=== PATIENT | male | born 1930 | race Asian ===

== ENCOUNTER 2019-10-13 12:29 | Inpatient (IN) | payer MEDICARE, MEDICAID ==
[2019-10-13] VITALS (17 sets, daily range): BP systolic 70–131; BP diastolic 31–90
[~2019-10-13] VITALS: Ht 162.6 cm; Wt 61.2 kg
--- NOTE | 2019-10-13 13:53 | Diagnostic Imaging Report ---
Indication: Shortness of breath Technique: One view of the chest Comparison: none Findings: Inspiration is suboptimal. The lungs and pleural spaces are clear. Heart size is normal Impression: No acute process
[2019-10-13] MEDS ORDERED: Acetaminophen 650 MG SUPP RECTAL ONE ×2 (14:04→14:15)
[2019-10-13 14:07] LABS: APPEARANCE,URINE SLIGHTLY CLOUDY; BILIRUBIN, URINE NEGATIVE (NEGATIVE); GLUCOSE, URINE (UA) NEGATIVE (NEGATIVE); KETONES,URINE 1+ (NEGATIVE); LEUKOCYTE ESTERASE ,URINE 3+ (NEGATIVE); NITRITE,URINE NEGATIVE (NEGATIVE); PH,URINE 5 (4.5-8.0); PROTEIN,URINE 2+ (NEGATIVE); UROBILINOGEN,URINE NORMAL MG/DL (0.0-1.0)
[2019-10-13 14:15] LABS: COLOR,URINE YELLOW; HEMATOCRIT 36.8 % (42.0-52.0); MEAN CORPUSCULAR VOLUME 93 FL (80-99); PLATELET COUNT 122 K/UL (150-450); RED BLOOD COUNT 3.98 M/UL (4.70-6.10); RED CELL DISTRIBUTION WIDTH 12.3 % (11.6-14.8)
[2019-10-13 14:17] LABS: ANION GAP 18 mmol/L (5-15); BLOOD UREA NITROGEN 42 mg/dL (7-18); CALCIUM 9.3 MG/DL (8.5-10.1); CARBON DIOXIDE 19 MMOL/L (21-32); CHLORIDE 107 MMOL/L (98-107); SODIUM 144 MMOL/L (136-145)
[2019-10-13 14:23] LABS: WHITE BLOOD COUNT 23.3 K/UL (4.8-10.8)
[2019-10-13 14:30] LABS: ALANINE AMINOTRANSFERASE 19 U/L (12-78); ALBUMIN 3.3 G/DL (3.4-5.0); ALBUMIN/GLOBULIN RATIO 1.1 (1.0-2.7); ALKALINE PHOSPHATASE 59 U/L (46-116); ASPARTATE AMINO TRANSFERASE 20 U/L (15-37); BILIRUBIN,DIRECT 0.3 MG/DL (0.0-0.3); BILIRUBIN,TOTAL 1.1 MG/DL (0.2-1.0); CKMB 0.8 NG/ML (0.0-3.6); CREATINE KINASE 213 U/L (26-308)
[2019-10-13] MEDS ORDERED: cefTRIAXone 1 GM in NS 55 ML IVPB ONE (14:30)
--- NOTE | 2019-10-13 15:02 | Emergency Room Report ---
History of Present Illness General Chief Complaint: General Complaint Source: EMS (Sammy Shafer M.D.) Present Illness HPI 89-year-old male disclaimer: Please note that this report is being documented using [employer] technology. This can lead to erroneous entry secondary to incorrect interpretation by the dictating instrument. HPI: 89-year-old male history of dementia presented from home for hypotension. Apparently family checked patient's blood pressure was low, EMS was called. Family reports dementia at baseline. No reported cough or shortness of breath. No further history obtainable due to patient's baseline altered mental status. PMH: Dementia PSH: Reviewed Social Hx: Unknown (Sammy Shafer M.D.) Allergies: Coded Allergies: No Known Allergies (Unverified , 10/13/19) COVID-19 Screening Contact w/high risk pt: No Recent Travel to affected area: No Experienced COVID-19 symptoms?: Yes COVID-19 symptoms experienced: Fever (T>100.4F or >38C) (Sammy Shafer M.D.) Patient History Reviewed Nursing Documentation: PMH: Agreed; PSxH: Agreed (Sammy Shafer M.D.) Nursing Documentation-PMH History Of Psychiatric Problem: Yes - DEMENTIA (Sammy Shafer M.D.) Review of Systems All Other Systems: limited - Limited due to patient's history of dementia (Sammy Shafer M.D.) Physical Exam Vital Signs Date Time Temp Pulse Resp B/P (MAP) Pulse Ox O2 Delivery O2 Flow Rate FiO2 10/13/19 12:17 100.0 88 18 70/40 (50) Room Air Sp02 EP Interpretation: reviewed, normal General Appearance: other - Elderly-appearing, Chronically Ill Head: normocephalic, atraumatic Eyes: bilateral eye PERRL, bilateral eye EOMI ENT: hearing grossly normal, moist mucus membranes Neck: full range of motion, supple Respiratory: lungs clear, normal breath sounds, no rhonchi, no respiratory distress, no retraction, no wheezing Cardiovascular #1: normal peripheral pulses, regular rate, rhythm, no murmur Gastrointestinal: non tender, soft, non-distended, no guarding Neurologic: alert, no focal defects, other - Alert and oriented x2, no focal neurologic deficits appreciated. Skin: normal color, warm/dry (Sammy Shafer M.D.) Procedures Critical Care Time Critical Care Time Critical care is made on the patient due to presentation with sepsis requiring my acute intervention. Critical care is approximately 38 minutes and excludes procedures (Sammy Shafer M.D.) Central Line Central Line : Consent: Emergent Central Line Lumen: triple Maximal Sterile Barrier Tech: yes cap, yes mask, yes sterile gown, yes sterile gloves, yes large sterile sheet, yes hand hygiene, yes chlorhexidine prep Central Line Postion: femoral (R) Anesthesia: Lidocaine cc's of anesthesia: 5 Complications: none Central Line Post Position: sutured, good blood return Attempts: One Patient Tolerated: Well Complications: None (Jose Vila MD) Medical Decision Making Diagnostic Impression: Primary Impression: UTI (urinary tract infection) Additional Impression: Septic shock ER Course Patient presented from home due to hypotensio differential diagnosis included but not limited to sepsis, UTI, dehydration, kidney failure to name a few.n urinalysis demonstrated evidence of UTI with too numerous to count WBCs. Rocephin was given. IV fluid bolus given with improvement of blood pressure. Lactate elevated to 8. White blood cell count elevated as well. Due to patient 's leukocytosis with elevated lactate concern for sepsis will admit to the ICU. Patient admitted to the hospitalist. Laboratory Tests Test 10/13/19 13:30 White Blood Count 23.3 K/UL (4.8-10.8) *H Red Blood Count 3.98 M/UL (4.70-6.10) L Hemoglobin 13.0 G/DL (14.2-18.0) L Hematocrit 36.8 % (42.0-52.0) L Mean Corpuscular Volume 93 FL (80-99) Mean Corpuscular Hemoglobin 32.7 PG (27.0-31.0) H Mean Corpuscular Hemoglobin Concent 35.3 G/DL (32.0-36.0) Red Cell Distribution Width 12.3 % (11.6-14.8) Platelet Count 122 K/UL (150-450) L Mean Platelet Volume 5.7 FL (6.5-10.1) L Neutrophils (%) (Auto) % (45.0-75.0) Lymphocytes (%) (Auto) % (20.0-45.0) Monocytes (%) (Auto) % (1.0-10.0) Eosinophils (%) (Auto) % (0.0-3.0) Basophils (%) (Auto) % (0.0-2.0) Neutrophils % (Manual) Pending Lymphocytes % (Manual) Pending Platelet Estimate Pending Platelet Morphology Pending Prothrombin Time 11.0 SEC (9.30-11.50) Prothrombin Time INR 1.0 (0.9-1.1) Activated Partial Thromboplast Time 23 SEC (23-33) Urine Color Yellow Urine Appearance Slightly cloudy Urine pH 5 (4.5-8.0) Urine Specific [place] 1.015 (1.005-1.035) Urine Protein 2+ (NEGATIVE) H Urine Glucose (UA) Negative (NEGATIVE) Urine Ketones 1+ (NEGATIVE) H Urine Blood 3+ (NEGATIVE) H Urine Nitrite Negative (NEGATIVE) Urine Bilirubin Negative (NEGATIVE) Urine Urobilinogen Normal MG/DL (0.0-1.0) Urine Leukocyte Esterase 3+ (NEGATIVE) H Urine RBC 5-10 /HPF (0 - 0) H Urine WBC Tntc /HPF (0 - 0) H Urine Squamous Epithelial Cells Few /LPF (NONE/OCC) Urine Bacteria Few /HPF (NONE) Sodium Level 144 MMOL/L (136-145) Potassium Level 3.0 MMOL/L (3.5-5.1) L Chloride Level 107 MMOL/L (98-107) Carbon Dioxide Level 19 MMOL/L (21-32) L Anion Gap 18 mmol/L (5-15) H Blood Urea Nitrogen 42 mg/dL (7-18) H Creatinine 2.0 MG/DL (0.55-1.30) H Estimated Glomerular Filtration Rate 31.7 mL/min (>60) Glucose Level 160 MG/DL (74-106) H Lactic Acid Level 8.40 mmol/L (0.4-2.0) H Calcium Level 9.3 MG/DL (8.5-10.1) Magnesium Level 1.4 MG/DL (1.8-2.4) L Total Bilirubin 1.1 MG/DL (0.2-1.0) H Direct Bilirubin 0.3 MG/DL (0.0-0.3) Aspartate Amino Transferase (AST) 20 U/L (15-37) Alanine Aminotransferase (ALT) 19 U/L (12-78) Alkaline Phosphatase 59 U/L (46-116) Total Creatine Kinase 213 U/L (26-308) Creatine Kinase MB 0.8 NG/ML (0.0-3.6) Creatine Kinase MB Relative Index 0.3 Troponin I 0.034 ng/mL (0.000-0.056) Total Protein 6.2 G/DL (6.4-8.2) L Albumin 3.3 G/DL (3.4-5.0) L Globulin 2.9 g/dL Albumin/Globulin Ratio 1.1 (1.0-2.7) (Sammy Shafer M.D.) ER Course Patient was endorsed me by Dr. Shafer pending admission. Was noted decreased blood pressure and so a central venous catheter was placed. Patient was started on IV fluid bolus and given pressors. Patient had previously been admitted to Dr. Reyes. Labs Test 10/13/19 13:30 10/13/19 16:15 White Blood Count 23.3 K/UL (4.8-10.8) Red Blood Count 3.98 M/UL (4.70-6.10) Hemoglobin 13.0 G/DL (14.2-18.0) Hematocrit 36.8 % (42.0-52.0) Mean Corpuscular Volume 93 FL (80-99) Mean Corpuscular Hemoglobin 32.7 PG (27.0-31.0) Mean Corpuscular Hemoglobin Concent 35.3 G/DL (32.0-36.0) Red Cell Distribution Width 12.3 % (11.6-14.8) Platelet Count 122 K/UL (150-450) Mean Platelet Volume 5.7 FL (6.5-10.1) Neutrophils (%) (Auto) % (45.0-75.0) Lymphocytes (%) (Auto) % (20.0-45.0) Monocytes (%) (Auto) % (1.0-10.0) Eosinophils (%) (Auto) % (0.0-3.0) Basophils (%) (Auto) % (0.0-2.0) Differential Total Cells Counted 100 Neutrophils % (Manual) 78 % (45-75) Lymphocytes % (Manual) 7 % (20-45) Monocytes % (Manual) 6 % (1-10) Eosinophils % (Manual) 0 % (0-3) Basophils % (Manual) 2 % (0-2) Band Neutrophils 7 % (0-8) Platelet Estimate Decreased Platelet Morphology Normal Red Blood Cell Morphology Normal Prothrombin Time 11.0 SEC (9.30-11.50) Prothromb Time International Ratio 1.0 (0.9-1.1) Activated Partial Thromboplast Time 23 SEC (23-33) Urine Color Yellow Urine Appearance Slightly cloudy Urine pH 5 (4.5-8.0) Urine Specific [place] 1.015 (1.005-1.035) Urine Protein 2+ (NEGATIVE) Urine Glucose (UA) Negative (NEGATIVE) Urine Ketones 1+ (NEGATIVE) Urine Blood 3+ (NEGATIVE) Urine Nitrite Negative (NEGATIVE) Urine Bilirubin Negative (NEGATIVE) Urine Urobilinogen Normal MG/DL (0.0-1.0) Urine Leukocyte Esterase 3+ (NEGATIVE) Urine RBC 5-10 /HPF (0 - 0) Urine WBC Tntc /HPF (0 - 0) Urine Squamous Epithelial Cells Few /LPF (NONE/OCC) Urine Bacteria Few /HPF (NONE) Sodium Level 144 MMOL/L (136-145) Potassium Level 3.0 MMOL/L (3.5-5.1) Chloride Level 107 MMOL/L (98-107) Carbon Dioxide Level 19 MMOL/L (21-32) Anion Gap 18 mmol/L (5-15) Blood Urea Nitrogen 42 mg/dL (7-18) Creatinine 2.0 MG/DL (0.55-1.30) Estimat Glomerular Filtration Rate 31.7 mL/min (>60) Glucose Level 160 MG/DL (74-106) Calcium Level 9.3 MG/DL (8.5-10.1) Magnesium Level 1.4 MG/DL (1.8-2.4) Total Bilirubin 1.1 MG/DL (0.2-1.0) Direct Bilirubin 0.3 MG/DL (0.0-0.3) Aspartate Amino Transf (AST/SGOT) 20 U/L (15-37) Alanine Aminotransferase (ALT/SGPT) 19 U/L (12-78) Alkaline Phosphatase 59 U/L (46-116) Total Creatine Kinase 213 U/L (26-308) Creatine Kinase MB 0.8 NG/ML (0.0-3.6) Creatine Kinase MB Relative Index 0.3 Troponin I 0.034 ng/mL (0.000-0.056) Total Protein 6.2 G/DL (6.4-8.2) Albumin 3.3 G/DL (3.4-5.0) Globulin 2.9 g/dL Albumin/Globulin Ratio 1.1 (1.0-2.7) Lactic Acid Level 7.20 mmol/L (0.66-2.22) (Jose Vila MD) Rhythm Strip Diag. Results EP Interpretation: yes (Sammy Shafer M.D.) Chest X-Ray Diagnostic Results Chest X-Ray Diagnostic Results : Chest X-Ray Ordered: Yes # of Views/Limited/Complete: 1 View Indication: Other - Hypertension Interpretation: no consolidation, no effusion, no pneumothorax Impression: No acute disease (Sammy Shafer M.D.) Last Vital Signs Date Time Temp Pulse Resp B/P (MAP) Pulse Ox O2 Delivery O2 Flow Rate FiO2 10/13/19 12:17 100.0 88 18 70/40 (50) Room Air Status: improved (Sammy Shafer M.D.) Status: unchanged (Jose Vila MD) Disposition: ADMITTED INPATIENT Condition: Critical Referrals: NOT CHOSEN [place]/,REFERRING (PCP) Sammy Shafer M.D. Oct 13, 2019 15:02 Jose Vila MD Oct 13, 2019 17:44
[2019-10-13] MEDS ORDERED: SINEMET 25-1001 EAC1 ORAL (15:57)
[2019-10-13] MEDS ORDERED: METFORMIN HCL500 M1 ORAL (15:57)
[2019-10-13] MEDS ORDERED: CREON DR 36,001 EACH PO (15:57)
[2019-10-13] MEDS ORDERED: NAMZARIC 14 MG1 EACH PO (15:57)
[2019-10-13] MEDS ORDERED: PROSCAR5 MG ORAL (15:57)
[2019-10-13] MEDS ORDERED: ATORVASTATIN CA20 MG ORAL (15:57)
[2019-10-13] MEDS ORDERED: BENICAR20 MG ORAL (15:57)
[2019-10-13] MEDS ORDERED: TERAZOSIN HCL1 MG ORAL (15:57)
[2019-10-13] MEDS ORDERED: ASPIR 8181 MG ORAL (15:57)
[2019-10-13] MEDS ORDERED: LORATADINE10 M1 PO (15:57)
[2019-10-13] MEDS ORDERED: Lidocaine 1% 10mg/ml/Epi 0.005mg/ml 30ml vial INJ ONE (17:00)
[2019-10-13] MEDS ORDERED: Lidocaine 1% MPF 10mg/ml 5ml ONE (17:14)
[2019-10-13] MEDS: D5NS 1,000 ML IV SCH (20:24)
[2019-10-13] MEDS: Heparin 5000 units/ml inj SUBQ SCH (21:27)
[2019-10-13] MEDS ORDERED: Piperacillin/Tazobactam 3.375 GM in NS 110 ML IVPB SCH (22:00)
--- NOTE | 2019-10-13 23:29 | History and Physical Report ---
DATE OF ADMISSION: 10/13/2019 HISTORY OF PRESENT ILLNESS: Septic shock and altered mental status. HISTORY OF PRESENT ILLNESS: This is an 89-year-old male. He has a history of hypertensive heart disease. He also has a history of once every 1 to 2 years. He has had a CT scan he has been weak. On the day of transfer here, he was markedly more weak than last week. He was brought in to the emergency room. On evaluation there, the patient was hypotensive. He had a white count of 23,000, elevated lactic acid level of 8.4, and creatinine of 2. He was bolused with intravenous fluids without any improvement in blood pressure. ER physician placed a central line and started the patient on Levophed. Urinalysis is consistent with a UTI. He was admitted for further evaluation and care. He is unable to provide any history . PAST MEDICAL HISTORY: and cholecystectomy. CURRENT MEDICATIONS: Reconciled and reviewed. ALLERGIES: None. FAMILY HISTORY: None. SOCIAL HISTORY: There is no known history of tobacco, ethanol, or drugs. REVIEW OF SYSTEMS: Unobtainable as the patient is nonverbal. PHYSICAL EXAMINATION: VITAL SIGNS: Temperature 98, pulse 98, respirations 25, blood pressure 109/74. GENERAL: The patient is a chronically ill-appearing, elderly male, in no apparent distress. He is poorly responsive. NECK: Supple. HEART: Regular rate and rhythm. LUNGS: Clear. ABDOMEN: Soft, nontender, nondistended. EXTREMITIES: Without clubbing or cyanosis. SKIN: The patient has a few excoriations noted. LABORATORY DATA: UA showed too numerous to count wbc's. White count 23,000, hemoglobin 13, platelet count of 122,000. Coags are normal. Sodium 144, potassium 3, chloride 107, bicarb 19, BUN 42, creatinine was 2. Lactic acid was 8.4. Total bilirubin of 1.1. Mag was 1.4. Chest x-ray is clear. ASSESSMENT: This is an elderly male with a history of hypertensive heart disease, chronic history of gallstones, and cholangitis, admitted with complaints of septic shock secondary to urinary tract infection. PLAN: IV pressors. IV fluids. Replace electrolytes. Broad-spectrum IV antibiotics. Follow up cultures. The patient's status is currently critical and guarded. This has been discussed with the patient's daughter. The patient does have an advance directive for Do Not Resuscitate. Family will respect his wishes. The patient's prognosis is currently is guarded. He is currently critical. Dax Reyes M.D. DR: Jonah JOB#: [id number] CC:
[2019-10-14] VITALS (39 sets, daily range): BP systolic 72–158; BP diastolic 33–101
[2019-10-14] MEDS: D5NS 1,000 ML IV SCH ×3 (03:16→20:04)
[2019-10-14 06:53] LABS: BASOPHILS % (AUTO) 0.4 % (0.0-2.0); EOSINOPHILS % (AUTO) 0.6 % (0.0-3.0); HEMATOCRIT 28.3 % (42.0-52.0); HEMOGLOBIN 10.2 G/DL (14.2-18.0); LYMPHOCYTES % (AUTO) 8.1 % (20.0-45.0); MEAN CORPUSCULAR VOLUME 91 FL (80-99); MONOCYTES % (AUTO) 6.2 % (1.0-10.0); NEUTROPHILS % (AUTO) 84.8 % (45.0-75.0); PLATELET COUNT 116 K/UL (150-450); RED BLOOD COUNT 3.12 M/UL (4.70-6.10); WHITE BLOOD COUNT 17.9 K/UL (4.8-10.8)
[2019-10-14 07:18] LABS: ANION GAP 11 mmol/L (5-15); BLOOD UREA NITROGEN 27 mg/dL (7-18); CALCIUM 7.8 MG/DL (8.5-10.1); CARBON DIOXIDE 21 MMOL/L (21-32); CHLORIDE 112 MMOL/L (98-107); CREATININE 0.9 MG/DL (0.55-1.30); POTASSIUM 3.6 MMOL/L (3.5-5.1); SODIUM 143 MMOL/L (136-145)
[2019-10-14 07:24] LABS: ALANINE AMINOTRANSFERASE 22 U/L (12-78); ALBUMIN 2.6 G/DL (3.4-5.0); ALKALINE PHOSPHATASE 47 U/L (46-116); ASPARTATE AMINO TRANSFERASE 33 U/L (15-37); BILIRUBIN,TOTAL 0.8 MG/DL (0.2-1.0)
[2019-10-14] MEDS: Heparin 5000 units/ml inj SUBQ SCH ×2 (09:00→20:04)
--- NOTE | 2019-10-14 09:46 | General Progress Note ---
Assessment/Plan Problem List: (1) Artificial pacemaker ICD Codes: Z95.0 - Presence of cardiac pacemaker SNOMED: 976235691 (2) Suspected COVID-19 virus infection ICD Codes: R68.89 - Other general symptoms and signs SNOMED: 030031337 (3) Septic shock ICD Codes: A41.9 - Sepsis, unspecified organism; R65.21 - Severe sepsis with septic shock SNOMED: 76859719 (4) Sepsis ICD Codes: A41.9 - Sepsis, unspecified organism SNOMED: 96501792 (5) UTI (urinary tract infection) ICD Codes: N39.0 - Urinary tract infection, site not specified SNOMED: 53904830 Status: stable Assessment/Plan: Continue IV fluids. Broad-spectrum IV antibiotics. Follow-up pending cultures. ID consultation is currently pending. Wean pressors. Monitor renal function electrolytes and lactic acid level. DVT and stress ulcer prophylaxis. Patient status remains critical and guarded but improved compared to yesterday. Plan of care has been discussed with the patient's daughter. Continue ICU level care. Subjective ROS Limited/Unobtainable: Yes Constitutional: Reports: fever, malaise, weakness HEENT: Reports: no symptoms Cardiovascular: Reports: no symptoms Respiratory: Reports: no symptoms Gastrointestinal/Abdominal: Reports: no symptoms Genitourinary: Reports: no symptoms Neurologic/Psychiatric: Reports: no symptoms Endocrine: Reports: no symptoms Hematologic/Lymphatic: Reports: anemia Allergies: Coded Allergies: No Known Allergies (Unverified , 10/13/19) All Systems: reviewed and negative except above Subjective There have been no overnight events. Patient is now admitted to the intensive care unit. He remains on Levophed. The RN is currently weaning the Levophed down. No fevers. No shortness of breath. Patient appears more comfortable than yesterday. No distress. Labs were reviewed. Objective Last 24 Hour Vital Signs Date Time Temp Pulse Resp B/P (MAP) Pulse Ox O2 Delivery O2 Flow Rate FiO2 10/14/19 06:29 Room Air 10/14/19 06:00 97.1 61 18 127/54 98 Room Air 10/14/19 05:52 127/54 10/14/19 05:52 97.1 61 18 127/54 98 Room Air 10/14/19 04:52 97.2 61 16 116/57 98 Room Air 10/14/19 04:52 116/57 10/14/19 03:52 64 16 137/57 98 Room Air 10/14/19 03:52 137/57 10/14/19 02:52 131/55 10/14/19 02:52 64 16 131/55 98 Room Air 10/14/19 02:37 68 16 121/51 98 Room Air 10/14/19 02:37 121/51 10/14/19 02:32 65 16 91/50 98 Room Air 10/14/19 02:32 91/50 10/14/19 02:27 74 16 132/62 99 Room Air 10/14/19 02:27 132/62 10/14/19 01:27 97.5 66 16 129/62 98 Room Air 10/14/19 01:27 129/62 10/14/19 00:35 97.3 61 17 117/47 99 Room Air 10/14/19 00:35 117/47 10/13/19 23:35 109/54 10/13/19 23:35 97.4 68 20 109/54 98 Room Air 10/13/19 22:35 97.5 71 20 115/57 98 Room Air 10/13/19 22:35 115/57 10/13/19 21:25 131/51 10/13/19 21:25 77 20 131/51 98 Room Air 10/13/19 21:20 130/52 10/13/19 21:20 98.2 75 20 130/52 98 Room Air 10/13/19 20:20 72 20 126/46 98 Room Air 10/13/19 20:20 126/46 10/13/19 19:20 98 25 113/55 98 Room Air 84 10/13/19 19:20 113/55 10/13/19 19:05 98 25 116/48 99 Room Air 10/13/19 19:05 116/48 10/13/19 19:00 87/49 10/13/19 19:00 97.4 82 25 87/49 98 Room Air 10/13/19 18:45 97.9 98 25 109/74 100 Room Air 10/13/19 18:15 107/50 10/13/19 18:10 88/51 10/13/19 18:05 75/45 10/13/19 17:30 97.9 19 105/50 100 Room Air 10/13/19 17:20 97.9 90 18 96/47 100 Room Air 10/13/19 16:40 97.9 80 18 82/90 100 Room Air 10/13/19 16:20 97.9 84 22 95/62 100 Room Air 10/13/19 15:20 100.1 84 22 111/31 100 Room Air 10/13/19 14:40 100.1 91 19 105/38 100 Room Air 10/13/19 14:35 97.4 10/13/19 13:55 100.1 87 22 83/57 100 Room Air 10/13/19 12:30 100.1 75 18 70/40 100 Room Air 10/13/19 12:30 75 18 Room Air 10/13/19 12:17 100.0 88 18 70/40 (50) Room Air Intake and Output 10/13/19 10/14/19 19:00 07:00 Output Total 100 ml 0 ml Balance -100 ml 0 ml Output Urine Total 100 ml 0 ml Laboratory Tests 10/13/19 13:30: White Blood Count 23.3*H, Red Blood Count 3.98L, Hemoglobin 13.0L, Hematocrit 36.8L, Mean Corpuscular Volume 93, Mean Corpuscular Hemoglobin 32.7H, Mean Corpuscular Hemoglobin Concent 35.3, Red Cell Distribution Width 12.3, Platelet Count 122L, Mean Platelet Volume 5.7L, Neutrophils (%) (Auto) , Lymphocytes (%) (Auto) , Monocytes (%) (Auto) , Eosinophils (%) (Auto) , Basophils (%) (Auto) , Differential Total Cells Counted 100, Neutrophils % (Manual) 78H, Lymphocytes % (Manual) 7L, Monocytes % (Manual) 6, Eosinophils % (Manual) 0, Basophils % ( Manual) 2, Band Neutrophils 7, Platelet Estimate DecreasedL, Platelet Morphology Normal, Red Blood Cell Morphology Normal, Prothrombin Time 11.0, Prothromb Time International Ratio 1.0, Activated Partial Thromboplast Time 23, Urine Color Yellow, Urine Appearance Slightly cloudy, Urine pH 5, Urine Specific [place] 1.015, Urine Protein 2+H, Urine Glucose (UA) Negative, Urine Ketones 1+H, Urine Blood 3+H, Urine Nitrite Negative, Urine Bilirubin Negative, Urine Urobilinogen Normal, Urine Leukocyte Esterase 3+H, Urine RBC 5-10H, Urine WBC TntcH, Urine Squamous Epithelial Cells Few, Urine Bacteria Few, Sodium Level 144, Potassium Level 3.0L, Chloride Level 107, Carbon Dioxide Level 19L, Anion Gap 18H, Blood Urea Nitrogen 42H, Creatinine 2.0H, Estimat Glomerular Filtration Rate 31.7, Glucose Level 160H, Lactic Acid Level 8.40H, Calcium Level 9.3, Magnesium Level 1.4L, Total Bilirubin 1.1H, Direct Bilirubin 0.3, Aspartate Amino Transf (AST/SGOT) 20, Alanine Aminotransferase (ALT/SGPT) 19, Alkaline Phosphatase 59, Total Creatine Kinase 213, Creatine Kinase MB 0.8, Creatine Kinase MB Relative Index 0.3, Troponin I 0.034, Total Protein 6.2L, Albumin 3.3L, Globulin 2.9, Albumin/Globulin Ratio 1.1 10/13/19 16:15: Lactic Acid Level 7.20H 10/13/19 22:55: Lactic Acid Level 3.70H 10/14/19 06:30: White Blood Count 17.9H, Red Blood Count 3.12L, Hemoglobin 10.2L, Hematocrit 28.3L, Mean Corpuscular Volume 91, Mean Corpuscular Hemoglobin 32.8H, Mean Corpuscular Hemoglobin Concent 36.1H, Red Cell Distribution Width 12.0, Platelet Count 116L, Mean Platelet Volume 6.0L, Neutrophils (%) (Auto) 84.8H, Lymphocytes (%) (Auto) 8.1L, Monocytes (%) (Auto) 6.2, Eosinophils (%) (Auto) 0.6, Basophils (%) (Auto) 0.4, Sodium Level 143, Potassium Level 3.6, Chloride Level 112H, Carbon Dioxide Level 21, Anion Gap 11, Blood Urea Nitrogen 27H, Creatinine 0.9#, Estimat Glomerular Filtration Rate > 60, Glucose Level 136H, Lactic Acid Level 3.30H, Calcium Level 7.8L, Total Bilirubin 0.8, Aspartate Amino Transf (AST/SGOT) 33, Alanine Aminotransferase (ALT/SGPT) 22, Alkaline Phosphatase 47, Total Protein 5.3L, Albumin 2.6L, Globulin 2.7, Albumin/ Globulin Ratio 1.0 Height (Feet): 5 Height (Inches): 4.00 Weight (Pounds): 159 General Appearance: WD/WN, alert Neck: supple Cardiovascular: normal rate Respiratory/Chest: chest wall non-tender, lungs clear, normal breath sounds, no respiratory distress Abdomen: normal bowel sounds, non tender, soft, no organomegaly Edema: no edema noted Arm (L), no edema noted Arm (R), no edema noted Leg (L), no edema noted Leg (R), no edema noted Pedal (L), no edema noted Pedal (R), no edema noted Generalized Neurologic: 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
[2019-10-14] MEDS: Pantoprazole Inj IVP SCH (10:21)
[2019-10-14] MEDS: Aspirin EC 81mg tab ORAL SCH (10:21)
[2019-10-14] MEDS: Piperacillin/Tazobactam 3.375 GM in NS 110 ML IVPB SCH ×2 (10:23→17:05)
--- NOTE | 2019-10-14 10:45 | History and Physical Report ---
DATE OF ADMISSION: 10/13/2019 HISTORY OF PRESENT ILLNESS: Septic shock and altered mental status. HISTORY OF PRESENT ILLNESS: This is an 89-year-old male. He has a history of hypertensive heart disease. He also has a history of cholangitis once every 1 to 2 years, he has had a CT scan. Family has noted that for the last several days, he has been weak. On the day of transfer here, he was markedly more weak than the last week. He was brought in to the emergency room. On evaluation there, the patient was hypotensive. He had a white count of 23,000, elevated lactic acid level of 8.4, and creatinine of 2. He was bolused with intravenous fluids without any improvement in blood pressure. ER physician placed a central line and started the patient on Levophed. Urinalysis is consistent with a UTI. The patient was admitted for further evaluation and care. He is unable to provide any history. PAST MEDICAL HISTORY: pacemaker and cholecystectomy. CURRENT MEDICATIONS: Reconciled and reviewed. ALLERGIES: None. FAMILY HISTORY: None. SOCIAL HISTORY: There is no known history of tobacco, ethanol, or drugs. REVIEW OF SYSTEMS: Unobtainable as the patient is nonverbal. PHYSICAL EXAMINATION: VITAL SIGNS: Temperature 98, pulse 98, respirations 25, blood pressure 109/74. GENERAL: The patient is a chronically ill-appearing, elderly male, in no apparent distress. He is poorly responsive. NECK: Supple. HEART: Regular rate and rhythm. LUNGS: Clear. ABDOMEN: Soft, nontender, nondistended. EXTREMITIES: Without clubbing or cyanosis. SKIN: The patient has a few excoriations on legs noted. LABORATORY DATA: UA showed too numerous to count wbc's. White count 23,000, hemoglobin 13, platelet count of 122,000. Coags are normal. Sodium 144, potassium 3, chloride 107, bicarb 19, BUN 42, creatinine was 2. Lactic acid was 8.4. Total bilirubin of 1.1. Magnesium was 1.4. chest x-ray is clear. ASSESSMENT: This is an elderly male with a history of hypertensive heart disease, chronic history of gallstones and cholangitis, admitted with complaints of septic shock secondary to urinary tract infection. PLAN: IV pressors. IV fluids. Replace electrolytes. Broad-spectrum IV antibiotics. Follow up cultures. The patient's status is currently critical and guarded. This has been discussed with the patient's daughter. The patient does have an advance directive for Do Not Resuscitate. Family will respect his wishes. The patient's prognosis currently is guarded. He is currently critical. Dax Reyes M.D. DR: Jonah JOB#: [id number] CC: ALEXIS
--- NOTE | 2019-10-14 16:00 | Consultation ---
DATE OF CONSULTATION: 10/14/2019 INFECTIOUS DISEASES CONSULTATION This consult is for coverage of Dr. Kennedy. CONSULTING PHYSICIAN: Chris Elizabeth MD. PRIMARY ATTENDING PHYSICIAN: Dax Reyes MD. HISTORY OF PRESENT ILLNESS: The patient is an 89-year-old male admitted yesterday from home with altered mental status. He was hypotensive with blood pressure 70/40 and low-grade fever of 100. In the ER, triple-lumen catheter was placed. The patient was started on pressor, antibiotic, and transferred to ICU. PAST MEDICAL HISTORY: Significant for dementia, hypertension. PAST SURGICAL HISTORY: Status post cholecystectomy. ALLERGIES: No known drug allergy. MEDICATIONS: Aspirin, Proscar, Zosyn, norepinephrine, heparin, get a dose of ceftriaxone in the ER, get a dose of magnesium sulfate in the ER. SOCIAL HISTORY: . No history of alcohol, drug abuse, or smoking. Lives at home. Code status is DNR/DNI. REVIEW OF SYSTEMS: Not obtainable. PHYSICAL EXAMINATION: VITAL SIGNS: Temperature 97.1, pulse 51, blood pressure 127/54, T-max is 100.1. GENERAL APPEARANCE: The patient is well developed. HEAD AND NECK: [place] conjunctiva. HEART: Normal rate. LUNGS: Clear. ABDOMEN: Soft. EXTREMITIES: No edema. He has right femoral triple-lumen catheter. LABORATORY AND DIAGNOSTIC DATA: WBC 7.9 coming down from 23.3 from yesterday, hemoglobin 10.2 coming down from 13 from yesterday, hematocrit 28.3, and platelets is 116. UA showed wbc's too numerous to count, rbc's 5 to 10, leukocyte esterase 3+, nitrite negative. Cultures are pending. Chest x-ray showed no acute process. IMPRESSION: Severe sepsis with septic shock, source of infection seems to be UTI, has dementia, hypertension, developed anemia and thrombocytopenia, has history of BPH. RECOMMENDATION: Continue Zosyn. We will follow up COVID-19 status. We will follow up blood culture and urine culture. At the end of my exam, I thank Dr. Reyes, for involving me in the care of this patient. Chris Elizabeth M.D. DR: Karina JOB#: [id number] CC:
[2019-10-15] VITALS (28 sets, daily range): BP systolic 97–149; BP diastolic 51–101
[2019-10-15] MEDS: Piperacillin/Tazobactam 3.375 GM in NS 110 ML IVPB SCH ×2 (00:01→08:54)
[2019-10-15] MEDS: Dyna-Hex 2% Top Sol 2oz TOPIC SCH ×2 (00:01→20:39)
--- NOTE | 2019-10-15 00:44 | Consultation ---
DATE OF CONSULTATION: 10/13/2019 CARDIOLOGY CONSULTATION CONSULTING PHYSICIAN: Tanmay Mayfield M.D. REQUESTING PHYSICIAN: Dax Reyes M.D. REASON FOR CONSULTATION: Shock. HISTORY OF PRESENT ILLNESS: This is an 89-year-old male with history of hypertensive heart disease, in the intensive care unit right now with hypotension. I have been asked to assist in cardiovascular care. The patient has a history of recurring cholangitis. He has been increasingly weak and lethargic over the day prior to admission. He was sent to the emergency room and was found to be hypotensive. He was bolused with IV fluids but did not improve. Signs of an acute infection were noted and pressors were initiated. PAST MEDICAL HISTORY: Includes prior cholecystectomy, recurring cholangitis, hypertensive heart disease. ALLERGIES: None. FAMILY HISTORY: Not known. MEDICATIONS: Reviewed and reconciled. SOCIAL HISTORY: No record of smoking, alcohol, or substance abuse. REVIEW OF SYSTEMS: Not obtainable. PHYSICAL EXAMINATION: VITAL SIGNS: Afebrile, blood pressure 109/74, pulse 98, respiratory rate 25. GENERAL: The patient is ill-appearing, poorly responsive. NECK: Supple. LUNGS: Clear. CARDIAC: Regular rhythm and rate. Normal S1, S2 with a 1/6 systolic murmur at base. ABDOMEN: Soft. No focal tenderness. EXTREMITIES: No edema. LABORATORY AND DIAGNOSTIC DATA: Urinalysis with too numerous to count white cells. White blood count 72550, hemoglobin 13. Sodium 144, potassium 3, chloride 107, bicarb 19, BUN 42, creatinine 2. Lactic acid is 8.4. Magnesium 1.4. Chest radiograph with no acute process. Chest x-ray with no acute process. EKG with sinus rhythm and nonspecific ST changes. IMPRESSION: 1. Sepsis with shock. 2. Urinary tract infection. 3. Lactic acidosis. 4. Hypertensive heart disease, now with shock 5. Acute renal failure. 6. Hypomagnesemia. 7. Hypovolemia. 8. Dehydration. 9. Hypokalemia. 10. Critical condition and guarded prognosis. PLAN: 1. Volume support. 2. Replace electrolytes. 3. Pressors as needed and taper as able. 4. IV antimicrobial. 5. DVT prophylaxis. 6. Imaging studies of the abdomen per primary care physician. 7. We will follow. Tanmay Mayfield M.D. DR: Celina JOB#: [id number] CC: ALEXIS
--- NOTE | 2019-10-15 00:44 | Progress Note ---
DATE: 10/14/2019 CARDIOLOGY PROGRESS NOTE SUBJECTIVE: The patient remains in the intensive care unit. Blood pressure parameters are improving. Taper off of pressors is continuing. Monitor with paced rhythm. OBJECTIVE: LUNGS: Clear. CARDIAC: Regular. Normal S1 and S2. ABDOMEN: Soft. EXTREMITIES: No edema. LABORATORY DATA: White count 17.9, hemoglobin 10. Lactic acid down to 3.3, BUN 27, creatinine 0.9. Urine culture with gram-positive cocci. IMPRESSION: 1. Sepsis. 2. Shock. 3. Urinary tract infection. 4. Lactic acidosis. 5. Dehydration. 6. Hypovolemia. 7. Hypomagnesemia. 8. Hypokalemia. 9. Acute on chronic renal failure. PLAN: 1. Continue hydration. 2. Taper off pressors. 3. Antimicrobials. 4. Await final cultures. 5. DVT prophylaxis. 6. Replace electrolytes as needed. Tanmay Mayfield M.D. DR: Celina JOB#: [id number] CC:
[2019-10-15] MEDS: D5NS 1,000 ML IV SCH (03:21)
[2019-10-15 05:45] LABS: BASOPHILS % (AUTO) 0.4 % (0.0-2.0); EOSINOPHILS % (AUTO) 1.7 % (0.0-3.0); HEMATOCRIT 25.7 % (42.0-52.0); HEMOGLOBIN 9.3 G/DL (14.2-18.0); LYMPHOCYTES % (AUTO) 11.9 % (20.0-45.0); MEAN CORPUSCULAR VOLUME 91 FL (80-99); MONOCYTES % (AUTO) 5.4 % (1.0-10.0); NEUTROPHILS % (AUTO) 80.6 % (45.0-75.0); PLATELET COUNT 101 K/UL (150-450); RED BLOOD COUNT 2.83 M/UL (4.70-6.10); RED CELL DISTRIBUTION WIDTH 12.2 % (11.6-14.8); WHITE BLOOD COUNT 10.3 K/UL (4.8-10.8)
[2019-10-15 06:03] LABS: ALANINE AMINOTRANSFERASE 33 U/L (12-78); ALBUMIN 2.3 G/DL (3.4-5.0); ALBUMIN/GLOBULIN RATIO 0.9 (1.0-2.7); ALKALINE PHOSPHATASE 41 U/L (46-116); ASPARTATE AMINO TRANSFERASE 33 U/L (15-37); BILIRUBIN,TOTAL 0.9 MG/DL (0.2-1.0); BLOOD UREA NITROGEN 13 mg/dL (7-18); CALCIUM 7.2 MG/DL (8.5-10.1); CARBON DIOXIDE 23 MMOL/L (21-32); CHLORIDE 113 MMOL/L (98-107); CREATININE 0.8 MG/DL (0.55-1.30); POTASSIUM 3.5 MMOL/L (3.5-5.1); SODIUM 145 MMOL/L (136-145)
[2019-10-15] MEDS: Aspirin EC 81mg tab ORAL SCH (08:54)
[2019-10-15] MEDS: Pantoprazole Inj IVP SCH (08:59)
[2019-10-15] MEDS: Heparin 5000 units/ml inj SUBQ SCH ×2 (09:00→21:00)
--- NOTE | 2019-10-15 10:58 | General Progress Note ---
Assessment/Plan Problem List: (1) Artificial pacemaker ICD Codes: Z95.0 - Presence of cardiac pacemaker SNOMED: 773560880 (2) Suspected COVID-19 virus infection ICD Codes: R68.89 - Other general symptoms and signs SNOMED: 245967154 (3) Septic shock ICD Codes: A41.9 - Sepsis, unspecified organism; R65.21 - Severe sepsis with septic shock SNOMED: 85152750 (4) Sepsis ICD Codes: A41.9 - Sepsis, unspecified organism SNOMED: 44160654 (5) UTI (urinary tract infection) ICD Codes: N39.0 - Urinary tract infection, site not specified SNOMED: 38983795 Status: stable Assessment/Plan: Continue current treatment. IV fluids. Broad-spectrum IV antibiotics. Follow- up cultures. Start p.o.'s. Swallow evaluation will be obtained. Stable and clinically improving. Subjective ROS Limited/Unobtainable: No Constitutional: Reports: malaise, weakness HEENT: Reports: no symptoms Cardiovascular: Reports: no symptoms Respiratory: Reports: no symptoms Gastrointestinal/Abdominal: Reports: no symptoms Genitourinary: Reports: no symptoms Neurologic/Psychiatric: Reports: no symptoms Endocrine: Reports: no symptoms Hematologic/Lymphatic: Reports: anemia Allergies: Coded Allergies: No Known Allergies (Unverified , 10/13/19) All Systems: reviewed and negative except above Subjective No overnight events. Patient is improved. Off Levophed. Remains on IV antibiotics. More alert. No fevers. Labs reviewed. Cardiology and ID appreciated Objective Last 24 Hour Vital Signs Date Time Temp Pulse Resp B/P (MAP) Pulse Ox O2 Delivery O2 Flow Rate FiO2 10/15/19 08:00 63 23 115/69 (84) 95 10/15/19 08:00 Nasal Cannula 2.0 10/15/19 07:00 56 19 129/62 (84) 99 10/15/19 06:00 58 20 115/57 (76) 99 10/15/19 05:00 55 19 127/69 (88) 100 10/15/19 04:00 56 10/15/19 04:00 Nasal Cannula 2.0 10/15/19 04:00 98.7 57 17 104/86 (92) 99 10/15/19 03:30 56 20 125/61 (82) 100 10/15/19 03:00 55 17 105/65 (78) 100 10/15/19 02:30 68 22 122/57 (78) 94 10/15/19 02:00 58 20 109/58 (75) 82 10/15/19 01:30 65 22 103/65 (78) 95 10/15/19 01:00 63 18 107/54 (71) 100 10/15/19 00:30 59 18 97/57 (70) 88 10/15/19 00:00 Room Air 10/15/19 00:00 121/61 10/15/19 00:00 99.0 51 18 121/61 (81) 99 10/15/19 00:00 60 10/14/19 23:30 103/79 10/14/19 23:30 78 20 123/101 (108) 97 10/14/19 23:00 132/57 10/14/19 23:00 78 20 123/101 (108) 97 10/14/19 22:30 53 14 132/57 (82) 97 10/14/19 22:30 132/57 10/14/19 22:00 106/52 10/14/19 22:00 61 16 106/52 (70) 96 10/14/19 21:30 58 13 106/49 (68) 97 10/14/19 21:30 98/78 10/14/19 21:00 158/61 10/14/19 21:00 58 10 158/61 (93) 97 10/14/19 20:52 59 10/14/19 20:30 57 11 131/64 (86) 97 10/14/19 20:30 131/64 10/14/19 20:14 131/64 10/14/19 20:00 131/64 10/14/19 20:00 Room Air 10/14/19 20:00 97.9 59 17 131/64 (86) 96 10/14/19 19:30 64 19 109/45 (66) 97 10/14/19 19:00 120/56 10/14/19 19:00 60 15 120/56 (77) 100 10/14/19 18:30 63 13 110/71 (84) 98 10/14/19 18:05 95/44 10/14/19 18:00 55 16 72/33 (46) 98 4/9/20 18:00 72/33 10/14/19 17:55 60/32 10/14/19 17:00 95/58 10/14/19 17:00 57 19 95/58 (70) 98 10/14/19 16:30 55 17 110/52 (71) 98 10/14/19 16:00 58 10/14/19 16:00 98.3 57 19 92/54 (67) 99 10/14/19 16:00 Room Air 10/14/19 15:30 57 18 95/59 (71) 98 10/14/19 15:00 57 18 101/53 (69) 98 10/14/19 14:30 74 22 101/53 (69) 97 10/14/19 14:00 59 15 85/37 (53) 98 10/14/19 13:30 62 15 101/53 (69) 99 10/14/19 13:00 62 15 97/61 (73) 98 10/14/19 12:30 60 16 104/56 (72) 99 10/14/19 12:00 63 10/14/19 12:00 Room Air 10/14/19 12:00 98.3 66 18 91/70 (77) 99 10/14/19 11:30 63 18 147/54 (85) 95 10/14/19 11:00 65 17 105/51 (69) 98 Intake and Output 10/14/19 10/15/19 19:00 07:00 Intake Total 1807.125 ml 1586.25 ml Output Total 250 ml 325 ml Balance 1557.125 ml 1261.25 ml Intake IV Total 1747.125 ml 1586.25 ml Other 60 ml Output Urine Total 250 ml 325 ml # Voids 1 1 Laboratory Tests 10/14/19 15:43: Lactic Acid Level 1.50 10/15/19 04:00: White Blood Count 10.3, Red Blood Count 2.83L, Hemoglobin 9.3L, Hematocrit 25.7L , Mean Corpuscular Volume 91, Mean Corpuscular Hemoglobin 33.1H, Mean Corpuscular Hemoglobin Concent 36.3H, Red Cell Distribution Width 12.2, Platelet Count 101L, Mean Platelet Volume 6.9, Neutrophils (%) (Auto) 80.6H, Lymphocytes (%) (Auto) 11.9L, Monocytes (%) (Auto) 5.4, Eosinophils (%) (Auto) 1.7, Basophils (%) (Auto) 0.4, Sodium Level 145, Potassium Level 3.5, Chloride Level 113H, Carbon Dioxide Level 23, Blood Urea Nitrogen 13, Creatinine 0.8, Estimat Glomerular Filtration Rate > 60, Glucose Level 219H, Calcium Level 7.2L , Magnesium Level 1.3L, Total Bilirubin 0.9, Aspartate Amino Transf (AST/SGOT) 33, Alanine Aminotransferase (ALT/SGPT) 33, Alkaline Phosphatase 41L, Troponin I 0.043, Total Protein 4.9L, Albumin 2.3L, Globulin 2.6, Albumin/Globulin Ratio 0.9L Height (Feet): 5 Height (Inches): 4.00 Weight (Pounds): 139 General Appearance: WD/WN, alert Neck: supple Cardiovascular: normal rate, regular rhythm Respiratory/Chest: chest wall non-tender, lungs clear, normal breath sounds, no respiratory distress Abdomen: normal bowel sounds, non tender, soft, no organomegaly Edema: no edema noted Arm (L), no edema noted Arm (R), no edema noted Leg (L), no edema noted Leg (R), no edema noted Pedal (L), no edema noted Pedal (R), no edema noted Generalized Dax Reyes MD Oct 15, 2019 10:58
--- NOTE | 2019-10-15 15:01 | Infectious Diseases Prog Note ---
Assessment/Plan Assessment/Plan antibiotics ; zosyn A 1. enterococcus UTI 2. gram positive sepsis 3. hypertension 4. dementia 5. BPH 6. covid 19 negative 4.8.20 P 1. start iv vancomycin 2. d/c zosyn 3. 2 d echo 4. will follow up cultures Subjective ROS Limited/Unobtainable: Yes Allergies: Coded Allergies: No Known Allergies (Unverified , 10/13/19) Objective Vital Signs Last 24 Hour Vital Signs Date Time Temp Pulse Resp B/P (MAP) Pulse Ox O2 Delivery O2 Flow Rate FiO2 10/15/19 14:00 75 24 110/77 (88) 88 10/15/19 13:00 67 26 131/62 (85) 96 10/15/19 12:00 59 10/15/19 12:00 Nasal Cannula 2.0 10/15/19 12:00 97.7 55 22 136/65 (88) 97 10/15/19 11:00 64 23 139/71 (93) 97 10/15/19 10:00 55 25 145/60 (88) 95 10/15/19 09:00 68 25 149/61 (90) 94 10/15/19 08:00 59 10/15/19 08:00 63 23 115/69 (84) 95 10/15/19 08:00 Nasal Cannula 2.0 10/15/19 07:45 97 Nasal Cannula 2.0 28 10/15/19 07:00 56 19 129/62 (84) 99 10/15/19 06:00 58 20 115/57 (76) 99 10/15/19 05:00 55 19 127/69 (88) 100 10/15/19 04:00 56 10/15/19 04:00 Nasal Cannula 2.0 10/15/19 04:00 98.7 57 17 104/86 (92) 99 10/15/19 03:30 56 20 125/61 (82) 100 10/15/19 03:00 55 17 105/65 (78) 100 10/15/19 02:30 68 22 122/57 (78) 94 10/15/19 02:00 58 20 109/58 (75) 82 10/15/19 01:30 65 22 103/65 (78) 95 10/15/19 01:00 63 18 107/54 (71) 100 10/15/19 00:30 59 18 97/57 (70) 88 10/15/19 00:00 Room Air 10/15/19 00:00 121/61 10/15/19 00:00 99.0 51 18 121/61 (81) 99 10/15/19 00:00 60 10/14/19 23:30 103/79 10/14/19 23:30 78 20 123/101 (108) 97 10/14/19 23:00 132/57 10/14/19 23:00 78 20 123/101 (108) 97 10/14/19 22:30 53 14 132/57 (82) 97 10/14/19 22:30 132/57 10/14/19 22:00 106/52 10/14/19 22:00 61 16 106/52 (70) 96 10/14/19 21:30 58 13 106/49 (68) 97 10/14/19 21:30 98/78 10/14/19 21:00 158/61 10/14/19 21:00 58 10 158/61 (93) 97 10/14/19 20:52 59 10/14/19 20:30 57 11 131/64 (86) 97 10/14/19 20:30 131/64 10/14/19 20:14 131/64 10/14/19 20:00 131/64 10/14/19 20:00 Room Air 10/14/19 20:00 97.9 59 17 131/64 (86) 96 10/14/19 19:30 64 19 109/45 (66) 97 10/14/19 19:00 120/56 10/14/19 19:00 60 15 120/56 (77) 100 10/14/19 18:30 63 13 110/71 (84) 98 10/14/19 18:05 95/44 10/14/19 18:00 55 16 72/33 (46) 98 10/14/19 18:00 72/33 10/14/19 17:55 60/32 10/14/19 17:00 95/58 10/14/19 17:00 57 19 95/58 (70) 98 10/14/19 16:30 55 17 110/52 (71) 98 10/14/19 16:00 58 10/14/19 16:00 98.3 57 19 92/54 (67) 99 4/9/20 16:00 Room Air 10/14/19 15:30 57 18 95/59 (71) 98 10/14/19 15:00 57 18 101/53 (69) 98 Height (Feet): 5 Height (Inches): 4.00 Weight (Pounds): 139 Respiratory/Chest: rhonchi - bilaterally Cardiovascular: normal rate, regular rhythm, no gallop/murmur Abdomen: soft, non tender Extremities: no edema, other - right groin catheter Microbiology Date/Time Source Procedure Growth Status 10/13/19 20:30 Blood Blood Culture - Preliminary Gram Positive Cocci Resulted 10/13/19 20:15 Blood Blood Culture - Preliminary Gram Positive Cocci Resulted 10/13/19 17:45 Nasal Nares MRSA Culture - Final NO METHICILLIN RESISTANT STAPH AUREUS... Complete 10/13/19 14:10 Nasopharynx Coronavirus COVID-19 PCR (SHARIFA) - Final Complete 10/13/19 13:30 Straight Cath Urine Culture - Final Enterococcus Faecalis Complete 10/13/19 17:45 Rectum - Final NO CARBAPENEM-RESISTANT ENTEROBACTERI... Complete 10/13/19 17:45 Rectum VRE Culture - Final NO VANCOMYCIN RESISTANT ENTEROCOCCUS ... Complete Laboratory Tests Test 10/14/19 15:43 10/15/19 04:00 Lactic Acid Level 1.50 mmol/L (0.4-2.0) White Blood Count 10.3 K/UL (4.8-10.8) Red Blood Count 2.83 M/UL (4.70-6.10) L Hemoglobin 9.3 G/DL (14.2-18.0) L Hematocrit 25.7 % (42.0-52.0) L Mean Corpuscular Volume 91 FL (80-99) Mean Corpuscular Hemoglobin 33.1 PG (27.0-31.0) H Mean Corpuscular Hemoglobin Concent 36.3 G/DL (32.0-36.0) H Red Cell Distribution Width 12.2 % (11.6-14.8) Platelet Count 101 K/UL (150-450) L Mean Platelet Volume 6.9 FL (6.5-10.1) Neutrophils (%) (Auto) 80.6 % (45.0-75.0) H Lymphocytes (%) (Auto) 11.9 % (20.0-45.0) L Monocytes (%) (Auto) 5.4 % (1.0-10.0) Eosinophils (%) (Auto) 1.7 % (0.0-3.0) Basophils (%) (Auto) 0.4 % (0.0-2.0) Sodium Level 145 MMOL/L (136-145) Potassium Level 3.5 MMOL/L (3.5-5.1) Chloride Level 113 MMOL/L (98-107) H Carbon Dioxide Level 23 MMOL/L (21-32) Blood Urea Nitrogen 13 mg/dL (7-18) Creatinine 0.8 MG/DL (0.55-1.30) Estimat Glomerular Filtration Rate > 60 mL/min (>60) Glucose Level 219 MG/DL (74-106) H Calcium Level 7.2 MG/DL (8.5-10.1) L Magnesium Level 1.3 MG/DL (1.8-2.4) L Total Bilirubin 0.9 MG/DL (0.2-1.0) Aspartate Amino Transf (AST/SGOT) 33 U/L (15-37) Alanine Aminotransferase (ALT/SGPT) 33 U/L (12-78) Alkaline Phosphatase 41 U/L (46-116) L Troponin I 0.043 ng/mL (0.000-0.056) Total Protein 4.9 G/DL (6.4-8.2) L Albumin 2.3 G/DL (3.4-5.0) L Globulin 2.6 g/dL Albumin/Globulin Ratio 0.9 (1.0-2.7) L Current Medications Medications (Trade) Dose Ordered Sig/Jaime Route PRN Reason Start Time Stop Time Status Last Admin Dose Admin Aspirin (Ecotrin) 81 mg DAILY ORAL 10/14/19 09:00 11/28/19 08:59 10/15/19 08:54 Chlorhexidine Gluconate (Darlin-Hex 2%) 1 applic DAILY@1999 TOPIC 10/14/19 20:00 01/12/20 19:59 10/15/19 00:01 Finasteride (Proscar) 5 mg DAILY ORAL 10/14/19 09:00 01/12/20 08:59 10/15/19 08:54 Heparin Sodium (Porcine) (Heparin 5000 units/ml) 5,000 units EVERY 12 HOURS SUBQ 10/13/19 21:00 11/27/19 20:59 10/13/19 21:27 Norepinephrine Bitartrate 4 mg/ Dextrose 250 ml @ 0 mls/hr Q24H IV 10/14/19 01:30 11/13/19 01:29 10/14/19 20:14 Piperacillin Sod/ Tazobactam Sod 3.375 gm/Sodium Chloride 110 ml @ 27.5 mls/hr Q8H IVPB 10/14/19 09:00 10/21/19 08:59 10/15/19 08:54 Liana Kennedy MD Oct 15, 2019 15:01
[2019-10-15] MEDS: Vancomycin 500 MG in NS 110 ML IVPB SCH (17:16)
[2019-10-16] VITALS (19 sets, daily range): BP systolic 127–157; BP diastolic 56–102
--- NOTE | 2019-10-16 00:29 | Progress Note ---
DATE: 10/15/2019 CARDIOLOGY PROGRESS NOTE SUBJECTIVE: The patient is off pressors. He remains in the intensive care unit. Prognosis remains guarded. Condition is still critical. OBJECTIVE: VITAL SIGNS: Blood pressure 115/69, heart rate 63, respiratory rate 23, afebrile. Monitored rhythm, paced. LUNGS: Bilateral breath sounds. No wheezing. CARDIAC: Regular rhythm and rate. Normal S1 and S2. A 1/6 systolic apical murmur. ABDOMEN: Soft. EXTREMITIES: Trace edema. IMPRESSION: 1. Sepsis with recovering shock. 2. COVID-19, pneumonia. 3. Hypertensive heart disease now with low-normal BP range. 4. Recovering sepsis due to urinary tract infection. 5. Hypomagnesemia. 6. Hypokalemia. 7. Severe protein-calorie malnutrition. 8. Resolved lactic acidosis. 9. Acute myocardial ischemia, resolved. PLAN: 1. Plan of care in place. 2. Continue intensive care unit management as previously outlined. 3. Hold anti-HTN meds. 4. Magnesium and potassium replacement ordered. Tanmay Mayfield M.D. DR: NATHALIA JOB#: [id number] CC: ALEXIS
[2019-10-16] MEDS: Vancomycin 500 MG in NS 110 ML IVPB SCH ×2 (05:01→17:02)
[2019-10-16] MEDS: Aspirin EC 81mg tab ORAL SCH (08:36)
[2019-10-16] MEDS: Heparin 5000 units/ml inj SUBQ SCH ×2 (08:36→20:54)
--- NOTE | 2019-10-16 11:40 | Infectious Diseases Prog Note ---
Assessment/Plan Assessment/Plan antibiotics ; vancomycin iv A 1. enterococcus UTI 2. + blood cultures with coag neg staph likely contaminated 3. hypertension 4. dementia 5. BPH 6. covid 19 negative 4.8.20 P 1. continue iv vancomycin 3 more days 2. 2 d echo pending 3. will follow up cultures Subjective ROS Limited/Unobtainable: Yes Allergies: Coded Allergies: No Known Allergies (Unverified , 10/13/19) Objective Vital Signs Last 24 Hour Vital Signs Date Time Temp Pulse Resp B/P (MAP) Pulse Ox O2 Delivery O2 Flow Rate FiO2 10/16/19 10:00 62 18 140/78 (98) 97 10/16/19 09:00 60 22 142/67 (92) 96 10/16/19 08:00 97.9 57 17 142/67 (92) 98 10/16/19 08:00 58 10/16/19 08:00 Room Air 10/16/19 07:00 56 22 141/66 (91) 96 10/16/19 06:00 56 22 147/71 (96) 99 10/16/19 05:00 55 21 157/72 (100) 98 10/16/19 04:00 59 10/16/19 04:00 Room Air 10/16/19 04:00 98.3 54 21 143/69 (93) 95 10/16/19 03:00 57 22 136/64 (88) 93 10/16/19 02:00 61 22 127/62 (83) 95 10/16/19 01:30 134/71 10/16/19 01:00 61 23 134/71 (92) 95 10/16/19 00:00 Room Air 10/16/19 00:00 58 10/16/19 00:00 97.9 59 22 151/65 (93) 95 10/15/19 23:00 55 22 139/71 (93) 95 10/15/19 22:00 57 22 118/67 (84) 95 10/15/19 21:00 64 21 133/101 (112) 95 10/15/19 20:00 61 10/15/19 20:00 98.1 70 22 130/70 (90) 95 10/15/19 20:00 Room Air 10/15/19 19:00 67 24 128/51 (76) 98 10/15/19 18:00 67 22 138/74 (95) 97 10/15/19 17:00 65 20 129/56 (80) 96 10/15/19 16:00 Nasal Cannula 2.0 10/15/19 16:00 61 10/15/19 16:00 97.7 60 22 138/57 (84) 100 10/15/19 15:00 65 29 119/99 (106) 96 10/15/19 14:00 75 24 110/77 (88) 88 10/15/19 13:00 67 26 131/62 (85) 96 10/15/19 12:00 59 10/15/19 12:00 Nasal Cannula 2.0 10/15/19 12:00 97.7 55 22 136/65 (88) 97 Height (Feet): 5 Height (Inches): 4.00 Weight (Pounds): 140 Respiratory/Chest: lungs clear Cardiovascular: normal rate, regular rhythm, no gallop/murmur Abdomen: soft, non tender Extremities: no edema, other - right groin catheter Microbiology Date/Time Source Procedure Growth Status 10/13/19 20:30 Blood Blood Culture - Preliminary Staphylococcus Sp Coag Neg Resulted 10/13/19 20:15 Blood Blood Culture - Preliminary Staphylococcus Sp Coag Neg Resulted 10/13/19 17:45 Nasal Nares MRSA Culture - Final NO METHICILLIN RESISTANT STAPH AUREUS... Complete 10/13/19 14:10 Nasopharynx Coronavirus COVID-19 PCR ([facility]IFA) - Final Complete 10/13/19 13:30 Straight Cath Urine Culture - Final Enterococcus Faecalis Complete 10/13/19 17:45 Rectum - Final NO CARBAPENEM-RESISTANT ENTEROBACTERI... Complete 10/13/19 17:45 Rectum VRE Culture - Final NO VANCOMYCIN RESISTANT ENTEROCOCCUS ... Complete Current Medications Medications (Trade) Dose Ordered Sig/Jaime Route PRN Reason Start Time Stop Time Status Last Admin Dose Admin Aspirin (Ecotrin) 81 mg DAILY ORAL 10/17/19 09:00 11/28/19 08:59 Chlorhexidine Gluconate (Darlin-Hex 2%) 1 applic DAILY@1999 TOPIC 10/16/19 20:00 01/12/20 19:59 Finasteride (Proscar) 5 mg DAILY ORAL 10/17/19 09:00 01/12/20 08:59 Heparin Sodium (Porcine) (Heparin 5000 units/ml) 5,000 units EVERY 12 HOURS SUBQ 10/16/19 21:00 11/27/19 20:59 Vancomycin HCl (Vanco rx to dose) 1 ea DAILY PRN MISC Per rx protocol 10/17/19 09:00 11/14/19 15:14 Vancomycin HCl 500 mg/Sodium Chloride 110 ml @ 110 mls/hr Q12HR@0500,1700 IVPB 10/16/19 17:00 10/20/19 16:59 Liana Kennedy MD Oct 16, 2019 11:40
--- NOTE | 2019-10-16 12:47 | General Progress Note ---
Assessment/Plan Problem List: (1) Artificial pacemaker ICD Codes: Z95.0 - Presence of cardiac pacemaker SNOMED: 746560608 (2) Suspected COVID-19 virus infection ICD Codes: R68.89 - Other general symptoms and signs SNOMED: 709243594 (3) Septic shock ICD Codes: A41.9 - Sepsis, unspecified organism; R65.21 - Severe sepsis with septic shock SNOMED: 93061099 (4) Sepsis ICD Codes: A41.9 - Sepsis, unspecified organism SNOMED: 96019709 (5) UTI (urinary tract infection) ICD Codes: N39.0 - Urinary tract infection, site not specified SNOMED: 49627459 Status: stable Assessment/Plan: Continue current treatment. IV fluids. Broad-spectrum IV antibiotics. Follow- up cultures. Start p.o.'s. Swallow evaluation will be obtained. Stable and clinically improving.Transfer to stepdown unit. Subjective ROS Limited/Unobtainable: No Constitutional: Reports: malaise, weakness HEENT: Reports: no symptoms Cardiovascular: Reports: no symptoms Respiratory: Reports: no symptoms Gastrointestinal/Abdominal: Reports: no symptoms Genitourinary: Reports: no symptoms Neurologic/Psychiatric: Reports: no symptoms Endocrine: Reports: no symptoms Hematologic/Lymphatic: Reports: no symptoms Allergies: Coded Allergies: No Known Allergies (Unverified , 10/13/19) All Systems: reviewed and negative except above Subjective Patient is improved. Sitting up in bed awake alert and following commands. Off pressors. Off oxygen. Remains on broad-spectrum IV antibiotics. ID cardiology input appreciated. Cultures reviewed discussed with night nurse. Does not need ICU level care. Objective Last 24 Hour Vital Signs Date Time Temp Pulse Resp B/P (MAP) Pulse Ox O2 Delivery O2 Flow Rate FiO2 10/16/19 10:00 62 18 140/78 (98) 97 10/16/19 09:00 60 22 142/67 (92) 96 10/16/19 08:00 97.9 57 17 142/67 (92) 98 10/16/19 08:00 58 10/16/19 08:00 Room Air 10/16/19 07:00 56 22 141/66 (91) 96 10/16/19 06:00 56 22 147/71 (96) 99 10/16/19 05:00 55 21 157/72 (100) 98 10/16/19 04:00 59 10/16/19 04:00 Room Air 10/16/19 04:00 98.3 54 21 143/69 (93) 95 10/16/19 03:00 57 22 136/64 (88) 93 10/16/19 02:00 61 22 127/62 (83) 95 10/16/19 01:30 134/71 10/16/19 01:00 61 23 134/71 (92) 95 10/16/19 00:00 Room Air 10/16/19 00:00 58 10/16/19 00:00 97.9 59 22 151/65 (93) 95 10/15/19 23:00 55 22 139/71 (93) 95 10/15/19 22:00 57 22 118/67 (84) 95 10/15/19 21:00 64 21 133/101 (112) 95 10/15/19 20:00 61 10/15/19 20:00 98.1 70 22 130/70 (90) 95 10/15/19 20:00 Room Air 10/15/19 19:00 67 24 128/51 (76) 98 10/15/19 18:00 67 22 138/74 (95) 97 10/15/19 17:00 65 20 129/56 (80) 96 10/15/19 16:00 Nasal Cannula 2.0 10/15/19 16:00 61 10/15/19 16:00 97.7 60 22 138/57 (84) 100 10/15/19 15:00 65 29 119/99 (106) 96 10/15/19 14:00 75 24 110/77 (88) 88 10/15/19 13:00 67 26 131/62 (85) 96 Intake and Output 10/15/19 10/16/19 19:00 07:00 Intake Total 710 ml 310 ml Output Total 570 ml 280 ml Balance 140 ml 30 ml Intake Oral 650 ml Free Water 60 ml IV Total 310 ml Output Urine Total 570 ml 280 ml # Bowel Movements 4 Height (Feet): 5 Height (Inches): 4.00 Weight (Pounds): 140 General Appearance: WD/WN, alert Neck: supple Cardiovascular: normal rate Respiratory/Chest: chest wall non-tender, lungs clear, normal breath sounds, no respiratory distress Abdomen: normal bowel sounds, non tender, soft, no organomegaly Edema: no edema noted Arm (L), no edema noted Arm (R), no edema noted Leg (L), no edema noted Leg (R), no edema noted Pedal (L), no edema noted Pedal (R), no edema noted Generalized Neurologic: dog groomer II-XII grossly normal, alert Dax Reyes MD Oct 16, 2019 12:47
[2019-10-16] MEDS: Dyna-Hex 2% Top Sol 2oz TOPIC SCH (20:53)
[2019-10-16] MEDS ORDERED: D5NS 1000ml IV ONE (21:11)
[2019-10-16] MEDS ORDERED: NS 275ml ONE (21:13)
[2019-10-17] VITALS (13 sets, daily range): BP systolic 136–155; BP diastolic 57–102
--- NOTE | 2019-10-17 01:00 | Progress Note ---
DATE: 10/16/2019 CARDIOLOGY PROGRESS NOTE SUBJECTIVE: The patient is awake, alert, up in bed, off pressors, off oxygen, no respiratory distress. Remains on antimicrobials. PHYSICAL EXAMINATION: VITAL SIGNS: Blood pressure 140/78, pulse 60, respiratory rate 22, afebrile. LUNGS: Bilateral breath sounds. Few rhonchi. CARDIAC: Regular rhythm and rate. Normal S1, S2. No new murmur. ABDOMEN: Soft. EXTREMITIES: Trace edema. Monitored rhythm is paced. LABORATORY DATA: Blood cultures are positive for coagulase-negative Staph. IMPRESSION: 1. Enterococcal urinary tract infection. 2. Possible coagulase-negative Staph bacteremia. 3. Hypertensive heart disease. 4. Recovered sepsis with shock. 5. Increased risk for endocarditis. PLAN: 1. Echocardiogram. 2. Maintenance hydration. 3. Antimicrobials. 4. Follow up surveillance blood cultures. 5. Reassess for resumption of antiHTN meds. Tanmay Mayfield M.D. DR: Celina JOB#: [id number] CC: ALEXIS
[2019-10-17] MEDS: Vancomycin 500 MG in NS 110 ML IVPB SCH (05:44)
[2019-10-17] MEDS: Heparin 5000 units/ml inj SUBQ SCH ×2 (08:33→20:25)
[2019-10-17] MEDS: Aspirin EC 81mg tab ORAL SCH (08:34)
--- NOTE | 2019-10-17 08:40 | General Progress Note ---
Assessment/Plan Problem List: (1) Artificial pacemaker ICD Codes: Z95.0 - Presence of cardiac pacemaker SNOMED: 290742844 (2) Suspected COVID-19 virus infection ICD Codes: R68.89 - Other general symptoms and signs SNOMED: 165406964 (3) Septic shock ICD Codes: A41.9 - Sepsis, unspecified organism; R65.21 - Severe sepsis with septic shock SNOMED: 76622146 (4) Sepsis ICD Codes: A41.9 - Sepsis, unspecified organism SNOMED: 25422649 (5) UTI (urinary tract infection) ICD Codes: N39.0 - Urinary tract infection, site not specified SNOMED: 22059927 Status: stable Assessment/Plan: Continue current treatment. IV fluids. Broad-spectrum IV antibiotics. Follow- up cultures. Start p.o.'s. Swallow evaluation will be obtained. Stable and clinically improving. monitor for falls. keep close to nurses station. therapy eval Subjective Constitutional: Reports: malaise, weakness HEENT: Reports: no symptoms Cardiovascular: Reports: no symptoms Respiratory: Reports: no symptoms Gastrointestinal/Abdominal: Reports: no symptoms Genitourinary: Reports: no symptoms Neurologic/Psychiatric: Reports: anxiety Endocrine: Reports: no symptoms Hematologic/Lymphatic: Reports: no symptoms Allergies: Coded Allergies: No Known Allergies (Unverified , 10/13/19) All Systems: reviewed and negative except above Subjective pt was found on the floor. no injuries. was trying to get out of bed. no head trauma. remains on iv abx. currently resting. no distress. Objective Last 24 Hour Vital Signs Date Time Temp Pulse Resp B/P (MAP) Pulse Ox O2 Delivery O2 Flow Rate FiO2 10/17/19 04:20 98.4 57 20 154/75 (101) 95 10/17/19 04:00 60 10/17/19 03:20 98.2 56 18 142/67 (92) 97 10/17/19 02:25 96.4 97 Room Air 10/17/19 02:20 98.2 56 18 149/73 (98) 95 10/17/19 01:20 98.4 65 18 136/66 (89) 96 10/17/19 00:20 97.5 54 17 144/66 (92) 97 10/17/19 00:00 57 10/16/19 23:50 98.1 55 18 139/72 (94) 96 10/16/19 23:20 98.7 78 18 141/78 (99) 94 10/16/19 22:50 98.5 72 19 145/84 (104) 95 10/16/19 22:20 96.4 71 20 152/102 (119) 97 10/16/19 21:00 Room Air 10/16/19 20:01 95 Room Air 21 10/16/19 20:00 97.3 81 19 127/56 (79) 96 10/16/19 20:00 67 10/16/19 16:00 64 10/16/19 16:00 97.1 64 21 156/72 (100) 97 10/16/19 16:00 Room Air 10/16/19 12:00 Room Air 10/16/19 12:00 97.6 54 19 142/70 (94) 97 10/16/19 12:00 52 10/16/19 10:00 62 18 140/78 (98) 97 10/16/19 09:00 60 22 142/67 (92) 96 Intake and Output 10/16/19 10/17/19 19:00 07:00 Intake Total 580 ml 110 ml Output Total 120 ml Balance 460 ml 110 ml Intake Oral 580 ml IV Total 0 ml 110 ml Output Urine Total 120 ml # Voids 2 # Bowel Movements 2 Laboratory Tests 10/17/19 04:00: Vancomycin Level Trough 7.4 Height (Feet): 5 Height (Inches): 4.00 Weight (Pounds): 140 Objective General Appearance: WD/WN, alert Neck: supple Cardiovascular: normal rate Respiratory/Chest: chest wall non-tender, lungs clear, normal breath sounds, no respiratory distress Abdomen: normal bowel sounds, non tender, soft, no organomegaly Edema: no edema noted Arm (L), no edema noted Arm (R), no edema noted Leg (L), no edema noted Leg (R), no edema noted Pedal (L), no edema noted Pedal (R), no edema noted 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
[2019-10-17 12:44] LABS: BASOPHILS % (AUTO) 0.6 % (0.0-2.0); EOSINOPHILS % (AUTO) 3.6 % (0.0-3.0); HEMATOCRIT 28.5 % (42.0-52.0); HEMOGLOBIN 10.3 G/DL (14.2-18.0); LYMPHOCYTES % (AUTO) 25.1 % (20.0-45.0); MEAN CORPUSCULAR VOLUME 89 FL (80-99); NEUTROPHILS % (AUTO) 62.7 % (45.0-75.0); PLATELET COUNT 103 K/UL (150-450); RED BLOOD COUNT 3.18 M/UL (4.70-6.10); RED CELL DISTRIBUTION WIDTH 11.3 % (11.6-14.8); WHITE BLOOD COUNT 6.8 K/UL (4.8-10.8)
--- NOTE | 2019-10-17 13:24 | Infectious Diseases Prog Note ---
Assessment/Plan Assessment/Plan A 1. Enterococcus UTI 2. + blood cultures with coag neg staph likely contaminated 3. hypertension 4. dementia 5. BPH 6. covid19 negative 4.8.20 P 1. continue iv vancomycin 2 more days 2. 2 d echo pending 3. will follow up cultures Subjective ROS Limited/Unobtainable: No Constitutional: Reports: no symptoms Respiratory: Reports: no symptoms Gastrointestinal/Abdominal: Reports: no symptoms Genitourinary: Reports: no symptoms Allergies: Coded Allergies: No Known Allergies (Unverified , 10/13/19) Objective Vital Signs Last 24 Hour Vital Signs Date Time Temp Pulse Resp B/P (MAP) Pulse Ox O2 Delivery O2 Flow Rate FiO2 10/17/19 12:00 63 10/17/19 12:00 98.8 58 20 144/77 (99) 97 10/17/19 11:20 98.5 58 20 145/77 (99) 98 10/17/19 09:00 Room Air 10/17/19 08:00 98.0 54 20 154/65 (94) 97 10/17/19 08:00 56 10/17/19 07:20 98.0 54 20 150/57 (88) 98 10/17/19 04:20 98.4 57 20 154/75 (101) 95 10/17/19 04:00 60 10/17/19 03:20 98.2 56 18 142/67 (92) 97 10/17/19 02:25 96.4 97 Room Air 10/17/19 02:20 98.2 56 18 149/73 (98) 95 10/17/19 01:20 98.4 65 18 136/66 (89) 96 10/17/19 00:20 97.5 54 17 144/66 (92) 97 10/17/19 00:00 57 10/16/19 23:50 98.1 55 18 139/72 (94) 96 10/16/19 23:20 98.7 78 18 141/78 (99) 94 10/16/19 22:50 98.5 72 19 145/84 (104) 95 10/16/19 22:20 96.4 71 20 152/102 (119) 97 10/16/19 21:00 Room Air 10/16/19 20:01 95 Room Air 21 10/16/19 20:00 97.3 81 19 127/56 (79) 96 10/16/19 20:00 67 10/16/19 16:00 64 10/16/19 16:00 97.1 64 21 156/72 (100) 97 10/16/19 16:00 Room Air Height (Feet): 5 Height (Inches): 4.00 Weight (Pounds): 140 General Appearance: no acute distress HEENT: mucous membranes moist Respiratory/Chest: lungs clear Cardiovascular: bradycardia Abdomen: soft, non tender Extremities: no edema Neurologic/Psychiatric: alert, responsive Laboratory Tests Test 10/17/19 04:00 10/17/19 12:00 Vancomycin Level Trough 7.4 ug/mL (5.0-12.0) White Blood Count 6.8 K/UL (4.8-10.8) Red Blood Count 3.18 M/UL (4.70-6.10) L Hemoglobin 10.3 G/DL (14.2-18.0) L Hematocrit 28.5 % (42.0-52.0) L Mean Corpuscular Volume 89 FL (80-99) Mean Corpuscular Hemoglobin 32.5 PG (27.0-31.0) H Mean Corpuscular Hemoglobin Concent 36.3 G/DL (32.0-36.0) H Red Cell Distribution Width 11.3 % (11.6-14.8) L Platelet Count 103 K/UL (150-450) L Mean Platelet Volume 6.8 FL (6.5-10.1) Neutrophils (%) (Auto) 62.7 % (45.0-75.0) Lymphocytes (%) (Auto) 25.1 % (20.0-45.0) Monocytes (%) (Auto) 8.0 % (1.0-10.0) Eosinophils (%) (Auto) 3.6 % (0.0-3.0) H Basophils (%) (Auto) 0.6 % (0.0-2.0) Sodium Level Pending Potassium Level Pending Chloride Level Pending Carbon Dioxide Level Pending Blood Urea Nitrogen Pending Creatinine Pending Estimat Glomerular Filtration Rate Pending Glucose Level Pending Calcium Level Pending Current Medications Medications (Trade) Dose Ordered Sig/Jaime Route PRN Reason Start Time Stop Time Status Last Admin Dose Admin Aspirin (Ecotrin) 81 mg DAILY ORAL 10/17/19 09:00 11/28/19 08:59 10/17/19 08:34 Chlorhexidine Gluconate (Darlin-Hex 2%) 1 applic DAILY@2000 TOPIC 10/16/19 20:00 01/12/20 19:59 10/16/19 20:53 Finasteride (Proscar) 5 mg DAILY ORAL 10/17/19 09:00 01/12/20 08:59 10/17/19 08:34 Heparin Sodium (Porcine) (Heparin 5000 units/ml) 5,000 units EVERY 12 HOURS SUBQ 10/16/19 21:00 11/27/19 20:59 Vancomycin HCl (Vanco rx to dose) 1 ea DAILY PRN MISC Per rx protocol 10/17/19 09:00 11/14/19 15:14 Vancomycin HCl 750 mg/Sodium Chloride 275 ml @ 183.333 mls/hr Q12H IVPB 10/17/19 14:00 10/22/19 13:59 Chris Elizabeth MD Oct 17, 2019 13:24
[2019-10-17 13:53] LABS: ANION GAP 11 mmol/L (5-15); BLOOD UREA NITROGEN 10 mg/dL (7-18); CALCIUM 8.4 MG/DL (8.5-10.1); CARBON DIOXIDE 22 MMOL/L (21-32); CHLORIDE 107 MMOL/L (98-107); CREATININE 0.7 MG/DL (0.55-1.30); POTASSIUM 3.7 MMOL/L (3.5-5.1); SODIUM 140 MMOL/L (136-145)
[2019-10-17] MEDS: Vancomycin 750mg/NS 275ml IVPB SCH ×2 (14:35)
[2019-10-17] MEDS: Dyna-Hex 2% Top Sol 2oz TOPIC SCH (23:13)
[2019-10-18] VITALS: BP 150/70
[2019-10-18] MEDS: Vancomycin 750mg/NS 275ml IVPB SCH ×4 (03:14→18:00)
[2019-10-18 04:00] VITALS: BP 142/70
--- NOTE | 2019-10-18 05:59 | Progress Note ---
DATE: 10/17/2019 CARDIOLOGY PROGRESS NOTE SUBJECTIVE: The patient is confused at times. He tried to get out of bed and was found on the floor without injury. Remains on antimicrobials. Remains NPO. Pending swallow evaluation. OBJECTIVE: VITAL SIGNS: Vitals revealed blood pressure 152/69, heart rate 62, respiratory rate 20, afebrile. LUNGS: Clear with occasional rhonchi. CARDIAC: Regular. Normal S1 and S2. ABDOMEN: Soft. EXTREMITIES: No edema. Paced rhythm noted. IMPRESSION: 1. Urinary tract infection. 2. Sepsis. 3. Recovered shock. 4. Endocarditis risk. 5. Coag-negative staph bacteremia. 6. Hypertensive heart disease with high normal blood pressure range. 7. Dysphagia. 8. Toxic encephalopathy. 9. Permanent pacemaker with stable function. PLAN: 1. Await echocardiogram. 2. Maintenance hydration. 3. Swallow evaluation. 4. Antimicrobials. 5. Follow up surveillance blood cultures. 6. Outpatient for pacemaker interrogation to follow. Tanmay Mayfield M.D. DR: NATHALIA JOB#: [id number] CC:
[2019-10-18 06:25] LABS: ALANINE AMINOTRANSFERASE 28 U/L (12-78); ALBUMIN 2.5 G/DL (3.4-5.0); ALKALINE PHOSPHATASE 58 U/L (46-116); ANION GAP 11 mmol/L (5-15); ASPARTATE AMINO TRANSFERASE 21 U/L (15-37); BILIRUBIN,TOTAL 1.1 MG/DL (0.2-1.0); BLOOD UREA NITROGEN 7 mg/dL (7-18); CALCIUM 7.7 MG/DL (8.5-10.1); CARBON DIOXIDE 24 MMOL/L (21-32); CHLORIDE 111 MMOL/L (98-107); CREATININE 0.7 MG/DL (0.55-1.30); POTASSIUM 3.4 MMOL/L (3.5-5.1); SODIUM 146 MMOL/L (136-145)
[2019-10-18 06:30] LABS: BILIRUBIN,DIRECT 0.3 MG/DL (0.0-0.3)
[2019-10-18 08:00] VITALS: BP 122/50
--- NOTE | 2019-10-18 08:07 | General Progress Note ---
Assessment/Plan Problem List: (1) Artificial pacemaker ICD Codes: Z95.0 - Presence of cardiac pacemaker SNOMED: 442963965 (2) Suspected COVID-19 virus infection ICD Codes: R68.89 - Other general symptoms and signs SNOMED: 238469222 (3) Septic shock ICD Codes: A41.9 - Sepsis, unspecified organism; R65.21 - Severe sepsis with septic shock SNOMED: 89849348 (4) Sepsis ICD Codes: A41.9 - Sepsis, unspecified organism SNOMED: 82472354 (5) UTI (urinary tract infection) ICD Codes: N39.0 - Urinary tract infection, site not specified SNOMED: 17696932 Status: stable Assessment/Plan: Continue current treatment. IV fluids. Broad-spectrum IV antibiotics. replace lytes. Follow-up cultures. Start p.o.'s. Swallow evaluation will be obtained. Stable and clinically improving. monitor for falls. keep close to nurses station. therapy eval. 2d echo Subjective ROS Limited/Unobtainable: No Constitutional: Reports: weakness HEENT: Reports: no symptoms Cardiovascular: Reports: no symptoms Respiratory: Reports: no symptoms Gastrointestinal/Abdominal: Reports: no symptoms Genitourinary: Reports: no symptoms Neurologic/Psychiatric: Reports: emotional problems Endocrine: Reports: no symptoms Hematologic/Lymphatic: Reports: no symptoms Allergies: Coded Allergies: No Known Allergies (Unverified , 10/13/19) All Systems: reviewed and negative except above Subjective no events. remains on iv abx. unsteady gait. no fevers or chills. no sob. no cough. d/w night rn Objective Last 24 Hour Vital Signs Date Time Temp Pulse Resp B/P (MAP) Pulse Ox O2 Delivery O2 Flow Rate FiO2 10/18/19 04:00 55 10/18/19 04:00 98.0 58 18 142/70 (94) 97 10/18/19 00:00 98.9 52 18 150/70 (96) 98 10/18/19 00:00 51 10/17/19 21:00 Room Air 10/17/19 20:00 97.2 67 20 142/60 (87) 97 10/17/19 16:00 59 10/17/19 16:00 98.3 64 20 155/69 (97) 97 10/17/19 15:20 98.5 62 20 152/69 (96) 97 10/17/19 12:00 63 10/17/19 12:00 98.8 58 20 144/77 (99) 97 10/17/19 11:20 98.5 58 20 145/77 (99) 98 10/17/19 09:00 Room Air Intake and Output 10/17/19 10/18/19 19:00 07:00 Intake Total 540 ml Output Total 300 ml Balance 240 ml Intake Oral 540 ml Output Urine Total 300 ml # Voids 2 Laboratory Tests 10/17/19 12:00: White Blood Count 6.8, Red Blood Count 3.18L, Hemoglobin 10.3L, Hematocrit 28.5L , Mean Corpuscular Volume 89, Mean Corpuscular Hemoglobin 32.5H, Mean Corpuscular Hemoglobin Concent 36.3H, Red Cell Distribution Width 11.3L, Platelet Count 103L, Mean Platelet Volume 6.8, Neutrophils (%) (Auto) 62.7, Lymphocytes (%) (Auto) 25.1, Monocytes (%) (Auto) 8.0, Eosinophils (%) (Auto) 3.6H, Basophils (%) (Auto) 0.6, Sodium Level 140, Potassium Level 3.7, Chloride Level 107, Carbon Dioxide Level 22, Anion Gap 11, Blood Urea Nitrogen 10, Creatinine 0.7, Estimat Glomerular Filtration Rate > 60, Glucose Level 159H, Calcium Level 8.4L 10/18/19 05:00: Sodium Level 146H, Potassium Level 3.4L, Chloride Level 111H, Carbon Dioxide Level 24, Anion Gap 11, Blood Urea Nitrogen 7, Creatinine 0.7, Estimat Glomerular Filtration Rate > 60, Glucose Level 97, Calcium Level 7.7L, Total Bilirubin 1.1H, Direct Bilirubin 0.3, Aspartate Amino Transf (AST/SGOT) 21, Alanine Aminotransferase (ALT/SGPT) 28, Alkaline Phosphatase 58, Total Protein 5.0L, Albumin 2.5L, Globulin 2.5, Albumin/Globulin Ratio 1.0 Height (Feet): 5 Height (Inches): 4.00 Weight (Pounds): 141 Objective General Appearance: WD/WN, alert Neck: supple Cardiovascular: normal rate Respiratory/Chest: chest wall non-tender, lungs clear, normal breath sounds, no respiratory distress Abdomen: normal bowel sounds, non tender, soft, no organomegaly Edema: no edema noted Arm (L), no edema noted Arm (R), no edema noted Leg (L), no edema noted Leg (R), no edema noted Pedal (L), no edema noted Pedal (R), no edema noted 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
[2019-10-18] MEDS: Heparin 5000 units/ml inj SUBQ SCH ×2 (09:00→20:20)
[2019-10-18] MEDS: Aspirin EC 81mg tab ORAL SCH (10:51)
--- NOTE | 2019-10-18 11:26 | Infectious Diseases Prog Note ---
Assessment/Plan Assessment/Plan antibiotics ; vancomycin iv A 1. enterococcus UTI 2. + blood cultures with coag neg staph likely contaminated 3. hypertension 4. dementia 5. BPH 6. covid 19 negative 4.8.20 P 1. continue iv vancomycin 1 more day 2. will follow up cultures Subjective ROS Limited/Unobtainable: Yes Allergies: Coded Allergies: No Known Allergies (Unverified , 10/13/19) Objective Vital Signs Last 24 Hour Vital Signs Date Time Temp Pulse Resp B/P (MAP) Pulse Ox O2 Delivery O2 Flow Rate FiO2 10/18/19 08:00 97.6 56 20 122/50 (74) 97 10/18/19 04:00 55 10/18/19 04:00 98.0 58 18 142/70 (94) 97 10/18/19 00:00 98.9 52 18 150/70 (96) 98 10/18/19 00:00 51 10/17/19 21:00 Room Air 10/17/19 20:00 97.2 67 20 142/60 (87) 97 10/17/19 16:00 59 10/17/19 16:00 98.3 64 20 155/69 (97) 97 10/17/19 15:20 98.5 62 20 152/69 (96) 97 10/17/19 12:00 63 10/17/19 12:00 98.8 58 20 144/77 (99) 97 Height (Feet): 5 Height (Inches): 4.00 Weight (Pounds): 141 Respiratory/Chest: lungs clear Cardiovascular: normal rate, regular rhythm, no gallop/murmur Abdomen: soft, non tender Extremities: no edema, other - right groin catheter Laboratory Tests Test 10/17/19 12:00 10/18/19 05:00 White Blood Count 6.8 K/UL (4.8-10.8) Red Blood Count 3.18 M/UL (4.70-6.10) L Hemoglobin 10.3 G/DL (14.2-18.0) L Hematocrit 28.5 % (42.0-52.0) L Mean Corpuscular Volume 89 FL (80-99) Mean Corpuscular Hemoglobin 32.5 PG (27.0-31.0) H Mean Corpuscular Hemoglobin Concent 36.3 G/DL (32.0-36.0) H Red Cell Distribution Width 11.3 % (11.6-14.8) L Platelet Count 103 K/UL (150-450) L Mean Platelet Volume 6.8 FL (6.5-10.1) Neutrophils (%) (Auto) 62.7 % (45.0-75.0) Lymphocytes (%) (Auto) 25.1 % (20.0-45.0) Monocytes (%) (Auto) 8.0 % (1.0-10.0) Eosinophils (%) (Auto) 3.6 % (0.0-3.0) H Basophils (%) (Auto) 0.6 % (0.0-2.0) Sodium Level 140 MMOL/L (136-145) 146 MMOL/L (136-145) H Potassium Level 3.7 MMOL/L (3.5-5.1) 3.4 MMOL/L (3.5-5.1) L Chloride Level 107 MMOL/L (98-107) 111 MMOL/L (98-107) H Carbon Dioxide Level 22 MMOL/L (21-32) 24 MMOL/L (21-32) Anion Gap 11 mmol/L (5-15) 11 mmol/L (5-15) Blood Urea Nitrogen 10 mg/dL (7-18) 7 mg/dL (7-18) Creatinine 0.7 MG/DL (0.55-1.30) 0.7 MG/DL (0.55-1.30) Estimat Glomerular Filtration Rate > 60 mL/min (>60) > 60 mL/min (>60) Glucose Level 159 MG/DL (74-106) H 97 MG/DL (74-106) Calcium Level 8.4 MG/DL (8.5-10.1) L 7.7 MG/DL (8.5-10.1) L Total Bilirubin 1.1 MG/DL (0.2-1.0) H Direct Bilirubin 0.3 MG/DL (0.0-0.3) Aspartate Amino Transf (AST/SGOT) 21 U/L (15-37) Alanine Aminotransferase (ALT/SGPT) 28 U/L (12-78) Alkaline Phosphatase 58 U/L (46-116) Total Protein 5.0 G/DL (6.4-8.2) L Albumin 2.5 G/DL (3.4-5.0) L Globulin 2.5 g/dL Albumin/Globulin Ratio 1.0 (1.0-2.7) Current Medications Medications (Trade) Dose Ordered Sig/Jaime Route PRN Reason Start Time Stop Time Status Last Admin Dose Admin Aspirin (Ecotrin) 81 mg DAILY ORAL 10/17/19 09:00 11/28/19 08:59 10/18/19 10:51 Chlorhexidine Gluconate (Darlin-Hex 2%) 1 applic DAILY@2000 TOPIC 10/16/19 20:00 01/12/20 19:59 10/17/19 23:13 Finasteride (Proscar) 5 mg DAILY ORAL 10/17/19 09:00 01/12/20 08:59 10/18/19 10:51 Heparin Sodium (Porcine) (Heparin 5000 units/ml) 5,000 units EVERY 12 HOURS SUBQ 10/16/19 21:00 11/27/19 20:59 Vancomycin HCl (Vanco rx to dose) 1 ea DAILY PRN MISC Per rx protocol 10/17/19 09:00 10/19/19 23:59 Vancomycin HCl 750 mg/Sodium Chloride 275 ml @ 183.333 mls/hr Q12H IVPB 10/17/19 14:00 10/19/19 23:59 10/18/19 03:14 Liana Kennedy MD Oct 18, 2019 11:26
[2019-10-18 12:00] VITALS: BP 119/72
[2019-10-18 16:00] VITALS: BP 142/75
[2019-10-18] MEDS ORDERED: Dyna-Hex 2% Top Sol 2oz TOPIC SCH ×2 (20:00)
[2019-10-18 20:06] VITALS: BP 151/78
[2019-10-18] MEDS ORDERED: Heparin 5000 units/ml inj SUBQ SCH (21:00)
[2019-10-19 00:10] VITALS: BP 154/89
[2019-10-19 00:12] VITALS: BP 154/73
[2019-10-19] MEDS ORDERED: Vancomycin 750 MG in NS 275 ML IVPB SCH ×4 (02:00)
[2019-10-19 04:00] VITALS: BP 158/89
[2019-10-19 07:11] LABS: ANION GAP 9 mmol/L (5-15); BLOOD UREA NITROGEN 9 mg/dL (7-18); CALCIUM 8.6 MG/DL (8.5-10.1); CARBON DIOXIDE 26 MMOL/L (21-32); CHLORIDE 107 MMOL/L (98-107); CREATININE 0.7 MG/DL (0.55-1.30); POTASSIUM 3.6 MMOL/L (3.5-5.1); SODIUM 142 MMOL/L (136-145)
[2019-10-19 07:20] LABS: BASOPHILS % (AUTO) 0.4 % (0.0-2.0); EOSINOPHILS % (AUTO) 4.1 % (0.0-3.0); HEMATOCRIT 27.3 % (42.0-52.0); HEMOGLOBIN 10.2 G/DL (14.2-18.0); LYMPHOCYTES % (AUTO) 19.1 % (20.0-45.0); MEAN CORPUSCULAR VOLUME 89 FL (80-99); MONOCYTES % (AUTO) 7.5 % (1.0-10.0); NEUTROPHILS % (AUTO) 68.8 % (45.0-75.0); PLATELET COUNT 134 K/UL (150-450); RED BLOOD COUNT 3.08 M/UL (4.70-6.10); RED CELL DISTRIBUTION WIDTH 11.5 % (11.6-14.8); WHITE BLOOD COUNT 8.7 K/UL (4.8-10.8)
[2019-10-19 08:00] VITALS: BP 149/86
--- NOTE | 2019-10-19 08:15 | Progress Note ---
DATE: 10/18/2019 CARDIOLOGY PROGRESS NOTE SUBJECTIVE: The patient has no shortness of breath. No chest pain. Monitored rhythm remains stable. PHYSICAL EXAMINATION: VITAL SIGNS: Blood pressure 142/70, pulse 58, respiratory rate 18. LUNGS: Bilateral breath sounds. CARDIAC: Regular rhythm and rate. Normal S1, S2. ABDOMEN: Soft. EXTREMITIES: No edema. DIAGNOSTIC DATA: Echocardiogram revealing no signs of in the setting of underlying degenerative valve disease. IMPRESSION: 1. Enterococcal urinary tract infection. 2. Recovering sepsis with shock. 3. Resolved myocardial ischemia. 4. History of hypertension. 5. No signs of COVID-19 infection. 6. Possible bacteremia with coag-negative staph. 7. 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 PLAN: 1. Antimicrobials. 2. Followup blood cultures. 3. Cardiac monitoring. 4. Titrate cardiovascular regimen based on clinical parameters. Tanmay Mayfield M.D. DR: LONNIE JOB#: [id number] CC:
[2019-10-19] MEDS: Heparin 5000 units/ml inj SUBQ SCH (08:51)
[2019-10-19] MEDS ORDERED: Aspirin EC 81mg tab ORAL SCH ×2 (09:00)
--- NOTE | 2019-10-19 09:39 | Diagnostic Imaging Report ---
Indication: Shortness of breath Technique: One view of the chest Comparison: 10/13/2019 Findings: Suboptimal inspiration with crowding of but bronchovascular markings. No definite acute infiltrates, effusions, or congestion. The heart size is upper limits normal. Impression: No acute process or significant interval change
--- NOTE | 2019-10-19 11:04 | Infectious Diseases Prog Note ---
Assessment/Plan Assessment/Plan antibiotics ; vancomycin iv A 1. enterococcus UTI s/p rx 2. + blood cultures with coag neg staph likely contaminated 3. hypertension 4. dementia 5. BPH 6. covid 19 negative 4.8.20 P 1. d/c iv vancomycin 2. observe off antibiotics 3. will follow up cultures Subjective ROS Limited/Unobtainable: Yes Allergies: Coded Allergies: No Known Allergies (Unverified , 10/13/19) Objective Vital Signs Last 24 Hour Vital Signs Date Time Temp Pulse Resp B/P (MAP) Pulse Ox O2 Delivery O2 Flow Rate FiO2 10/19/19 08:00 98.5 66 20 149/86 (107) 96 10/19/19 04:00 98.5 61 20 158/89 (112) 95 10/19/19 00:12 98.8 82 18 154/73 (100) 95 10/18/19 21:05 Room Air 10/18/19 20:06 98.9 69 20 151/78 (102) 95 10/18/19 20:00 94 Room Air 21 10/18/19 16:00 97.7 59 20 142/75 (97) 97 10/18/19 12:00 97.7 67 20 119/72 (88) 97 Height (Feet): 5 Height (Inches): 4.00 Weight (Pounds): 135 Respiratory/Chest: lungs clear Cardiovascular: normal rate, regular rhythm, no gallop/murmur Abdomen: soft, non tender Extremities: no edema Laboratory Tests Test 10/19/19 05:00 White Blood Count 8.7 K/UL (4.8-10.8) Red Blood Count 3.08 M/UL (4.70-6.10) L Hemoglobin 10.2 G/DL (14.2-18.0) L Hematocrit 27.3 % (42.0-52.0) L Mean Corpuscular Volume 89 FL (80-99) Mean Corpuscular Hemoglobin 33.2 PG (27.0-31.0) H Mean Corpuscular Hemoglobin Concent 37.4 G/DL (32.0-36.0) H Red Cell Distribution Width 11.5 % (11.6-14.8) L Platelet Count 134 K/UL (150-450) L Mean Platelet Volume 6.2 FL (6.5-10.1) L Neutrophils (%) (Auto) 68.8 % (45.0-75.0) Lymphocytes (%) (Auto) 19.1 % (20.0-45.0) L Monocytes (%) (Auto) 7.5 % (1.0-10.0) Eosinophils (%) (Auto) 4.1 % (0.0-3.0) H Basophils (%) (Auto) 0.4 % (0.0-2.0) Sodium Level 142 MMOL/L (136-145) Potassium Level 3.6 MMOL/L (3.5-5.1) Chloride Level 107 MMOL/L (98-107) Carbon Dioxide Level 26 MMOL/L (21-32) Anion Gap 9 mmol/L (5-15) Blood Urea Nitrogen 9 mg/dL (7-18) Creatinine 0.7 MG/DL (0.55-1.30) Estimat Glomerular Filtration Rate > 60 mL/min (>60) Glucose Level 117 MG/DL (74-106) H Calcium Level 8.6 MG/DL (8.5-10.1) Magnesium Level 1.4 MG/DL (1.8-2.4) L Pro-B-Type Natriuretic Peptide 1763 pg/mL (0-125) H Current Medications Medications (Trade) Dose Ordered Sig/Jaime Route PRN Reason Start Time Stop Time Status Last Admin Dose Admin Aspirin (Ecotrin) 81 mg DAILY ORAL 10/19/19 09:00 11/28/19 08:59 10/19/19 08:50 Atorvastatin Calcium (Lipitor) 10 mg BEDTIME ORAL 10/19/19 21:00 01/17/20 20:59 Chlorhexidine Gluconate (Darlin-Hex 2%) 1 applic DAILY@2000 TOPIC 10/18/19 20:00 01/12/20 19:59 10/18/19 20:20 Finasteride (Proscar) 5 mg DAILY ORAL 10/19/19 09:00 01/12/20 08:59 10/19/19 08:50 Heparin Sodium (Porcine) (Heparin 5000 units/ml) 5,000 units EVERY 12 HOURS SUBQ 10/18/19 21:00 11/27/19 20:59 10/19/19 08:51 Sodium Chloride 1,000 ml @ 75 mls/hr [id number] IV 10/19/19 02:00 11/18/19 01:59 10/19/19 02:04 Vancomycin HCl (Vanco rx to dose) 1 ea DAILY PRN MISC Per rx protocol 10/19/19 09:00 10/19/19 23:59 Vancomycin HCl 750 mg/Sodium Chloride 275 ml @ 183.333 mls/hr Q12H IVPB 10/19/19 02:00 10/19/19 23:59 10/19/19 01:34 Liana Kennedy MD Oct 19, 2019 11:04
[2019-10-19 12:00] VITALS: BP 138/82
[2019-10-19 16:00] VITALS: BP 133/78
--- NOTE | 2019-10-20 01:30 | Progress Note ---
DATE: 10/19/2019 CARDIOLOGY PROGRESS NOTE SUBJECTIVE: Patient is without respiratory distress. Remained afebrile. Blood cultures has been negative and previous cultures of the blood were coag-negative Staph felt to be contaminant. Patient completed treatment for an enterococcal urinary infection. OBJECTIVE: VITAL SIGNS: Blood pressure parameters stable. Blood pressure 149/86, heart rate 66, respirations 20. LUNGS: Coarse breath sounds. No wheezing. CARDIAC: Regular rhythm and rate. Normal S1, S2. ABDOMEN: Soft. EXTREMITIES: No edema. IMPRESSION: 1. Urinary tract infection with sepsis and recovered shock. 2. False positive bacteremia result. 3. Hypertensive heart disease with rising blood pressure. 4. Cerebrovascular disease with dementia. 5. Prostatic hypertrophy. PLAN: 1. Off antimicrobials. 2. Skin care. 3. Uptitrate antihypertensive therapy. 4. Stable from cardiovascular standpoint for outpatient management. Tanmay Mayfield M.D. DR: VASILE JOB#: [id number] CC:
--- NOTE | 2019-10-20 12:45 | Discharge Summary ---
DATE OF ADMISSION: 10/13/2019 DATE OF DISCHARGE: 10/19/2019 ADMISSION DIAGNOSES: 1. Septic shock. 2. UTI. 3. History of cholangitis. 4. Hypertension. 5. Hyperlipidemia. 6. BPH. 7. Parkinson disease. 8. Diabetes. DISCHARGE DIAGNOSES: 1. Septic shock. 2. UTI. 3. History of cholangitis. 4. Hypertension. 5. Hyperlipidemia. 6. BPH. 7. Parkinson disease. 8. Diabetes. HOSPITAL COURSE: The patient is an elderly male admitted with complaints of septic shock secondary to UTI. He was admitted. He was ruled out for COVID. He was initially placed on pressors, which were gradually weaned off. He was seen by ID and Cardiology. Antibiotics were adjusted. Cardiology was consulted. The patient completed discharge, vital signs were stable. It was recommended that he go to a intermediate facility due to the concern about coronavirus at the [facility]. The patient will be discharged home with family members. We have arranged [id number] care. DISCHARGE MEDICATIONS: Please see discharge medication list for discharge medications. DIET: Cardiac-diabetic diet. ACTIVITY: Ad-brian. FOLLOWUP: The patient will be followed . Dax Reyes M.D. DR: IGOR JOB#: [id number] CC:
== END 2019-10-19 19:30 | disposition home or self-care (01) | DRG 871 ==
LOC: EDBD 12:29 → EMR 14:00 → ICU 14:10 → EDBEDREQ 14:41 → EDBEDREQSVC 14:41 → EDBEDREQ 10-14 01:22 → 2E 10-16 10:00 → 4E 10-18 19:13
DX: A41.9 Sepsis, unspecified organism (principal); R65.21 Severe sepsis with septic shock; E43 Unspecified severe protein-calorie malnutrition; N39.0 Urinary tract infection, site not specified; N17.9 Acute kidney failure, unspecified; Z95.0 Presence of cardiac pacemaker; Z90.49 Acquired absence of other specified parts of digestive tract; Z66 Do not resuscitate; E78.5 Hyperlipidemia, unspecified; N40.0 Benign prostatic hyperplasia without lower urinary tract symptoms; G20 Parkinson's disease; Z79.82 Long term (current) use of aspirin; D69.6 Thrombocytopenia, unspecified; E87.6 Hypokalemia; E86.0 Dehydration; E83.42 Hypomagnesemia; I13.10 Hypertensive heart and chronic kidney disease without heart failure, with stage 1 through stage 4 chronic kidney disease, or unspecified chronic kidney disease; E11.22 Type 2 diabetes mellitus with diabetic chronic kidney disease; N18.9 Chronic kidney disease, unspecified; B95.2 Enterococcus as the cause of diseases classified elsewhere; I51.3 Intracardiac thrombosis, not elsewhere classified; R13.10 Dysphagia, unspecified; F01.50 Vascular dementia, unspecified severity, without behavioral disturbance, psychotic disturbance, mood disturbance, and anxiety
CPT/HCPCS: 36415; 71045; 80048; 80053; 80202; 81003; 82248; 82550; 82553; 83605; 83735; 83880; 84484; 85007; 85025; 85610; 85730; 86850; 86900; 86901; 87040; 87081; 87086; 87181; 87635; 93005; 93306; 96361; 96365; 96367; 99291; J7030; J8499

== ENCOUNTER 2019-11-23 00:06 | Inpatient (IN) | payer MEDICARE, MEDICAID ==
[2019-11-23] VITALS (7 sets, daily range): BP systolic 117–136; BP diastolic 57–88
[~2019-11-23] VITALS: Ht 165.1 cm; Wt 64.9 kg
[~2019-11-23 00:06] MED LIST: ASPIR 8181 MG ORAL; ATORVASTATIN CA20 MG ORAL; BENICAR20 MG ORAL; CREON DR 36,001 EACH PO; LORATADINE10 M1 PO; METFORMIN HCL500 M1 ORAL; NAMZARIC 14 MG1 EACH PO; PROSCAR5 MG ORAL; SINEMET 25-1001 EAC1 ORAL; TERAZOSIN HCL1 MG ORAL
--- NOTE | 2019-11-23 00:19 | Emergency Room Report ---
History of Present Illness General Chief Complaint: Altered Level of Consciousness Source: Family Member, Medical Record Present Illness HPI This an 89-year-old [place] male with a history of dementia, Parkinson and Alzheimer. History to his daughter. He presents with chief complaint of altered mental status. At baseline he is not conversant but follows simple command. According to his daughter, he has decreased appetite and been in bed all day. He has been alternating shivering and shaking. Tonight got worse to the call 911. He is not eating much. There was no complaint of cough or congestion. No nausea vomiting or diarrhea. Just weakness and decreased appetite. He was admitted here last month for sepsis from UTI. He had positive blood culture. COVID negative then. History is limited from patient because he is nonverbal. History is through his daughters. Allergies: Coded Allergies: No Known Allergies (Unverified , 10/13/19) COVID-19 Screening Contact w/high risk pt: No Recent Travel to affected area: No Experienced COVID-19 symptoms?: No COVID-19 symptoms experienced: Fever (T>100.4F or >38C) COVID-19 Testing performed [facility] [place]: No Patient History Past Medical History: see triage record, old chart reviewed, dementia Past Surgical History: none Pertinent Family History: none Social History: Denies: smoking Immunizations: other Reviewed Nursing Documentation: PMH: Agreed; PSxH: Agreed Nursing Documentation-PMH Hx Cardiac Problems: Yes - hypertension Hx Hypertension: Yes Hx COPD: Yes Hx Diabetes: Yes Hx Gastrointestinal Problems: Yes - diverticulitis Hx Cerebrovascular Accident: No Hx Transient Ischemic Attacks: No Review of Systems Constitutional: Reports: chills, weakness Eye: Denies: eye pain, blurred vision ENT: Denies: ear pain, nose congestion, throat swelling Respiratory: Denies: cough, shortness of breath Cardiovascular: Denies: chest pain, palpitations Gastrointestinal: Denies: abdominal pain, diarrhea, nausea, vomiting Musculoskeletal: Denies: back pain, joint pain Skin: Denies: rash Neurological: Denies: headache, numbness Endocrine: Denies: increased thirst, increased urine Hematologic/Lymphatic: Denies: easy bruising All Other Systems: negative except mentioned in HPI Physical Exam Vital Signs Date Time Temp Pulse Resp B/P (MAP) Pulse Ox O2 Delivery O2 Flow Rate FiO2 11/23/19 00:05 99.1 100 18 180/90 (120) 96 Room Air Vitals with high blood pressure Sp02 EP Interpretation: reviewed, abnormal - Repeat oxygenation was 88% on room air General Appearance: well appearing, lethargic, Chronically Ill Head: normocephalic, atraumatic Eyes: bilateral eye PERRL, bilateral eye EOMI ENT: hearing grossly normal, dry mucus membranes Neck: full range of motion, supple, no meningismus Respiratory: chest non-tender, lungs clear, normal breath sounds Cardiovascular #1: regular rate, rhythm, no murmur Gastrointestinal: normal bowel sounds, non tender, no mass, no organomegaly, no bruit, non-distended Musculoskeletal: back normal, normal range of motion Neurologic: grossly normal Psychiatric: mood/affect normal Procedures Critical Care Time Critical Care Time Critical care is mandated in this patient who presented with severe sepsis with suspected COVID pneumonia. Patient require my urgent intervention to attenuate the risks of metabolic collapse which may lead to cardiovascular collapse and . Critical care time is 35 minutes excluding any reportable procedure. Critical care time included evaluation, multiple reevaluation, looking at old charts, interpreting laboratory and diagnostic data, discussing case with patient and family and consultants, and charting. Medical Decision Making Diagnostic Impression: Primary Impression: Sepsis Qualified Codes: A41.9 - Sepsis, unspecified organism Additional Impressions: Suspected COVID-19 virus infection UTI (urinary tract infection) Qualified Codes: N30.00 - Acute cystitis without hematuria Pneumonia Qualified Codes: J18.9 - Pneumonia, unspecified organism Hypokalemia ER Course Patient presents with severe sepsis and respiratory distress with hypoxia. Suspect that he has COVID pneumonia. He has fever, hypoxia, elevated sed rate, d-dimer, C-reactive protein and ferritin. Antibiotics given here. I also gave him Plaquenil and Lovenox because of the hypoxia and elevated d-dimer to cover for micro emboli. Vital signs improved and oxygenation improved after this intervention. I did not give him a full 30 cc/kg IV bolus because of possible COVID pneumonia to decrease the risks of respiratory failure from fluid overload and CHF. Patient was admitted last month under Dr. Reyes. I will contact him for admission. EKG Diagnostic Results Rate: normal Rhythm: NSR ST Segments: other - RBBB Rhythm Strip Diag. Results EP Interpretation: yes Rate: 88 Rhythm: NSR, no PVC's, no ectopy Chest X-Ray Diagnostic Results Chest X-Ray Diagnostic Results : Chest X-Ray Ordered: Yes # of Views/Limited/Complete: 1 View Indication: Shortness of Breath EP Interpretation: Yes Interpretation: no effusion, no pneumothorax, other - Atelectasis Impression: Other - Atelectasis Electronically Signed by: Daniel Mcarthur MD CT/MRI/US Diagnostic Results CT/MRI/US Diagnostic Results : Imaging Test Ordered: CT chest Impression Read by radiologist. No bone embolism. Nonspecific groundglass opacity in the left upper lobe and bilateral lower lobes. Last Vital Signs Date Time Temp Pulse Resp B/P (MAP) Pulse Ox O2 Delivery O2 Flow Rate FiO2 11/23/19 00:05 99.1 100 18 180/90 (120) 96 Room Air Status: improved Disposition: ADMITTED INPATIENT Condition: Serious Daniel Mcarthur MD November 23, 2019 00:19
[2019-11-23] MEDS ORDERED: Acetaminophen 500mg (ES) tab ORAL ONE (00:30)
[2019-11-23] MEDS ORDERED: Acetaminophen 650 MG SUPP RECTAL ONE ×2 (00:33→01:00)
[2019-11-23 00:52] LABS: APPEARANCE,URINE TURBID; BILIRUBIN, URINE NEGATIVE (NEGATIVE); GLUCOSE, URINE (UA) NEGATIVE (NEGATIVE); KETONES,URINE 2+ (NEGATIVE); LEUKOCYTE ESTERASE ,URINE 3+ (NEGATIVE); NITRITE,URINE NEGATIVE (NEGATIVE); PH,URINE 6 (4.5-8.0); PROTEIN,URINE 3+ (NEGATIVE); UROBILINOGEN,URINE 4 MG/DL (0.0-1.0)
[2019-11-23 00:54] LABS: HEMOGLOBIN 12.3 G/DL (14.2-18.0); MEAN CORPUSCULAR VOLUME 89 FL (80-99); PLATELET COUNT 149 K/UL (150-450); RED BLOOD COUNT 3.83 M/UL (4.70-6.10); RED CELL DISTRIBUTION WIDTH 10.9 % (11.6-14.8); WHITE BLOOD COUNT 11.8 K/UL (4.8-10.8)
[2019-11-23 01:06] LABS: ANION GAP 17 mmol/L (5-15); BLOOD UREA NITROGEN 16 mg/dL (7-18); CALCIUM 8.7 MG/DL (8.5-10.1); CARBON DIOXIDE 21 MMOL/L (21-32); CHLORIDE 106 MMOL/L (98-107); POTASSIUM 3.1 MMOL/L (3.5-5.1); SODIUM 144 MMOL/L (136-145)
--- NOTE | 2019-11-23 01:06 | Diagnostic Imaging Report ---
EXAM: XR Chest, 1 View CLINICAL HISTORY: SOB TECHNIQUE: Frontal view of the chest. COMPARISON: 10/19/2019 FINDINGS: Lungs: No consolidation or mass. Pleural space: No acute findings Heart: Unchanged cardiomegaly. Bones/joints: No acute findings. IMPRESSION: No acute cardiopulmonary process.
[2019-11-23 01:07] LABS: COLOR,URINE YELLOW
[2019-11-23] MEDS ORDERED: cefTRIAXone 1 GM in NS 55 ML IVPB ONE (01:15)
[2019-11-23] MEDS ORDERED: Azithromycin 500 MG in NS 275 ML IV ONE (01:15)
[2019-11-23 01:21] LABS: ALANINE AMINOTRANSFERASE 17 U/L (12-78); ALBUMIN 3.1 G/DL (3.4-5.0); ALBUMIN/GLOBULIN RATIO 0.9 (1.0-2.7); ALKALINE PHOSPHATASE 75 U/L (46-116); ASPARTATE AMINO TRANSFERASE 29 U/L (15-37); CKMB 0.6 NG/ML (0.0-3.6); CREATINE KINASE 87 U/L (26-308); FERRITIN 548 NG/ML (8-388)
[2019-11-23] MEDS ORDERED: Omnipaque 350 100ml vial INJ PRN (01:30)
[2019-11-23] MEDS ORDERED: Enoxaparin 60mg Inj SUBQ ONE (01:30)
[2019-11-23 01:36] LABS: BILIRUBIN,DIRECT 0.7 MG/DL (0.0-0.3)
--- NOTE | 2019-11-23 02:50 | Diagnostic Imaging Report ---
EXAM: CT Angiography Chest With Intravenous Contrast CLINICAL HISTORY: SOB TECHNIQUE: Axial computed tomographic angiography images of the chest with intravenous contrast. CTDI is 77 mGy and DLP is 245 mGy-cm. One or more of the following dose reduction techniques were used: automated exposure control, adjustment of the mA and/or kV according to patient size, use of iterative reconstruction technique. MIP reconstructed images were created and reviewed. COMPARISON: 11/23/2019 FINDINGS: Pulmonary arteries: No filling defects. Aorta: No thoracic aortic aneurysm. Lungs: No mass. Nonspecific groundglass opacities in the left upper lobe and lingula and bilateral lower lobes. Calcified granuloma in the right middle lobe. Bibasilar atelectasis. Pleural space: No pneumothorax. No effusion. Heart: cardiomegaly. No pericardial effusion. Bones/joints: No acute fracture or dislocation. Soft tissues: Colonic diverticulosis. Pneumobilia. Lymph nodes: No enlarged lymph nodes. IMPRESSION: 1. No pulmonary embolism. 2. Cardiomegaly. 3. Nonspecific groundglass opacities in the left upper lobe and bilateral lower lobes, possibly infectious/inflammatory process versus mild edema. 4. Colonic diverticulosis.
--- NOTE | 2019-11-23 03:19 | Emergency Room Report ---
Sepsis Event Note Evaluation Current Stage of Sepsis: Severe Sepsis Possible Source: Pulmonary Focused Exam Allergies: Coded Allergies: No Known Allergies (Unverified , 10/13/19) Date Exam Occurred: November 23, 2019 Time Exam Occurred: 03:19 Laboratory Studies Laboratory Tests Test 11/23/19 00:15 11/23/19 00:25 11/23/19 00:34 11/23/19 01:45 White Blood Count 11.8 K/UL (4.8-10.8) H Red Blood Count 3.83 M/UL (4.70-6.10) L Hemoglobin 12.3 G/DL (14.2-18.0) L Hematocrit 34.0 % (42.0-52.0) L Mean Corpuscular Volume 89 FL (80-99) Mean Corpuscular Hemoglobin 32.2 PG (27.0-31.0) H Mean Corpuscular Hemoglobin Concent 36.3 G/DL (32.0-36.0) H Red Cell Distribution Width 10.9 % (11.6-14.8) L Platelet Count 149 K/UL (150-450) L Mean Platelet Volume 6.0 FL (6.5-10.1) L Neutrophils (%) (Auto) % (45.0-75.0) Lymphocytes (%) (Auto) % (20.0-45.0) Monocytes (%) (Auto) % (1.0-10.0) Eosinophils (%) (Auto) % (0.0-3.0) Basophils (%) (Auto) % (0.0-2.0) Erythrocyte Sedimentation Rate 50 MM/HR (0-20) H D-Dimer 4.00 mg/L FEU (0.00-0.49) H Sodium Level 144 MMOL/L (136-145) Potassium Level 3.1 MMOL/L (3.5-5.1) L Chloride Level 106 MMOL/L (98-107) Carbon Dioxide Level 21 MMOL/L (21-32) Anion Gap 17 mmol/L (5-15) H Blood Urea Nitrogen 16 mg/dL (7-18) Creatinine 1.0 MG/DL (0.55-1.30) Estimat Glomerular Filtration Rate > 60 mL/min (>60) Glucose Level 185 MG/DL (74-106) H Lactic Acid Level 5.20 mmol/L (0.4-2.0) H 2.60 mmol/L (0.66-2.22) H Calcium Level 8.7 MG/DL (8.5-10.1) Ferritin 548 NG/ML (8-388) H Total Bilirubin 2.0 MG/DL (0.2-1.0) H Direct Bilirubin 0.7 MG/DL (0.0-0.3) H Aspartate Amino Transf (AST/SGOT) 29 U/L (15-37) Alanine Aminotransferase (ALT/SGPT) 17 U/L (12-78) Alkaline Phosphatase 75 U/L (46-116) Total Creatine Kinase 87 U/L (26-308) Creatine Kinase MB 0.6 NG/ML (0.0-3.6) Creatine Kinase MB Relative Index 0.6 Troponin I 0.000 ng/mL (0.000-0.056) C-Reactive Protein, Quantitative 10.1 mg/dL (0.00-0.90) H Pro-B-Type Natriuretic Peptide 876 pg/mL (0-125) H Total Protein 6.5 G/DL (6.4-8.2) Albumin 3.1 G/DL (3.4-5.0) L Globulin 3.4 g/dL Albumin/Globulin Ratio 0.9 (1.0-2.7) L Urine Color Yellow Urine Appearance Turbid Urine pH 6 (4.5-8.0) Urine Specific [place] 1.025 (1.005-1.035) Urine Protein 3+ (NEGATIVE) H Urine Glucose (UA) Negative (NEGATIVE) Urine Ketones 2+ (NEGATIVE) H Urine Blood 5+ (NEGATIVE) H Urine Nitrite Negative (NEGATIVE) Urine Bilirubin Negative (NEGATIVE) Urine Urobilinogen 4 MG/DL (0.0-1.0) H Urine Leukocyte Esterase 3+ (NEGATIVE) H Urine RBC Tntc /HPF (0 - 0) H Urine WBC Tntc /HPF (0 - 0) H Urine Squamous Epithelial Cells None /LPF (NONE/OCC) Urine Bacteria Many /HPF (NONE) H Arterial Blood pH 7.446 (7.350-7.450) Arterial Blood Partial Pressure CO2 30.3 mmHg (35.0-45.0) L Arterial Blood Partial Pressure O2 55.6 mmHg (75.0-100.0) L Arterial Blood HCO3 20.4 mmol/L (22.0-26.0) L Arterial Blood Oxygen Saturation 88.4 % (95-100) *L Arterial Blood Base Excess -2.7 (-2-2) L [facility] Test Positive Vital Signs Last 24 Hour Vital Signs Date Time Temp Pulse Resp B/P (MAP) Pulse Ox O2 Delivery O2 Flow Rate FiO2 11/23/19 01:36 102.7 11/23/19 01:02 102.7 66 24 92 Nasal Cannula 4.0 11/23/19 00:15 66 18 Room Air 11/23/19 00:15 103.9 69 18 125/57 82 Room Air 11/23/19 00:05 99.1 100 18 180/90 (120) 96 Room Air Respiratory Exam: Clear Cardiovascular Exam: RRR Capillary Refill: Less Than 2 Seconds Peripheral Pulse: Strong Pulse Location: Radial Skin Exam: Normal Turgor Daniel Mcarthur MD November 23, 2019 03:19
[2019-11-23] MEDS: Heparin 5000 units/ml inj SUBQ SCH ×2 (08:28→20:02)
[2019-11-23] MEDS: cefTRIAXone 1 GM in D5W 55 ML IVPB SCH (08:36)
[2019-11-23] MEDS: Pantoprazole Inj IVP SCH (08:38)
--- NOTE | 2019-11-23 12:29 | History and Physical Report ---
DATE OF ADMISSION: 11/23/2019 CHIEF COMPLAINT: Altered mental status, sepsis, possible COVID, UTI. HISTORY OF PRESENT ILLNESS: The patient is an 89-year-old male. He is a poor historian. He was apparently brought in by paramedics from his home after he was found weak, bedridden, and unable to care for himself. He was hypoxic and febrile in the field and needy, placed on oxygen. His chest x-ray was clear, but the CT scan showed bilateral ground-glass opacities consistent with a possible viral infection. He was also noted to have UTI. He had an elevated lactic acid level. He was bolused fluids and pancultured and is now admitted for further evaluation and care. He is currently awake, but is confused and cannot provide any additional history. PAST MEDICAL HISTORY: Significant for history of hypertension and Parkinson disease. PAST SURGICAL HISTORY: Unknown. CURRENT MEDICATIONS: Reconciled and reviewed. ALLERGIES: There are no known drug allergies. FAMILY HISTORY: Noncontributory. SOCIAL HISTORY: There is no known history of tobacco, ethanol, or drugs. REVIEW OF SYSTEMS: From the patient is unobtainable as he is confused. PHYSICAL EXAMINATION: VITAL SIGNS: Temperature 102.7, pulse 57, respirations 24, blood pressure 117/59. GENERAL: The patient is a chronically ill-appearing, elderly male, in no apparent distress. He is awake, he is pale, but alert. He is confused. HEENT: Head is normocephalic and atraumatic. Pupils are equal, round, and reactive to light. Oropharynx is clear. NECK: Supple. No adenopathy. HEART: Regular rate and rhythm. No murmurs, rubs, or gallops. LUNGS: Clear to auscultation bilaterally. There are no wheezes or rales. ABDOMEN: Soft, nontender, nondistended. EXTREMITIES: Without clubbing, cyanosis, or edema. LABORATORY DATA: White count 12, hemoglobin 12, platelets of 149. ABG showed a pH of 7.44, pCO2 of 30, pO2 of 55, bicarb of 20, O2 saturation of 88%. D-dimer is 4. Sodium 144, potassium is 3, creatinine is 1. Lactic acid was 5.2. Total bilirubin of 2. C-reactive protein was 10. ASSESSMENT: This is an elderly male, admitted with complaints of fevers and shortness of breath secondary to pneumonia, cannot rule out COVID. He also has UTI. PLAN: IV hydration. Replace potassium. IV antibiotics to cover for UTI, pneumonia and sepsis. ID consultation will be obtained. We will follow up pending COVID. Check swallow evaluation. The patient's status is currently guarded. Dax Reyes M.D. DR: IGOR JOB#: [id number] CC:
[2019-11-24] VITALS: BP 135/61
--- NOTE | 2019-11-24 01:15 | Consultation ---
DATE OF CONSULTATION: 11/23/2019 CARDIOLOGY CONSULTATION CONSULTING PHYSICIAN: Tanmay Mayfield MD. REQUESTING PHYSICIAN: Dax Reyes MD. REASON FOR CONSULTATION: Lactic acidosis and abnormal electrocardiogram in the setting of possible COVID-19 pneumonia. HISTORY OF PRESENT ILLNESS: This is an 89-year-old [place] male. He was brought in from his home by paramedics because he was found to be weak, bedridden and unable to care for himself. He was short of breath and congested. He was hypoxic in the emergency room and he had an abnormal CAT scan of the chest revealing bilateral ground-glass infiltrates left greater than right. The patient had an abnormal electrocardiogram and elevated lactic acid level and I have been asked to assist with cardiovascular care. Concern is raised over the possibility of COVID-19 infection. The patient has been hospitalized recently in October of this year at this facility. PAST MEDICAL HISTORY: Parkinson disease, dementia, hypertension, degenerative disk disease, osteoarthritis, prostatic hypertrophy, hyperlipidemia, history of cholangitis, type 2 diabetes mellitus. ALLERGIES: None. MEDICATIONS: Reviewed and reconciled. FAMILY HISTORY: Noncontributory. SOCIAL HISTORY: No record of smoking, alcohol, or substance abuse. REVIEW OF SYSTEMS: Not obtainable from patient. Review of hospital chart from recent stay at this facility in October 2019 revealed the following. The patient was admitted to the hospital in October 13, 2019 with sepsis and shock. He was ruled out for COVID-19. He was treated with antimicrobials, pressors, volume support. He stabilized and was able to be discharged back home with family members. The patient's family members refused half-way facility at this time because of concerns over COVID-19 exposure. PHYSICAL EXAMINATION: VITAL SIGNS: Blood pressure 130/71, heart rate 54, respiratory rate 19, afebrile. HEENT: Temporal wasting. Dry mucous membranes. NECK: Supple. LUNGS: Coarse breath sounds and rhonchi. CARDIAC: Regular rhythm and rate. Normal S1, S2 with a 1/6 systolic murmur at base. ABDOMEN: Soft, nontender. EXTREMITIES: No edema. LABORATORY DATA: White count 11.8, hemoglobin 12.3, platelets 149,000. Lactic acid 5.2. Troponin 0.03. CRP 10. TSH 0.5. Natriuretic peptide 876. Albumin 3.1. Sodium 144, potassium 3.1, bicarb 21, BUN 16, creatinine 1, glucose 185. ABG, 7.45, 30, 56. Urinalysis reveals too numerous to count red and white cells. IMPRESSION: 1. Condition is serious. 2. Prognosis guarded. 3. Healthcare-associated pneumonia. 4. Sepsis. 5. Urinary tract infection. 6. Possible COVID-19 infection. 7. Lactic acidosis. 8. Hypokalemia. 9. Chronic diastolic congestive heart failure. 10. Mild protein-calorie malnutrition. 11. Hypoxia. 12. Elevated D-dimers increases risk for acute DVT. RECOMMEND: 1. Hydration. 2. Potassium replacement. 3. Cardiac monitoring. 4. DVT prophylaxis. 5. Venous duplex scan. 6. COVID-19 swab. 7. Empiric antimicrobials. 8. Monitor QTc interval in consideration for hydroxychloroquine therapy. 9. Serial lactic acid levels to follow. 10. Oxygenation. 11. Check magnesium level. Tanmay Mayfield M.D. DR: Celina JOB#: [id number] CC:
[2019-11-24 04:00] VITALS: BP 139/52
[2019-11-24 06:04] LABS: ALANINE AMINOTRANSFERASE 15 U/L (12-78); ALBUMIN 2.5 G/DL (3.4-5.0); ALBUMIN/GLOBULIN RATIO 0.8 (1.0-2.7); ALKALINE PHOSPHATASE 58 U/L (46-116); ANION GAP 13 mmol/L (5-15); ASPARTATE AMINO TRANSFERASE 26 U/L (15-37); BILIRUBIN,TOTAL 0.8 MG/DL (0.2-1.0); BLOOD UREA NITROGEN 13 mg/dL (7-18); CALCIUM 7.9 MG/DL (8.5-10.1); CARBON DIOXIDE 20 MMOL/L (21-32); CHLORIDE 111 MMOL/L (98-107); CREATININE 0.8 MG/DL (0.55-1.30); POTASSIUM 3.6 MMOL/L (3.5-5.1); SODIUM 144 MMOL/L (136-145)
[2019-11-24 06:12] LABS: BASOPHILS % (AUTO) 0.4 % (0.0-2.0); EOSINOPHILS % (AUTO) 0.9 % (0.0-3.0); HEMOGLOBIN 12.6 G/DL (14.2-18.0); LYMPHOCYTES % (AUTO) 18.2 % (20.0-45.0); MEAN CORPUSCULAR VOLUME 95 FL (80-99); MONOCYTES % (AUTO) 2.6 % (1.0-10.0); NEUTROPHILS % (AUTO) 77.9 % (45.0-75.0); PLATELET COUNT 135 K/UL (150-450); RED CELL DISTRIBUTION WIDTH 11.7 % (11.6-14.8); WHITE BLOOD COUNT 11.3 K/UL (4.8-10.8)
[2019-11-24 07:30] VITALS: BP 150/60
[2019-11-24] MEDS: Pantoprazole Inj IVP SCH (08:24)
[2019-11-24] MEDS: cefTRIAXone 1 GM in D5W 55 ML IVPB SCH ×2 (08:24→08:37)
[2019-11-24] MEDS: Heparin 5000 units/ml inj SUBQ SCH ×2 (08:25→20:49)
--- NOTE | 2019-11-24 10:29 | Infectious Diseases Prog Note ---
Assessment/Plan Assessment/Plan antibiotics : ceftriaxone A 1. gram positive UTI 2. pneumonia r/o COVID 19 pneumonia 3. hypertension 4. Parkinsons disease P 1. continue ceftriaxone 2. will follow up cultures 3. continue isolation Subjective ROS Limited/Unobtainable: Yes Allergies: Coded Allergies: No Known Allergies (Unverified , 10/13/19) Objective Vital Signs Last 24 Hour Vital Signs Date Time Temp Pulse Resp B/P (MAP) Pulse Ox O2 Delivery O2 Flow Rate FiO2 11/24/19 08:00 Nasal Cannula 4.0 11/24/19 08:00 4.0 11/24/19 07:30 98.6 50 18 150/60 (90) 100 11/24/19 07:26 46 11/24/19 04:00 Nasal Cannula 4.0 11/24/19 04:00 97.9 52 18 139/52 (81) 100 11/24/19 04:00 4.0 11/24/19 04:00 46 11/24/19 00:00 98.1 50 18 135/61 (85) 100 11/24/19 00:00 4.0 11/24/19 00:00 Nasal Cannula 4.0 11/23/19 23:32 50 11/23/19 20:00 Nasal Cannula 4.0 11/23/19 20:00 97.8 49 18 125/88 (100) 95 11/23/19 20:00 4.0 11/23/19 19:34 48 11/23/19 16:00 49 11/23/19 16:00 97.9 52 19 131/73 (92) 99 11/23/19 16:00 4.0 11/23/19 16:00 Nasal Cannula 4.0 11/23/19 12:00 47 11/23/19 11:57 4.0 11/23/19 11:57 Nasal Cannula 4.0 11/23/19 11:56 98.2 54 19 130/71 (90) 99 Height (Feet): 5 Height (Inches): 5.00 Weight (Pounds): 143 Microbiology Date/Time Source Procedure Growth Status 11/23/19 00:38 Blood Blood Culture - Preliminary NO GROWTH AFTER 24 HOURS Resulted 11/23/19 00:20 Blood Blood Culture - Preliminary NO GROWTH AFTER 24 HOURS Resulted 11/23/19 00:00 Nasal Nares - Final Complete 11/23/19 00:00 Nasal Nares - Final Complete 11/23/19 00:25 Urine,Clean Catch Urine Culture - Preliminary Gram Positive Cocci Resulted Laboratory Tests Test 11/24/19 03:00 White Blood Count 11.3 K/UL (4.8-10.8) H Red Blood Count 3.90 M/UL (4.70-6.10) L Hemoglobin 12.6 G/DL (14.2-18.0) L Hematocrit 37.0 % (42.0-52.0) L Mean Corpuscular Volume 95 FL (80-99) Mean Corpuscular Hemoglobin 32.2 PG (27.0-31.0) H Mean Corpuscular Hemoglobin Concent 34.0 G/DL (32.0-36.0) Red Cell Distribution Width 11.7 % (11.6-14.8) Platelet Count 135 K/UL (150-450) L Mean Platelet Volume 5.5 FL (6.5-10.1) L Neutrophils (%) (Auto) 77.9 % (45.0-75.0) H Lymphocytes (%) (Auto) 18.2 % (20.0-45.0) L Monocytes (%) (Auto) 2.6 % (1.0-10.0) Eosinophils (%) (Auto) 0.9 % (0.0-3.0) Basophils (%) (Auto) 0.4 % (0.0-2.0) Sodium Level 144 MMOL/L (136-145) Potassium Level 3.6 MMOL/L (3.5-5.1) Chloride Level 111 MMOL/L (98-107) H Carbon Dioxide Level 20 MMOL/L (21-32) L Anion Gap 13 mmol/L (5-15) Blood Urea Nitrogen 13 mg/dL (7-18) Creatinine 0.8 MG/DL (0.55-1.30) Estimat Glomerular Filtration Rate > 60 mL/min (>60) Glucose Level 135 MG/DL (74-106) H Calcium Level 7.9 MG/DL (8.5-10.1) L Total Bilirubin 0.8 MG/DL (0.2-1.0) Aspartate Amino Transf (AST/SGOT) 26 U/L (15-37) Alanine Aminotransferase (ALT/SGPT) 15 U/L (12-78) Alkaline Phosphatase 58 U/L (46-116) Total Protein 5.5 G/DL (6.4-8.2) L Albumin 2.5 G/DL (3.4-5.0) L Globulin 3.0 g/dL Albumin/Globulin Ratio 0.8 (1.0-2.7) L Current Medications Medications (Trade) Dose Ordered Sig/Jaime Route PRN Reason Start Time Stop Time Status Last Admin Dose Admin Acetaminophen (Tylenol) 650 mg Q4HR PRN ORAL TEMP>100.5 11/23/19 03:15 Ceftriaxone Sodium 1 gm/ Dextrose 55 ml @ 110 mls/hr Q24H IVPB 11/23/19 08:00 11/30/19 07:59 11/24/19 08:37 Dextrose/ Electrolytes 1,000 ml @ 100 mls/hr Q10H IV 11/23/19 09:00 12/23/19 08:59 11/24/19 03:14 Heparin Sodium (Porcine) (Heparin 5000 units/ml) 5,000 units EVERY 12 HOURS SUBQ 11/23/19 09:00 01/07/20 08:59 11/24/19 08:25 Iohexol (Omnipaque 350 100ml) 100 ml NOW PRN INJ Radiology Procedure 11/23/19 01:30 11/25/19 01:16 Pantoprazole (Protonix) 40 mg DAILY IVP 11/23/19 09:00 12/23/19 08:59 11/24/19 08:24 Liana Kennedy MD November 24, 2019 10:29
[2019-11-24 11:30] VITALS: BP 141/66
--- NOTE | 2019-11-24 15:31 | General Progress Note ---
Assessment/Plan Problem List: (1) Artificial pacemaker ICD Codes: Z95.0 - Presence of cardiac pacemaker SNOMED: 286803263 (2) Hypokalemia ICD Codes: E87.6 - Hypokalemia SNOMED: 93608673 (3) Sepsis ICD Codes: A41.9 - Sepsis, unspecified organism SNOMED: 47278892 Qualifiers: Qualified Codes: A41.9 - Sepsis, unspecified organism (4) UTI (urinary tract infection) ICD Codes: N39.0 - Urinary tract infection, site not specified SNOMED: 70326906 Qualifiers: Qualified Codes: N30.00 - Acute cystitis without hematuria (5) Suspected COVID-19 virus infection ICD Codes: R68.89 - Other general symptoms and signs SNOMED: 440994379 (6) Pneumonia ICD Codes: J18.9 - Pneumonia, unspecified organism SNOMED: 417295250 Qualifiers: Qualified Codes: J18.9 - Pneumonia, unspecified organism Status: stable, progressing Assessment/Plan: stable cont o2 resp care wean fio2 iv abx follow up cultures swallow eval await covid dvt/stress ulcer prophylaxis guarded Subjective ROS Limited/Unobtainable: Yes Constitutional: Reports: malaise, weakness HEENT: Reports: no symptoms Cardiovascular: Reports: no symptoms Respiratory: Reports: shortness of breath, sputum Gastrointestinal/Abdominal: Reports: difficulty swallowing Genitourinary: Reports: no symptoms Neurologic/Psychiatric: Reports: pre-existing deficit Endocrine: Reports: no symptoms Hematologic/Lymphatic: Reports: no symptoms Allergies: Coded Allergies: No Known Allergies (Unverified , 10/13/19) All Systems: reviewed and negative except above Subjective no events. w/o complaints. stable on o2. no fevers or chills. awake. confused. Objective Last 24 Hour Vital Signs Date Time Temp Pulse Resp B/P (MAP) Pulse Ox O2 Delivery O2 Flow Rate FiO2 11/24/19 12:00 4.0 11/24/19 12:00 Nasal Cannula 4.0 11/24/19 12:00 50 11/24/19 11:30 98.2 50 18 141/66 (91) 100 11/24/19 08:00 Nasal Cannula 4.0 11/24/19 08:00 4.0 11/24/19 07:30 98.6 50 18 150/60 (90) 100 11/24/19 07:26 46 11/24/19 04:00 Nasal Cannula 4.0 11/24/19 04:00 97.9 52 18 139/52 (81) 100 11/24/19 04:00 4.0 11/24/19 04:00 46 11/24/19 00:00 98.1 50 18 135/61 (85) 100 11/24/19 00:00 4.0 11/24/19 00:00 Nasal Cannula 4.0 11/23/19 23:32 50 11/23/19 20:00 Nasal Cannula 4.0 11/23/19 20:00 97.8 49 18 125/88 (100) 95 11/23/19 20:00 4.0 11/23/19 19:34 48 11/23/19 16:00 49 11/23/19 16:00 97.9 52 19 131/73 (92) 99 11/23/19 16:00 4.0 11/23/19 16:00 Nasal Cannula 4.0 Intake and Output 11/23/19 11/24/19 19:00 07:00 Intake Total 86 ml 1086 ml Balance 86 ml 1086 ml Intake IV Total 86 ml 1086 ml # Voids 1 2 Laboratory Tests 11/24/19 03:00: White Blood Count 11.3H, Red Blood Count 3.90L, Hemoglobin 12.6L, Hematocrit 37.0L, Mean Corpuscular Volume 95, Mean Corpuscular Hemoglobin 32.2H, Mean Corpuscular Hemoglobin Concent 34.0, Red Cell Distribution Width 11.7, Platelet Count 135L, Mean Platelet Volume 5.5L, Neutrophils (%) (Auto) 77.9H, Lymphocytes (%) (Auto) 18.2L, Monocytes (%) (Auto) 2.6, Eosinophils (%) (Auto) 0.9, Basophils (%) (Auto) 0.4, Sodium Level 144, Potassium Level 3.6, Chloride Level 111H, Carbon Dioxide Level 20L, Anion Gap 13, Blood Urea Nitrogen 13, Creatinine 0.8, Estimat Glomerular Filtration Rate > 60, Glucose Level 135H, Calcium Level 7.9L, Total Bilirubin 0.8, Aspartate Amino Transf (AST/SGOT) 26, Alanine Aminotransferase (ALT/SGPT) 15, Alkaline Phosphatase 58, Total Protein 5.5L, Albumin 2.5L, Globulin 3.0, Albumin/Globulin Ratio 0.8L Height (Feet): 5 Height (Inches): 5.00 Weight (Pounds): 143 General Appearance: WD/WN, alert, lethargic, confused, mild distress EENT: PERRL/EOMI Neck: non-tender, normal alignment, supple Cardiovascular: normal peripheral pulses, normal rate, regular rhythm Respiratory/Chest: chest wall non-tender, lungs clear, normal breath sounds, no respiratory distress Abdomen: normal bowel sounds, non tender, soft, no organomegaly Edema: no edema noted Arm (L), no edema noted Arm (R), no edema noted Leg (L), no edema noted Leg (R), no edema noted Pedal (L), no edema noted Pedal (R), no edema noted Generalized Neurologic: alert, responsive, disoriented Skin: normal pigmentation Lymphatic: normal anterior cervical (L), normal anterior cervical (R) Dax Reyes MD November 24, 2019 15:31
[2019-11-24 16:00] VITALS: BP 142/52
[2019-11-24] MEDS ORDERED: Acetaminophen 650 MG SUPP RECTAL PRN (16:30)
[2019-11-24 20:00] VITALS: BP 172/72
[2019-11-25] VITALS: BP 158/68
--- NOTE | 2019-11-25 00:30 | Progress Note ---
DATE: 11/24/2019 The patient is without new complaints. No distress. No cough. No shortness of breath. No fevers or chills. On nasal cannula. PHYSICAL EXAMINATION: VITAL SIGNS: Blood pressure 141/66, pulse 50, respirations 18, afebrile. LUNGS: Clear. CARDIAC: Regular rhythm. Slow rate. Normal S1, S2. ABDOMEN: Soft. EXTREMITIES: No edema. Monitor, sinus bradycardia. Urine culture, Gram-positive cocci. White count 11, hemoglobin 12.6. Sodium 144, potassium 3.6, bicarb 20, BUN 13, creatinine 0.8, albumin 2.5. TSH 0.5. IMPRESSION: 1. Bradycardia. 2. Lactic acidosis. 3. Healthcare-associated pneumonia. 4. Sepsis. 5. Urinary tract infection. 6. Hypokalemia, improved. 7. Chronic diastolic congestive heart failure. 8. Hypoxia. 9. Elevated D-dimer. PLAN: Await venous duplex scan. Await COVID-19 result. Continue hydration. Replace potassium. Empiric antimicrobials. Cardiac monitoring. Echocardiogram. Reassess for pacemaker indication. Check magnesium level. Tanmay Mayfield M.D. DR: PRESTON JOB#: [id number] CC:
[2019-11-25 04:00] VITALS: BP 144/72
[2019-11-25 05:41] LABS: ALANINE AMINOTRANSFERASE 17 U/L (12-78); ALBUMIN 2.4 G/DL (3.4-5.0); ALBUMIN/GLOBULIN RATIO 0.8 (1.0-2.7); ALKALINE PHOSPHATASE 60 U/L (46-116); ANION GAP 10 mmol/L (5-15); ASPARTATE AMINO TRANSFERASE 20 U/L (15-37); BILIRUBIN,TOTAL 0.4 MG/DL (0.2-1.0); BLOOD UREA NITROGEN 7 mg/dL (7-18); CARBON DIOXIDE 22 MMOL/L (21-32); CHLORIDE 112 MMOL/L (98-107); CREATININE 0.7 MG/DL (0.55-1.30); POTASSIUM 3.3 MMOL/L (3.5-5.1); SODIUM 144 MMOL/L (136-145)
[2019-11-25 08:00] VITALS: BP 138/58
[2019-11-25] MEDS: Pantoprazole Inj IVP SCH (08:07)
[2019-11-25] MEDS: cefTRIAXone 1 GM in D5W 55 ML IVPB SCH (08:08)
[2019-11-25] MEDS: Heparin 5000 units/ml inj SUBQ SCH ×2 (08:09→20:02)
--- NOTE | 2019-11-25 09:15 | Consultation ---
DATE OF CONSULTATION: 11/23/2019 INFECTIOUS DISEASES CONSULTATION CONSULTING PHYSICIAN: Liana Kennedy MD. REFERRING PHYSICIAN: Dax Reyes MD. REASON FOR CONSULTATION: Pneumonia, to rule out COVID-19 pneumonia. HISTORY OF PRESENTING ILLNESS: This is an 89-year-old male with history of dementia, Parkinson's disease, who came in with altered mental status. He has been having shivering and shaking. There was a concern for COVID-19 pneumonia and urinary tract infection and an Infectious Diseases consultation has been obtained for antibiotics. PAST MEDICAL HISTORY: 1. History of hypertension. 2. Dementia. 3. Diabetes. 4. Parkinson's disease. 5. COPD. SOCIAL HISTORY: Unknown. FAMILY HISTORY: Unknown. REVIEW OF SYSTEMS: Unable to obtain currently. MEDICATIONS: As an inpatient, the patient is on subcutaneous heparin, Protonix, ceftriaxone, Tylenol. ALLERGIES: No known drug allergies. PHYSICAL EXAMINATION: VITAL SIGNS: Temperature of 97.7, T-max of 103.9, pulse of 58, respiratory rate 21, blood pressure 136/74, O2 saturation of 96% on 4 liters of oxygen. Examination deferred due to possibility of COVID-19. LABORATORY AND DIAGNOSTIC DATA: White count 11.8, hemoglobin 12.3, hematocrit 34, MCV 89, platelet count of 149. ESR of 50. Sodium 144, potassium 3.1, chloride 106, bicarb 21, BUN 16, creatinine 1, glucose 185, calcium 8.7, ferritin 548. Total bilirubin , direct bilirubin 0.7. AST 29, ALT 17, alkaline phosphatase 75. CK of 87, CK-MB of 0.6, troponin 0. Beta natriuretic peptide 876. Total protein 6.5, albumin 3.1. UA showing too numerous to count white cells. Chest x-ray showing no acute disease. CT chest angiogram showing no pulmonary embolism. Nonspecific ground-glass opacities in the left upper lobe and bilateral lower lobes. Colonic diverticulosis noted. ASSESSMENT: This is an 89-year-old male with history of diabetes, hypertension, COPD, Parkinson's disease, dementia, who comes in with fever and chills and found to have: 1. Urinary tract infection. 2. We would also like to rule out COVID-19 pneumonia as a possibility. 3. Diabetes. 4. Hypertension. 5. COPD. PLAN: 1. Continue ceftriaxone. 2. We will follow up cultures and adjust antibiotics accordingly. 3. We will follow up on COVID-19 testing. 4. Continue isolation. I would like to thank, Dr. Reyes, for this consultation. Shakuntala Chastity Kennedy DR: LILA JOB#: [id number] CC: Dax Reyes M.D. [facility]
--- NOTE | 2019-11-25 10:12 | Infectious Diseases Prog Note ---
Assessment/Plan Assessment/Plan A 1. Enterococcus UTI 2. pneumonia r/o COVID 19 pneumonia 3. hypertension 4. Parkinson disease P 1. change ceftriaxone to Levaquin 2. will follow up cultures 3. continue isolation Subjective ROS Limited/Unobtainable: Yes Constitutional: Reports: fever, other - low grade Au=239.2 Allergies: Coded Allergies: No Known Allergies (Unverified , 10/13/19) Objective Vital Signs Last 24 Hour Vital Signs Date Time Temp Pulse Resp B/P (MAP) Pulse Ox O2 Delivery O2 Flow Rate FiO2 11/25/19 08:00 Nasal Cannula 4.0 11/25/19 08:00 97.5 54 16 138/58 (84) 100 11/25/19 08:00 54 11/25/19 08:00 2.0 11/25/19 04:00 Nasal Cannula 4.0 11/25/19 04:00 4.0 11/25/19 04:00 98.2 51 16 144/72 (96) 99 11/25/19 03:25 52 11/25/19 00:00 100.2 54 20 158/68 (98) 94 11/25/19 00:00 Nasal Cannula 4.0 11/25/19 00:00 4.0 11/25/19 00:00 51 11/24/19 20:00 97.7 51 16 172/72 (105) 100 11/24/19 20:00 Nasal Cannula 4.0 11/24/19 20:00 4.0 11/24/19 19:08 49 11/24/19 18:00 Nasal Cannula 4.0 11/24/19 17:37 98.9 11/24/19 16:00 58 11/24/19 16:00 Nasal Cannula 4.0 11/24/19 16:00 99.9 52 18 142/52 (82) 100 11/24/19 16:00 4.0 11/24/19 12:00 4.0 11/24/19 12:00 Nasal Cannula 4.0 11/24/19 12:00 50 11/24/19 11:30 98.2 50 18 141/66 (91) 100 Height (Feet): 5 Height (Inches): 5.00 Weight (Pounds): 143 General Appearance: no acute distress Respiratory/Chest: no respiratory distress Cardiovascular: bradycardia Abdomen: soft, non tender Extremities: no edema Neurologic/Psychiatric: alert, responsive Microbiology Date/Time Source Procedure Growth Status 11/23/19 00:38 Blood Blood Culture - Preliminary NO GROWTH AFTER 48 HOURS Resulted 11/23/19 00:20 Blood Blood Culture - Preliminary NO GROWTH AFTER 48 HOURS Resulted 11/23/19 00:15 Nasal Nares MRSA Culture - Final NO METHICILLIN RESISTANT STAPH AUREUS... Complete 11/23/19 00:00 Nasal Nares - Final Complete 11/23/19 00:00 Nasal Nares - Final Complete 11/23/19 00:25 Urine,Clean Catch Urine Culture - Final Enterococcus Faecalis Complete 11/23/19 00:15 Rectum - Final NO CARBAPENEM-RESISTANT ENTEROBACTERI... Complete 11/23/19 00:15 Rectum VRE Culture - Final NO VANCOMYCIN RESISTANT ENTEROCOCCUS ... Complete Laboratory Tests Test 11/25/19 04:15 Sodium Level 144 MMOL/L (136-145) Potassium Level 3.3 MMOL/L (3.5-5.1) L Chloride Level 112 MMOL/L (98-107) H Carbon Dioxide Level 22 MMOL/L (21-32) Anion Gap 10 mmol/L (5-15) Blood Urea Nitrogen 7 mg/dL (7-18) Creatinine 0.7 MG/DL (0.55-1.30) Estimat Glomerular Filtration Rate > 60 mL/min (>60) Glucose Level 139 MG/DL (74-106) H Lactic Acid Level 1.90 mmol/L (0.4-2.0) Calcium Level 7.0 MG/DL (8.5-10.1) L Magnesium Level 1.5 MG/DL (1.8-2.4) L Total Bilirubin 0.4 MG/DL (0.2-1.0) Aspartate Amino Transf (AST/SGOT) 20 U/L (15-37) Alanine Aminotransferase (ALT/SGPT) 17 U/L (12-78) Alkaline Phosphatase 60 U/L (46-116) Total Protein 5.3 G/DL (6.4-8.2) L Albumin 2.4 G/DL (3.4-5.0) L Globulin 2.9 g/dL Albumin/Globulin Ratio 0.8 (1.0-2.7) L Current Medications Medications (Trade) Dose Ordered Sig/Jaime Route PRN Reason Start Time Stop Time Status Last Admin Dose Admin Acetaminophen (Tylenol) 650 mg Q4H PRN RECTAL Temp >100.5 11/24/19 16:30 12/24/19 16:29 11/24/19 17:07 Ceftriaxone Sodium 1 gm/ Dextrose 55 ml @ 110 mls/hr Q24H IVPB 11/23/19 08:00 11/30/19 07:59 11/25/19 08:08 Dextrose/ Electrolytes 1,000 ml @ 100 mls/hr Q10H IV 11/23/19 09:00 12/23/19 08:59 11/25/19 00:58 Heparin Sodium (Porcine) (Heparin 5000 units/ml) 5,000 units EVERY 12 HOURS SUBQ 11/23/19 09:00 01/07/20 08:59 11/25/19 08:09 Pantoprazole (Protonix) 40 mg DAILY IVP 11/23/19 09:00 12/23/19 08:59 11/25/19 08:07 Chris Elizabeth MD November 25, 2019 10:12
[2019-11-25] MEDS: Levofloxacin 750mg tab ORAL SCH (10:41)
[2019-11-25 12:00] VITALS: BP 142/67
--- NOTE | 2019-11-25 15:41 | General Progress Note ---
Assessment/Plan Problem List: (1) Artificial pacemaker ICD Codes: Z95.0 - Presence of cardiac pacemaker SNOMED: 852532231 (2) Hypokalemia ICD Codes: E87.6 - Hypokalemia SNOMED: 80531501 (3) Sepsis ICD Codes: A41.9 - Sepsis, unspecified organism SNOMED: 57471038 Qualifiers: Qualified Codes: A41.9 - Sepsis, unspecified organism (4) UTI (urinary tract infection) ICD Codes: N39.0 - Urinary tract infection, site not specified SNOMED: 46407889 Qualifiers: Qualified Codes: N30.00 - Acute cystitis without hematuria (5) Suspected COVID-19 virus infection ICD Codes: R68.89 - Other general symptoms and signs SNOMED: 905758836 (6) Pneumonia ICD Codes: J18.9 - Pneumonia, unspecified organism SNOMED: 219931574 Qualifiers: Qualified Codes: J18.9 - Pneumonia, unspecified organism Status: stable, progressing Assessment/Plan: stable cont o2 resp care wean fio2 iv abx per ID follow up cultures swallow eval noted. start pos. monitor for aspiration. await covid dvt/stress ulcer prophylaxis guarded Subjective ROS Limited/Unobtainable: Yes Constitutional: Reports: malaise, weakness HEENT: Reports: no symptoms Cardiovascular: Reports: no symptoms Respiratory: Reports: cough, shortness of breath, SOB at rest Gastrointestinal/Abdominal: Reports: no symptoms Genitourinary: Reports: no symptoms Neurologic/Psychiatric: Reports: pre-existing deficit Endocrine: Reports: no symptoms Hematologic/Lymphatic: Reports: anemia Allergies: Coded Allergies: No Known Allergies (Unverified , 10/13/19) All Systems: reviewed and negative except above Subjective There have been no overnight events. Patient remained stable on 4 L nasal cannula. Passed swallow evaluation. COVID-19 PCR is still pending. Remains bradycardic. ID noted. Antibiotics adjusted. Low magnesium and potassium. Minimal congestion. No fevers Objective Last 24 Hour Vital Signs Date Time Temp Pulse Resp B/P (MAP) Pulse Ox O2 Delivery O2 Flow Rate FiO2 11/25/19 12:00 Nasal Cannula 4.0 11/25/19 12:00 97.9 55 16 142/67 (92) 100 11/25/19 12:00 2.0 11/25/19 11:30 48 11/25/19 08:00 Nasal Cannula 4.0 11/25/19 08:00 97.5 54 16 138/58 (84) 100 11/25/19 08:00 54 11/25/19 08:00 2.0 11/25/19 04:00 Nasal Cannula 4.0 11/25/19 04:00 4.0 11/25/19 04:00 98.2 51 16 144/72 (96) 99 11/25/19 03:25 52 11/25/19 00:00 100.2 54 20 158/68 (98) 94 11/25/19 00:00 Nasal Cannula 4.0 11/25/19 00:00 4.0 11/25/19 00:00 51 11/24/19 20:00 97.7 51 16 172/72 (105) 100 11/24/19 20:00 Nasal Cannula 4.0 11/24/19 20:00 4.0 11/24/19 19:08 49 11/24/19 18:00 Nasal Cannula 4.0 11/24/19 17:37 98.9 11/24/19 16:00 58 11/24/19 16:00 Nasal Cannula 4.0 11/24/19 16:00 99.9 52 18 142/52 (82) 100 11/24/19 16:00 4.0 Intake and Output 11/24/19 11/25/19 19:00 07:00 Intake Total 1755 ml 803.33 ml Output Total 800 ml 450 ml Balance 955 ml 353.33 ml Intake Oral 500 ml IV Total 1255 ml 803.33 ml Output Urine Total 800 ml 450 ml # Bowel Movements 2 Laboratory Tests 11/25/19 04:15: Sodium Level 144, Potassium Level 3.3L, Chloride Level 112H, Carbon Dioxide Level 22, Anion Gap 10, Blood Urea Nitrogen 7, Creatinine 0.7, Estimat Glomerular Filtration Rate > 60, Glucose Level 139H, Lactic Acid Level 1.90, Calcium Level 7.0L, Magnesium Level 1.5L, Total Bilirubin 0.4, Aspartate Amino Transf (AST/SGOT) 20, Alanine Aminotransferase (ALT/SGPT) 17, Alkaline Phosphatase 60, Total Protein 5.3L, Albumin 2.4L, Globulin 2.9, Albumin/ Globulin Ratio 0.8L Height (Feet): 5 Height (Inches): 5.00 Weight (Pounds): 143 Objective General Appearance: WD/WN, alert, lethargic, confused, mild distress EENT: PERRL/EOMI Neck: non-tender, normal alignment, supple Cardiovascular: normal peripheral pulses, normal rate, regular rhythm Respiratory/Chest: chest wall non-tender, lungs clear, normal breath sounds, no respiratory distress Abdomen: normal bowel sounds, non tender, soft, no organomegaly Edema: no edema noted Arm (L), no edema noted Arm (R), no edema noted Leg (L), no edema noted Leg (R), no edema noted Pedal (L), no edema noted Pedal (R), no edema noted Generalized Neurologic: alert, responsive, disoriented Skin: normal pigmentation Lymphatic: normal anterior cervical (L), normal anterior cervical (R) Dax Reyes MD November 25, 2019 15:41
[2019-11-25 16:00] VITALS: BP 139/60
[2019-11-25 19:29] VITALS: BP 146/69
[2019-11-26] VITALS: BP 141/75
--- NOTE | 2019-11-26 02:30 | Progress Note ---
DATE: 11/25/2019 CARDIOLOGY PROGRESS NOTE SUBJECTIVE: The patient has passed the swallow evaluation. Monitored rhythm sinus bradycardia, asymptomatic. The patient on 4 L nasal cannula. OBJECTIVE: VITAL SIGNS: Blood pressure 142/67, heart rate 48 to 55, respiratory rate 16, oxygen saturation 100% on 2 to 4 L. LUNGS: Few rhonchi. CARDIAC: Regular rhythm. Slow rate. Normal S1, S2. ABDOMEN: Soft. EXTREMITIES: No edema. LABORATORY DATA: Potassium 3.3, magnesium 1.5. BUN 7, creatinine 0.7. IMPRESSION: 1. Hypokalemia, hypomagnesemia, resolved. 2. Lactic acidosis. 3. Sepsis, improved. 4. Healthcare-associated pneumonia, resolving. 5. Urinary tract infection, recovering. 6. Chronic diastolic congestive heart failure. 7. Hypoxia, improved. 8. Elevated D-dimer. 9. Awaiting venous duplex scan. 10. Bradycardia, asymptomatic. 11. 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 PLAN: Replace potassium and magnesium. Discontinue IV fluids. Await venous duplex study. Antimicrobials. Respiratory hygiene. Cardiac monitoring. Presently no emergent indication for permanent pacemaker. Tanmay Mayfield M.D. DR: LONNIE JOB#: [id number] CC: ALEXIS
[2019-11-26 04:00] VITALS: BP 138/68
--- NOTE | 2019-11-26 07:15 | General Progress Note ---
Assessment/Plan Problem List: (1) Artificial pacemaker ICD Codes: Z95.0 - Presence of cardiac pacemaker SNOMED: 293488810 (2) Hypokalemia ICD Codes: E87.6 - Hypokalemia SNOMED: 48112662 (3) Sepsis ICD Codes: A41.9 - Sepsis, unspecified organism SNOMED: 84735163 Qualifiers: Qualified Codes: A41.9 - Sepsis, unspecified organism (4) UTI (urinary tract infection) ICD Codes: N39.0 - Urinary tract infection, site not specified SNOMED: 03659485 Qualifiers: Qualified Codes: N30.00 - Acute cystitis without hematuria (5) Suspected COVID-19 virus infection ICD Codes: R68.89 - Other general symptoms and signs SNOMED: 482947858 (6) Pneumonia ICD Codes: J18.9 - Pneumonia, unspecified organism SNOMED: 632006281 Qualifiers: Qualified Codes: J18.9 - Pneumonia, unspecified organism Status: stable, progressing Assessment/Plan: stable cont o2 resp care wean fio2 as able iv abx per ID follow up cultures swallow eval noted. start pos. monitor for aspiration. covid neg monitor HR for now. may need rx if hr remains elevated(was lorri before) to d/w cardiac noac if afib persists dvt/stress ulcer prophylaxis guarded Subjective ROS Limited/Unobtainable: No Constitutional: Reports: malaise, weakness HEENT: Reports: no symptoms Cardiovascular: Reports: no symptoms Respiratory: Reports: cough Gastrointestinal/Abdominal: Reports: no symptoms Genitourinary: Reports: no symptoms Neurologic/Psychiatric: Reports: anxiety, pre-existing deficit Endocrine: Reports: no symptoms Hematologic/Lymphatic: Reports: anemia Allergies: Coded Allergies: No Known Allergies (Unverified , 10/13/19) All Systems: reviewed and negative except above Subjective converted to afib. HR 100s. no distress. awake and alert. no fevers. Now on 2l nasal cannula. remains on abx. Objective Last 24 Hour Vital Signs Date Time Temp Pulse Resp B/P (MAP) Pulse Ox O2 Delivery O2 Flow Rate FiO2 11/26/19 04:00 97.9 92 18 138/68 (91) 99 11/26/19 04:00 2.0 11/26/19 04:00 Nasal Cannula 2.0 5/22/20 03:36 96 11/26/19 03:21 58 11/26/19 00:00 Nasal Cannula 2.0 11/26/19 00:00 98.0 58 18 141/75 (97) 99 11/25/19 23:50 55 11/25/19 20:00 Nasal Cannula 2.0 11/25/19 20:00 2.0 11/25/19 19:29 46 11/25/19 19:29 98.1 46 18 146/69 (94) 99 11/25/19 16:00 48 11/25/19 16:00 Nasal Cannula 4.0 11/25/19 16:00 97.0 53 16 139/60 (86) 100 11/25/19 16:00 2.0 11/25/19 12:00 Nasal Cannula 4.0 11/25/19 12:00 97.9 55 16 142/67 (92) 100 11/25/19 12:00 2.0 11/25/19 11:30 48 11/25/19 08:00 Nasal Cannula 4.0 11/25/19 08:00 97.5 54 16 138/58 (84) 100 11/25/19 08:00 54 11/25/19 08:00 2.0 Intake and Output 11/25/19 11/26/19 19:00 07:00 Intake Total 1200 ml 299 ml Output Total 400 ml 1350 ml Balance 800 ml -1051 ml IV Total 1200 ml 299 ml Output Urine Total 400 ml 1350 ml # Voids 1 Height (Feet): 5 Height (Inches): 5.00 Weight (Pounds): 143 Objective General Appearance: WD/WN, alert, lethargic, confused, mild distress EENT: PERRL/EOMI Neck: non-tender, normal alignment, supple Cardiovascular: normal peripheral pulses, normal rate, regular rhythm Respiratory/Chest: chest wall non-tender, lungs clear, normal breath sounds, no respiratory distress Abdomen: normal bowel sounds, non tender, soft, no organomegaly Edema: no edema noted Arm (L), no edema noted Arm (R), no edema noted Leg (L), no edema noted Leg (R), no edema noted Pedal (L), no edema noted Pedal (R), no edema noted Generalized Neurologic: alert, responsive, disoriented Skin: normal pigmentation Lymphatic: normal anterior cervical (L), normal anterior cervical (R) Dax Reyes MD November 26, 2019 07:15
[2019-11-26 08:00] VITALS: BP 110/62
[2019-11-26 08:45] LABS: BASOPHILS % (AUTO) 0.7 % (0.0-2.0); EOSINOPHILS % (AUTO) 6.2 % (0.0-3.0); HEMATOCRIT 35.4 % (42.0-52.0); LYMPHOCYTES % (AUTO) 26.3 % (20.0-45.0); MEAN CORPUSCULAR VOLUME 86 FL (80-99); NEUTROPHILS % (AUTO) 57.9 % (45.0-75.0); PLATELET COUNT 129 K/UL (150-450); RED BLOOD COUNT 4.11 M/UL (4.70-6.10); RED CELL DISTRIBUTION WIDTH 9.9 % (11.6-14.8); WHITE BLOOD COUNT 7.9 K/UL (4.8-10.8)
[2019-11-26] MEDS: Heparin 5000 units/ml inj SUBQ SCH ×2 (08:55→20:53)
[2019-11-26 08:56] LABS: ANION GAP 12 mmol/L (5-15); BLOOD UREA NITROGEN 2 mg/dL (7-18); CALCIUM 8.2 MG/DL (8.5-10.1); CARBON DIOXIDE 23 MMOL/L (21-32); CHLORIDE 106 MMOL/L (98-107); CREATININE 0.6 MG/DL (0.55-1.30); POTASSIUM 3.5 MMOL/L (3.5-5.1); SODIUM 141 MMOL/L (136-145)
--- NOTE | 2019-11-26 10:34 | Infectious Diseases Prog Note ---
Assessment/Plan Assessment/Plan antibiotics : levoquin A 1. enterococcus UTI 2. pneumonia COVID 19 test negative 3. hypertension 4. Parkinsons disease P 1. continue levoquin 5 more days 2. COVID 19 test 3. will follow up cultures 4. continue isolation Subjective ROS Limited/Unobtainable: Yes Allergies: Coded Allergies: No Known Allergies (Unverified , 10/13/19) Objective Vital Signs Last 24 Hour Vital Signs Date Time Temp Pulse Resp B/P (MAP) Pulse Ox O2 Delivery O2 Flow Rate FiO2 11/26/19 08:00 97.2 61 20 110/62 (78) 96 11/26/19 08:00 Nasal Cannula 2.0 11/26/19 04:00 97.9 92 18 138/68 (91) 99 11/26/19 04:00 2.0 11/26/19 04:00 Nasal Cannula 2.0 11/26/19 03:36 96 11/26/19 03:21 58 11/26/19 00:00 Nasal Cannula 2.0 11/26/19 00:00 98.0 58 18 141/75 (97) 99 11/25/19 23:50 55 11/25/19 20:00 Nasal Cannula 2.0 11/25/19 20:00 2.0 11/25/19 19:29 46 11/25/19 19:29 98.1 46 18 146/69 (94) 99 11/25/19 16:00 48 11/25/19 16:00 Nasal Cannula 4.0 11/25/19 16:00 97.0 53 16 139/60 (86) 100 11/25/19 16:00 2.0 11/25/19 12:00 Nasal Cannula 4.0 11/25/19 12:00 97.9 55 16 142/67 (92) 100 11/25/19 12:00 2.0 11/25/19 11:30 48 Height (Feet): 5 Height (Inches): 5.00 Weight (Pounds): 143 Laboratory Tests Test 11/26/19 08:35 White Blood Count 7.9 K/UL (4.8-10.8) Red Blood Count 4.11 M/UL (4.70-6.10) L Hemoglobin 13.0 G/DL (14.2-18.0) L Hematocrit 35.4 % (42.0-52.0) L Mean Corpuscular Volume 86 FL (80-99) Mean Corpuscular Hemoglobin 31.5 PG (27.0-31.0) H Mean Corpuscular Hemoglobin Concent 36.6 G/DL (32.0-36.0) H Red Cell Distribution Width 9.9 % (11.6-14.8) L Platelet Count 129 K/UL (150-450) L Mean Platelet Volume 6.0 FL (6.5-10.1) L Neutrophils (%) (Auto) 57.9 % (45.0-75.0) Lymphocytes (%) (Auto) 26.3 % (20.0-45.0) Monocytes (%) (Auto) 9.0 % (1.0-10.0) Eosinophils (%) (Auto) 6.2 % (0.0-3.0) H Basophils (%) (Auto) 0.7 % (0.0-2.0) Sodium Level 141 MMOL/L (136-145) Potassium Level 3.5 MMOL/L (3.5-5.1) Chloride Level 106 MMOL/L (98-107) Carbon Dioxide Level 23 MMOL/L (21-32) Anion Gap 12 mmol/L (5-15) Blood Urea Nitrogen 2 mg/dL (7-18) L Creatinine 0.6 MG/DL (0.55-1.30) Estimat Glomerular Filtration Rate > 60 mL/min (>60) Glucose Level 130 MG/DL (74-106) H Calcium Level 8.2 MG/DL (8.5-10.1) L Current Medications Medications (Trade) Dose Ordered Sig/Jaime Route PRN Reason Start Time Stop Time Status Last Admin Dose Admin Acetaminophen (Tylenol) 650 mg Q4H PRN RECTAL Temp >100.5 11/24/19 16:30 12/24/19 16:29 11/24/19 17:07 Heparin Sodium (Porcine) (Heparin 5000 units/ml) 5,000 units EVERY 12 HOURS SUBQ 11/23/19 09:00 01/07/20 08:59 11/26/19 08:55 Levofloxacin (Levaquin) 750 mg QOD ORAL 11/25/19 10:21 12/02/19 10:20 11/25/19 10:41 Pantoprazole (Protonix) 40 mg DAILY ORAL 11/26/19 09:00 12/26/19 08:59 11/26/19 08:52 Liana Kennedy MD November 26, 2019 10:34
--- NOTE | 2019-11-26 11:57 | Diagnostic Imaging Report ---
EXAM: ULTRASOUND Venous Duplex Scan [place] Leg CLINICAL HISTORY: Leg pain and edema. COMPARISON: None TECHNIQUE: Doppler examination include grayscale images obtained with and without compression, and color and spectral doppler analysis. FINDINGS: Doppler examination shows normal spontaneity, phasicity, compressibility in the bilateral lower extremities. There is no thrombus identified by grayscale. Normal color and spectral flow is identified. There is no evidence of valvular incompetency or insufficiency. IMPRESSION: UNREMARKABLE VENOUS DUPLEX.
[2019-11-26 12:00] VITALS: BP 130/61
[2019-11-26 16:00] VITALS: BP 132/66
[2019-11-26 20:00] VITALS: BP 125/70
[2019-11-27] VITALS: BP 144/67
[2019-11-27 04:00] VITALS: BP 141/77
--- NOTE | 2019-11-27 05:15 | Progress Note ---
DATE: 11/26/2019 CARDIOLOGY PROGRESS NOTE SUBJECTIVE: Patient developed rapid atrial fibrillation, subsequently converted spontaneously. PHYSICAL EXAMINATION: VITAL SIGNS: Afebrile, blood pressure 110/62, heart rate 61, respirations 20. LUNGS: Bilateral breath sounds. No wheezing. CARDIAC: Regular rhythm and rate. Normal S1, S2 with a 1/6 systolic murmur at base. ABDOMEN: Soft. EXTREMITIES: No edema. Venous duplex scan is negative for DVT. LABORATORY DATA: White count 7.9, hemoglobin 13. Potassium 3.5. IMPRESSION: 1. Paroxysmal atrial fibrillation. 2. Lactic acidosis. 3. Hypokalemia. 4. Healthcare-associated pneumonia. 5. Sepsis recovering. 6. Asymptomatic bradyarrhythmias. 7. 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 PLAN: 1. Additional potassium. 2. No role for anticoagulation. 3. Antimicrobials. 4. Respiratory hygiene. 5. Adequate hydration. Tanmay Mayfield M.D. DR: VASILE JOB#: [id number] CC: ALEXIS
[2019-11-27 08:00] VITALS: BP 127/75
[2019-11-27] MEDS: Levofloxacin 750mg tab ORAL SCH (09:08)
[2019-11-27] MEDS: Heparin 5000 units/ml inj SUBQ SCH ×2 (09:09→20:36)
[2019-11-27] MEDS ORDERED: Tubing IV Secondary IV ONE (10:19)
[2019-11-27] MEDS ORDERED: NS 275ml ONE (10:19)
--- NOTE | 2019-11-27 11:12 | General Progress Note ---
Assessment/Plan Problem List: (1) Artificial pacemaker ICD Codes: Z95.0 - Presence of cardiac pacemaker SNOMED: 469687590 (2) Hypokalemia ICD Codes: E87.6 - Hypokalemia SNOMED: 88910543 (3) Sepsis ICD Codes: A41.9 - Sepsis, unspecified organism SNOMED: 55857283 Qualifiers: Qualified Codes: A41.9 - Sepsis, unspecified organism (4) UTI (urinary tract infection) ICD Codes: N39.0 - Urinary tract infection, site not specified SNOMED: 81021497 Qualifiers: Qualified Codes: N30.00 - Acute cystitis without hematuria (5) Suspected COVID-19 virus infection ICD Codes: R68.89 - Other general symptoms and signs SNOMED: 469244284 (6) Pneumonia ICD Codes: J18.9 - Pneumonia, unspecified organism SNOMED: 383118384 Qualifiers: Qualified Codes: J18.9 - Pneumonia, unspecified organism Status: stable, progressing Assessment/Plan: stable cont o2 resp care wean fio2 as able iv abx per ID follow up cultures swallow eval noted. start pos. monitor for aspiration. covid neg x 1. 2nd re-order by ID monitor HR for now. may need rx if hr remains elevated(was lorri before) no anticoag per cards dvt/stress ulcer prophylaxis guarded Subjective ROS Limited/Unobtainable: No Constitutional: Reports: malaise, weakness HEENT: Reports: no symptoms Cardiovascular: Reports: no symptoms Respiratory: Reports: cough, shortness of breath, SOB at rest Gastrointestinal/Abdominal: Reports: no symptoms Genitourinary: Reports: no symptoms Neurologic/Psychiatric: Reports: anxiety Endocrine: Reports: no symptoms Hematologic/Lymphatic: Reports: anemia Allergies: Coded Allergies: No Known Allergies (Unverified , 10/13/19) All Systems: reviewed and negative except above Subjective no events. w/o complaints. slow afib 50s. no sob. no fever or chills. no cough. on po abx. Objective Last 24 Hour Vital Signs Date Time Temp Pulse Resp B/P (MAP) Pulse Ox O2 Delivery O2 Flow Rate FiO2 11/27/19 08:00 59 11/27/19 08:00 97.0 70 18 127/75 (92) 95 11/27/19 08:00 Room Air 11/27/19 04:00 98.2 63 18 141/77 (98) 98 11/27/19 04:00 Room Air 11/27/19 03:48 53 11/27/19 00:00 98.0 57 18 144/67 (92) 98 11/27/19 00:00 Room Air 11/27/19 00:00 57 11/26/19 20:00 60 11/26/19 20:00 98.2 63 18 125/70 (88) 98 11/26/19 20:00 Room Air 11/26/19 16:00 60 11/26/19 16:00 Nasal Cannula 2.0 11/26/19 16:00 96.3 55 20 132/66 (88) 100 11/26/19 12:00 58 11/26/19 12:00 Nasal Cannula 2.0 11/26/19 12:00 98.1 64 20 130/61 (84) 98 Intake and Output 11/26/19 11/27/19 19:00 07:00 Intake Total 1040 ml 30 ml Output Total 850 ml 350 ml Balance 190 ml -320 ml Intake Oral 1040 ml 30 ml Output Urine Total 850 ml 350 ml Height (Feet): 5 Height (Inches): 5.00 Weight (Pounds): 143 Objective General Appearance: WD/WN, alert, lethargic, confused, mild distress EENT: PERRL/EOMI Neck: non-tender, normal alignment, supple Cardiovascular: normal peripheral pulses, normal rate, regular rhythm Respiratory/Chest: chest wall non-tender, lungs clear, normal breath sounds, no respiratory distress Abdomen: normal bowel sounds, non tender, soft, no organomegaly Edema: no edema noted Arm (L), no edema noted Arm (R), no edema noted Leg (L), no edema noted Leg (R), no edema noted Pedal (L), no edema noted Pedal (R), no edema noted Generalized Neurologic: alert, responsive, disoriented Skin: normal pigmentation Lymphatic: normal anterior cervical (L), normal anterior cervical (R) Dax Reyes MD November 27, 2019 11:12
[2019-11-27 12:00] VITALS: BP 130/76
[2019-11-27 16:00] VITALS: BP 146/57
[2019-11-27 20:00] VITALS: BP 156/79
[2019-11-28] VITALS: BP 134/66
[2019-11-28 04:00] VITALS: BP 137/75
[2019-11-28 05:35] LABS: BASOPHILS % (AUTO) 0.8 % (0.0-2.0); EOSINOPHILS % (AUTO) 8.1 % (0.0-3.0); HEMATOCRIT 34.5 % (42.0-52.0); HEMOGLOBIN 12.4 G/DL (14.2-18.0); LYMPHOCYTES % (AUTO) 38.1 % (20.0-45.0); MEAN CORPUSCULAR VOLUME 87 FL (80-99); PLATELET COUNT 181 K/UL (150-450); RED BLOOD COUNT 3.94 M/UL (4.70-6.10); RED CELL DISTRIBUTION WIDTH 10.1 % (11.6-14.8); WHITE BLOOD COUNT 7.4 K/UL (4.8-10.8)
[2019-11-28 05:57] LABS: ALANINE AMINOTRANSFERASE 14 U/L (12-78); ALBUMIN 2.8 G/DL (3.4-5.0); ALBUMIN/GLOBULIN RATIO 0.8 (1.0-2.7); ALKALINE PHOSPHATASE 76 U/L (46-116); ANION GAP 9 mmol/L (5-15); ASPARTATE AMINO TRANSFERASE 19 U/L (15-37); BILIRUBIN,TOTAL 0.7 MG/DL (0.2-1.0); BLOOD UREA NITROGEN 6 mg/dL (7-18); CARBON DIOXIDE 27 MMOL/L (21-32); CHLORIDE 106 MMOL/L (98-107); CREATININE 0.9 MG/DL (0.55-1.30); POTASSIUM 3.9 MMOL/L (3.5-5.1); SODIUM 142 MMOL/L (136-145)
[2019-11-28 07:55] VITALS: BP 134/77
[2019-11-28] MEDS: Heparin 5000 units/ml inj SUBQ SCH ×2 (08:31→20:06)
--- NOTE | 2019-11-28 08:52 | General Progress Note ---
Assessment/Plan Problem List: (1) Artificial pacemaker ICD Codes: Z95.0 - Presence of cardiac pacemaker SNOMED: 071466160 (2) Hypokalemia ICD Codes: E87.6 - Hypokalemia SNOMED: 80682001 (3) Sepsis ICD Codes: A41.9 - Sepsis, unspecified organism SNOMED: 56921466 Qualifiers: Qualified Codes: A41.9 - Sepsis, unspecified organism (4) UTI (urinary tract infection) ICD Codes: N39.0 - Urinary tract infection, site not specified SNOMED: 26347461 Qualifiers: Qualified Codes: N30.00 - Acute cystitis without hematuria (5) Suspected COVID-19 virus infection ICD Codes: R68.89 - Other general symptoms and signs SNOMED: 225667963 (6) Pneumonia ICD Codes: J18.9 - Pneumonia, unspecified organism SNOMED: 035766700 Qualifiers: Qualified Codes: J18.9 - Pneumonia, unspecified organism Status: stable, progressing Assessment/Plan: stable cont o2 resp care wean fio2 as able iv abx per ID follow up cultures swallow eval noted. start pos. monitor for aspiration. covid neg x 1. 2nd re-order by ID monitor HR for now. may need rx if hr remains elevated(was lorri before) no anticoag per cards dvt/stress ulcer prophylaxis guarded Subjective ROS Limited/Unobtainable: No Constitutional: Reports: malaise, weakness HEENT: Reports: no symptoms Cardiovascular: Reports: no symptoms Respiratory: Reports: cough, shortness of breath Gastrointestinal/Abdominal: Reports: no symptoms Genitourinary: Reports: no symptoms Neurologic/Psychiatric: Reports: no symptoms Endocrine: Reports: no symptoms Hematologic/Lymphatic: Reports: anemia Allergies: Coded Allergies: No Known Allergies (Unverified , 10/13/19) All Systems: reviewed and negative except above Subjective no events. w/o complaints. slow afib 50s. no sob. no fever or chills. no cough. on po abx. Objective Last 24 Hour Vital Signs Date Time Temp Pulse Resp B/P (MAP) Pulse Ox O2 Delivery O2 Flow Rate FiO2 11/28/19 08:00 Room Air 11/28/19 07:55 97.7 63 18 134/77 (96) 98 11/28/19 04:00 Room Air 11/28/19 04:00 98.6 55 18 137/75 (95) 98 11/28/19 03:57 56 11/28/19 00:00 98.0 68 18 134/66 (88) 98 11/28/19 00:00 Room Air 11/27/19 23:55 62 11/27/19 20:00 98.1 57 18 156/79 (104) 98 11/27/19 20:00 Room Air 11/27/19 19:26 59 11/27/19 16:00 52 11/27/19 16:00 98.3 57 18 146/57 (86) 98 11/27/19 16:00 Room Air 11/27/19 12:00 Room Air 11/27/19 12:00 52 11/27/19 12:00 97.9 59 18 130/76 (94) 95 Intake and Output 11/27/19 11/28/19 19:00 07:00 Intake Total 300 ml Output Total 300 ml 1000 ml Balance 0 ml -1000 ml Intake Oral 300 ml Output Urine Total 300 ml 1000 ml Laboratory Tests 11/28/19 03:30: White Blood Count 7.4, Red Blood Count 3.94L, Hemoglobin 12.4L, Hematocrit 34.5L , Mean Corpuscular Volume 87, Mean Corpuscular Hemoglobin 31.5H, Mean Corpuscular Hemoglobin Concent 36.0, Red Cell Distribution Width 10.1L, Platelet Count 181, Mean Platelet Volume 6.3L, Neutrophils (%) (Auto) 43.0L, Lymphocytes (%) (Auto) 38.1, Monocytes (%) (Auto) 10.0, Eosinophils (%) (Auto) 8.1H, Basophils (%) (Auto) 0.8, Sodium Level 142, Potassium Level 3.9, Chloride Level 106, Carbon Dioxide Level 27, Anion Gap 9, Blood Urea Nitrogen 6L, Creatinine 0.9, Estimat Glomerular Filtration Rate > 60, Glucose Level 97, Calcium Level 9.0, Magnesium Level 1.8, Total Bilirubin 0.7, Aspartate Amino Transf (AST/SGOT) 19, Alanine Aminotransferase (ALT/SGPT) 14, Alkaline Phosphatase 76, Pro-B-Type Natriuretic Peptide 880H, Total Protein 6.2L, Albumin 2.8L, Globulin 3.4, Albumin/Globulin Ratio 0.8L Height (Feet): 5 Height (Inches): 5.00 Weight (Pounds): 143 Objective General Appearance: WD/WN, alert, lethargic, confused, mild distress EENT: PERRL/EOMI Neck: non-tender, normal alignment, supple Cardiovascular: normal peripheral pulses, normal rate, regular rhythm Respiratory/Chest: chest wall non-tender, lungs clear, normal breath sounds, no respiratory distress Abdomen: normal bowel sounds, non tender, soft, no organomegaly Edema: no edema noted Arm (L), no edema noted Arm (R), no edema noted Leg (L), no edema noted Leg (R), no edema noted Pedal (L), no edema noted Pedal (R), no edema noted Generalized Neurologic: alert, responsive, disoriented Skin: normal pigmentation Lymphatic: normal anterior cervical (L), normal anterior cervical (R) Dax Reyes MD November 28, 2019 08:52
--- NOTE | 2019-11-28 11:41 | Infectious Diseases Prog Note ---
Assessment/Plan Assessment/Plan A 1. Enterococcus UTI 2. Pneumonia COVID19 X 1: negative 3. hypertension 4. Parkinson disease P 1. Continue Levaquin X 4 days 2. will follow up cultures 3. continue isolation Subjective ROS Limited/Unobtainable: Yes Constitutional: Denies: fever Allergies: Coded Allergies: No Known Allergies (Unverified , 10/13/19) Objective Vital Signs Last 24 Hour Vital Signs Date Time Temp Pulse Resp B/P (MAP) Pulse Ox O2 Delivery O2 Flow Rate FiO2 11/28/19 08:00 Room Air 11/28/19 07:55 97.7 63 18 134/77 (96) 98 11/28/19 07:44 63 11/28/19 04:00 Room Air 11/28/19 04:00 98.6 55 18 137/75 (95) 98 11/28/19 03:57 56 11/28/19 00:00 98.0 68 18 134/66 (88) 98 11/28/19 00:00 Room Air 11/27/19 23:55 62 11/27/19 20:00 98.1 57 18 156/79 (104) 98 11/27/19 20:00 Room Air 11/27/19 19:26 59 11/27/19 16:00 52 11/27/19 16:00 98.3 57 18 146/57 (86) 98 11/27/19 16:00 Room Air 11/27/19 12:00 Room Air 11/27/19 12:00 52 11/27/19 12:00 97.9 59 18 130/76 (94) 95 Height (Feet): 5 Height (Inches): 5.00 Weight (Pounds): 143 HEENT: mucous membranes moist Respiratory/Chest: no respiratory distress Cardiovascular: normal rate Abdomen: soft, non tender Neurologic/Psychiatric: alert, responsive, disoriented Laboratory Tests Test 11/28/19 03:30 White Blood Count 7.4 K/UL (4.8-10.8) Red Blood Count 3.94 M/UL (4.70-6.10) L Hemoglobin 12.4 G/DL (14.2-18.0) L Hematocrit 34.5 % (42.0-52.0) L Mean Corpuscular Volume 87 FL (80-99) Mean Corpuscular Hemoglobin 31.5 PG (27.0-31.0) H Mean Corpuscular Hemoglobin Concent 36.0 G/DL (32.0-36.0) Red Cell Distribution Width 10.1 % (11.6-14.8) L Platelet Count 181 K/UL (150-450) Mean Platelet Volume 6.3 FL (6.5-10.1) L Neutrophils (%) (Auto) 43.0 % (45.0-75.0) L Lymphocytes (%) (Auto) 38.1 % (20.0-45.0) Monocytes (%) (Auto) 10.0 % (1.0-10.0) Eosinophils (%) (Auto) 8.1 % (0.0-3.0) H Basophils (%) (Auto) 0.8 % (0.0-2.0) Sodium Level 142 MMOL/L (136-145) Potassium Level 3.9 MMOL/L (3.5-5.1) Chloride Level 106 MMOL/L (98-107) Carbon Dioxide Level 27 MMOL/L (21-32) Anion Gap 9 mmol/L (5-15) Blood Urea Nitrogen 6 mg/dL (7-18) L Creatinine 0.9 MG/DL (0.55-1.30) Estimat Glomerular Filtration Rate > 60 mL/min (>60) Glucose Level 97 MG/DL (74-106) Calcium Level 9.0 MG/DL (8.5-10.1) Magnesium Level 1.8 MG/DL (1.8-2.4) Total Bilirubin 0.7 MG/DL (0.2-1.0) Aspartate Amino Transf (AST/SGOT) 19 U/L (15-37) Alanine Aminotransferase (ALT/SGPT) 14 U/L (12-78) Alkaline Phosphatase 76 U/L (46-116) Pro-B-Type Natriuretic Peptide 880 pg/mL (0-125) H Total Protein 6.2 G/DL (6.4-8.2) L Albumin 2.8 G/DL (3.4-5.0) L Globulin 3.4 g/dL Albumin/Globulin Ratio 0.8 (1.0-2.7) L Current Medications Medications (Trade) Dose Ordered Sig/Jaime Route PRN Reason Start Time Stop Time Status Last Admin Dose Admin Acetaminophen (Tylenol) 650 mg Q4H PRN RECTAL Temp >100.5 11/24/19 16:30 12/24/19 16:29 11/24/19 17:07 Heparin Sodium (Porcine) (Heparin 5000 units/ml) 5,000 units EVERY 12 HOURS SUBQ 11/23/19 09:00 01/07/20 08:59 11/28/19 08:31 Levofloxacin (Levaquin) 750 mg QOD ORAL 11/25/19 10:21 12/02/19 10:20 11/27/19 09:08 Pantoprazole (Protonix) 40 mg DAILY ORAL 11/26/19 09:00 12/26/19 08:59 11/28/19 08:32 Chris Elizabeth MD November 28, 2019 11:41
[2019-11-28 12:00] VITALS: BP 144/72
[2019-11-28 16:00] VITALS: BP 143/68
[2019-11-28 18:27] LABS: APPEARANCE,URINE SLIGHTLY CLOUDY; BILIRUBIN, URINE NEGATIVE (NEGATIVE); COLOR,URINE PALE YELLOW; GLUCOSE, URINE (UA) NEGATIVE (NEGATIVE); KETONES,URINE 2+ (NEGATIVE); LEUKOCYTE ESTERASE ,URINE 3+ (NEGATIVE); NITRITE,URINE NEGATIVE (NEGATIVE); PH,URINE 7 (4.5-8.0); PROTEIN,URINE NEGATIVE (NEGATIVE); UROBILINOGEN,URINE NORMAL MG/DL (0.0-1.0)
[2019-11-28 20:00] VITALS: BP 164/73
[2019-11-29] VITALS: BP 151/74
--- NOTE | 2019-11-29 01:30 | Progress Note ---
DATE: 11/27/2019 CARDIOLOGY PROGRESS NOTE SUBJECTIVE: Patient remains with slow heart rate. AFib in the 50s. No pauses. No symptoms. No loss of consciousness. OBJECTIVE: VITAL SIGNS: Blood pressure 127/75, heart rate 53 to 70, respiratory rate 18, afebrile. NECK: No jugular venous distention. LUNGS: Few rales. CARDIAC: Irregularly irregular rhythm. Normal S1, S2. ABDOMEN: Soft. EXTREMITIES: No edema. IMPRESSION: 1. UTI. 2. Sepsis. 3. Bradyarrhythmia. 4. Recovered hypokalemia and hypomagnesemia. 5. Resolving sepsis. 6. Fall risk. 7. 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 PLAN: 1. Physical therapy evaluation to follow. 2. No current plans for anticoagulation. 3. No immediate indication for pacemaker. 4. Continue antimicrobials. 5. Monitor clinical parameters. Tanmay Mayfield M.D. DR: VASILE JOB#: [id number] CC: ALEXIS
--- NOTE | 2019-11-29 02:15 | Progress Note ---
DATE: 11/28/2019 CARDIOLOGY PROGRESS NOTE SUBJECTIVE: Condition largely unchanged. Patient continues on antimicrobials. No loss of consciousness. Monitored rhythm. Atrial fibrillation with slow ventricular rate. No pauses. OBJECTIVE: VITAL SIGNS: Blood pressure 134/77, heart rate 63, respirations 18, heart rate in the 40s during sleep. LUNGS: Good breath sounds. No rales. CARDIAC: Irregularly irregular rhythm. Normal S1, S2. No new murmur. ABDOMEN: Soft. EXTREMITIES: No edema. DIAGNOSTIC DATA: Echocardiogram earlier this hospitalization revealed a normal ejection fraction with [id number] aortic regurgitation, mild mitral regurgitation. Diastolic dysfunction. No tricuspid regurgitation. IMPRESSION: 1. Bradyarrhythmias, asymptomatic. 2. Degenerative valve disease, compensated. 3. Hypertension, controlled. 4. Urinary tract infection with sepsis, recovering. 5. Hypokalemia and hypomagnesemia, replaced. PLAN: 1. Continue current regimen. 2. No immediate indication for pacemaker. 3. Await physical therapy evaluation to assess fall risk. 4. No plans for anticoagulation due to increased risk to benefit ratio presently. Tanmay Mayfield M.D. DR: EMORY JOB#: [id number] CC:
[2019-11-29 04:00] VITALS: BP 158/65
[2019-11-29 08:00] VITALS: BP 137/75
--- NOTE | 2019-11-29 08:11 | General Progress Note ---
Assessment/Plan Problem List: (1) Artificial pacemaker ICD Codes: Z95.0 - Presence of cardiac pacemaker SNOMED: 618088648 (2) Hypokalemia ICD Codes: E87.6 - Hypokalemia SNOMED: 12148481 (3) Sepsis ICD Codes: A41.9 - Sepsis, unspecified organism SNOMED: 30356263 Qualifiers: Qualified Codes: A41.9 - Sepsis, unspecified organism (4) UTI (urinary tract infection) ICD Codes: N39.0 - Urinary tract infection, site not specified SNOMED: 26302549 Qualifiers: Qualified Codes: N30.00 - Acute cystitis without hematuria (5) Suspected COVID-19 virus infection ICD Codes: R68.89 - Other general symptoms and signs SNOMED: 673426906 (6) Pneumonia ICD Codes: J18.9 - Pneumonia, unspecified organism SNOMED: 568623793 Qualifiers: Qualified Codes: J18.9 - Pneumonia, unspecified organism Status: stable, progressing Assessment/Plan: stable cont o2 resp care wean fio2 as able iv abx per ID follow up cultures swallow eval noted. start pos. monitor for aspiration. covid neg x 1. 2nd re-order by ID monitor HR for now. may need rx if hr remains elevated(was lorri before) no anticoag per cards dvt/stress ulcer prophylaxis guarded Subjective ROS Limited/Unobtainable: No Constitutional: Reports: malaise, weakness HEENT: Reports: no symptoms Cardiovascular: Reports: no symptoms Respiratory: Reports: cough Gastrointestinal/Abdominal: Reports: no symptoms Genitourinary: Reports: no symptoms Neurologic/Psychiatric: Reports: no symptoms Endocrine: Reports: no symptoms Hematologic/Lymphatic: Reports: no symptoms Allergies: Coded Allergies: No Known Allergies (Unverified , 10/13/19) All Systems: reviewed and negative except above Subjective no events. w/o complaints. slow afib 50s. no sob. no fever or chills. no cough. on po abx. 2nd covid not back yet Objective Last 24 Hour Vital Signs Date Time Temp Pulse Resp B/P (MAP) Pulse Ox O2 Delivery O2 Flow Rate FiO2 11/29/19 04:00 Room Air 11/29/19 04:00 97.7 67 18 158/65 (96) 98 11/29/19 03:34 58 11/29/19 00:00 Room Air 11/29/19 00:00 96.8 60 18 151/74 (99) 98 11/28/19 23:32 61 11/28/19 20:00 Room Air 11/28/19 20:00 98.1 60 18 164/73 (103) 98 11/28/19 19:21 61 11/28/19 16:00 Room Air 11/28/19 16:00 97.5 61 18 143/68 (93) 98 11/28/19 15:27 61 11/28/19 12:00 62 11/28/19 12:00 Room Air 11/28/19 12:00 97.8 61 18 144/72 (96) 98 Intake and Output 11/28/19 11/29/19 19:00 07:00 Output Total 400 ml 300 ml Balance -400 ml -300 ml Output Urine Total 400 ml 300 ml # Voids 2 Laboratory Tests 11/28/19 18:15: Urine Color Pale yellow, Urine Appearance Slightly cloudy, Urine pH 7, Urine Specific [place] 1.010, Urine Protein Negative, Urine Glucose (UA) Negative, Urine Ketones 2+H, Urine Blood Negative, Urine Nitrite Negative, Urine Bilirubin Negative, Urine Urobilinogen Normal, Urine Leukocyte Esterase 3+H, Urine RBC 0, Urine WBC 15-20H, Urine Squamous Epithelial Cells None, Urine Bacteria ModerateH Height (Feet): 5 Height (Inches): 5.00 Weight (Pounds): 143 Objective General Appearance: WD/WN, alert, lethargic, confused, mild distress EENT: PERRL/EOMI Neck: non-tender, normal alignment, supple Cardiovascular: normal peripheral pulses, normal rate, regular rhythm Respiratory/Chest: chest wall non-tender, lungs clear, normal breath sounds, no respiratory distress Abdomen: normal bowel sounds, non tender, soft, no organomegaly Edema: no edema noted Arm (L), no edema noted Arm (R), no edema noted Leg (L), no edema noted Leg (R), no edema noted Pedal (L), no edema noted Pedal (R), no edema noted Generalized Neurologic: alert, responsive, disoriented Skin: normal pigmentation Lymphatic: normal anterior cervical (L), normal anterior cervical (R) Dax Reyes MD November 29, 2019 08:11
[2019-11-29] MEDS: Heparin 5000 units/ml inj SUBQ SCH ×2 (09:01→20:28)
[2019-11-29] MEDS: Levofloxacin 750mg tab ORAL SCH (09:01)
--- NOTE | 2019-11-29 09:39 | Infectious Diseases Prog Note ---
Assessment/Plan Assessment/Plan antibiotics : levoquin A 1. enterococcus UTI 2. pneumonia COVID 19 test negative 3. hypertension 4. Parkinsons disease P 1. continue levoquin 2 more days 2. will follow up cultures 3. continue isolation Subjective ROS Limited/Unobtainable: Yes Allergies: Coded Allergies: No Known Allergies (Unverified , 10/13/19) Objective Vital Signs Last 24 Hour Vital Signs Date Time Temp Pulse Resp B/P (MAP) Pulse Ox O2 Delivery O2 Flow Rate FiO2 11/29/19 08:00 97.0 58 18 137/75 (95) 100 11/29/19 04:00 Room Air 11/29/19 04:00 97.7 67 18 158/65 (96) 98 11/29/19 03:34 58 11/29/19 00:00 Room Air 11/29/19 00:00 96.8 60 18 151/74 (99) 98 11/28/19 23:32 61 11/28/19 20:00 Room Air 11/28/19 20:00 98.1 60 18 164/73 (103) 98 11/28/19 19:21 61 11/28/19 16:00 Room Air 11/28/19 16:00 97.5 61 18 143/68 (93) 98 11/28/19 15:27 61 11/28/19 12:00 62 11/28/19 12:00 Room Air 11/28/19 12:00 97.8 61 18 144/72 (96) 98 Height (Feet): 5 Height (Inches): 5.00 Weight (Pounds): 143 Respiratory/Chest: lungs clear Cardiovascular: normal rate, regular rhythm, no gallop/murmur Abdomen: soft, non tender Extremities: no edema Microbiology Date/Time Source Procedure Growth Status 11/26/19 14:45 Nasopharynx Coronavirus COVID-19 PCR ([facility]A) - Final Complete 11/28/19 18:15 Urine,Clean Catch Urine Culture - Preliminary NO GROWTH Resulted Laboratory Tests Test 11/28/19 18:15 Urine Color Pale yellow Urine Appearance Slightly cloudy Urine pH 7 (4.5-8.0) Urine Specific [place] 1.010 (1.005-1.035) Urine Protein Negative (NEGATIVE) Urine Glucose (UA) Negative (NEGATIVE) Urine Ketones 2+ (NEGATIVE) H Urine Blood Negative (NEGATIVE) Urine Nitrite Negative (NEGATIVE) Urine Bilirubin Negative (NEGATIVE) Urine Urobilinogen Normal MG/DL (0.0-1.0) Urine Leukocyte Esterase 3+ (NEGATIVE) H Urine RBC 0 /HPF (0 - 0) Urine WBC 15-20 /HPF (0 - 0) H Urine Squamous Epithelial Cells None /LPF (NONE/OCC) Urine Bacteria Moderate /HPF (NONE) H Current Medications Medications (Trade) Dose Ordered Sig/Jaime Route PRN Reason Start Time Stop Time Status Last Admin Dose Admin Acetaminophen (Tylenol) 650 mg Q4H PRN RECTAL Temp >100.5 11/24/19 16:30 12/24/19 16:29 11/24/19 17:07 Heparin Sodium (Porcine) (Heparin 5000 units/ml) 5,000 units EVERY 12 HOURS SUBQ 11/23/19 09:00 01/07/20 08:59 11/29/19 09:01 Levofloxacin (Levaquin) 750 mg QOD ORAL 11/25/19 10:21 12/02/19 10:20 11/29/19 09:01 Pantoprazole (Protonix) 40 mg DAILY ORAL 11/26/19 09:00 12/26/19 08:59 11/29/19 09:01 Liana Kennedy MD November 29, 2019 09:39
[2019-11-29 11:50] VITALS: BP 139/72
[2019-11-29 16:00] VITALS: BP 136/68
[2019-11-29 20:00] VITALS: BP 134/75
[2019-11-30] VITALS: BP 141/77
--- NOTE | 2019-11-30 02:30 | Progress Note ---
DATE: 11/29/2019 CARDIOLOGY PROGRESS NOTE SUBJECTIVE: The patient is still with slow atrial fibrillation. No pauses. Blood pressure parameters stable. Mental status unchanged. The patient's COVID swab #2 is negative as well. PHYSICAL EXAMINATION: LUNGS: Bilateral breath sounds. CARDIAC: Irregularly irregular rhythm. Normal S1 and S2. ABDOMEN: Soft. EXTREMITIES: No edema. IMPRESSION: 1. COVID-19 negative. 2. Healthcare-associated pneumonia. 3. Enterococcus UTI. 4. Hypertensive heart disease with labile blood pressure. PLAN: 1. Antimicrobial therapy per Infectious Disease independent marketing consultant. 2. Maintenance hydration. 3. DVT prophylaxis. 4. Advance antihypertensive regimen. Tanmay Mayfield M.D. DR: SHIREEN JOB#: [id number] CC:
[2019-11-30 04:00] VITALS: BP 132/58
[2019-11-30] MEDS ORDERED: LEVAQUIN750 MG ORAL (07:35)
[2019-11-30] MEDS ORDERED: NORVASC5 MG ORAL (07:37)
[2019-11-30 08:00] VITALS: BP 125/65
[2019-11-30] MEDS: Heparin 5000 units/ml inj SUBQ SCH (08:38)
--- NOTE | 2019-11-30 08:45 | Discharge Summary ---
DATE OF ADMISSION: 11/23/2019 DATE OF DISCHARGE: 11/30/2019 ADMISSION DIAGNOSES: 1. Sepsis. 2. Rule out COVID. 3. BPH. 4. Parkinson's disease. 5. Dementia. DISCHARGE DIAGNOSES: 1. Sepsis. 2. Rule out COVID. 3. BPH. 4. Parkinson's disease. 5. Dementia. 6. UTI. 7. Paroxysmal atrial fibrillation. HOSPITAL COURSE: The patient is a pleasant male, admitted with fevers, generalized weakness, inability to care for himself. He was hypoxic, initially febrile. He was treated with broad-spectrum IV antibiotics. He had a CT scan that showed opacities. He was COVID negative x2 and responding well to conservative therapy with antibiotics and hydration. His hospital course was complicated by short period of atrial fibrillation. He converted back to sinus. He was thought to be too high risk for anticoagulation. This is discussed with family members. On discharge, the patient was stable, will be discharged home. He was offered a [place] [facility] facility, but family declined. he has one more additional day of oral antibiotic therapy. Family will take him. FOLLOWUP: The patient is to follow up with his PMD in one week. DISCHARGE MEDICATIONS: Please see discharge medication list for discharge medications. DIET: Regular diet. ACTIVITIES: Ad-brian. Dax Reyes M.D. DR: IGOR JOB#: [id number] CC:
--- NOTE | 2019-11-30 10:44 | Infectious Diseases Prog Note ---
Assessment/Plan Assessment/Plan antibiotics : levoquin A 1. enterococcus UTI 2. pneumonia COVID 19 test negative 3. hypertension 4. Parkinsons disease P 1. continue levoquin 1 more day 2. will follow up cultures 3. continue isolation Subjective ROS Limited/Unobtainable: Yes Allergies: Coded Allergies: No Known Allergies (Unverified , 10/13/19) Objective Vital Signs Last 24 Hour Vital Signs Date Time Temp Pulse Resp B/P (MAP) Pulse Ox O2 Delivery O2 Flow Rate FiO2 11/30/19 08:47 61 11/30/19 08:33 63 125/65 11/30/19 08:00 98.7 63 20 125/65 (85) 95 11/30/19 08:00 Room Air 11/30/19 04:00 98.1 69 20 132/58 (82) 96 11/30/19 04:00 Room Air 11/30/19 03:45 59 11/30/19 00:00 Room Air 11/30/19 00:00 98.1 60 20 141/77 (98) 100 11/29/19 23:35 62 11/29/19 20:00 Room Air 11/29/19 20:00 98.2 59 20 134/75 (94) 96 11/29/19 19:01 55 11/29/19 18:00 Room Air 11/29/19 16:45 61 11/29/19 16:00 98.0 63 18 136/68 (90) 100 11/29/19 16:00 Room Air 11/29/19 12:00 Room Air 11/29/19 12:00 62 11/29/19 11:50 98.2 60 18 139/72 (94) 100 Height (Feet): 5 Height (Inches): 5.00 Weight (Pounds): 143 Respiratory/Chest: lungs clear Cardiovascular: normal rate, regular rhythm, no gallop/murmur Abdomen: soft, non tender Extremities: no edema Microbiology Date/Time Source Procedure Growth Status 11/28/19 18:15 Urine,Clean Catch Urine Culture - Preliminary YEAST Resulted Current Medications Medications (Trade) Dose Ordered Sig/Jaime Route PRN Reason Start Time Stop Time Status Last Admin Dose Admin Acetaminophen (Tylenol) 650 mg Q4H PRN RECTAL Temp >100.5 11/24/19 16:30 12/24/19 16:29 11/24/19 17:07 Amlodipine Besylate (Norvasc) 5 mg DAILY ORAL 11/30/19 09:00 12/30/19 08:59 11/30/19 08:33 Heparin Sodium (Porcine) (Heparin 5000 units/ml) 5,000 units EVERY 12 HOURS SUBQ 11/23/19 09:00 01/07/20 08:59 11/30/19 08:38 Levofloxacin (Levaquin) 750 mg QOD ORAL 11/25/19 10:21 12/02/19 10:20 11/29/19 09:01 Pantoprazole (Protonix) 40 mg DAILY ORAL 11/26/19 09:00 12/26/19 08:59 11/30/19 08:32 Liana Kennedy MD November 30, 2019 10:44
[2019-11-30 12:00] VITALS: BP 142/69
[2019-11-30 16:00] VITALS: BP 139/74
--- NOTE | 2019-12-01 02:00 | Progress Note ---
DATE: 11/30/2019 CARDIOLOGY PROGRESS NOTE SUBJECTIVE: Patient's condition has stabilized. He remains in sinus rhythm. Episodes of sinus bradycardia, asymptomatic. No pauses. PHYSICAL EXAMINATION: VITAL SIGNS: Blood pressure 142/69, pulse 63, respirations 21, oxygen saturation room air 99%. HEENT: Conjunctivae pink. Oropharynx clear. NECK: Supple. Jugular venous pressure normal. LUNGS: Clear. CARDIAC: Regular rhythm rate. Normal S1, S2 with a 1/6 systolic murmur at apex. ABDOMEN: Soft, nontender. EXTREMITIES: No edema. Urine culture is positive for yeast. IMPRESSION: 1. Urinary tract infection. 2. Fungal cystitis. 3. Pneumonia. 4. Parkinson disease. 5. Dementia. 6. Hypertensive heart disease. 7. Sinus node disease. 8. Bradyarrhythmia, asymptomatic. 9. Paroxysmal atrial fibrillation. 10. Advanced age. PLAN: 1. Outpatient followup. 2. Complete Levaquin. 3. Add Diflucan. 4. No plans for anticoagulation due to fall and bleeding risk. 5. Avoid beta-blockers. 6. Currently no indication for permanent pacemaker. 7. No strict indications for permanent pacemaker. Tanmay Mayfield M.D. DR: VASILE JOB#: [id number] CC:
== END 2019-11-30 17:35 | disposition home health service (06) | DRG 871 ==
LOC: EDBD 00:06 → EMR 00:20 → 2W 01:21 → EDBEDREQ 03:11 → EDBEDREQSVC 03:11 → EDBEDREQ 03:29
DX: A41.9 Sepsis, unspecified organism (principal); J18.9 Pneumonia, unspecified organism; N39.0 Urinary tract infection, site not specified; E44.1 Mild protein-calorie malnutrition; I50.32 Chronic diastolic (congestive) heart failure; B48.8 Other specified mycoses; G20 Parkinson's disease; B95.2 Enterococcus as the cause of diseases classified elsewhere; Y95 Nosocomial condition; F02.80 Dementia in other diseases classified elsewhere, unspecified severity, without behavioral disturbance, psychotic disturbance, mood disturbance, and anxiety; Z11.59 Encounter for screening for other viral diseases; N40.0 Benign prostatic hyperplasia without lower urinary tract symptoms; I48.0 Paroxysmal atrial fibrillation; M19.90 Unspecified osteoarthritis, unspecified site; E87.6 Hypokalemia; I11.0 Hypertensive heart disease with heart failure; Z95.0 Presence of cardiac pacemaker; R09.02 Hypoxemia; E83.42 Hypomagnesemia; I34.0 Nonrheumatic mitral (valve) insufficiency; I35.1 Nonrheumatic aortic (valve) insufficiency
CPT/HCPCS: 36415; 36600; 71045; 71275; 80048; 80053; 81003; 82248; 82550; 82553; 82728; 82803; 82962; 83605; 83735; 83880; 84443; 84484; 85025; 85379; 85651; 86140; 86710; 87040; 87081; 87086; 87181; 87635; 93005; 93306; 93970; 96361; 96365; 96368; 96372; 99291; J7030; J8499

== ENCOUNTER 2020-04-02 08:11 | Inpatient (IN) | payer MEDICARE, MEDICAID ==
[~2020-04-02] VITALS: Ht 157.5 cm; Wt 55.9 kg
[~2020-04-02 08:11] MED LIST changes: +LEVAQUIN750 MG ORAL; +NORVASC5 MG ORAL
--- NOTE | 2020-04-02 08:19 | Emergency Room Report ---
History of Present Illness General Chief Complaint: Dyspnea/Respdistress Source: Patient Present Illness HPI Disclaimer: Please note that this report is being documented using [employer] technology. This can lead to erroneous entry secondary to incorrect interpretation by the dictating instrument. HPI: 89-year-old male history of Parkinson's disease, dementia, hypertension presents for evaluation of fever and hypoxia. Brought in by EMS from home. EMS stated the family has noted a fever over the past few days. Worsening cough. Found 88% on room air. Improved to the low 90s on nonrebreather. Afebrile when EMS found him. Could not obtain any further information from patient. Review of chart shows he was admitted for sepsis earlier this year. 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 Nursing Documentation-PMH Past Medical History: No History, Except For Hx Cardiac Problems: Yes Hx Hypertension: Yes Hx COPD: Yes Hx Diabetes: Yes Hx Gastrointestinal Problems: Yes - diverticulitis Hx Neurological Problems: Yes - parkinsons disease Hx Cerebrovascular Accident: No Hx Transient Ischemic Attacks: No Review of Systems All Other Systems: limited - Unable to obtain from patient due to clinical condition Physical Exam Vital Signs Date Time Temp Pulse Resp B/P (MAP) Pulse Ox O2 Delivery O2 Flow Rate FiO2 04/02/20 08:10 99.9 84 18 100/64 (76) 97 Room Air General: Awake, confused, no apparent distress, coughing HEENT: NC/AT. EOMI. Cardiovascular: RRR. S1 and S2 normal. No murmur appreciated Resp: Slight increased work of breathing. Persistent cough throughout the exam. Bilateral crackles but no wheezing. 91% on room air. Abdomen: Abdomen is soft, nondistended. Nontender Skin: Intact. No abrasions, laceration or rash over the exposed skin MSK: Normal tone and bulk. Moving all extremities. No obvious deformity. Neuro: Awake, confused, pleasant, no distress Procedures Critical Care Time Critical Care Time Total critical care time: Approximately 45 minutes Due to a high probability of clinically significant, life threatening d eterioration, the patient required the highest level of preparedness to intervene emergently and I personally spent this critical care time directly and personally managing the patient. This critical care time included obtaining a history, examining the patient, pulse oximetry, ordering and reviewing studies, ordering treatments, evaluating response to treatment and updating management plan as needed, frequent reassessment and discussion with other providers as well as arranging for ultimate disposition. This critical to care time was performed to assess and manage the high probability of life-threatening deterioration that could result in multiorgan failure. This critical care time is separate from the separately billable procedures and treating other patients. Medical Decision Making Diagnostic Impression: Primary Impression: Sepsis Additional Impressions: UTI (urinary tract infection) Elevated d-dimer ER Course Is an 89-year-old male presenting for evaluation of fever and hypoxia. Differential includes was not limited to pneumonia, bronchitis, pneumothorax, COVID-19 infection, sepsis among others. EKG shows sinus tachycardia patient saturating 91% on room air. Improved to 96% on nasal cannula. Patient arrives febrile and was treated with Tylenol. Broad-spectrum antibiotics ordered. 30 cc/kg IV fluid bolus started. Broad labs, cultures ordered. He will require admission. 1100: Labs show elevated white count, elevated d-dimer, urinalysis consistent with acute urinary tract infection. Lactic acid is negative elevated and patient is receiving his sepsis bolus of fluids. Received broad-spectrum antibiotics. Anticoagulants ordered by admitting team. Patient would be admitted to panel physician, Miracle Jay. Sepsis reevaluation: I, Dr. Hector Swanson, reevaluated the patient Capillary refill: Less than 2 seconds MAP: 67 Heart rate: 69 Respiratory rate: 24 Initial Lactate: 8.6 Repeat Lactate: 5.3 Pressors: Not indicated at this time No signs of fluid overload Laboratory Tests Test 04/02/20 08:15 04/02/20 08:19 04/02/20 08:26 04/02/20 09:45 White Blood Count 15.2 K/UL (4.8-10.8) H Red Blood Count 4.44 M/UL (4.70-6.10) L Hemoglobin 13.7 G/DL (14.2-18.0) L Hematocrit 39.2 % (42.0-52.0) L Mean Corpuscular Volume 88 FL (80-99) Mean Corpuscular Hemoglobin 30.8 PG (27.0-31.0) Mean Corpuscular Hemoglobin Concent 34.8 G/DL (32.0-36.0) Red Cell Distribution Width 12.7 % (11.6-14.8) Platelet Count 163 K/UL (150-450) Mean Platelet Volume 6.1 FL (6.5-10.1) L Neutrophils (%) (Auto) % (45.0-75.0) Lymphocytes (%) (Auto) % (20.0-45.0) Monocytes (%) (Auto) % (1.0-10.0) Eosinophils (%) (Auto) % (0.0-3.0) Basophils (%) (Auto) % (0.0-2.0) Differential Total Cells Counted 100 Neutrophils % (Manual) 89 % (45-75) H Lymphocytes % (Manual) 8 % (20-45) L Monocytes % (Manual) 2 % (1-10) Eosinophils % (Manual) 1 % (0-3) Basophils % (Manual) 0 % (0-2) Band Neutrophils 0 % (0-8) Platelet Estimate Adequate Platelet Morphology Normal Red Blood Cell Morphology Normal Prothrombin Time 11.6 SEC (9.30-11.50) H Prothrombin Time INR 1.1 (0.9-1.1) Activated Partial Thromboplast Time 27 SEC (23-33) D-Dimer 5.38 mg/L FEU (0.00-0.49) H Sodium Level 137 MMOL/L (136-145) Potassium Level 3.6 MMOL/L (3.5-5.1) Chloride Level 102 MMOL/L (98-107) Carbon Dioxide Level 16 MMOL/L (21-32) L Anion Gap 19 mmol/L (5-15) H Blood Urea Nitrogen 14 mg/dL (7-18) Creatinine 1.0 MG/DL (0.55-1.30) Estimated Glomerular Filtration Rate > 60 mL/min (>60) Glucose Level 153 MG/DL (74-106) H Lactic Acid Level 8.60 mmol/L (0.4-2.0) H Pending Calcium Level 8.9 MG/DL (8.5-10.1) Phosphorus Level 3.5 MG/DL (2.5-4.9) Magnesium Level 1.7 MG/DL (1.8-2.4) L Ferritin 745 NG/ML (8-388) H Total Bilirubin 1.3 MG/DL (0.2-1.0) H Direct Bilirubin 0.3 MG/DL (0.0-0.3) Aspartate Amino Transferase (AST) 39 U/L (15-37) H Alanine Aminotransferase (ALT) 14 U/L (12-78) Alkaline Phosphatase 104 U/L (46-116) Lactate Dehydrogenase 189 U/L (81-234) Total Creatine Kinase 25 U/L (26-308) L Creatine Kinase MB < 0.5 NG/ML (0.0-3.6) Creatine Kinase MB Relative Index 2.0 Troponin I 0.028 ng/mL (0.000-0.056) C-Reactive Protein, Quantitative 4.7 mg/dL (0.00-0.90) H Pro-B-Type Natriuretic Peptide 1220 pg/mL (0-125) H Total Protein 6.0 G/DL (6.4-8.2) L Albumin 3.1 G/DL (3.4-5.0) L Globulin 2.9 g/dL Albumin/Globulin Ratio 1.1 (1.0-2.7) Lipase 126 U/L (73-393) Arterial Blood pH 7.419 (7.350-7.450) Arterial Blood Partial Pressure CO2 22.3 mmHg (35.0-45.0) *L Arterial Blood Partial Pressure O2 387.9 mmHg (75.0-100.0) H Arterial Blood HCO3 14.1 mmol/L (22.0-26.0) *L Arterial Blood Oxygen Saturation 99.3 % (95-100) Arterial Blood Base Excess -8.2 (-2-2) L [facility] Test Positive POC Whole Blood Glucose 151 MG/DL (74-106) H Test 04/02/20 09:50 Urine Color Yellow Urine Appearance Cloudy Urine pH 5 (4.5-8.0) Urine Specific [place] 1.020 (1.005-1.035) Urine Protein 3+ (NEGATIVE) H Urine Glucose (UA) Negative (NEGATIVE) Urine Ketones 1+ (NEGATIVE) H Urine Blood 5+ (NEGATIVE) H Urine Nitrite Negative (NEGATIVE) Urine Bilirubin Negative (NEGATIVE) Urine Urobilinogen Normal MG/DL (0.0-1.0) Urine Leukocyte Esterase 3+ (NEGATIVE) H Urine RBC Tntc /HPF (0 - 0) H Urine WBC Tntc /HPF (0 - 0) H Urine Squamous Epithelial Cells Occasional /LPF Urine Bacteria Few /HPF (NONE) Microbiology Date/Time Source Procedure Growth Status 04/02/20 08:20 Nasopharynx SARS-CoV-2 RdRp Gene Assay - Final Complete EKG Diagnostic Results EKG Time: 08:13 Rate: tachycardiac Rhythm: NSR Other Impression Sinus tachycardia, borderline left axis, incomplete right bundle branch block pattern, precordial T wave inversion. Q waves inferiorly. Prolonged QTC at 529 ms Rhythm Strip Diag. Results Rhythm Strip Time: 08:13 EP Interpretation: yes Rate: 100s Rhythm: no PVC's, no ectopy Chest X-Ray Diagnostic Results Chest X-Ray Diagnostic Results : Chest X-Ray Ordered: Yes # of Views/Limited/Complete: 1 View Indication: Other - Cough EP Interpretation: Yes Interpretation: no consolidation, no effusion, no pneumothorax Impression: No acute disease Electronically Signed by: Electronically signed by Dr. Hector Swanson Last Vital Signs Date Time Temp Pulse Resp B/P (MAP) Pulse Ox O2 Delivery O2 Flow Rate FiO2 04/02/20 08:10 99.9 84 18 100/64 (76) 97 Room Air Disposition: ADMITTED INPATIENT Condition: Serious Hector Swanson MD Apr 02, 2020 08:19
--- NOTE | 2020-04-02 08:20 | NUR ---
ED Nurse Note: Patient from home and was brought in by [facility] due to left arm pain without hx of fall since yesterday. Per EMS, patient's skin is hot to touch and desaturating at 89-90% in room air. EMS reports a temp of 99.7 F. Patient came in awake but nonverbal, unable to follow commands with SOB at rest. Noted intermittent productive coughing upon arrival. RN applied nasal cannula at 2LPM oxygen and patient now sats at 98 % at this time.
--- NOTE | 2020-04-02 08:39 | NUR ---
ED Nurse Note: Collecetd blood and covid19 swab then sent. Unable to produce urine at this time.
[2020-04-02 08:40] VITALS: BP 100/64
--- NOTE | 2020-04-02 08:40 | NUR ---
ED Nurse Note: Rectal temp of 101.[address] Swanson was notified.
[2020-04-02] MEDS ORDERED: Acetaminophen 650 MG SUPP RECTAL ONE (08:45)
[2020-04-02] MEDS ORDERED: dexAMETHasone 10mg/ml Inj IV ONE (08:45)
[2020-04-02] MEDS ORDERED: Sodium Chloride 1,900 ML IVLG ONE (08:45)
[2020-04-02 08:50] LABS: HEMATOCRIT 39.2 % (42.0-52.0); HEMOGLOBIN 13.7 G/DL (14.2-18.0); MEAN CORPUSCULAR VOLUME 88 FL (80-99); PLATELET COUNT 163 K/UL (150-450); RED BLOOD COUNT 4.44 M/UL (4.70-6.10); RED CELL DISTRIBUTION WIDTH 12.7 % (11.6-14.8); WHITE BLOOD COUNT 15.2 K/UL (4.8-10.8)
[2020-04-02] MEDS ORDERED: Piperacillin/Tazobactam 3.375 GM in NS 110 ML IVPB ONE (09:00)
--- NOTE | 2020-04-02 09:02 | NUR ---
ED Nurse Note: i&c tech at the bed side for CXR.
[2020-04-02 09:16] LABS: ANION GAP 19 mmol/L (5-15); BLOOD UREA NITROGEN 14 mg/dL (7-18); CALCIUM 8.9 MG/DL (8.5-10.1); CARBON DIOXIDE 16 MMOL/L (21-32); CHLORIDE 102 MMOL/L (98-107); POTASSIUM 3.6 MMOL/L (3.5-5.1); SODIUM 137 MMOL/L (136-145)
--- NOTE | 2020-04-02 09:20 | NUR ---
ED Nurse Note: Per relative, patient is complaining of bilateral shoulder pain. Dr Swanson was notified.
--- NOTE | 2020-04-02 09:25 | Diagnostic Imaging Report ---
EXAM: XR Chest, 1 View CLINICAL HISTORY: SOB TECHNIQUE: Frontal view of the chest. COMPARISON: Chest radiograph November 23, 2019 FINDINGS/IMPRESSION: Mild bilateral perihilar opacities, which may represent pulmonary arterial vascular; however, a dedicated chest CT scan is recommended to further characterize. No definite focal infiltrate or pneumothorax. No definite pleural effusion. Cardiomegaly. Calcified aorta. Degenerative changes of the spine and shoulders. Cholecystectomy clips are incidentally noted.
[2020-04-02 09:27] LABS: ALANINE AMINOTRANSFERASE 14 U/L (12-78); ALBUMIN 3.1 G/DL (3.4-5.0); ALBUMIN/GLOBULIN RATIO 1.1 (1.0-2.7); ALKALINE PHOSPHATASE 104 U/L (46-116); ASPARTATE AMINO TRANSFERASE 39 U/L (15-37); BILIRUBIN,TOTAL 1.3 MG/DL (0.2-1.0); CKMB < 0.5 NG/ML (0.0-3.6); CREATINE KINASE 25 U/L (26-308); FERRITIN 745 NG/ML (8-388); LACTATE DEHYDROGENASE 189 U/L (81-234); PHOSPHORUS 3.5 MG/DL (2.5-4.9)
[2020-04-02 09:41] LABS: BILIRUBIN,DIRECT 0.3 MG/DL (0.0-0.3)
--- NOTE | 2020-04-02 09:53 | NUR ---
ED Nurse Note: Collected urine and repeat lactic acid then sent to lab.
[2020-04-02] MEDS ORDERED: Albuterol/Ipratropium 3ml neb HHN PRN (10:00)
[2020-04-02 10:12] LABS: INR 1.1 (0.9-1.1)
[2020-04-02 10:40] LABS: APPEARANCE,URINE CLOUDY; BILIRUBIN, URINE NEGATIVE (NEGATIVE); GLUCOSE, URINE (UA) NEGATIVE (NEGATIVE); KETONES,URINE 1+ (NEGATIVE); LEUKOCYTE ESTERASE ,URINE 3+ (NEGATIVE); NITRITE,URINE NEGATIVE (NEGATIVE); PH,URINE 5 (4.5-8.0); PROTEIN,URINE 3+ (NEGATIVE); UROBILINOGEN,URINE NORMAL MG/DL (0.0-1.0)
[2020-04-02 10:41] VITALS: BP 100/64
[2020-04-02 10:41] LABS: COLOR,URINE YELLOW
--- NOTE | 2020-04-02 11:22 | History and Physical ---
History of Present Illness General Date patient seen: Apr 02, 2020 Reason for Hospitalization: Dyspnea/Respdistress Present Illness HPI Mr. Josue jason 89M with PMH of Parkinson, dementia, paroxysmal afib, BPH and HTN who was BIBA from home for hypoxia and fevers. History taken from ED physician and discussion with daughter "Iris Burrows" over the phone. Per daughter, patient has been doing well up until yesterday where he developed fevers and lethargy. He also became diaphoretic and complained of body aches this morning. Denies cough, sob, chest pain, abdominal pain, nausea, vomiting/constipation/diarrhea, dysuria. Daughter was unable to get a BP reading from their home monitor prompting their call for 911. Patient is bed bound from his advanced Parkinson. Patient has moderate baseline resting tremors. Uses adult diapers. Having good BM per stevoer, but notes urine is always "really dark". Patient lives with and daughter whom do majority of his ADL's. He was previously admitted multiple times for sepsis UTI. No hx. of COVID. No recent illnesses by family members. No recent travels. Rest of 10 point ROS negative per daughter; minimal answers attainable from patient due to advanced dementia. In the ED, patient was found to be hypoxic in the high 80's on ambient air w/ temp at 101, leukocytosis at 15 and lactic acid at 8. He was started on sepsis protocol with broad spec abx and fluid restriction. His hypoxia resolved on 2L NC. COVID test negative. He will be admitted for sepsis work up. PMH: dementia, parkinsons, paraoxsymal afib, HTN , BPH Sx: none Fx: no hx of DM, lung disease, heart disease All: none Soc: non-smoker, drinker, or recreational drug user Allergies: Coded Allergies: No Known Allergies (Unverified , 10/13/19) COVID-19 Screening Contact w/high risk pt: No Recent Travel to affected area: No Experienced COVID-19 symptoms?: Yes Coronavirus symptoms experienc: Fever (T>100.4F or >38C), Shortness of Breath Medication History Scheduled Amlodipine Besylate (Norvasc), 5 MG ORAL DAILY Aspirin* (Aspir 81*), 81 MG ORAL DAILY, (Reported) Atorvastatin Calcium* (Atorvastatin Calcium*), 10 MG ORAL BEDTIME, (Reported) Carbidopa/Levodopa 25-100 Mg* (Sinemet 25-100 Mg Tablet*), 1 TAB ORAL THREE TIMES A DAY, (Reported) Finasteride* (Proscar*), 5 MG ORAL DAILY, (Reported) Levofloxacin* (Levaquin*), 750 MG ORAL QOD Metformin Hcl* (Metformin Hcl*), 500 MG ORAL TWICE A DAY, (Reported) Miscellaneous Medications Lipase/Protease/Amylase (Creon Dr 36,000 Units Capsule), 1 EACH PO, (Reported) Loratadine (Loratadine), 10 MG PO, (Reported) Memantine HCl/Donepezil HCl (Namzaric 14 mg-10 mg Capsule), 1 EACH PO, (Reported) Patient History Healthcare decision maker Resuscitation status Advanced Directive on File Past Medical/Surgical History Past Medical/Surgical History: (1) Dementia (2) Parkinson disease (3) BPH (benign prostatic hyperplasia) (4) UTI (urinary tract infection) (5) Sepsis Physical Exam General Appearance: no apparent distress, lethargic, thin HEENT: normocephalic, atraumatic Neck: non-tender, normal alignment, normal inspection Respiratory/Chest: lungs clear, normal breath sounds, no respiratory distress, other - on NC Cardiovascular/Chest: normal rate, regular rhythm, no JVD Abdomen: normal bowel sounds, non tender, soft Extremities: normal range of motion, non-tender, normal inspection, other - extremeties cool Skin Exam: normal pigmentation, warm/dry 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, other - advanced dementia Last 24 Hour Vital Signs Date Time Temp Pulse Resp B/P (MAP) Pulse Ox O2 Delivery O2 Flow Rate FiO2 04/02/20 08:40 101.7 93 16 100/64 95 Nasal Cannula 2.0 04/02/20 08:20 84 18 Nasal Cannula 2.0 04/02/20 08:10 99.9 84 18 100/64 (76) 97 Room Air Laboratory Tests Test 04/02/20 08:15 04/02/20 08:19 04/02/20 08:26 White Blood Count 15.2 K/UL (4.8-10.8) H Red Blood Count 4.44 M/UL (4.70-6.10) L Hemoglobin 13.7 G/DL (14.2-18.0) L Hematocrit 39.2 % (42.0-52.0) L Mean Corpuscular Volume 88 FL (80-99) Mean Corpuscular Hemoglobin 30.8 PG (27.0-31.0) Mean Corpuscular Hemoglobin Concent 34.8 G/DL (32.0-36.0) Red Cell Distribution Width 12.7 % (11.6-14.8) Platelet Count 163 K/UL (150-450) Mean Platelet Volume 6.1 FL (6.5-10.1) L Neutrophils (%) (Auto) % (45.0-75.0) Lymphocytes (%) (Auto) % (20.0-45.0) Monocytes (%) (Auto) % (1.0-10.0) Eosinophils (%) (Auto) % (0.0-3.0) Basophils (%) (Auto) % (0.0-2.0) Differential Total Cells Counted 100 Neutrophils % (Manual) 89 % (45-75) H Lymphocytes % (Manual) 8 % (20-45) L Monocytes % (Manual) 2 % (1-10) Eosinophils % (Manual) 1 % (0-3) Basophils % (Manual) 0 % (0-2) Band Neutrophils 0 % (0-8) Platelet Estimate Adequate Platelet Morphology Normal Red Blood Cell Morphology Normal Prothrombin Time 11.6 SEC (9.30-11.50) H Prothromb Time International Ratio 1.1 (0.9-1.1) Activated Partial Thromboplast Time 27 SEC (23-33) D-Dimer 5.38 mg/L FEU (0.00-0.49) H Sodium Level 137 MMOL/L (136-145) Potassium Level 3.6 MMOL/L (3.5-5.1) Chloride Level 102 MMOL/L (98-107) Carbon Dioxide Level 16 MMOL/L (21-32) L Anion Gap 19 mmol/L (5-15) H Blood Urea Nitrogen 14 mg/dL (7-18) Creatinine 1.0 MG/DL (0.55-1.30) Estimat Glomerular Filtration Rate > 60 mL/min (>60) Glucose Level 153 MG/DL (74-106) H Lactic Acid Level 8.60 mmol/L (0.4-2.0) H Calcium Level 8.9 MG/DL (8.5-10.1) Phosphorus Level 3.5 MG/DL (2.5-4.9) Magnesium Level 1.7 MG/DL (1.8-2.4) L Ferritin 745 NG/ML (8-388) H Total Bilirubin 1.3 MG/DL (0.2-1.0) H Direct Bilirubin 0.3 MG/DL (0.0-0.3) Aspartate Amino Transf (AST/SGOT) 39 U/L (15-37) H Alanine Aminotransferase (ALT/SGPT) 14 U/L (12-78) Alkaline Phosphatase 104 U/L (46-116) Lactate Dehydrogenase 189 U/L (81-234) Total Creatine Kinase 25 U/L (26-308) L Creatine Kinase MB < 0.5 NG/ML (0.0-3.6) Creatine Kinase MB Relative Index 2.0 Troponin I 0.028 ng/mL (0.000-0.056) C-Reactive Protein, Quantitative 4.7 mg/dL (0.00-0.90) H Pro-B-Type Natriuretic Peptide 1220 pg/mL (0-125) H Total Protein 6.0 G/DL (6.4-8.2) L Albumin 3.1 G/DL (3.4-5.0) L Globulin 2.9 g/dL Albumin/Globulin Ratio 1.1 (1.0-2.7) Lipase 126 U/L (73-393) Arterial Blood pH 7.419 (7.350-7.450) Arterial Blood Partial Pressure CO2 22.3 mmHg (35.0-45.0) *L Arterial Blood Partial Pressure O2 387.9 mmHg (75.0-100.0) H Arterial Blood HCO3 14.1 mmol/L (22.0-26.0) *L Arterial Blood Oxygen Saturation 99.3 % (95-100) Arterial Blood Base Excess -8.2 (-2-2) L [facility] Test Positive POC Whole Blood Glucose 151 MG/DL (74-106) H Microbiology Date/Time Source Procedure Growth Status 04/02/20 08:20 Nasopharynx SARS-CoV-2 RdRp Gene Assay - Final Complete Height (Feet): 5 Height (Inches): 6.00 Weight (Pounds): 140 Medications Current Medications Medications (Trade) Dose Ordered Sig/Jaime Route PRN Reason Start Time Stop Time Status Last Admin Dose Admin Acetaminophen (Tylenol) 650 mg Q4H PRN ORAL Temp >100.5 04/02/20 10:00 05/02/20 09:59 UNV Albuterol/ Ipratropium (Albuterol/ Ipratropium) 3 ml Q4HR PRN HHN Shortness of Breath 04/02/20 10:00 04/07/20 09:59 UNV Bisacodyl (Dulcolax) 10 mg DAILYPRN PRN RECTAL Constipation 04/02/20 10:00 07/01/20 09:59 UNV Dextrose (Dextrose 50%) 25 ml Q30M PRN IV Hypoglycemia 04/02/20 10:00 07/01/20 09:59 UNV Dextrose (Dextrose 50%) 50 ml Q30M PRN IV Hypoglycemia 04/02/20 10:00 07/01/20 09:59 UNV Enoxaparin Sodium (Lovenox) 40 mg Q24H SUBQ 04/02/20 11:00 07/01/20 10:59 UNV Famotidine (Pepcid) 40 mg DAILY ORAL 04/03/20 09:00 07/02/20 08:59 UNV Ondansetron HCl (Zofran) 4 mg Q6H PRN IVP Nausea & Vomiting 04/02/20 10:00 05/02/20 09:59 UNV Piperacillin Sod/ Tazobactam Sod 3.375 gm/Sodium Chloride 110 ml @ 220 mls/hr Q6H IVPB 04/02/20 10:00 04/09/20 09:59 UNV Polyethylene Glycol (Miralax) 17 gm DAILYPRN PRN ORAL Constipation 04/02/20 10:00 05/02/20 09:59 UNV Sodium Chloride 1,000 ml @ 100 mls/hr Q10H IVLG 04/02/20 11:00 05/02/20 10:59 UNV Vancomycin HCl (Vanco pharmacy to dose) 1 ea DAILY PRN MISC Per rx protocol 04/02/20 10:00 05/02/20 09:59 UNV Assessment/Plan Assessment/Plan: Mr. Josue is a 89M with PMH of Parkinsons, dementia, HTN, paroxsymal afib, and BPH who presents for fevers, chills, and lethargy. # Sepsis (Leukocytosis + Fever) w/ possible Urinary vs Pulmonary Source # Acute Hypoxic Respiratory Failure s/p NC # Anion Gap Metabolic Acidosis 2/2 lactic acid # Elevated Lactic Acid patricley 2/2 tissue hypoperfusion, type A # Hx of Parkinson Disease # Hx of Alzheimer Dementia # Hx of BPH # Hx of Paroxysmal Afib # Bed bound P: - sat well on 2L NC; monitor for increased O2 support - keep Sat > 92% - duonebs prn - s/p sepsis bolus 30 mg/kg - continue IVF - broad spec abx - vanc, zosyn, will tailor to blood cultures - CXR no evidence of PNA - f/u MRSA, BC, UA - inflammatory markers elevated, will trend - repeat lactic acid - continue home Parkinson, BPH medications - I chart reviewed his previous admission in November in which cardiology decided against anti-coagulation due to high fall/bleeding risk - will consult ID, Dr. Rosenthal, recs appreciated - PT/OT - nutrition consult - CM consult for d/c planning CODE: DNR/DNI - confirmed by daughter GI: pepcid DVT: lovenox 40 mg subq IVF: 100 NS Abx: vanc, zosn Diet: Regular Dispo: pending sepsis work up, likely will need snf In additions to usual care as above, I spent additional time reviewing records in the EMR including physician documentations, nursing documentations, lab results, imaging results and other clinical documentations in his previous admissions in November and October of 2019. Time started at 1030am and ended at 1123. A discussion with patients Daughter Iris Burrows about Advanced Care planning took placed during this hospitalization on the above date. The discussion included goals of care, acute/chronic medical issues, code status and advanced directives. The following summarizes the discussion: will attempt to fill out AD and/or POLST with patient prior to discharge if not already completed, continue current evaluation and management of any acute and chronic medical issues, support the patient/family, and continue to discuss both short and parts counterman goals of care. 100 minutes was spent on this encounter with 55 min spent on counseling and care coordination. I discussed with the RN, ANGELES Rosenthal. Time of note may not reflect time patient was seen. Jose Kwok D.O Apr 02, 2020 11:22
[2020-04-02] MEDS ORDERED: Omnipaque 350 100ml vial INJ PRN (11:45)
--- NOTE | 2020-04-02 11:45 | NUR ---
ED Nurse Note: Patient transferred to telemetry unitwith no belongings.
[2020-04-02 11:53] VITALS: BP 127/64
[2020-04-02] MEDS ORDERED: Miralax 17gm pkt ORAL PRN (12:00)
--- NOTE | 2020-04-02 12:06 | NUR ---
NURSE NOTES: Pt transferred from ED via gurney to room 218-1. Received report from Pamela/MELIDA. Pt was sleeping, on 2L nasal cannula, no distress or SOB noted. site monitor placed. Pt has no belongings. Vital signs taken. IV on Right hand 20G, patent and clean. Fall precautions measures done. Bed in lowest position and lock, call light within reach. Side rails up X3. Will contact primary MD for admissions orders.
[2020-04-02] MEDS ORDERED: Vancomycin 1.25gm/NS Premix IVPB ONE (13:00)
[2020-04-02] MEDS: Enoxaparin 40mg Inj SUBQ SCH (13:42)
--- NOTE | 2020-04-02 13:52 | General Progress Note ---
Advance Care Planning Advance Care Planning Advance Care Planning [facility] An independent Hospitalist group, where every patient is our [facility] Internal Medicine Hospitalist Advanced Care Planning Note Please contact us at Date of Discussion: A discussion with the daughter Iris Burrows regarding the patient's advanced care planning took place during this hospitalization on the above date. The discussion included the explanation and discussion of advance directives and associated forms/documents, as well as the patient's current code status. We also discussed at length the patient's medical conditions (both acute and chronic), general prognosis, treatment options, and goals of care. The following summarizes the discussion: Advance Care Planning/Goals of Care: - Will attempt to fill out an AD and/or POLST with the patient prior to discharge, if not already completed - Continue current evaluation and management of any acute and chronic medical issues - Will continue to support the patient/family - Will continue to discuss both short- and long-term goals of care DPOA-HC/Surrogate Decision Maker: Davon Medley Code Status: DNR/DNI Advanced Care Planning Forms/Documents Completed: Deferred until later encounter/visit A total of 25 minutes was spent on this discussion, including counseling, answering questions, and completing, if any, pertinent advanced care planning forms/documents. Time of note may not reflect time of encounter. Jose Kwok D.O Apr 02, 2020 13:52
--- NOTE | 2020-04-02 14:06 | Consultation ---
Consult Note Consult Note I am asked to evaluate the patient at the request of Dr. Mayfield for fluid and electrolyte management. Patient non-historian. Emergency room note: HPI: 89-year-old male history of Parkinson's disease, dementia, hypertension presents for evaluation of fever and hypoxia. Brought in by EMS from home. EMS stated the family has noted a fever over the past few days. Worsening cough. Found 88% on room air. Improved to the low 90s on nonrebreather. Afebrile when EMS found him. Could not obtain any further information from patient. Review of chart shows he was admitted for sepsis earlier this year. PMH: Proximal atrial fibrillation, Parkinson's disease, dementia, hypertension Allergies: No Known Allergies (Unverified , 10/13/19) COVID-19 Screening Contact w/high risk pt: No Recent Travel to affected area: No Experienced COVID-19 symptoms?: Yes COVID-19 symptoms experienced: Fever (T>100.4F or >38C) COVID-19 Testing performed FILTER WORKER: No Past Medical History: No History, Except For Hx Cardiac Problems: Yes Hx Hypertension: Yes Hx COPD: Yes Hx Diabetes: Yes Hx Gastrointestinal Problems: Yes - diverticulitis Hx Neurological Problems: Yes - parkinsons disease PHYSICAL EXAMINATION: GENERAL: Withdrawn, lethargic. VITAL SIGNS: Blood pressure 100/64, heart rate 93, respirations 16. HEENT: Dry mucous membranes. NECK: Supple. LUNGS: With coarse breath sounds and rhonchi. CARDIAC: Regular rhythm. Rapid rate. Normal S1, S2 with a 1/6 systolic murmur at the base. ABDOMEN: Soft, nontender. EXTREMITIES: Good pulses. Decreased capillary refill. Cool extremities. No edema. NEUROLOGIC: With moderate cognitive impairment. LABORATORY DATA: White count 15.2, hemoglobin is 13.7, platelet count is normal. D-dimer is elevated at 5. Sodium 137, potassium 3.6, bicarb 16, BUN 14, creatinine 1, lactic acid 8.6, glucose 153. Troponin is 0.028. Pro natriuretic peptide 1220. Albumin is 3.1. Chest x-ray with no obvious infiltrate. . Assessment/Plan Lactic acidosis UTI, sepsis, high lactic acid, leukocytosis Chronic diastolic congestive heart failure Protein calorie malnutrition Elevated d-dimer Parkinson disease Diabetes mellitus BPH Dementia DNR status Hydrate Keep the blood pressure and blood sugar in check Antibiotics Avoid nephrotoxic's Per orders Fouladian,Ruben MD Apr 02, 2020 14:06
[2020-04-02 16:00] VITALS: BP 100/52
[2020-04-02] MEDS: Piperacillin/Tazobactam 3.375 GM in NS 110 ML IVPB SCH (17:02)
--- NOTE | 2020-04-02 18:13 | Infectious Diseases Prog Note ---
Assessment/Plan Assessment/Plan Full consult dictated: A) 1) uti, sepsis, pyelonephritis, fevers, leukocytosis 2) pmh noted 3) allergies - nkda P) 1) zosyn 2) check cultures 3) monitor labs and temps 4) thank you Subjective Allergies: Coded Allergies: No Known Allergies (Unverified , 10/13/19) Objective Last 24 Hour Vital Signs Date Time Temp Pulse Resp B/P (MAP) Pulse Ox O2 Delivery O2 Flow Rate FiO2 04/02/20 12:00 62 04/02/20 12:00 Nasal Cannula 2.0 04/02/20 11:53 97.3 66 18 127/64 (85) 98 04/02/20 11:45 98.5 78 16 98/56 99 Nasal Cannula 2.0 04/02/20 11:45 98.5 04/02/20 10:41 64 15 100/64 98 Nasal Cannula 2.0 04/02/20 08:40 101.7 93 16 100/64 95 Nasal Cannula 2.0 04/02/20 08:20 84 18 Nasal Cannula 2.0 04/02/20 08:10 99.9 84 18 100/64 (76) 97 Room Air Height (Feet): 5 Height (Inches): 2.00 Weight (Pounds): 107 Microbiology Date/Time Source Procedure Growth Status 04/02/20 08:20 Nasopharynx SARS-CoV-2 RdRp Gene Assay - Final Complete Laboratory Tests Test 04/02/20 08:15 04/02/20 08:19 04/02/20 08:26 04/02/20 09:45 White Blood Count 15.2 K/UL (4.8-10.8) H Red Blood Count 4.44 M/UL (4.70-6.10) L Hemoglobin 13.7 G/DL (14.2-18.0) L Hematocrit 39.2 % (42.0-52.0) L Mean Corpuscular Volume 88 FL (80-99) Mean Corpuscular Hemoglobin 30.8 PG (27.0-31.0) Mean Corpuscular Hemoglobin Concent 34.8 G/DL (32.0-36.0) Red Cell Distribution Width 12.7 % (11.6-14.8) Platelet Count 163 K/UL (150-450) Mean Platelet Volume 6.1 FL (6.5-10.1) L Neutrophils (%) (Auto) % (45.0-75.0) Lymphocytes (%) (Auto) % (20.0-45.0) Monocytes (%) (Auto) % (1.0-10.0) Eosinophils (%) (Auto) % (0.0-3.0) Basophils (%) (Auto) % (0.0-2.0) Differential Total Cells Counted 100 Neutrophils % (Manual) 89 % (45-75) H Lymphocytes % (Manual) 8 % (20-45) L Monocytes % (Manual) 2 % (1-10) Eosinophils % (Manual) 1 % (0-3) Basophils % (Manual) 0 % (0-2) Band Neutrophils 0 % (0-8) Platelet Estimate Adequate Platelet Morphology Normal Red Blood Cell Morphology Normal Prothrombin Time 11.6 SEC (9.30-11.50) H Prothromb Time International Ratio 1.1 (0.9-1.1) Activated Partial Thromboplast Time 27 SEC (23-33) D-Dimer 5.38 mg/L FEU (0.00-0.49) H Sodium Level 137 MMOL/L (136-145) Potassium Level 3.6 MMOL/L (3.5-5.1) Chloride Level 102 MMOL/L (98-107) Carbon Dioxide Level 16 MMOL/L (21-32) L Anion Gap 19 mmol/L (5-15) H Blood Urea Nitrogen 14 mg/dL (7-18) Creatinine 1.0 MG/DL (0.55-1.30) Estimat Glomerular Filtration Rate > 60 mL/min (>60) Glucose Level 153 MG/DL (74-106) H Lactic Acid Level 8.60 mmol/L (0.4-2.0) H 5.30 mmol/L (0.66-2.22) H Calcium Level 8.9 MG/DL (8.5-10.1) Phosphorus Level 3.5 MG/DL (2.5-4.9) Magnesium Level 1.7 MG/DL (1.8-2.4) L Ferritin 745 NG/ML (8-388) H Total Bilirubin 1.3 MG/DL (0.2-1.0) H Direct Bilirubin 0.3 MG/DL (0.0-0.3) Aspartate Amino Transf (AST/SGOT) 39 U/L (15-37) H Alanine Aminotransferase (ALT/SGPT) 14 U/L (12-78) Alkaline Phosphatase 104 U/L (46-116) Lactate Dehydrogenase 189 U/L (81-234) Total Creatine Kinase 25 U/L (26-308) L Creatine Kinase MB < 0.5 NG/ML (0.0-3.6) Creatine Kinase MB Relative Index 2.0 Troponin I 0.028 ng/mL (0.000-0.056) C-Reactive Protein, Quantitative 4.7 mg/dL (0.00-0.90) H Pro-B-Type Natriuretic Peptide 1220 pg/mL (0-125) H Total Protein 6.0 G/DL (6.4-8.2) L Albumin 3.1 G/DL (3.4-5.0) L Globulin 2.9 g/dL Albumin/Globulin Ratio 1.1 (1.0-2.7) Lipase 126 U/L (73-393) Arterial Blood pH 7.419 (7.350-7.450) Arterial Blood Partial Pressure CO2 22.3 mmHg (35.0-45.0) *L Arterial Blood Partial Pressure O2 387.9 mmHg (75.0-100.0) H Arterial Blood HCO3 14.1 mmol/L (22.0-26.0) *L Arterial Blood Oxygen Saturation 99.3 % (95-100) Arterial Blood Base Excess -8.2 (-2-2) L [facility] Test Positive POC Whole Blood Glucose 151 MG/DL (74-106) H Test 04/02/20 09:50 04/02/20 15:42 Urine Color Yellow Urine Appearance Cloudy Urine pH 5 (4.5-8.0) Urine Specific [place] 1.020 (1.005-1.035) Urine Protein 3+ (NEGATIVE) H Urine Glucose (UA) Negative (NEGATIVE) Urine Ketones 1+ (NEGATIVE) H Urine Blood 5+ (NEGATIVE) H Urine Nitrite Negative (NEGATIVE) Urine Bilirubin Negative (NEGATIVE) Urine Urobilinogen Normal MG/DL (0.0-1.0) Urine Leukocyte Esterase 3+ (NEGATIVE) H Urine RBC Tntc /HPF (0 - 0) H Urine WBC Tntc /HPF (0 - 0) H Urine Squamous Epithelial Cells Occasional /LPF Urine Bacteria Few /HPF (NONE) Lactic Acid Level 1.60 mmol/L (0.4-2.0) Current Medications Medications (Trade) Dose Ordered Sig/Jaime Route PRN Reason Start Time Stop Time Status Last Admin Dose Admin Acetaminophen (Tylenol) 650 mg Q4H PRN ORAL Temp >100.5 04/02/20 10:00 05/02/20 09:59 Albuterol/ Ipratropium (Albuterol/ Ipratropium) 3 ml Q4HR PRN HHN Shortness of Breath 04/02/20 10:00 04/07/20 09:59 Bisacodyl (Dulcolax) 10 mg DAILYPRN PRN RECTAL Constipation 04/02/20 10:00 07/01/20 09:59 Dextrose (Dextrose 50%) 25 ml Q30M PRN IV Hypoglycemia 04/02/20 10:00 07/01/20 09:59 Dextrose (Dextrose 50%) 50 ml Q30M PRN IV Hypoglycemia 04/02/20 10:00 07/01/20 09:59 Enoxaparin Sodium (Lovenox) 40 mg Q24H SUBQ 04/02/20 11:00 07/01/20 10:59 04/02/20 13:42 Famotidine (Pepcid I.v.) 20 mg Q12HR IVP 04/02/20 14:15 05/02/20 14:14 04/02/20 14:30 Iohexol (Omnipaque 350 100ml) 100 ml NOW PRN INJ Radiology Procedure 04/02/20 11:45 04/04/20 11:44 Ondansetron HCl (Zofran) 4 mg Q6H PRN IVP Nausea & Vomiting 04/02/20 11:00 05/02/20 10:59 Piperacillin Sod/ Tazobactam Sod 3.375 gm/Sodium Chloride 110 ml @ 27.5 mls/hr Q8H IVPB 04/02/20 17:00 04/09/20 16:59 04/02/20 17:02 Polyethylene Glycol (Miralax) 17 gm DAILYPRN PRN ORAL Constipation 04/02/20 12:00 05/02/20 11:59 Sodium Chloride 1,000 ml @ 100 mls/hr Q10H IVLG 04/02/20 11:00 05/02/20 10:59 04/02/20 13:04 Tamsulosin HCl (Flomax) 0.4 mg BEDTIME ORAL 04/02/20 21:00 05/02/20 20:59 Vancomycin HCl (Vanco pharmacy to dose) 1 ea DAILY PRN MISC Per rx protocol 04/02/20 10:00 05/02/20 09:59 Cassia Alatorre MD Apr 02, 2020 18:12
--- NOTE | 2020-04-02 19:13 | NUR ---
NURSE HAND-OFF REPORT: Important Events on Shift:New admission Patient Status: Stable Diet: Regular mechanical soft chopped Pending Orders: Pending Results/Labs: Pending MD notification: Latest Vital Signs: Temperature 97.5 , Pulse 63 , B/P 100 /52 , Respiratory Rate 20 , O2 SAT 97 , Nasal Cannula, O2 Flow Rate 2.0 . Vital Sign Comment: Stable EKG Rhythm: SR w/BBB Rhythm change?: N MD Notified?: - MD Response: Latest Blount Fall Score: 50 Fall Risk: High Risk Safety Measures: Call light Within Reach, Bed Alarm Zone 1, Side Rails Side Rails x2, Bed position Low and Locked. Fall Precautions: Yellow Socks Yellow Gown Door Sign Patient Fall Education Report given to Harvey/MELIDA.
--- NOTE | 2020-04-02 19:52 | NUR ---
NURSE NOTES: Pt. received from MELIDA Sr. Pt. awake, nonverbal, breathing even and unlabored on 2L NC, no indications of respiratory distress, no indications of pain. IV noted intact and patent on R hand 20g intact and patent with NS @100cc running. Condom cath intact and draining urine well. Bed low and locked, side rails x3 up, bed alarm active, and call light in reach.
[2020-04-02 20:00] VITALS: BP 104/55
[2020-04-02] MEDS: Tamsulosin 0.4mg cap ORAL SCH (21:44)
--- NOTE | 2020-04-02 23:15 | Consultation ---
DATE OF CONSULTATION: 04/02/2020 CARDIOLOGY CONSULTATION CONSULTING PHYSICIAN: Tanmay Mayfield MD REFERRING PHYSICIAN: Dax Reyes MD REASON FOR CONSULTATION: Lactic acidosis in the setting of sepsis with history of paroxysmal atrial fibrillation. HISTORY OF PRESENT ILLNESS: This is an 89-year-old male. 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 He has been increasingly hypoxic and febrile at home. His daughter brought him in for evaluation. In the emergency room, workup was undertaken and hospitalization initiated. I have been asked to assist with cardiovascular care. The patient was hospitalized here twice in the last 6 months, in September and in November of 2019 for complications of infection. He did have atrial fibrillation episodes during those hospitalizations. It was felt that based on his age, fall risk, and bleeding risk that cardioembolic prophylaxis with anticoagulations would pose a high risk for complications. In the emergency room, the patient was febrile to 101, had a lactic acid level of over 8, and was hypoxic in the 80s on room air. COVID-19 swab was negative. EKG reveals sinus tachycardia, old inferior infarction, incomplete right bundle-branch block, and nonspecific ST change. PAST MEDICAL HISTORY: Parkinson disease, dementia, prostatic, hypertrophy, hypertension with hypertensive heart disease, diastolic congestive heart failure, paroxysmal atrial fibrillation, non-insulin requiring diabetes mellitus, hyperlipidemia. FAMILY HISTORY: Noncontributory. ALLERGIES: None known. MEDICATIONS: Reviewed and reconciled. SOCIAL HISTORY: Negative for smoking, alcohol, or substance abuse. Lives at home with daughter. REVIEW OF SYSTEMS: A 10-point review of systems performed, all noted above. ADVANCE DIRECTIVES: DNR. PHYSICAL EXAMINATION: GENERAL: Withdrawn, lethargic. VITAL SIGNS: Blood pressure 100/64, heart rate 93, respirations 16. HEENT: Dry mucous membranes. NECK: Supple. LUNGS: With coarse breath sounds and rhonchi. CARDIAC: Regular rhythm. Rapid rate. Normal S1, S2 with a 1/6 systolic murmur at the base. ABDOMEN: Soft, nontender. EXTREMITIES: Good pulses. Decreased capillary refill. Cool extremities. No edema. NEUROLOGIC: With moderate cognitive impairment. LABORATORY DATA: White count 15.2, hemoglobin is 13.7, platelet count is normal. D-dimer is elevated at 5. Sodium 137, potassium 3.6, bicarb 16, BUN 14, creatinine 1, lactic acid 8.6, glucose 153. Troponin is 0.028. Pro natriuretic peptide 1220. Albumin is 3.1. Chest x-ray with no obvious infiltrate. IMPRESSION: 1. Sepsis with early shock. 2. Leukocytosis. 3. Fevers. 4. Hypoxia and respiratory failure. 5. Possible pneumonia. 6. Possible urinary tract infection. 7. Lactic acidosis. 8. Parkinson disease with dementia. 9. Paroxysmal atrial fibrillation. 10. Sinus tachycardia. 11. Type 2 diabetes mellitus. 12. History of hypertension. PLAN: 1. Saline hydration. 2. Broad-spectrum antimicrobials. 3. Nasal oxygen. 4. Antimicrobials. 5. Await culture results. 6. No plan for anticoagulation. 7. DVT prophylaxis alone with subcutaneous heparin. 8. Hold antihypertensives. 9. Serial lactic acid levels. 10. Patient remains high risk. Tanmay Mayfield M.D. DR: VASILE JOB#: [id number] CC:
[2020-04-03] VITALS (7 sets, daily range): BP systolic 103–121; BP diastolic 48–61
[2020-04-03] MEDS: Piperacillin/Tazobactam 3.375 GM in NS 110 ML IVPB SCH ×3 (01:33→16:41)
[2020-04-03 05:39] LABS: APPEARANCE,URINE SLIGHTLY CLOUDY; BILIRUBIN, URINE NEGATIVE (NEGATIVE); COLOR,URINE PALE YELLOW; GLUCOSE, URINE (UA) NEGATIVE (NEGATIVE); KETONES,URINE NEGATIVE (NEGATIVE); LEUKOCYTE ESTERASE ,URINE 3+ (NEGATIVE); NITRITE,URINE NEGATIVE (NEGATIVE); PH,URINE 6 (4.5-8.0); PROTEIN,URINE 2+ (NEGATIVE); UROBILINOGEN,URINE NORMAL MG/DL (0.0-1.0)
--- NOTE | 2020-04-03 07:00 | NUR ---
NURSE NOTES: Pt report received from MELIDA Gabriel. Pt is DNR noted. pt is awake, AOx2 resting in bed. pt on 2LPM NC with no s/s or complaint of distress. Condom catheter on and draining pink-clear yellow urine; MD is aware of suspected hematuria per Harvey MONTEZ. pt has stage 2 sacral DTi and a skin tear noted as well as a L elbow skin tear. R hand IV 20g running NS at 100cc. Asymptomatic and intact. bed low and locked , call light in reach and bed alarm on. Pt does not try to get up, verbalized understanding. Harvey MONTEZ spoke to Dr Reyes reguarding Pts code status, said Eric will speak to family.
[2020-04-03 07:16] LABS: HEMATOCRIT 32.8 % (42.0-52.0); HEMOGLOBIN 11.3 G/DL (14.2-18.0); MEAN CORPUSCULAR VOLUME 89 FL (80-99); PLATELET COUNT 113 K/UL (150-450); RED CELL DISTRIBUTION WIDTH 12.6 % (11.6-14.8)
[2020-04-03 07:40] LABS: ALANINE AMINOTRANSFERASE 32 U/L (12-78); ALBUMIN 2.6 G/DL (3.4-5.0); ALBUMIN/GLOBULIN RATIO 0.9 (1.0-2.7); ALKALINE PHOSPHATASE 67 U/L (46-116); ANION GAP 14 mmol/L (5-15); ASPARTATE AMINO TRANSFERASE 36 U/L (15-37); BILIRUBIN,TOTAL 0.8 MG/DL (0.2-1.0); BLOOD UREA NITROGEN 15 mg/dL (7-18); CALCIUM 8.3 MG/DL (8.5-10.1); CARBON DIOXIDE 19 MMOL/L (21-32); CHLORIDE 113 MMOL/L (98-107); CREATININE 0.8 MG/DL (0.55-1.30); POTASSIUM 4.4 MMOL/L (3.5-5.1); SODIUM 146 MMOL/L (136-145)
--- NOTE | 2020-04-03 07:42 | NUR ---
NURSE HAND-OFF REPORT: Important Events on Shift:[pt. sleeping through night, scant hematuria noted in condom catheter collection bag Patient Status: stable, awake Diet: regular, mech soft Pending Orders: na Pending Results/Labs:na Pending MD notification:Discuss with family to clarify code status and code status order Latest Vital Signs: Temperature 97.5 , Pulse 57 , B/P 103 /61 , Respiratory Rate 16 , O2 SAT 100 , Nasal Cannula, O2 Flow Rate 2.0 . Vital Sign Comment: stable EKG Rhythm: SR w/BBB Rhythm change?: N MD Notified?: - MD Response: Latest Blount Fall Score: 50 Fall Risk: High Risk Safety Measures: Call light Within Reach, Bed Alarm Zone 3, Side Rails Side Rails x3, Bed position Low and Locked. Fall Precautions: Yellow Socks Patient Fall Education Report given to MELIDA Wen.
[2020-04-03 07:52] LABS: PHOSPHORUS 1.9 MG/DL (2.5-4.9)
--- NOTE | 2020-04-03 08:33 | General Progress Note ---
Subjective ROS Limited/Unobtainable: No Constitutional: Reports: malaise, weakness HEENT: Reports: no symptoms Cardiovascular: Reports: no symptoms Respiratory: Reports: cough Gastrointestinal/Abdominal: Reports: no symptoms Genitourinary: Reports: no symptoms Neurologic/Psychiatric: Reports: no symptoms Endocrine: Reports: no symptoms Hematologic/Lymphatic: Reports: no symptoms Allergies: Coded Allergies: No Known Allergies (Unverified , 10/13/19) All Systems: reviewed and negative except above Subjective no events. w/o complaints. feels "cold.: no overnight events. no fevers. on abx. cultures pending. Objective Last 24 Hour Vital Signs Date Time Temp Pulse Resp B/P (MAP) Pulse Ox O2 Delivery O2 Flow Rate FiO2 04/03/20 04:00 97.5 57 16 103/61 (75) 100 04/03/20 04:00 57 04/03/20 00:00 97.7 53 16 110/55 (73) 100 04/03/20 00:00 53 04/02/20 21:00 Nasal Cannula 2.0 04/02/20 20:00 54 04/02/20 20:00 98.1 54 18 104/55 (71) 99 04/02/20 16:00 97.5 61 20 100/52 (68) 97 04/02/20 16:00 63 04/02/20 12:00 62 04/02/20 12:00 Nasal Cannula 2.0 04/02/20 11:53 97.3 66 18 127/64 (85) 98 04/02/20 11:45 98.5 78 16 98/56 99 Nasal Cannula 2.0 04/02/20 11:45 98.5 04/02/20 10:41 64 15 100/64 98 Nasal Cannula 2.0 04/02/20 08:40 101.7 93 16 100/64 95 Nasal Cannula 2.0 Intake and Output 04/02/20 04/03/20 18:59 06:59 Intake Total 2250 ml 1210.0 ml Balance 2250 ml 1210.0 ml Intake Oral 240 ml IV Total 2010 ml 1210.0 ml # Voids 2 2 # Bowel Movements 1 1 Laboratory Tests 04/02/20 09:45: Lactic Acid Level 5.30H 04/02/20 09:50: Urine Color Yellow, Urine Appearance Cloudy, Urine pH 5, Urine Specific [place] 1.020, Urine Protein 3+H, Urine Glucose (UA) Negative, Urine Ketones 1+H, Urine Blood 5+H, Urine Nitrite Negative, Urine Bilirubin Negative, Urine Urobilinogen Normal, Urine Leukocyte Esterase 3+H, Urine RBC TntcH, Urine WBC TntcH, Urine Squamous Epithelial Cells Occasional, Urine Bacteria Few 04/02/20 15:42: Lactic Acid Level 1.60 04/03/20 05:10: Lactic Acid Level 3.30H, White Blood Count 15.0H, Red Blood Count 3.70L, Hemoglobin 11.3L, Hematocrit 32.8L, Mean Corpuscular Volume 89, Mean Corpuscular Hemoglobin 30.6, Mean Corpuscular Hemoglobin Concent 34.5, Red Cell Distribution Width 12.6, Platelet Count 113L, Mean Platelet Volume 6.5, Neutrophils (%) ( Auto) , Lymphocytes (%) (Auto) , Monocytes (%) (Auto) , Eosinophils (%) (Auto) , Basophils (%) (Auto) , Neutrophils % (Manual) [Pending], Lymphocytes % (Manual) [Pending], Platelet Estimate [Pending], Platelet Morphology [Pending], Sodium Level 146H, Potassium Level 4.4, Chloride Level 113H, Carbon Dioxide Level 19L, Anion Gap 14, Blood Urea Nitrogen 15, Creatinine 0.8, Estimat Glomerular Filtration Rate > 60, Glucose Level 117H, Hemoglobin A1c 5.4, Uric Acid 3.4, Calcium Level 8.3L, Phosphorus Level 1.9L, Magnesium Level 1.8, Total Bilirubin 0.8, Gamma Glutamyl Transpeptidase 35, Aspartate Amino Transf (AST/SGOT) 36, Alanine Aminotransferase (ALT/SGPT) 32, Alkaline Phosphatase 67, C-Reactive Protein, Quantitative 10.4H, Pro-B-Type Natriuretic Peptide 4301H, Total Protein 5.6L, Albumin 2.6L, Globulin 3.0, Albumin/Globulin Ratio 0.9L, Vitamin D 25- Hydroxy [Pending], 25-Hydroxy Vitamin D2 [Pending], 25-Hydroxy Vitamin D3 [Pending], Thyroid Stimulating Hormone (TSH) 0.384, Random Vancomycin Level [Pending] 04/03/20 05:20: Urine Color Pale yellow, Urine Appearance Slightly cloudy, Urine pH 6, Urine Specific [place] 1.010, Urine Protein 2+H, Urine Glucose (UA) Negative, Urine Ketones Negative, Urine Blood 5+H, Urine Nitrite Negative, Urine Bilirubin Negative, Urine Urobilinogen Normal, Urine Leukocyte Esterase 3+H, Urine RBC TntcH, Urine WBC TntcH, Urine Squamous Epithelial Cells None, Urine Bacteria ModerateH Height (Feet): 5 Height (Inches): 2.00 Weight (Pounds): 107 General Appearance: WD/WN, alert EENT: normal ENT inspection Neck: non-tender, normal alignment, supple Cardiovascular: normal rate, regular rhythm Respiratory/Chest: chest wall non-tender, lungs clear, normal breath sounds, no respiratory distress, no accessory muscle use Abdomen: normal bowel sounds, non tender, soft, no organomegaly, no mass Edema: no edema noted Arm (L), no edema noted Arm (R) Neurologic: electrotyper II-XII grossly normal, alert, oriented x 3 Skin: normal pigmentation Lymphatic: normal anterior cervical (L), normal anterior cervical (R) Assessment/Plan Problem List: (1) UTI (urinary tract infection) ICD Codes: N39.0 - Urinary tract infection, site not specified SNOMED: 80335256 (2) Sepsis ICD Codes: A41.9 - Sepsis, unspecified organism SNOMED: 26519586 (3) BPH (benign prostatic hyperplasia) ICD Codes: N40.0 - Benign prostatic hyperplasia without lower urinary tract symptoms SNOMED: 921861568 (4) Parkinson disease ICD Codes: G20 - Parkinson's disease SNOMED: 02383543 (5) Dementia ICD Codes: F03.90 - Unspecified dementia without behavioral disturbance SNOMED: 23036232 (6) Artificial pacemaker ICD Codes: Z95.0 - Presence of cardiac pacemaker SNOMED: 510871517 (7) Suspected COVID-19 virus infection ICD Codes: R68.89 - Other general symptoms and signs SNOMED: 744740134 Status: stable Assessment/Plan: cont iv abx follow up cultures resp care o2 dvt/stress ulcer prophylaxis ct chest per rad tried to call family susan mckee- no answer. messages full. will try later dnr Dax Reyes MD Apr 03, 2020 08:33
[2020-04-03] MEDS ORDERED: Vancomycin 1gm/D5W 275ml IVPB ONE ×4 (10:00→13:00)
[2020-04-03] MEDS: Enoxaparin 40mg Inj SUBQ SCH (10:29)
--- NOTE | 2020-04-03 10:29 | NUR ---
NURSE NOTES: Plt 114, held heparin.
[2020-04-03] MEDS ORDERED: Vancomycin 1gm/D5W 275ml IVPB SCH ×4 (10:45→12:45)
--- NOTE | 2020-04-03 11:17 | NUR ---
NURSE NOTES: Skin/wound assessment: Left anterior Elbow skin tear 0.9x1.3x0.2 with pink granulation tissue Xeroform and Optifoam recommended and applied.Sacral and bilateral heels skin intact.Optifoam applied to all bony prominences for preventative measures.
--- NOTE | 2020-04-03 12:48 | NUR ---
RD ASSESSMENT & RECOMMENDATIONS SEE CARE ACTIVITY FOR COMPLETE ASSESSMENT DAILY ESTIMATED NEEDS: Needs based on cardiac, suspected wt loss 51kg 25-35 kcals/kg 0029-6386 total kcals 1-1.5 g protein/kg 51-76 g total protein 25-30 mL/kg 0810-7542 total fluid mLs NUTRITION DIAGNOSIS: Increased kcal/prot needs R/T suspected wt loss as evidenced by possible significant wt loss of 25.5lbs/18.5% in 5 months CURRENT DIET:REGULAR, mech soft chopped PO DIET RECOMMENDATIONS: Maintain liberalized REGULAR/ texture per REPORTS ANALYST + Glucerna TID ADDITIONAL RECOMMENDATIONS: 1) Daily calibrated bed scale wt, monitor trend 2) Monitor BGs closely, need for hypoglycemics and/or carb controlled diet 3) Check A1C for eval of glycemic control: h/o DM 4) Glucerna TID w/ meals 5) Monitor lytes, replete as needed 5) MVI x 1 Addendum: 04/03/20 at [address] addendum: recommend REPORTS ANALYST eval for appropriate texture: pt on pureed moist w/ NTL last adm in November 2019
--- NOTE | 2020-04-03 14:06 | Nephrology Progress Note ---
Assessment/Plan Problem List: (1) Anemia (2) Dehydration (3) Electrolyte imbalance (4) UTI (urinary tract infection) (5) BPH (benign prostatic hyperplasia) (6) Dementia Assessment Lactic acidosis UTI, sepsis, high lactic acid, leukocytosis Chronic diastolic congestive heart failure Protein calorie malnutrition Elevated d-dimer Parkinson disease Diabetes mellitus BPH Dementia DNR status Plan Hydrate Keep the blood pressure and blood sugar in check Antibiotics Avoid nephrotoxic's Per orders Objective Objective Last 24 Hour Vital Signs Date Time Temp Pulse Resp B/P (MAP) Pulse Ox O2 Delivery O2 Flow Rate FiO2 04/03/20 13:30 97.5 57 20 120/48 (72) 95 04/03/20 12:00 55 04/03/20 12:00 97.5 57 20 120/48 (72) 95 04/03/20 09:00 Nasal Cannula 2.0 04/03/20 08:00 56 04/03/20 08:00 97.7 56 16 116/50 (72) 100 04/03/20 04:00 97.5 57 16 103/61 (75) 100 04/03/20 04:00 57 04/03/20 00:00 97.7 53 16 110/55 (73) 100 04/03/20 00:00 53 04/02/20 21:00 Nasal Cannula 2.0 04/02/20 20:00 54 04/02/20 20:00 98.1 54 18 104/55 (71) 99 04/02/20 16:00 97.5 61 20 100/52 (68) 97 04/02/20 16:00 63 Intake and Output 04/02/20 04/03/20 18:59 06:59 Intake Total 2250 ml 1210.0 ml Balance 2250 ml 1210.0 ml Intake Oral 240 ml IV Total 2010 ml 1210.0 ml # Voids 2 2 # Bowel Movements 1 1 Laboratory Tests 04/02/20 15:42: Lactic Acid Level 1.60 04/03/20 05:10: Lactic Acid Level 3.30H, White Blood Count 15.0H, Red Blood Count 3.70L, Hemoglobin 11.3L, Hematocrit 32.8L, Mean Corpuscular Volume 89, Mean Corpuscular Hemoglobin 30.6, Mean Corpuscular Hemoglobin Concent 34.5, Red Cell Distribution Width 12.6, Platelet Count 113L, Mean Platelet Volume 6.5, Neutrophils (%) (Auto) , Lymphocytes (%) (Auto) , Monocytes (%) (Auto) , Eosinophils (%) (Auto) , Basophils (%) (Auto) , Differential Total Cells Counted 100, Neutrophils % (Manual) 84H, Lymphocytes % (Manual) 14L, Monocytes % (Manual) 2, Eosinophils % (Manual) 0, Basophils % (Manual) 0, Band Neutrophils 0, Platelet Estimate DecreasedL, Platelet Morphology Normal, Red Blood Cell Morphology Normal, Sodium Level 146H, Potassium Level 4.4, Chloride Level 113H, Carbon Dioxide Level 19L, Anion Gap 14, Blood Urea Nitrogen 15, Creatinine 0.8, Estimat Glomerular Filtration Rate > 60, Glucose Level 117H, Hemoglobin A1c 5.4, Uric Acid 3.4, Calcium Level 8.3L, Phosphorus Level 1.9L, Magnesium Level 1.8, Total Bilirubin 0.8, Gamma Glutamyl Transpeptidase 35, Aspartate Amino Transf (AST/SGOT) 36, Alanine Aminotransferase (ALT/SGPT) 32, Alkaline Phosphatase 67, C-Reactive Protein, Quantitative 10.4H, Pro-B-Type Natriuretic Peptide 4301H, Total Protein 5.6L, Albumin 2.6L, Globulin 3.0, Albumin/Globulin Ratio 0.9L, Vitamin D 25- Hydroxy [Pending], 25-Hydroxy Vitamin D2 [Pending], 25-Hydroxy Vitamin D3 [Pending], Thyroid Stimulating Hormone (TSH) 0.384, Random Vancomycin Level 9.7 04/03/20 05:20: Urine Color Pale yellow, Urine Appearance Slightly cloudy, Urine pH 6, Urine Specific [place] 1.010, Urine Protein 2+H, Urine Glucose (UA) Negative, Urine Ketones Negative, Urine Blood 5+H, Urine Nitrite Negative, Urine Bilirubin Negative, Urine Urobilinogen Normal, Urine Leukocyte Esterase 3+H, Urine RBC TntcH, Urine WBC TntcH, Urine Squamous Epithelial Cells None, Urine Bacteria ModerateH 04/03/20 10:40: Lactic Acid Level 2.60H Height (Feet): 5 Height (Inches): 2.00 Weight (Pounds): 107 Ruben Davis MD Apr 03, 2020 14:05
--- NOTE | 2020-04-03 15:11 | NUR ---
NURSE NOTES: Notified ID Md of gram + blood w/ cocci in clusters. order acknowledged and carried out.
--- NOTE | 2020-04-03 15:23 | NUR ---
P.T Note: P.T evaluation completed and tx initiated. Please refer to P.T evaluation for current functional status. Pt is alert, O x 4 , pleasant and cooperative. Pt reports c/o R Shoulder/upper arm pain ( unable to rate : 8-10 per Hankins-Rankin scale ) aggravated by movement initiation however agreeable to participate in P.T eval/tx resulting to fear and resistance with mobilities. Pt currently requires MAX/total assist to initiate and complete turning/rolling and supine to/from sitting. Pt was able to sit at the bed and requiring max support to maintain upright sitting position as pt tends to retropulsed. Pt too weak too stand and ambulate at this time. Pt will benefit from skilled P.T to improve his strength, balance and activity tolerance to increase his mobility independence and safety. Recommend SNF for further rehab intervention or home with 24 hr CG and home P.T. Thank you for this referral.
--- NOTE | 2020-04-03 15:36 | NUR ---
CASE MANAGEMENT:REVIEW BIBA FROM HOME CC; SOB AND FEVER SI: SEPSIS. UTI 99.8 84 18 100/64 97% ON RA WBC+15.2 IS: 1L NS BOLUS TYLENOL TX IV ZOSYN CHEST XRAY : TO TELEMETRY
--- NOTE | 2020-04-03 15:45 | Consultation ---
DATE OF CONSULTATION: 04/02/2020 INFECTIOUS DISEASE CONSULTATION CONSULTING PHYSICIAN: Cassia Alatorre MD. ATTENDING PHYSICIANS: 1. Tanmay Mayfield MD. 2. Dax Reyes MD. REFERRING PHYSICIAN: Dr. Jose Kwok. REASON FOR CONSULTATION: Complicated gram-negative UTI and pyelonephritis, fevers, sepsis, leukocytosis, SIRS criteria. CHIEF COMPLAINT: The patient's chief complaint coming in the hospital was fever, sepsis, hypoxia, shortness of breath also, leukocytosis. HISTORY OF PRESENT ILLNESS: This is an 89-year-old male who presents to [facility]. The patient was noted to have a white count of 15.2 and was febrile up to 101.7. He was hypoxic initially when he came in. Per the records, chest x-ray did not show pneumonia. I believe a CT scan of the chest has also been ordered. I do not have the results. The patient was noted to have urinary tract infection. Her urinalysis had too many to count white blood cells. The patient was started on Zosyn when I saw the patient yesterday. The patient's urine culture is pending and cultures are pending. Infectious Disease consultation is requested for antibiotic management for the patient. The patient's case was discussed with Dr. Kwok. MAR was noted. Orders were noted. Notes and records were reviewed. REVIEW OF SYSTEMS: CONSTITUTIONAL: As discussed, he came in with fevers, unclear if he had chills or night sweats. The patient is responsive, weak. HEAD AND NECK: The patient has no obvious head pain or neck pain. He did come in with fevers. Unclear if the patient had chills. CARDIAC: No chest pain. No pressors. GASTROINTESTINAL: No nausea, vomiting, or diarrhea. No abdominal pain. No mention of dysphagia. GENITOURINARY: No CVA tenderness. PULMONARY: Mild cough and congestion. No significant secretions or hemoptysis. SKIN: No rash or itching. EXTREMITIES: No extremity pain. NEUROLOGIC: No seizures. Denies fatigue. No focal weakness. No rash or seizure activity. MUSCULOSKELETAL: No joint pain or leg pain. PAST MEDICAL HISTORY: The patient has Parkinson, dementia, aspiration risk, paroxysmal atrial fibrillation, BPH, hypertension. No history of diabetes mentioned. No history of cancer mentioned. ALLERGIES: The patient has no known drug allergies. No antibiotic allergies. SOCIAL HISTORY: Negative for smoking, alcohol, or drug abuse. FAMILY HISTORY: Noncontributory. There is no mention of tuberculosis or cancer. MEDICATIONS: Upon reviewing the MAR, the patient is on following medications. He was given a dose of vancomycin, however, currently he is on Zosyn and vancomycin. Other medications upon reviewing the MAR, he is on tamsulosin or Flomax, famotidine. The patient is also on enoxaparin, Zofran, IV fluids, albuterol treatments, Zosyn and vancomycin per pharmacy dosing. Outside medications were noted and reconciliated. PHYSICAL EXAMINATION: VITAL SIGNS: Temperature maximum was 101.7. The patient's temperature currently 97.3, pulse rate 66, respiratory rate 18, blood pressure 127/64. Saturation 98% on 2 liters. GENERAL: Alert and responsive, in no acute distress, weak. HEAD AND NECK: Oral exam, no thrush. Eye exam, no icterus. Normocephalic. Supple. No JVD. HEART: Regular, no murmur or gallop. No friction rub. ABDOMEN: Soft. Positive bowel sounds. Nontender. LUNGS: Few bilateral rhonchi. No definite rales. SKIN: No rash or dermatitis. MUSCULOSKELETAL: No effusions or contractures. Lower extremity exam without cellulitis. PERIPHERAL VASCULAR: No cyanosis or gangrene. GENITOURINARY: No CVA tenderness. LINE SITES: Without phlebitis. NEUROLOGIC: Alert, awake, and responsive. Nonfocal. LABORATORY DATA: UA had too many to count white blood cells. Cultures are pending. COVID nasopharyngeal testing, SARS testing is negative. Creatinine 0.8. White count 15.2, hemoglobin 13.7. Initially, creatinine was 1.0. Initial white count 15.2 and hemoglobin 13.7. Cultures pending. UA with too many to count white blood cells, 3+ leukocyte esterase. Chest x-ray showed no definite infiltrate. It did show cardiomegaly. CT scan of the chest has also been ordered. ASSESSMENT AND PLAN: 1. The patient has complicated urinary tract infection, likely pyelonephritis with fevers, leukocytosis, SIRS criteria, sepsis. At this time, I agree with Zosyn and vancomycin. Continue Zosyn and vancomycin for sepsis, vancomycin for gram-positive coverage. Zosyn for gram-negative coverage. Continue vancomycin and Zosyn for UTI, sepsis, and pyelonephritis, and monitor fevers and leukocytosis. Check cultures. Check CT scan of the chest. Monitor labs. Also, monitor creatinine closely on vancomycin. 2. The patient has Parkinson's. 3. Dementia. 4. Paroxysmal atrial fibrillation. 5. BPH. 6. Hypertension. 7. Blood pressure treatment per primary care team. 8. Aspiration risk. 9. No history of diabetes. 10. No history of cancer. 11. No known allergies. 12. Social history is negative. 13. Family history is noncontributory. 14. MAR was noted. 15. Case was discussed with RN. 16. Case communicated with primary care team. 17. Continue treatment per primary consultants. 18. Skin care protocol. Cassia Alatorre M.D. DR: VERENICE JOB#: [id number] CC:
--- NOTE | 2020-04-03 16:22 | Diagnostic Imaging Report ---
ndication: Chest pain Technique: IV administration nonionic contrast. Spiral acquisitions obtained from the lung bases to the lung apices. Multiplanar and 3-D reconstructions were generated. Total dose length product 171 mGycm. CTDIvol(s) 3, 34, 4 mGy. Dose reduction achieved using automated exposure control Comparison: 11/23/2019 Findings: There is image degradation due to motion artifact. Pulmonary arteries are well-opacified. No intraluminal filling defects or other findings to suggest acute pulmonary embolus are demonstrated. The right and left main pulmonary arteries are somewhat ectatic, measuring approximately 25 cm diameter each. The heart is borderline enlarged. There is no isolated right ventricular dilatation demonstrated. No evidence of thoracic aortic aneurysm or dissection. There is considerable reflux of contrast into the inferior vena cava and hepatic veins, which are distended. There are bilateral pleural effusions, small. There is extensive interstitial edema, pulmonary venous congestion, and hazy mosaic perfusion pattern demonstrated. There are also some compressive atelectatic changes of both posterior lower lobes calcified nodules are seen at the left lung base No pericardial effusion. No mediastinal or hilar mass or adenopathy. Calcified nodes are seen in the the bilateral pulmonary stuart and subcarinal region. There are also calcified prevascular space nodes. No mediastinal or hilar mass or adenopathy. Included thyroid is unremarkable. No axillary or chest wall mass or adenopathy. Gas is seen within the bile ducts. This is also evident previously, more extensive currently. There are cholecystectomy clips. There is a 10 mm left adrenal nodule. This was not included on the previous imaging volume this demonstrates nonspecific soft tissue attenuation. Impression: Somewhat exam due to motion artifact Negative for evidence of acute pulmonary embolus Mild cardiomegaly Small bilateral pleural effusions Extensive interstitial edema, pulmonary venous congestion hazy mosaic pulmonary perfusion pattern. This is suggestive of pulmonary edema Multiple calcified mediastinal and hilar lymph nodes as well as small calcified basilar left lung nodules, likely on the basis of old granulomatous disease Pneumobilia, also previously reported, presumably on the basis of prior biliary intervention 10 mm left adrenal nodule. Appearance nonspecific. Very likely a benign adenoma but other etiologies including malignant neoplasm also possible. Consider adrenal protocol CT or MRI if clinically indicated The CT scanner at [facility] is accredited by the [employer] and the scans are performed using protocols designed to limit radiation exposure to as low as reasonably achievable to attain images of sufficient resolution adequate for diagnostic evaluation.
--- NOTE | 2020-04-03 18:00 | Diagnostic Imaging Report ---
Indication: Left shoulder pain Technique: 3 views of the left shoulder Comparison: none Findings: No acute fractures. No dislocations. Joint spaces are preserved Impression: Negative
--- NOTE | 2020-04-03 18:01 | Diagnostic Imaging Report ---
Indication: Right shoulder pain Technique: 3 views of the right shoulder Comparison: none Findings: No acute fractures. No dislocations. Calcifications are seen in the axilla Impression: No acute bony trauma Axillary calcifications, significance uncertain
--- NOTE | 2020-04-03 19:10 | NUR ---
NURSE HAND-OFF REPORT: Important Events on Shift: angiogram of thoracic, blood cx gram pos cocci in clusters-- repeat tmr per ID md Patient Status: dnr, stable Diet: mech soft, reg Pending Orders: Pending Results/Labs: Pending MD notification: Latest Vital Signs: Temperature 97.2 , Pulse 56 , B/P 121 /56 , Respiratory Rate 18 , O2 SAT 96 , Nasal Cannula, O2 Flow Rate 2.0 . Vital Sign Comment: EKG Rhythm: SR w/BBB Rhythm change?: N MD Notified?: - MD Response: Latest Blount Fall Score: 50 Fall Risk: High Risk Safety Measures: Call light Within Reach, Bed Alarm Zone 3, Side Rails Side Rails x3, Bed position Low and Locked. Fall Precautions: Yellow Socks Patient Fall Education Report given to galen rocha.
--- NOTE | 2020-04-03 19:20 | NUR ---
NURSE NOTES: Received report from MELIDA Wen. Pt in bed awake, alert, oriented, responds to verbal stimuli in Portuguese. On O2 via N/C at 2L/min, no resp distress noted. engine monitor in place. Condom cath in place draining pinkish colored urine. Right hand IV in place & patent running D5W at 50cc/hr. Bed in low position & locked, side rails up x3. Bed alarm line controller light with in reach.
[2020-04-03] MEDS ORDERED: ATORVASTATIN CA10 MG ORAL (20:10)
[2020-04-03] MEDS ORDERED: LORATADINE10 M2 PO (20:10)
[2020-04-03] MEDS ORDERED: CARBIDOPA-LEVO1 EAC5 PO (20:10)
--- NOTE | 2020-04-03 21:00 | NUR ---
NURSE NOTES: Clarified IVF orders with DR. Reyes, will note & carry out.
[2020-04-03] MEDS: Tamsulosin 0.4mg cap ORAL SCH (21:02)
[2020-04-04] VITALS: BP 109/58
[2020-04-04] MEDS: Piperacillin/Tazobactam 3.375 GM in NS 110 ML IVPB SCH ×2 (01:48→09:13)
--- NOTE | 2020-04-04 02:48 | Cardiology Progress Note ---
Subjective DATE OF SERVICE: Apr 03, 2020 Patient evaluated with daughter at bedside. Daughter notes more shaking than usual, and c/o shoulder pains. No hx fall/trauma. Daughter wants patient to return home when stable CT angio was negative for pulmonary emboli Objective Last 24 Hour Vital Signs Date Time Temp Pulse Resp B/P (MAP) Pulse Ox O2 Delivery O2 Flow Rate FiO2 04/04/20 00:00 53 04/04/20 00:00 98.5 58 18 109/58 (75) 97 04/03/20 21:00 Nasal Cannula 2.0 04/03/20 20:00 55 04/03/20 20:00 98.0 57 18 119/60 (79) 95 04/03/20 16:00 56 04/03/20 16:00 97.2 59 18 121/56 (77) 96 04/03/20 13:30 97.5 57 20 120/48 (72) 95 04/03/20 12:00 55 04/03/20 12:00 97.5 57 20 120/48 (72) 95 04/03/20 09:00 Nasal Cannula 2.0 04/03/20 08:00 56 04/03/20 08:00 97.7 56 16 116/50 (72) 100 04/03/20 04:00 97.5 57 16 103/61 (75) 100 04/03/20 04:00 57 ROS: unchanged from my evaluation of 04/02/20 HEENT: normal ENT inspection RHYTHM: NSR, PACs LUNGS: diminished breath sounds CARDIAC: normal rate, regular rhythm, normal S1 and S2 ABDOMEN: normal bowel sounds, non tender, soft EXTREMITIES: normal range of motion, No edema, other - Muscle atrophy - symmetric; +tremor of extremities Laboratory Tests Test 04/03/20 05:10 04/03/20 05:20 04/03/20 10:40 White Blood Count 15.0 K/UL (4.8-10.8) H Red Blood Count 3.70 M/UL (4.70-6.10) L Hemoglobin 11.3 G/DL (14.2-18.0) L Hematocrit 32.8 % (42.0-52.0) L Mean Corpuscular Volume 89 FL (80-99) Mean Corpuscular Hemoglobin 30.6 PG (27.0-31.0) Mean Corpuscular Hemoglobin Concent 34.5 G/DL (32.0-36.0) Red Cell Distribution Width 12.6 % (11.6-14.8) Platelet Count 113 K/UL (150-450) L Mean Platelet Volume 6.5 FL (6.5-10.1) Neutrophils (%) (Auto) % (45.0-75.0) Lymphocytes (%) (Auto) % (20.0-45.0) Monocytes (%) (Auto) % (1.0-10.0) Eosinophils (%) (Auto) % (0.0-3.0) Basophils (%) (Auto) % (0.0-2.0) Differential Total Cells Counted 100 Neutrophils % (Manual) 84 % (45-75) H Lymphocytes % (Manual) 14 % (20-45) L Monocytes % (Manual) 2 % (1-10) Eosinophils % (Manual) 0 % (0-3) Basophils % (Manual) 0 % (0-2) Band Neutrophils 0 % (0-8) Platelet Estimate Decreased L Platelet Morphology Normal Red Blood Cell Morphology Normal Sodium Level 146 MMOL/L (136-145) H Potassium Level 4.4 MMOL/L (3.5-5.1) Chloride Level 113 MMOL/L (98-107) H Carbon Dioxide Level 19 MMOL/L (21-32) L Anion Gap 14 mmol/L (5-15) Blood Urea Nitrogen 15 mg/dL (7-18) Creatinine 0.8 MG/DL (0.55-1.30) Estimat Glomerular Filtration Rate > 60 mL/min (>60) Glucose Level 117 MG/DL (74-106) H Hemoglobin A1c 5.4 % (4.3-6.0) Lactic Acid Level 3.30 mmol/L (0.4-2.0) H 2.60 mmol/L (0.66-2.22) H Uric Acid 3.4 MG/DL (2.6-7.2) Calcium Level 8.3 MG/DL (8.5-10.1) L Phosphorus Level 1.9 MG/DL (2.5-4.9) L Magnesium Level 1.8 MG/DL (1.8-2.4) Total Bilirubin 0.8 MG/DL (0.2-1.0) Gamma Glutamyl Transpeptidase 35 U/L (5-85) Aspartate Amino Transf (AST/SGOT) 36 U/L (15-37) Alanine Aminotransferase (ALT/SGPT) 32 U/L (12-78) Alkaline Phosphatase 67 U/L (46-116) C-Reactive Protein, Quantitative 10.4 mg/dL (0.00-0.90) H Pro-B-Type Natriuretic Peptide 4301 pg/mL (0-125) H Total Protein 5.6 G/DL (6.4-8.2) L Albumin 2.6 G/DL (3.4-5.0) L Globulin 3.0 g/dL Albumin/Globulin Ratio 0.9 (1.0-2.7) L Vitamin D 25-Hydroxy Pending 25-Hydroxy Vitamin D2 Pending 25-Hydroxy Vitamin D3 Pending Thyroid Stimulating Hormone (TSH) 0.384 uiU/mL (0.358-3.740) Random Vancomycin Level 9.7 ug/mL Urine Color Pale yellow Urine Appearance Slightly cloudy Urine pH 6 (4.5-8.0) Urine Specific [place] 1.010 (1.005-1.035) Urine Protein 2+ (NEGATIVE) H Urine Glucose (UA) Negative (NEGATIVE) Urine Ketones Negative (NEGATIVE) Urine Blood 5+ (NEGATIVE) H Urine Nitrite Negative (NEGATIVE) Urine Bilirubin Negative (NEGATIVE) Urine Urobilinogen Normal MG/DL (0.0-1.0) Urine Leukocyte Esterase 3+ (NEGATIVE) H Urine RBC Tntc /HPF (0 - 0) H Urine WBC Tntc /HPF (0 - 0) H Urine Squamous Epithelial Cells None /LPF (NONE/OCC) Urine Bacteria Moderate /HPF (NONE) H Microbiology Date/Time Source Procedure Growth Status 04/02/20 08:20 Nasopharynx SARS-CoV-2 RdRp Gene Assay - Final Complete 04/02/20 08:15 Blood Blood Culture - Preliminary Staphylococcus Sp Coag Neg Resulted 04/02/20 08:15 Blood Blood Culture - Preliminary Staphylococcus Sp Coag Neg Resulted Assessment/Plan Assessment/Plan UTI Sepsis Lactic acidosis Parkinsons with dementia Dehydration/hypernatremia Ac/chronic diastolic CHF Shoulder pains CRITICAL & GUARDED IVF - hypotonic Defer diuresis Shoulder xrays IV antimicrobials; await cultures Titrate SineTanmay Cordova MD Apr 04, 2020 02:48
[2020-04-04 04:00] VITALS: BP 112/60
--- NOTE | 2020-04-04 07:30 | NUR ---
NURSE NOTES: Received pt from MELIDA Singh, pt is awake and confused, pt has NC 2Lit, pt has intact iv access RFA and RH 20G are running well. pt is on continues heart monitoring. pt has Condom cath in place is working well. All needs attended, bed is locked and is in the lowest position, call light within easy reach. will continue to monitor.
--- NOTE | 2020-04-04 07:35 | NUR ---
NURSE HAND-OFF REPORT: Important Events on Shift:n/a Patient Status: stable Diet: mech soft Pending Orders: [] Pending Results/Labs:[] Pending MD notification:[] Latest Vital Signs: Temperature 98.8 , Pulse 56 , B/P 112 /60 , Respiratory Rate 18 , O2 SAT 97 , Nasal Cannula, O2 Flow Rate 2.0 . Vital Sign Comment: [] EKG Rhythm: SR w/BBB Rhythm change?: N MD Notified?: - MD Response: Latest Blount Fall Score: 50 Fall Risk: High Risk Safety Measures: Call light Within Reach, Bed Alarm Zone 3, Side Rails Side Rails x3, Bed position Low and Locked. Fall Precautions: Yellow Socks Patient Fall Education Report given to galen Gay.
[2020-04-04 08:00] VITALS: BP 117/64
--- NOTE | 2020-04-04 09:15 | Nephrology Progress Note ---
Assessment/Plan Problem List: (1) Anemia (2) Dehydration (3) Electrolyte imbalance (4) UTI (urinary tract infection) (5) BPH (benign prostatic hyperplasia) (6) Dementia (7) Malnutrition Assessment Lactic acidosis UTI, sepsis, high lactic acid, leukocytosis Chronic diastolic congestive heart failure Protein calorie malnutrition Elevated d-dimer Parkinson disease Diabetes mellitus BPH Dementia DNR status Plan April 04: Chemistry panel pending. Status quo. Continue per current management. Hydrate Keep the blood pressure and blood sugar in check Antibiotics Avoid nephrotoxic's Per orders Subjective ROS Limited/Unobtainable: No Constitutional: Reports: malaise Objective Objective Last 24 Hour Vital Signs Date Time Temp Pulse Resp B/P (MAP) Pulse Ox O2 Delivery O2 Flow Rate FiO2 04/04/20 08:00 96.8 53 20 117/64 (81) 95 04/04/20 04:00 53 04/04/20 04:00 98.8 56 18 112/60 (77) 97 04/04/20 00:00 53 04/04/20 00:00 98.5 58 18 109/58 (75) 97 04/03/20 21:00 Nasal Cannula 2.0 04/03/20 20:00 55 04/03/20 20:00 98.0 57 18 119/60 (79) 95 04/03/20 16:00 56 04/03/20 16:00 97.2 59 18 121/56 (77) 96 04/03/20 13:30 97.5 57 20 120/48 (72) 95 04/03/20 12:00 55 04/03/20 12:00 97.5 57 20 120/48 (72) 95 Intake and Output 04/03/20 04/04/20 19:00 07:00 Intake Total 120 ml 150 ml Output Total 200 ml 450 ml Balance -80 ml -300 ml Intake Oral 120 ml 150 ml Output Urine Total 200 ml 450 ml # Voids 1 # Bowel Movements 1 Today's can panel pending Laboratory Tests 04/03/20 10:40: Lactic Acid Level 2.60H Height (Feet): 5 Height (Inches): 2.00 Weight (Pounds): 107 General Appearance: no apparent distress Cardiovascular: bradycardia Respiratory/Chest: decreased breath sounds Abdomen: distended Ruben Davis MD Apr 04, 2020 09:15
[2020-04-04 09:24] LABS: BASOPHILS % (AUTO) 0.6 % (0.0-2.0); EOSINOPHILS % (AUTO) 1.1 % (0.0-3.0); HEMATOCRIT 32.7 % (42.0-52.0); HEMOGLOBIN 11.5 G/DL (14.2-18.0); LYMPHOCYTES % (AUTO) 13.4 % (20.0-45.0); MEAN CORPUSCULAR VOLUME 87 FL (80-99); MONOCYTES % (AUTO) 5.6 % (1.0-10.0); NEUTROPHILS % (AUTO) 79.3 % (45.0-75.0); PLATELET COUNT 134 K/UL (150-450); RED BLOOD COUNT 3.75 M/UL (4.70-6.10); RED CELL DISTRIBUTION WIDTH 12.5 % (11.6-14.8); WHITE BLOOD COUNT 9.6 K/UL (4.8-10.8)
[2020-04-04 09:43] LABS: PHOSPHORUS 2.6 MG/DL (2.5-4.9)
[2020-04-04 09:44] LABS: % IRON SATURATION 76 % (15-50); IRON 107 ug/dL (50-175); TOTAL IRON BINDING CAPACITY 140 ug/dL (250-450)
[2020-04-04 10:04] LABS: ALANINE AMINOTRANSFERASE 25 U/L (12-78); ALBUMIN 2.4 G/DL (3.4-5.0); ALBUMIN/GLOBULIN RATIO 0.8 (1.0-2.7); ALKALINE PHOSPHATASE 60 U/L (46-116); ANION GAP 9 mmol/L (5-15); ASPARTATE AMINO TRANSFERASE 25 U/L (15-37); BLOOD UREA NITROGEN 11 mg/dL (7-18); CALCIUM 7.8 MG/DL (8.5-10.1); CARBON DIOXIDE 21 MMOL/L (21-32); CHLORIDE 114 MMOL/L (98-107); CREATININE 0.7 MG/DL (0.55-1.30); FERRITIN 602 NG/ML (8-388); SODIUM 144 MMOL/L (136-145)
--- NOTE | 2020-04-04 11:00 | NUR ---
NURSE NOTES: Dr Mayfield is aware about PLt 134, ordered to hold Lovenox if plt<100, noted and carried out. will continue to monitor.
[2020-04-04] MEDS: Enoxaparin 40mg Inj SUBQ SCH (11:47)
[2020-04-04 12:00] VITALS: BP 122/58
--- NOTE | 2020-04-04 12:31 | Consultation ---
History of Present Illness General Date patient seen: Apr 04, 2020 Chief Complaint: Dyspnea/Respdistress Present Illness HPI This is a 89 year old male with PMH of Parkinson, dementia, paroxysmal afib, BPH and HTN who came from home for hypoxia and fevers. as per report, per daughter, patient has been doing well up until yesterday where he developed fevers and lethargy. He also became diaphoretic and complained of body aches prior to admission. Denies cough, sob, chest pain, abdominal pain, nausea, vomiting/constipation/diarrhea, dysuria. Patient is bed bound from his advanced Parkinson. Patient has moderate baseline resting tremors. Uses adult diapers. on admission noted to have left elbow forearm laceration. surgery called toe valuate. etiology unknown. patient seen, chart reviewed, care plan initiated. Allergies: Coded Allergies: No Known Allergies (Unverified , 10/13/19) Medication History Scheduled Aspirin* (Aspir 81*), 81 MG ORAL DAILY, (Reported) Atorvastatin Calcium* (Lipitor*), 10 MG ORAL DAILY, (Reported) Carbidopa/Levodopa (Carbidopa-Levo Er 50-200 Tab), 1 EACH PO TID, (Reported) Finasteride* (Proscar*), 5 MG ORAL DAILY, (Reported) Lipase/Protease/Amylase (Creon Dr 36,000 Units Capsule), 1 EACH PO TID, (Reported) Memantine HCl/Donepezil HCl (Namzaric 14 mg-10 mg Capsule), 7-10 MG PO DAILY, (Reported) Metformin Hcl* (Metformin Hcl*), 500 MG ORAL TWICE A DAY, (Reported) Scheduled PRN Loratadine (Loratadine), 10 MG PO DAILY PRN for RUNNY NOSE, (Reported) Discontinued Medications Amlodipine Besylate (Norvasc), 5 MG ORAL DAILY Discontinued Reason: Therapy completed Atorvastatin Calcium* (Atorvastatin Calcium*), 10 MG ORAL BEDTIME, (Reported) Discontinued Reason: Prescription changed Levofloxacin* (Levaquin*), 750 MG ORAL QOD Discontinued Reason: Therapy completed Patient History Limited by: age, medical condition History Provided By: Medical Record, PMD Healthcare decision maker Resuscitation status Advanced Directive on File Past Medical/Surgical History Past Medical/Surgical History: (1) Dementia (2) Parkinson disease (3) BPH (benign prostatic hyperplasia) (4) Sepsis (5) UTI (urinary tract infection) (6) Elevated d-dimer (7) Fever (8) Artificial pacemaker (9) Suspected COVID-19 virus infection (10) Dehydration (11) Anemia (12) Electrolyte imbalance (13) Malnutrition Review of Systems All Other Systems: negative except mentioned in HPI ROS Narrative limited given condition Physical Exam General Appearance: no apparent distress, alert Lines, tubes and drains: peripheral HEENT: normocephalic, atraumatic, anicteric, mucous membranes moist Neck: supple, normal inspection Respiratory/Chest: normal breath sounds, no respiratory distress, no accessory muscle use Cardiovascular/Chest: normal rate Abdomen: non tender, soft, no organomegaly, no mass Extremities: normal range of motion, non-tender, other Skin Exam: warm/dry Neurologic: alert Last 24 Hour Vital Signs Date Time Temp Pulse Resp B/P (MAP) Pulse Ox O2 Delivery O2 Flow Rate FiO2 04/04/20 08:00 96.8 53 20 117/64 (81) 95 04/04/20 07:37 53 04/04/20 04:00 53 04/04/20 04:00 98.8 56 18 112/60 (77) 97 04/04/20 00:00 53 04/04/20 00:00 98.5 58 18 109/58 (75) 97 04/03/20 21:00 Nasal Cannula 2.0 04/03/20 20:00 55 04/03/20 20:00 98.0 57 18 119/60 (79) 95 04/03/20 16:00 56 04/03/20 16:00 97.2 59 18 121/56 (77) 96 04/03/20 13:30 97.5 57 20 120/48 (72) 95 Intake and Output 04/03/20 04/04/20 18:59 06:59 Intake Total 120 ml 150 ml Output Total 200 ml 450 ml Balance -80 ml -300 ml Intake Oral 120 ml 150 ml Output Urine Total 200 ml 450 ml # Voids 1 # Bowel Movements 1 Laboratory Tests Test 04/04/20 08:50 White Blood Count 9.6 K/UL (4.8-10.8) Red Blood Count 3.75 M/UL (4.70-6.10) L Hemoglobin 11.5 G/DL (14.2-18.0) L Hematocrit 32.7 % (42.0-52.0) L Mean Corpuscular Volume 87 FL (80-99) Mean Corpuscular Hemoglobin 30.6 PG (27.0-31.0) Mean Corpuscular Hemoglobin Concent 35.2 G/DL (32.0-36.0) Red Cell Distribution Width 12.5 % (11.6-14.8) Platelet Count 134 K/UL (150-450) L Mean Platelet Volume 7.1 FL (6.5-10.1) Neutrophils (%) (Auto) 79.3 % (45.0-75.0) H Lymphocytes (%) (Auto) 13.4 % (20.0-45.0) L Monocytes (%) (Auto) 5.6 % (1.0-10.0) Eosinophils (%) (Auto) 1.1 % (0.0-3.0) Basophils (%) (Auto) 0.6 % (0.0-2.0) Sodium Level 144 MMOL/L (136-145) Potassium Level 3.0 MMOL/L (3.5-5.1) L Chloride Level 114 MMOL/L (98-107) H Carbon Dioxide Level 21 MMOL/L (21-32) Anion Gap 9 mmol/L (5-15) Blood Urea Nitrogen 11 mg/dL (7-18) Creatinine 0.7 MG/DL (0.55-1.30) Estimat Glomerular Filtration Rate > 60 mL/min (>60) Glucose Level 112 MG/DL (74-106) H Lactic Acid Level 1.80 mmol/L (0.4-2.0) Calcium Level 7.8 MG/DL (8.5-10.1) L Phosphorus Level 2.6 MG/DL (2.5-4.9) Magnesium Level 1.7 MG/DL (1.8-2.4) L Iron Level 107 ug/dL (50-175) Total Iron Binding Capacity 140 ug/dL (250-450) L Percent Iron Saturation 76 % (15-50) H Unsaturated Iron Binding 33 ug/dL (112-346) L Ferritin 602 NG/ML (8-388) H Total Bilirubin 1.0 MG/DL (0.2-1.0) Aspartate Amino Transf (AST/SGOT) 25 U/L (15-37) Alanine Aminotransferase (ALT/SGPT) 25 U/L (12-78) Alkaline Phosphatase 60 U/L (46-116) Total Protein 5.3 G/DL (6.4-8.2) L Albumin 2.4 G/DL (3.4-5.0) L Globulin 2.9 g/dL Albumin/Globulin Ratio 0.8 (1.0-2.7) L Vitamin B12 Level 522 PG/ML (193-986) Folate 5.5 NG/ML (8.6-58.9) L Vancomycin Level Trough 10.9 ug/mL (5.0-12.0) Height (Feet): 5 Height (Inches): 2.00 Weight (Pounds): 107 Medications Current Medications Medications (Trade) Dose Ordered Sig/Jaime Route PRN Reason Start Time Stop Time Status Last Admin Dose Admin Acetaminophen (Tylenol) 650 mg Q4H PRN ORAL Temp >100.5 04/02/20 10:00 05/02/20 09:59 Albuterol/ Ipratropium (Albuterol/ Ipratropium) 3 ml Q4HR PRN HHN Shortness of Breath 04/02/20 10:00 04/07/20 09:59 Bisacodyl (Dulcolax) 10 mg DAILYPRN PRN RECTAL Constipation 04/02/20 10:00 07/01/20 09:59 Dextrose 1,000 ml @ 50 mls/hr Q20H IV 04/03/20 14:15 05/03/20 14:14 04/04/20 09:35 Dextrose (Dextrose 50%) 25 ml Q30M PRN IV Hypoglycemia 04/02/20 10:00 07/01/20 09:59 Dextrose (Dextrose 50%) 50 ml Q30M PRN IV Hypoglycemia 04/02/20 10:00 07/01/20 09:59 Enoxaparin Sodium (Lovenox) 40 mg Q24H SUBQ 04/02/20 11:00 07/01/20 10:59 04/04/20 11:47 Famotidine (Pepcid I.v.) 20 mg Q12HR IVP 04/02/20 14:15 05/02/20 14:14 04/04/20 09:12 Ondansetron HCl (Zofran) 4 mg Q6H PRN IVP Nausea & Vomiting 04/02/20 11:00 05/02/20 10:59 Piperacillin Sod/ Tazobactam Sod 3.375 gm/Sodium Chloride 110 ml @ 27.5 mls/hr Q8H IVPB 04/02/20 17:00 04/09/20 16:59 04/04/20 09:13 Polyethylene Glycol (Miralax) 17 gm DAILYPRN PRN ORAL Constipation 04/02/20 12:00 05/02/20 11:59 Tamsulosin HCl (Flomax) 0.4 mg BEDTIME ORAL 04/02/20 21:00 05/02/20 20:59 04/03/20 21:02 Vancomycin HCl (Vanco pharmacy to dose) 1 ea DAILY PRN MISC Per rx protocol 04/02/20 10:00 05/02/20 09:59 Vancomycin HCl 750 mg/Sodium Chloride 250 ml @ 166.667 mls/hr Q24H IVPB 04/04/20 11:00 04/09/20 10:59 04/04/20 11:48 Assessment/Plan Problem List: (1) Dementia ICD Codes: F03.90 - Unspecified dementia without behavioral disturbance SNOMED: 43627866 (2) Parkinson disease ICD Codes: G20 - Parkinson's disease SNOMED: 51996925 (3) BPH (benign prostatic hyperplasia) ICD Codes: N40.0 - Benign prostatic hyperplasia without lower urinary tract symptoms SNOMED: 798127170 (4) Sepsis ICD Codes: A41.9 - Sepsis, unspecified organism SNOMED: 29093021 (5) UTI (urinary tract infection) ICD Codes: N39.0 - Urinary tract infection, site not specified SNOMED: 13281198 (6) Elevated d-dimer ICD Codes: R79.89 - Other specified abnormal findings of blood chemistry SNOMED: 264100512 (7) Artificial pacemaker ICD Codes: Z95.0 - Presence of cardiac pacemaker SNOMED: 324362161 (8) Suspected COVID-19 virus infection ICD Codes: R68.89 - Other general symptoms and signs SNOMED: 302757201 (9) Dehydration ICD Codes: E86.0 - Dehydration SNOMED: 40105094 (10) Anemia ICD Codes: D64.9 - Anemia, unspecified SNOMED: 805142861 (11) Electrolyte imbalance ICD Codes: E87.8 - Other disorders of electrolyte and fluid balance, not elsewhere classified SNOMED: 210131975 (12) Malnutrition Assessment & Plan: DAILY ESTIMATED NEEDS: Needs based on cardiac, suspected wt loss 51kg 25-35 kcals/kg 3679-9739 total kcals 1-1.5 g protein/kg 51-76 g total protein 25-30 mL/kg 4072-9502 total fluid mLs NUTRITION DIAGNOSIS: Increased kcal/prot needs R/T suspected wt loss as evidenced by possible significant wt loss of 25.5lbs/18.5% in 5 months CURRENT DIET:REGULAR, mech soft chopped PO DIET RECOMMENDATIONS: Maintain liberalized REGULAR/ texture per [employer]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 Unknown etiology patient with tremor, Parkinson's potential against bedside. There is a 1 cm laceration 1 mm epidermal dehiscence with 1 cm x 1 cm surrounding bruising. No drainage no signs of infection. Given size location will hold off on suture repair. Local care with dressings. Fairly superficial. No signs of active infection. Will monitor closely. Furthermore patient identified to have an con associated dermatitis upon admission. Erythema noted around the tae-anal area and buttock. Will monitor closely and care accordingly. Patient regularly wears diapers as per report. Will ensure close monitoring. Thank you for let me participate in patient's care ICD Codes: S41.112A - Laceration without foreign body of left upper arm, initial encounter SNOMED: 588146772 John Avalos Apr 04, 2020 12:30
--- NOTE | 2020-04-04 13:50 | NUR ---
NURSE NOTES: Dr Davis is aware about K 3 MG 1.7 and other lab results and V/S, ordered kcl 40meq po once and MD stated don't worry about mg, noted and carried out. will continue to monitor.
--- NOTE | 2020-04-04 14:43 | Infectious Diseases Prog Note ---
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 Parkinson's. 3. Dementia. 4. Paroxysmal atrial fibrillation. 5. BPH. 6. Hypertension. 7. Blood pressure treatment per primary care team. 8. Aspiration risk. 9. No history of diabetes. 10. No history of cancer. 11. No known allergies. 12. Social history is negative. 13. Family history is noncontributory. 14. MAR was noted. 15. Case was discussed with RN. 16. Case communicated with primary care team. 17. Continue treatment per primary consultants. 18. Skin care protocol. Subjective Constitutional: Reports: fatigue; Denies: fever HEENT: Denies: congestion Respiratory: Denies: shortness of breath Cardiovascular: Denies: chest pain Gastrointestinal/Abdominal: Denies: nausea, vomiting, diarrhea Genitourinary: Reports: other - + frias Neurologic: Denies: headache Psychiatric: Reports: other - NnA Skin: Denies: rash Hematologic: Denies: bleeding Musculoskeletal: Denies: pain Allergies: Coded Allergies: No Known Allergies (Unverified , 10/13/19) Objective Last 24 Hour Vital Signs Date Time Temp Pulse Resp B/P (MAP) Pulse Ox O2 Delivery O2 Flow Rate FiO2 04/04/20 12:00 97.9 52 18 122/58 (79) 96 04/04/20 11:37 53 04/04/20 09:00 Nasal Cannula 2.0 04/04/20 08:00 96.8 53 20 117/64 (81) 95 04/04/20 07:37 53 04/04/20 04:00 53 04/04/20 04:00 98.8 56 18 112/60 (77) 97 04/04/20 00:00 53 04/04/20 00:00 98.5 58 18 109/58 (75) 97 04/03/20 21:00 Nasal Cannula 2.0 04/03/20 20:00 55 04/03/20 20:00 98.0 57 18 119/60 (79) 95 04/03/20 16:00 56 04/03/20 16:00 97.2 59 18 121/56 (77) 96 Height (Feet): 5 Height (Inches): 2.00 Weight (Pounds): 107 General Appearance: no acute distress HEENT: normocephalic, atraumatic, anicteric, mucous membranes moist Respiratory/Chest: lungs clear, normal breath sounds, no respiratory distress, no accessory muscle use Cardiovascular: normal rate, regular rhythm, no gallop/murmur, no JVD Abdomen: normal bowel sounds, soft, non tender, non distended Genitourinary: other - + frias - urine clearer Extremities: no cyanosis Skin: no rash Neurologic/Psychiatric: 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 This is suggestive of pulmonary edema Multiple calcified mediastinal and hilar lymph nodes as well as small calcified basilar left lung nodules, likely on the basis of old granulomatous disease Pneumobilia, also previously reported, presumably on the basis of prior biliary intervention 10 mm left adrenal nodule. Appearance nonspecific. Very likely a benign adenoma but other etiologies including malignant neoplasm also possible. Consider adrenal protocol CT or MRI if clinically indicated The CT scanner at [facility] is accredited by the [employer] and the scans are performed using protocols designed to limit radiation exposure to as low as reasonably achievable to attain images of sufficient resolution adequate for diagnostic evaluation. Microbiology Date/Time Source Procedure Growth Status 04/02/20 09:50 Urine,Clean Catch Urine Culture - Preliminary Strep Species, Gamma-Hemolytic Resulted 04/02/20 08:20 Nasopharynx SARS-CoV-2 RdRp Gene Assay - Final Complete 04/02/20 08:15 Blood Blood Culture - Preliminary Staphylococcus Sp Coag Neg Resulted 04/02/20 08:15 Blood Blood Culture - Preliminary Staphylococcus Sp Coag Neg Resulted Laboratory Tests Test 04/04/20 08:50 White Blood Count 9.6 K/UL (4.8-10.8) Red Blood Count 3.75 M/UL (4.70-6.10) L Hemoglobin 11.5 G/DL (14.2-18.0) L Hematocrit 32.7 % (42.0-52.0) L Mean Corpuscular Volume 87 FL (80-99) Mean Corpuscular Hemoglobin 30.6 PG (27.0-31.0) Mean Corpuscular Hemoglobin Concent 35.2 G/DL (32.0-36.0) Red Cell Distribution Width 12.5 % (11.6-14.8) Platelet Count 134 K/UL (150-450) L Mean Platelet Volume 7.1 FL (6.5-10.1) Neutrophils (%) (Auto) 79.3 % (45.0-75.0) H Lymphocytes (%) (Auto) 13.4 % (20.0-45.0) L Monocytes (%) (Auto) 5.6 % (1.0-10.0) Eosinophils (%) (Auto) 1.1 % (0.0-3.0) Basophils (%) (Auto) 0.6 % (0.0-2.0) Sodium Level 144 MMOL/L (136-145) Potassium Level 3.0 MMOL/L (3.5-5.1) L Chloride Level 114 MMOL/L (98-107) H Carbon Dioxide Level 21 MMOL/L (21-32) Anion Gap 9 mmol/L (5-15) Blood Urea Nitrogen 11 mg/dL (7-18) Creatinine 0.7 MG/DL (0.55-1.30) Estimat Glomerular Filtration Rate > 60 mL/min (>60) Glucose Level 112 MG/DL (74-106) H Lactic Acid Level 1.80 mmol/L (0.4-2.0) Calcium Level 7.8 MG/DL (8.5-10.1) L Phosphorus Level 2.6 MG/DL (2.5-4.9) Magnesium Level 1.7 MG/DL (1.8-2.4) L Iron Level 107 ug/dL (50-175) Total Iron Binding Capacity 140 ug/dL (250-450) L Percent Iron Saturation 76 % (15-50) H Unsaturated Iron Binding 33 ug/dL (112-346) L Ferritin 602 NG/ML (8-388) H Total Bilirubin 1.0 MG/DL (0.2-1.0) Aspartate Amino Transf (AST/SGOT) 25 U/L (15-37) Alanine Aminotransferase (ALT/SGPT) 25 U/L (12-78) Alkaline Phosphatase 60 U/L (46-116) Total Protein 5.3 G/DL (6.4-8.2) L Albumin 2.4 G/DL (3.4-5.0) L Globulin 2.9 g/dL Albumin/Globulin Ratio 0.8 (1.0-2.7) L Vitamin B12 Level 522 PG/ML (193-986) Folate 5.5 NG/ML (8.6-58.9) L Vancomycin Level Trough 10.9 ug/mL (5.0-12.0) Current Medications Medications (Trade) Dose Ordered Sig/Jaime Route PRN Reason Start Time Stop Time Status Last Admin Dose Admin Acetaminophen (Tylenol) 650 mg Q4H PRN ORAL Temp >100.5 04/02/20 10:00 05/02/20 09:59 Albuterol/ Ipratropium (Albuterol/ Ipratropium) 3 ml Q4HR PRN HHN Shortness of Breath 04/02/20 10:00 04/07/20 09:59 Bisacodyl (Dulcolax) 10 mg DAILYPRN PRN RECTAL Constipation 04/02/20 10:00 07/01/20 09:59 Ceftriaxone Sodium 1 gm/ Dextrose 50 ml @ 100 mls/hr Q24H IVPB 04/04/20 14:30 04/11/20 14:29 UNV Dextrose 1,000 ml @ 50 mls/hr Q20H IV 04/03/20 14:15 05/03/20 14:14 04/04/20 09:35 Dextrose (Dextrose 50%) 25 ml Q30M PRN IV Hypoglycemia 04/02/20 10:00 07/01/20 09:59 Dextrose (Dextrose 50%) 50 ml Q30M PRN IV Hypoglycemia 04/02/20 10:00 07/01/20 09:59 Enoxaparin Sodium (Lovenox) 40 mg Q24H SUBQ 04/02/20 11:00 07/01/20 10:59 04/04/20 11:47 Famotidine (Pepcid) 20 mg BID ORAL 04/04/20 18:00 07/03/20 17:59 Ondansetron HCl (Zofran) 4 mg Q6H PRN IVP Nausea & Vomiting 04/02/20 11:00 05/02/20 10:59 Polyethylene Glycol (Miralax) 17 gm DAILYPRN PRN ORAL Constipation 04/02/20 12:00 05/02/20 11:59 Potassium Chloride (K-Dur) 40 meq ONCE ORAL 04/04/20 16:00 04/04/20 18:00 Tamsulosin HCl (Flomax) 0.4 mg BEDTIME ORAL 04/02/20 21:00 05/02/20 20:59 04/03/20 21:02 Vancomycin HCl (Vanco pharmacy to dose) 1 ea DAILY PRN MISC Per rx protocol 04/02/20 10:00 05/02/20 09:59 Vancomycin HCl 750 mg/Sodium Chloride 250 ml @ 166.667 mls/hr Q24H IVPB 04/04/20 11:00 04/09/20 10:59 04/04/20 11:48 Cassia Alatorre MD Apr 04, 2020 14:43
[2020-04-04] MEDS: cefTRIAXone 1 GM in D5W 50 ML IVPB SCH (14:56)
--- NOTE | 2020-04-04 15:30 | NUR ---
NURSE NOTES: pt is stable, V/S stable, no belongings, no stress noted, iv access intact, wound treatment done as order, pt transferred to 402 bed 1,report given to MELIDA Stovall, endorsed plan of care, endorsed F/U U/A.
--- NOTE | 2020-04-04 15:31 | NUR ---
NURSE NOTES: Received patient in bed,awake, verbally responsive but alert and oriented x1. Breathing is even and unlabored. On oxygen @2L/min @ this time. Re-orientation given about unit and plan of care in Amharic the language he speaks. Denies pain or discomfort patient is calm. skin assessment done, noted with sacral redness on sacral, left elbow skin tear. picture obtained and uploaded. Heels are floated on pillow, no pressure sore noted. Patient is wearing upper and lower dentures, logged on patient's belonging list. 2 IV's are intact, no s/s of infiltration. Will continue plan of care.
[2020-04-04 16:00] VITALS: BP 136/59
--- NOTE | 2020-04-04 17:15 | General Progress Note ---
Subjective ROS Limited/Unobtainable: No Constitutional: Reports: malaise, weakness HEENT: Reports: no symptoms Cardiovascular: Reports: no symptoms Respiratory: Reports: shortness of breath Gastrointestinal/Abdominal: Reports: difficulty swallowing, poor appetite Genitourinary: Reports: no symptoms Neurologic/Psychiatric: Reports: pre-existing deficit Endocrine: Reports: no symptoms Hematologic/Lymphatic: Reports: anemia Allergies: Coded Allergies: No Known Allergies (Unverified , 10/13/19) All Systems: reviewed and negative except above Subjective no events. w/o complaints. stable on o2. on multiple iv abx. remains on hypotonic fluid. CT chest yesterday shows pulmonary edema/chf. Objective Last 24 Hour Vital Signs Date Time Temp Pulse Resp B/P (MAP) Pulse Ox O2 Delivery O2 Flow Rate FiO2 04/04/20 12:00 97.9 52 18 122/58 (79) 96 04/04/20 11:37 53 04/04/20 09:00 Nasal Cannula 2.0 04/04/20 08:00 96.8 53 20 117/64 (81) 95 04/04/20 07:37 53 04/04/20 04:00 53 04/04/20 04:00 98.8 56 18 112/60 (77) 97 04/04/20 00:00 53 04/04/20 00:00 98.5 58 18 109/58 (75) 97 04/03/20 21:00 Nasal Cannula 2.0 04/03/20 20:00 55 04/03/20 20:00 98.0 57 18 119/60 (79) 95 Intake and Output 04/03/20 04/04/20 18:59 06:59 Intake Total 120 ml 150 ml Output Total 200 ml 450 ml Balance -80 ml -300 ml Intake Oral 120 ml 150 ml Output Urine Total 200 ml 450 ml # Voids 1 # Bowel Movements 1 Laboratory Tests 04/04/20 08:50: White Blood Count 9.6, Red Blood Count 3.75L, Hemoglobin 11.5L, Hematocrit 32.7L , Mean Corpuscular Volume 87, Mean Corpuscular Hemoglobin 30.6, Mean Corpuscular Hemoglobin Concent 35.2, Red Cell Distribution Width 12.5, Platelet Count 134L, Mean Platelet Volume 7.1, Neutrophils (%) (Auto) 79.3H, Lymphocytes (%) (Auto) 13.4L, Monocytes (%) (Auto) 5.6, Eosinophils (%) (Auto) 1.1, Basophils (%) (Auto) 0.6, Sodium Level 144, Potassium Level 3.0L, Chloride Level 114H, Carbon Dioxide Level 21, Anion Gap 9, Blood Urea Nitrogen 11, Creatinine 0.7, Estimat Glomerular Filtration Rate > 60, Glucose Level 112H, Lactic Acid Level 1.80, Calcium Level 7.8L, Phosphorus Level 2.6, Magnesium Level 1.7L, Iron Level 107, Total Iron Binding Capacity 140L, Percent Iron Saturation 76H, Unsaturated Iron Binding 33L, Ferritin 602H, Total Bilirubin 1.0, Aspartate Amino Transf (AST/SGOT) 25, Alanine Aminotransferase (ALT/SGPT) 25, Alkaline Phosphatase 60, Total Protein 5.3L, Albumin 2.4L, Globulin 2.9, Albumin/Globulin Ratio 0.8L, Vitamin B12 Level 522, Folate 5.5L, Vancomycin Level Trough 10.9 Height (Feet): 5 Height (Inches): 2.00 Weight (Pounds): 107 General Appearance: WD/WN, alert, confused EENT: normal ENT inspection Neck: normal alignment, supple Cardiovascular: normal peripheral pulses, normal rate, regular rhythm Respiratory/Chest: chest wall non-tender, lungs clear, normal breath sounds, no respiratory distress Abdomen: normal bowel sounds, non tender, soft, no organomegaly, no mass Edema: no edema noted Arm (L), no edema noted Arm (R) Edema: trace edema Neurologic: alert, disoriented Skin: normal pigmentation Lymphatic: normal anterior cervical (L), normal anterior cervical (R) Assessment/Plan Problem List: (1) UTI (urinary tract infection) ICD Codes: N39.0 - Urinary tract infection, site not specified SNOMED: 72585355 (2) Sepsis ICD Codes: A41.9 - Sepsis, unspecified organism SNOMED: 45918625 (3) BPH (benign prostatic hyperplasia) ICD Codes: N40.0 - Benign prostatic hyperplasia without lower urinary tract symptoms SNOMED: 802640073 Qualifiers: (4) Parkinson disease ICD Codes: G20 - Parkinson's disease SNOMED: 83042532 (5) Dementia ICD Codes: F03.90 - Unspecified dementia without behavioral disturbance SNOMED: 71072287 (6) Artificial pacemaker ICD Codes: Z95.0 - Presence of cardiac pacemaker SNOMED: 356512868 (7) Suspected COVID-19 virus infection ICD Codes: R68.89 - Other general symptoms and signs SNOMED: 350854464 Status: stable Assessment/Plan: cont iv abx follow up cultures resp care o2 lasix x 1 dvt/stress ulcer prophylaxis tried to call family to clarify code status. no call back dnr Dax Reyes MD Apr 04, 2020 17:15
--- NOTE | 2020-04-04 17:59 | NUR ---
NURSE NOTES: Rn collected urine specimen for UA and sent to lab.
[2020-04-04 18:15] LABS: APPEARANCE,URINE CLOUDY; BILIRUBIN, URINE NEGATIVE (NEGATIVE); COLOR,URINE YELLOW; GLUCOSE, URINE (UA) NEGATIVE (NEGATIVE); KETONES,URINE NEGATIVE (NEGATIVE); LEUKOCYTE ESTERASE ,URINE 3+ (NEGATIVE); NITRITE,URINE NEGATIVE (NEGATIVE); PH,URINE 5 (4.5-8.0); PROTEIN,URINE 1+ (NEGATIVE); UROBILINOGEN,URINE NORMAL MG/DL (0.0-1.0)
--- NOTE | 2020-04-04 19:18 | NUR ---
NURSE HAND-OFF: Important Events on Shift:transferred from [facility],given lasix IVx1 Patient Status: stable Diet: mech soft Pending Orders: Pending Results/Labs: Pending MD notification: Latest Vital Signs: Temperature 97.7 , Pulse 68 , B/P 136 /59 , Respiratory Rate 19 , O2 SAT 99 , Nasal Cannula, O2 Flow Rate 2.0 . Vital Sign Comment: Latest Blount Fall Score: 50 Fall Risk: High Risk Safety Measures: Call light Within Reach, Bed Alarm Zone 3, Side Rails Side Rails x3, Bed position Low and Locked. Fall Precautions: Yellow Socks Patient Fall Education Report given to Olivia and endorsed plan of care
--- NOTE | 2020-04-04 19:41 | NUR ---
NURSE NOTES: Patient in bed, awake and alert x2. On 2L oxygen via nasal cannula, no signs of distress or SOB. IV lines intact and patent. Condom cath in place and draining urine well. Bed locked and in lowest position. Bed alarm on. Call light in reach. Will continue plan of care.
[2020-04-04 20:00] VITALS: BP 137/75
[2020-04-04] MEDS: Tamsulosin 0.4mg cap ORAL SCH (21:15)
--- NOTE | 2020-04-04 22:26 | Cardiology Progress Note ---
Subjective DATE OF SERVICE: Mar 04, 2020 Patient evaluated with daughter at bedside yesterday. Daughter notes more shaking than usual, and c/o shoulder pains. No hx fall/trauma. Daughter wants patient to return home when stable CT angio was negative for pulmonary emboli, but suggests component of CHF Monitor: sinus bradycardia Objective Last 24 Hour Vital Signs Date Time Temp Pulse Resp B/P (MAP) Pulse Ox O2 Delivery O2 Flow Rate FiO2 04/04/20 21:00 Nasal Cannula 2.0 04/04/20 20:00 98.3 66 16 137/75 (95) 100 04/04/20 16:00 97.7 68 19 136/59 (84) 99 04/04/20 12:00 97.9 52 18 122/58 (79) 96 04/04/20 11:37 53 04/04/20 09:00 Nasal Cannula 2.0 04/04/20 08:00 96.8 53 20 117/64 (81) 95 04/04/20 07:37 53 04/04/20 04:00 53 04/04/20 04:00 98.8 56 18 112/60 (77) 97 04/04/20 00:00 53 04/04/20 00:00 98.5 58 18 109/58 (75) 97 ROS: unchanged from my evaluation of 04/02/20 HEENT: normal ENT inspection RHYTHM: NSR, PACs LUNGS: diminished breath sounds CARDIAC: normal rate, regular rhythm, normal S1 and S2 ABDOMEN: normal bowel sounds, non tender, soft EXTREMITIES: normal range of motion, No edema, other - Muscle atrophy - symmetric; +tremor of extremities Laboratory Tests Test 04/04/20 08:50 04/04/20 17:40 White Blood Count 9.6 K/UL (4.8-10.8) Red Blood Count 3.75 M/UL (4.70-6.10) L Hemoglobin 11.5 G/DL (14.2-18.0) L Hematocrit 32.7 % (42.0-52.0) L Mean Corpuscular Volume 87 FL (80-99) Mean Corpuscular Hemoglobin 30.6 PG (27.0-31.0) Mean Corpuscular Hemoglobin Concent 35.2 G/DL (32.0-36.0) Red Cell Distribution Width 12.5 % (11.6-14.8) Platelet Count 134 K/UL (150-450) L Mean Platelet Volume 7.1 FL (6.5-10.1) Neutrophils (%) (Auto) 79.3 % (45.0-75.0) H Lymphocytes (%) (Auto) 13.4 % (20.0-45.0) L Monocytes (%) (Auto) 5.6 % (1.0-10.0) Eosinophils (%) (Auto) 1.1 % (0.0-3.0) Basophils (%) (Auto) 0.6 % (0.0-2.0) Sodium Level 144 MMOL/L (136-145) Potassium Level 3.0 MMOL/L (3.5-5.1) L Chloride Level 114 MMOL/L (98-107) H Carbon Dioxide Level 21 MMOL/L (21-32) Anion Gap 9 mmol/L (5-15) Blood Urea Nitrogen 11 mg/dL (7-18) Creatinine 0.7 MG/DL (0.55-1.30) Estimat Glomerular Filtration Rate > 60 mL/min (>60) Glucose Level 112 MG/DL (74-106) H Lactic Acid Level 1.80 mmol/L (0.4-2.0) Calcium Level 7.8 MG/DL (8.5-10.1) L Phosphorus Level 2.6 MG/DL (2.5-4.9) Magnesium Level 1.7 MG/DL (1.8-2.4) L Iron Level 107 ug/dL (50-175) Total Iron Binding Capacity 140 ug/dL (250-450) L Percent Iron Saturation 76 % (15-50) H Unsaturated Iron Binding 33 ug/dL (112-346) L Ferritin 602 NG/ML (8-388) H Total Bilirubin 1.0 MG/DL (0.2-1.0) Aspartate Amino Transf (AST/SGOT) 25 U/L (15-37) Alanine Aminotransferase (ALT/SGPT) 25 U/L (12-78) Alkaline Phosphatase 60 U/L (46-116) Total Protein 5.3 G/DL (6.4-8.2) L Albumin 2.4 G/DL (3.4-5.0) L Globulin 2.9 g/dL Albumin/Globulin Ratio 0.8 (1.0-2.7) L Vitamin B12 Level 522 PG/ML (193-986) Folate 5.5 NG/ML (8.6-58.9) L Vancomycin Level Trough 10.9 ug/mL (5.0-12.0) Urine Color Yellow Urine Appearance Cloudy Urine pH 5 (4.5-8.0) Urine Specific [place] 1.005 (1.005-1.035) Urine Protein 1+ (NEGATIVE) H Urine Glucose (UA) Negative (NEGATIVE) Urine Ketones Negative (NEGATIVE) Urine Blood 5+ (NEGATIVE) H Urine Nitrite Negative (NEGATIVE) Urine Bilirubin Negative (NEGATIVE) Urine Urobilinogen Normal MG/DL (0.0-1.0) Urine Leukocyte Esterase 3+ (NEGATIVE) H Urine RBC 5-10 /HPF (0 - 0) H Urine WBC Tntc /HPF (0 - 0) H Urine Squamous Epithelial Cells None /LPF (NONE/OCC) Urine Bacteria Moderate /HPF (NONE) H Microbiology Date/Time Source Procedure Growth Status 04/02/20 09:50 Urine,Clean Catch Urine Culture - Preliminary Strep Species, Gamma-Hemolytic Resulted 04/02/20 08:20 Nasopharynx SARS-CoV-2 RdRp Gene Assay - Final Complete 04/02/20 08:15 Blood Blood Culture - Preliminary Staphylococcus Sp Coag Neg Resulted 04/02/20 08:15 Blood Blood Culture - Preliminary Staphylococcus Sp Coag Neg Resulted Assessment/Plan Assessment/Plan UTI Sepsis Lactic acidosis Parkinsons with dementia Dehydration/hypernatremia Ac/chronic diastolic CHF Shoulder pains Sinus node disease Hypomagnesemia Hypokalemia IVF - hypotonic, adjusted Cautious diuresis IV magnesium Replace potassium Shoulder xrays to be reviewed IV antimicrobials; await cultures Titrate Sinemet No indication for pacemaker Tanmay Mayfield MD Apr 04, 2020 22:26
[2020-04-05] VITALS: BP 118/65
[2020-04-05 03:31] VITALS: BP 118/68
[2020-04-05 06:28] LABS: BASOPHILS % (AUTO) 0.8 % (0.0-2.0); EOSINOPHILS % (AUTO) 3.8 % (0.0-3.0); HEMATOCRIT 33.7 % (42.0-52.0); HEMOGLOBIN 11.9 G/DL (14.2-18.0); LYMPHOCYTES % (AUTO) 31.9 % (20.0-45.0); MEAN CORPUSCULAR VOLUME 87 FL (80-99); MONOCYTES % (AUTO) 8.9 % (1.0-10.0); NEUTROPHILS % (AUTO) 54.6 % (45.0-75.0); PLATELET COUNT 134 K/UL (150-450); RED BLOOD COUNT 3.88 M/UL (4.70-6.10); RED CELL DISTRIBUTION WIDTH 12.3 % (11.6-14.8); WHITE BLOOD COUNT 7.7 K/UL (4.8-10.8)
--- NOTE | 2020-04-05 06:39 | NUR ---
NURSE HAND-OFF: Important Events on Shift: Received K+ 40 mEq and 2x bags Mag Patient Status: Stable Diet: Reg Pending Orders: N/A Pending Results/Labs: UA, CBC, CMP Pending MD notification: N/A Latest Vital Signs: Temperature 98.5 , Pulse 67 , B/P 118 /68 , Respiratory Rate 16 , O2 SAT 100 , Nasal Cannula, O2 Flow Rate 2.0 . Vital Sign Comment: Latest Blount Fall Score: 50 Fall Risk: High Risk Safety Measures: Call light Within Reach, Bed Alarm Zone 3, Side Rails Side Rails x3, Bed position Low and Locked. Fall Precautions: Yellow Socks Patient Fall Education Addendum: 04/05/20 at 0723 by AIMEE SINGH RN Report given to MELIDA Stovall
[2020-04-05 06:52] LABS: ALANINE AMINOTRANSFERASE 25 U/L (12-78); ALBUMIN 2.5 G/DL (3.4-5.0); ALBUMIN/GLOBULIN RATIO 0.8 (1.0-2.7); ALKALINE PHOSPHATASE 66 U/L (46-116); ANION GAP 10 mmol/L (5-15); ASPARTATE AMINO TRANSFERASE 21 U/L (15-37); BILIRUBIN,TOTAL 0.8 MG/DL (0.2-1.0); BLOOD UREA NITROGEN 7 mg/dL (7-18); CARBON DIOXIDE 23 MMOL/L (21-32); CHLORIDE 107 MMOL/L (98-107); CREATININE 0.8 MG/DL (0.55-1.30); POTASSIUM 3.2 MMOL/L (3.5-5.1); SODIUM 140 MMOL/L (136-145)
--- NOTE | 2020-04-05 07:10 | NUR ---
NURSE NOTES: Received patient in bed,awake, verbally responsive, breathing is even and unlabored. On roomair. Per business education instructor patient was off oxygen since 4am this morning. O2sat is 95%. will continue to monitor. condom cath is intact, IV's are intact. no s/s of pain or discomfort @ this time. Bed is in lowest position and locked. Call light within reach. Will continue plan of care.
--- NOTE | 2020-04-05 07:50 | NUR ---
NURSE NOTES: Rn made Dr. Reyes aware that patient's family is willing to take him home when he is ready for discharge.
[2020-04-05 08:00] VITALS: BP 150/67
--- NOTE | 2020-04-05 10:47 | Nephrology Progress Note ---
Assessment/Plan Problem List: (1) Anemia (2) Dehydration (3) Electrolyte imbalance (4) UTI (urinary tract infection) (5) BPH (benign prostatic hyperplasia) (6) Dementia (7) Malnutrition Assessment Lactic acidosis UTI, sepsis, high lactic acid, leukocytosis Chronic diastolic congestive heart failure Protein calorie malnutrition Elevated d-dimer Parkinson disease Diabetes mellitus BPH Dementia DNR status Plan April 05: Labs reviewed. Potassium supplement ordered. Continue per ID. Stable from renal standpoint of view. April 04: Chemistry panel pending. Status quo. Continue per current management. Hydrate Keep the blood pressure and blood sugar in check Antibiotics Avoid nephrotoxic's Per orders Subjective ROS Limited/Unobtainable: No Constitutional: Reports: malaise Objective Objective Last 24 Hour Vital Signs Date Time Temp Pulse Resp B/P (MAP) Pulse Ox O2 Delivery O2 Flow Rate FiO2 04/05/20 08:00 97.4 60 18 150/67 (94) 97 04/05/20 03:31 98.5 67 16 118/68 (85) 100 04/05/20 00:00 99.1 62 16 118/65 (82) 100 04/04/20 21:00 Nasal Cannula 2.0 04/04/20 20:00 98.3 66 16 137/75 (95) 100 04/04/20 16:00 97.7 68 19 136/59 (84) 99 04/04/20 12:00 97.9 52 18 122/58 (79) 96 04/04/20 11:37 53 Intake and Output 04/04/20 04/05/20 19:00 07:00 Intake Total 1060.000 ml Output Total 450 ml 800 ml Balance 610.000 ml -800 ml Intake Oral 360 ml IV Total 700.000 ml Output Urine Total 450 ml 800 ml # Voids 1 # Bowel Movements 1 Laboratory Tests 04/04/20 17:40: Urine Color Yellow, Urine Appearance Cloudy, Urine pH 5, Urine Specific [place] 1.005, Urine Protein 1+H, Urine Glucose (UA) Negative, Urine Ketones Negative, Urine Blood 5+H, Urine Nitrite Negative, Urine Bilirubin Negative, Urine Urobilinogen Normal, Urine Leukocyte Esterase 3+H, Urine RBC 5-10H, Urine WBC TntcH, Urine Squamous Epithelial Cells None, Urine Bacteria ModerateH 04/05/20 05:44: White Blood Count 7.7, Red Blood Count 3.88L, Hemoglobin 11.9L, Hematocrit 33.7L , Mean Corpuscular Volume 87, Mean Corpuscular Hemoglobin 30.6, Mean Corpuscular Hemoglobin Concent 35.3, Red Cell Distribution Width 12.3, Platelet Count 134L, Mean Platelet Volume 7.0, Neutrophils (%) (Auto) 54.6, Lymphocytes (%) (Auto) 31.9, Monocytes (%) (Auto) 8.9, Eosinophils (%) (Auto) 3.8H, Basophils (%) (Auto) 0.8, Sodium Level 140, Potassium Level 3.2L, Chloride Level 107, Carbon Dioxide Level 23, Anion Gap 10, Blood Urea Nitrogen 7, Creatinine 0.8, Estimat Glomerular Filtration Rate > 60, Glucose Level 113H, Calcium Level 8.0L, Total Bilirubin 0.8, Aspartate Amino Transf (AST/SGOT) 21, Alanine Aminotransferase (ALT/SGPT) 25, Alkaline Phosphatase 66, Total Protein 5.6L, Albumin 2.5L, Globu jade 3.1, Albumin/Globulin Ratio 0.8L Height (Feet): 5 Height (Inches): 2.00 Weight (Pounds): 107 General Appearance: lethargic Cardiovascular: normal rate Respiratory/Chest: decreased breath sounds Abdomen: soft Ruben Davis MD Apr 05, 2020 10:47
[2020-04-05] MEDS: Enoxaparin 40mg Inj SUBQ SCH (11:08)
[2020-04-05 12:00] VITALS: BP 129/80
--- NOTE | 2020-04-05 12:48 | Surgery Progress Note ---
Surgery Progress Note Subjective Additional Comments labs improved exam stable no n/v/f/c Objective Last 24 Hour Vital Signs Date Time Temp Pulse Resp B/P (MAP) Pulse Ox O2 Delivery O2 Flow Rate FiO2 04/05/20 09:00 Room Air 04/05/20 08:00 97.4 60 18 150/67 (94) 97 04/05/20 03:31 98.5 67 16 118/68 (85) 100 04/05/20 00:00 99.1 62 16 118/65 (82) 100 04/04/20 21:00 Nasal Cannula 2.0 04/04/20 20:00 98.3 66 16 137/75 (95) 100 04/04/20 16:00 97.7 68 19 136/59 (84) 99 I&O Intake and Output 04/04/20 04/05/20 19:00 07:00 Intake Total 1060.000 ml Output Total 450 ml 800 ml Balance 610.000 ml -800 ml Intake Oral 360 ml IV Total 700.000 ml Output Urine Total 450 ml 800 ml # Voids 1 # Bowel Movements 1 Dressing: other Wound: other Cardiovascular: RSR Respiratory: decreased breath sounds Abdomen: soft, non-tender, present bowel sounds Extremities: no edema, no tenderness, no cyanosis Laboratory Tests Test 04/04/20 17:40 04/05/20 05:44 Urine Color Yellow Urine Appearance Cloudy Urine pH 5 (4.5-8.0) Urine Specific [place] 1.005 (1.005-1.035) Urine Protein 1+ (NEGATIVE) H Urine Glucose (UA) Negative (NEGATIVE) Urine Ketones Negative (NEGATIVE) Urine Blood 5+ (NEGATIVE) H Urine Nitrite Negative (NEGATIVE) Urine Bilirubin Negative (NEGATIVE) Urine Urobilinogen Normal MG/DL (0.0-1.0) Urine Leukocyte Esterase 3+ (NEGATIVE) H Urine RBC 5-10 /HPF (0 - 0) H Urine WBC Tntc /HPF (0 - 0) H Urine Squamous Epithelial Cells None /LPF (NONE/OCC) Urine Bacteria Moderate /HPF (NONE) H White Blood Count 7.7 K/UL (4.8-10.8) Red Blood Count 3.88 M/UL (4.70-6.10) L Hemoglobin 11.9 G/DL (14.2-18.0) L Hematocrit 33.7 % (42.0-52.0) L Mean Corpuscular Volume 87 FL (80-99) Mean Corpuscular Hemoglobin 30.6 PG (27.0-31.0) Mean Corpuscular Hemoglobin Concent 35.3 G/DL (32.0-36.0) Red Cell Distribution Width 12.3 % (11.6-14.8) Platelet Count 134 K/UL (150-450) L Mean Platelet Volume 7.0 FL (6.5-10.1) Neutrophils (%) (Auto) 54.6 % (45.0-75.0) Lymphocytes (%) (Auto) 31.9 % (20.0-45.0) Monocytes (%) (Auto) 8.9 % (1.0-10.0) Eosinophils (%) (Auto) 3.8 % (0.0-3.0) H Basophils (%) (Auto) 0.8 % (0.0-2.0) Sodium Level 140 MMOL/L (136-145) Potassium Level 3.2 MMOL/L (3.5-5.1) L Chloride Level 107 MMOL/L (98-107) Carbon Dioxide Level 23 MMOL/L (21-32) Anion Gap 10 mmol/L (5-15) Blood Urea Nitrogen 7 mg/dL (7-18) Creatinine 0.8 MG/DL (0.55-1.30) Estimat Glomerular Filtration Rate > 60 mL/min (>60) Glucose Level 113 MG/DL (74-106) H Calcium Level 8.0 MG/DL (8.5-10.1) L Total Bilirubin 0.8 MG/DL (0.2-1.0) Aspartate Amino Transf (AST/SGOT) 21 U/L (15-37) Alanine Aminotransferase (ALT/SGPT) 25 U/L (12-78) Alkaline Phosphatase 66 U/L (46-116) Total Protein 5.6 G/DL (6.4-8.2) L Albumin 2.5 G/DL (3.4-5.0) L Globulin 3.1 g/dL Albumin/Globulin Ratio 0.8 (1.0-2.7) L Plan Problems: (1) Dementia (2) Parkinson disease (3) BPH (benign prostatic hyperplasia) (4) Sepsis (5) UTI (urinary tract infection) (6) Elevated d-dimer (7) Artificial pacemaker (8) Suspected COVID-19 virus infection (9) Dehydration (10) Anemia (11) Electrolyte imbalance (12) Malnutrition Assessment & Plan: DAILY ESTIMATED NEEDS: Needs based on cardiac, suspected wt loss 51kg 25-35 kcals/kg 5574-6354 total kcals 1-1.5 g protein/kg 51-76 g total protein 25-30 mL/kg 6910-0809 total fluid mLs NUTRITION DIAGNOSIS: Increased kcal/prot needs R/T suspected wt loss as evidenced by possible significant wt loss of 25.5lbs/18.5% in 5 months CURRENT DIET:REGULAR, mech soft chopped PO DIET RECOMMENDATIONS: Maintain liberalized REGULAR/ texture per ELECTRIC REPAIR SUPERVISOR + Glucerna TID ADDITIONAL RECOMMENDATIONS: 1) Daily calibrated bed scale wt, monitor trend 2) Monitor BGs closely, need for hypoglycemics and/or carb controlled diet 3) Check A1C for eval of glycemic control: h/o DM 4) Glucerna TID w/ meals 5) Monitor lytes, replete as needed 5) MVI x 1 (13) Fever (14) Laceration of left upper extremity Assessment & Plan: 89-year-old female with laceration of her left arm/elbow. Unknown etiology patient with tremor, Parkinson's potential against bedside. There is a 1 cm laceration 1 mm epidermal dehiscence with 1 cm x 1 cm surrounding bruising. No drainage no signs of infection. Given size location will hold off on suture repair. Local care with dressings. Fairly superficial. No signs of active infection. Will monitor closely. Furthermore patient identified to have an con associated dermatitis upon admission. Erythema noted around the tae-anal area and buttock. Will monitor closely and care accordingly. Patient regularly wears diapers as per report. Will ensure close monitoring. Thank you for let me participate in patient's care John Avalos Apr 05, 2020 12:48
[2020-04-05] MEDS: cefTRIAXone 1 GM in D5W 50 ML IVPB SCH (13:57)
--- NOTE | 2020-04-05 15:30 | NUR ---
NURSE NOTES: 2 IV's on right hand are leaking.No s/s infection, no swelling. RN inserted IV on left forearm with good blood return, secured with tegaderm.
[2020-04-05 16:00] VITALS: BP 131/78
--- NOTE | 2020-04-05 19:28 | NUR ---
NURSE HAND-OFF: Important Events on Shift:new IV,ceftriaxone was started Patient Status: stable Diet: mech soft chopped Pending Orders: Pending Results/Labs: Pending MD notification: Latest Vital Signs: Temperature 97.0 , Pulse 80 , B/P 131 /78 , Respiratory Rate 19 , O2 SAT 97 , Room Air, O2 Flow Rate 2.0 . Vital Sign Comment: Latest Blount Fall Score: 50 Fall Risk: High Risk Safety Measures: Call light Within Reach, Bed Alarm Zone 3, Side Rails Side Rails x3, Bed position Low and Locked. Fall Precautions: Yellow Socks Patient Fall Education Report given to Brionna.
--- NOTE | 2020-04-05 19:34 | NUR ---
NURSE NOTES: Patient in bed, awake and alert x2. On RA with no signs of distress or SOB. IV intact and patent. Condom cath in place and draining urine well. Bed locked and in lowest position. Bed alarm on. Call light in reach. Will continue plan of care.
[2020-04-05 20:00] VITALS: BP 140/76
[2020-04-05] MEDS: Tamsulosin 0.4mg cap ORAL SCH (20:03)
--- NOTE | 2020-04-05 20:13 | CDS Physician Query ---
Clarification is required for compliance, coding accuracy, and to reflect severity of illness for this patient Dear Dr. Plummer, Date:04-05-20 CDS Name: Stephan Barajas Please select the most appropriate option: Albumin 2.5L, Globulin 3.1, Albumin/Globulin Ratio 0.8L. Increased kcal/prot needs R/T suspected wt loss as evidenced by possible significant wt loss of 25.5lbs/18.5% in 5 months. [x] Protein/Calorie Malnutrition [] Mild [] Moderate [x] Severe [] Hypoalbuminemia [] Cachexia [] Underweight [] Intestinal malabsorption [] Other [] Unable to determine [] Not Applicable Present on Admission: [x] Yes [] No [] Clinically Undetermined Physician signature Date Please also document in your Progress Notes and/or Discharge Summary and indicate if the condition was present on admission. ESTEVAND
--- NOTE | 2020-04-05 21:37 | General Progress Note ---
Subjective Allergies: Coded Allergies: No Known Allergies (Unverified , 10/13/19) Subjective no events. w/o complaints. stable off o2. on multiple iv abx(rocephin and vanco) receive lasix x 1 yesterday. low K noted on AM labs Objective Last 24 Hour Vital Signs Date Time Temp Pulse Resp B/P (MAP) Pulse Ox O2 Delivery O2 Flow Rate FiO2 04/05/20 21:00 Room Air 04/05/20 20:00 97.0 70 18 140/76 (97) 97 04/05/20 16:00 97.0 80 19 131/78 (95) 97 04/05/20 12:00 98.7 68 20 129/80 (96) 97 04/05/20 09:00 Room Air 04/05/20 08:00 97.4 60 18 150/67 (94) 97 04/05/20 03:31 98.5 67 16 118/68 (85) 100 04/05/20 00:00 99.1 62 16 118/65 (82) 100 Intake and Output 04/04/20 04/05/20 19:00 07:00 Intake Total 1060.000 ml Output Total 450 ml 800 ml Balance 610.000 ml -800 ml Intake Oral 360 ml IV Total 700.000 ml Output Urine Total 450 ml 800 ml # Voids 1 # Bowel Movements 1 Laboratory Tests 04/05/20 05:44: White Blood Count 7.7, Red Blood Count 3.88L, Hemoglobin 11.9L, Hematocrit 33.7L , Mean Corpuscular Volume 87, Mean Corpuscular Hemoglobin 30.6, Mean Corpuscular Hemoglobin Concent 35.3, Red Cell Distribution Width 12.3, Platelet Count 134L, Mean Platelet Volume 7.0, Neutrophils (%) (Auto) 54.6, Lymphocytes (%) (Auto) 3 1.9, Monocytes (%) (Auto) 8.9, Eosinophils (%) (Auto) 3.8H, Basophils (%) (Auto) 0.8, Sodium Level 140, Potassium Level 3.2L, Chloride Level 107, Carbon Dioxide Level 23, Anion Gap 10, Blood Urea Nitrogen 7, Creatinine 0.8, Estimat Glomerular Filtration Rate > 60, Glucose Level 113H, Calcium Level 8.0L, Total Bilirubin 0.8, Aspartate Amino Transf (AST/SGOT) 21, Alanine Aminotransferase (ALT/SGPT) 25, Alkaline Phosphatase 66, Total Protein 5.6L, Albumin 2.5L, Globulin 3.1, Albumin/Globulin Ratio 0.8L Height (Feet): 5 Height (Inches): 2.00 Weight (Pounds): 107 General Appearance: WD/WN, no apparent distress, alert, confused EENT: normal ENT inspection Neck: non-tender, normal alignment, supple Cardiovascular: normal peripheral pulses, normal rate, regular rhythm Respiratory/Chest: chest wall non-tender, lungs clear, normal breath sounds, no respiratory distress Abdomen: normal bowel sounds, non tender, soft, no organomegaly Edema: no edema noted Arm (L), no edema noted Arm (R) 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: marine geologist II-XII grossly normal, responsive, disoriented Skin: normal pigmentation Lymphatic: normal anterior cervical (L), normal anterior cervical (R) Assessment/Plan Problem List: (1) UTI (urinary tract infection) ICD Codes: N39.0 - Urinary tract infection, site not specified SNOMED: 34448669 (2) Sepsis ICD Codes: A41.9 - Sepsis, unspecified organism SNOMED: 81767314 (3) BPH (benign prostatic hyperplasia) ICD Codes: N40.0 - Benign prostatic hyperplasia without lower urinary tract symptoms SNOMED: 435499826 Qualifiers: (4) Parkinson disease ICD Codes: G20 - Parkinson's disease SNOMED: 76875799 (5) Dementia ICD Codes: F03.90 - Unspecified dementia without behavioral disturbance SNOMED: 71347151 (6) Artificial pacemaker ICD Codes: Z95.0 - Presence of cardiac pacemaker SNOMED: 307097176 (7) Suspected COVID-19 virus infection ICD Codes: R68.89 - Other general symptoms and signs SNOMED: 123905218 Status: stable Assessment/Plan: cont iv abx follow up cultures resp care o2 repeat cxr replace K monitor labs dvt/stress ulcer prophylaxis family declined snf placement. Dtr aware that pt require total care and is currently max assist. dnr Dax Reyes MD Apr 05, 2020 21:37
[2020-04-06] VITALS: BP 133/74
--- NOTE | 2020-04-06 02:56 | Cardiology Progress Note ---
Subjective DATE OF SERVICE: Apr 05, 2020 No c/o pain. No hx fall/trauma. Daughter wants patient to return home when stable CT angio was negative for pulmonary emboli, but suggests component of CHF Objective Last 24 Hour Vital Signs Date Time Temp Pulse Resp B/P (MAP) Pulse Ox O2 Delivery O2 Flow Rate FiO2 04/06/20 00:00 97.8 83 20 133/74 (93) 98 04/05/20 21:00 Room Air 04/05/20 20:00 97.0 70 18 140/76 (97) 97 04/05/20 16:00 97.0 80 19 131/78 (95) 97 04/05/20 12:00 98.7 68 20 129/80 (96) 97 04/05/20 09:00 Room Air 04/05/20 08:00 97.4 60 18 150/67 (94) 97 04/05/20 03:31 98.5 67 16 118/68 (85) 100 ROS: unchanged from my evaluation of 04/02/20 HEENT: normal ENT inspection RHYTHM: NSR, PACs LUNGS: diminished breath sounds CARDIAC: normal rate, regular rhythm, normal S1 and S2 ABDOMEN: normal bowel sounds, non tender, soft EXTREMITIES: normal range of motion, No edema, other - Muscle atrophy - symmetric; +tremor of extremities Laboratory Tests Test 04/05/20 05:44 White Blood Count 7.7 K/UL (4.8-10.8) Red Blood Count 3.88 M/UL (4.70-6.10) L Hemoglobin 11.9 G/DL (14.2-18.0) L Hematocrit 33.7 % (42.0-52.0) L Mean Corpuscular Volume 87 FL (80-99) Mean Corpuscular Hemoglobin 30.6 PG (27.0-31.0) Mean Corpuscular Hemoglobin Concent 35.3 G/DL (32.0-36.0) Red Cell Distribution Width 12.3 % (11.6-14.8) Platelet Count 134 K/UL (150-450) L Mean Platelet Volume 7.0 FL (6.5-10.1) Neutrophils (%) (Auto) 54.6 % (45.0-75.0) Lymphocytes (%) (Auto) 31.9 % (20.0-45.0) Monocytes (%) (Auto) 8.9 % (1.0-10.0) Eosinophils (%) (Auto) 3.8 % (0.0-3.0) H Basophils (%) (Auto) 0.8 % (0.0-2.0) Sodium Level 140 MMOL/L (136-145) Potassium Level 3.2 MMOL/L (3.5-5.1) L Chloride Level 107 MMOL/L (98-107) Carbon Dioxide Level 23 MMOL/L (21-32) Anion Gap 10 mmol/L (5-15) Blood Urea Nitrogen 7 mg/dL (7-18) Creatinine 0.8 MG/DL (0.55-1.30) Estimat Glomerular Filtration Rate > 60 mL/min (>60) Glucose Level 113 MG/DL (74-106) H Calcium Level 8.0 MG/DL (8.5-10.1) L Total Bilirubin 0.8 MG/DL (0.2-1.0) Aspartate Amino Transf (AST/SGOT) 21 U/L (15-37) Alanine Aminotransferase (ALT/SGPT) 25 U/L (12-78) Alkaline Phosphatase 66 U/L (46-116) Total Protein 5.6 G/DL (6.4-8.2) L Albumin 2.5 G/DL (3.4-5.0) L Globulin 3.1 g/dL Albumin/Globulin Ratio 0.8 (1.0-2.7) L Microbiology Date/Time Source Procedure Growth Status 04/04/20 17:40 Urine,Clean Catch Urine Culture - Preliminary Strep Species, Gamma-Hemolytic YEAST Resulted 04/04/20 09:05 Blood Blood Culture - Preliminary NO GROWTH AFTER 24 HOURS Resulted 04/04/20 08:50 Blood Blood Culture - Preliminary NO GROWTH AFTER 24 HOURS Resulted 04/03/20 05:20 Urine,Clean Catch Urine Culture - Final Enterococcus Faecalis Complete Assessment/Plan Assessment/Plan UTI Sepsis Lactic acidosis Parkinsons with dementia Dehydration/hypernatremia Ac/chronic diastolic CHF Shoulder pains Sinus node disease Hypomagnesemia Hypokalemia DC IVF Cautious diuresis based on clinical parameters; trend BNP IV magnesium as needed Replace potassium IV antimicrobials; await cultures Titrate Sinemet No indication for pacemaker Tanmay Mayfield MD Apr 06, 2020 02:56
[2020-04-06 04:00] VITALS: BP 121/62
[2020-04-06 05:37] LABS: ALANINE AMINOTRANSFERASE 18 U/L (12-78); ALBUMIN 2.3 G/DL (3.4-5.0); ALKALINE PHOSPHATASE 62 U/L (46-116); ANION GAP 7 mmol/L (5-15); ASPARTATE AMINO TRANSFERASE 18 U/L (15-37); BILIRUBIN,TOTAL 0.7 MG/DL (0.2-1.0); BLOOD UREA NITROGEN 6 mg/dL (7-18); CALCIUM 8.3 MG/DL (8.5-10.1); CARBON DIOXIDE 24 MMOL/L (21-32); CHLORIDE 108 MMOL/L (98-107); CREATININE 0.6 MG/DL (0.55-1.30); PHOSPHORUS 3.1 MG/DL (2.5-4.9); POTASSIUM 3.5 MMOL/L (3.5-5.1); SODIUM 139 MMOL/L (136-145)
--- NOTE | 2020-04-06 06:11 | NUR ---
NURSE HAND-OFF: Important Events on Shift: No events Patient Status: Stable Diet: Regular mech soft chopped Pending Orders: N/A Pending Results/Labs: Mag, phos, CMP, BNP, Lactic acid, Vanco trough Pending MD notification: N/A Latest Vital Signs: Temperature 98.0 , Pulse 76 , B/P 121 /62 , Respiratory Rate 18 , O2 SAT 97 , Room Air, O2 Flow Rate 2.0 . Vital Sign Comment: N/A Latest Blount Fall Score: 50 Fall Risk: High Risk Safety Measures: Call light Within Reach, Bed Alarm Zone 3, Side Rails Side Rails x3, Bed position Low and Locked. Fall Precautions: Librado Allison Patient Fall Education Addendum: 04/06/20 at 0741 by AIMEE SINGH RN report given to MELIDA Guan
--- NOTE | 2020-04-06 07:37 | NUR ---
NURSE NOTES: Received report from MELIDA Staton. Patient in bed, alert and oriented x 2, verbal and able to make needs known, no SOB, bed in lowest position with alarm on and breaks engaged, denies any pain or discomfort at this time, IV line present and intact, will continue to monitor and proceed with plan of care, call light within reach
[2020-04-06 08:00] VITALS: BP 104/60
--- NOTE | 2020-04-06 09:47 | Nephrology Progress Note ---
Assessment/Plan Problem List: (1) Anemia (2) Dehydration (3) Electrolyte imbalance (4) UTI (urinary tract infection) (5) BPH (benign prostatic hyperplasia) (6) Dementia (7) Malnutrition Assessment Lactic acidosis UTI, sepsis, high lactic acid, leukocytosis Chronic diastolic congestive heart failure Protein calorie malnutrition Elevated d-dimer Parkinson disease Diabetes mellitus BPH Dementia DNR status Plan April 06: Labs reviewed. Stable from renal standpoint reviewed. April 05: Labs reviewed. Potassium supplement ordered. Continue per ID. S table from renal standpoint of view. April 04: Chemistry panel pending. Status quo. Continue per current management. Hydrate Keep the blood pressure and blood sugar in check Antibiotics Avoid nephrotoxic's Per orders Subjective ROS Limited/Unobtainable: No Constitutional: Reports: malaise Objective Objective Last 24 Hour Vital Signs Date Time Temp Pulse Resp B/P (MAP) Pulse Ox O2 Delivery O2 Flow Rate FiO2 04/06/20 09:00 Room Air 04/06/20 08:00 98.2 71 19 104/60 (75) 97 04/06/20 04:00 98.0 76 18 121/62 (81) 97 04/06/20 00:00 97.8 83 20 133/74 (93) 98 04/05/20 21:00 Room Air 04/05/20 20:00 97.0 70 18 140/76 (97) 97 04/05/20 16:00 97.0 80 19 131/78 (95) 97 04/05/20 12:00 98.7 68 20 129/80 (96) 97 Intake and Output 04/05/20 04/06/20 19:00 07:00 Intake Total 850.000 ml 360 ml Output Total 1200 ml 600 ml Balance -350.000 ml -240 ml Intake Oral 400 ml IV Total 450.000 ml Other 360 ml Output Urine Total 1200 ml 600 ml # Bowel Movements 2 Laboratory Tests 04/06/20 04:54: Sodium Level 139, Potassium Level 3.5, Chloride Level 108H, Carbon Dioxide Level 24, Anion Gap 7, Blood Urea Nitrogen 6L, Creatinine 0.6, Estimat Glomerular Filtration Rate > 60, Glucose Level 114H, Lactic Acid Level 1.50, Calcium Level 8.3L, Phosphorus Level 3.1, Magnesium Level 1.9, Total Bilirubin 0.7, Aspartate Amino Transf (AST/SGOT) 18, Alanine Aminotransferase (ALT/SGPT) 18, Alkaline Phosphatase 62, Pro-B-Type Natriuretic Peptide 1658H, Total Protein 4.6L, Albumin 2.3L, Globulin 2.3, Albumin/Globulin Ratio 1.0 Height (Feet): 5 Height (Inches): 2.00 Weight (Pounds): 107 General Appearance: no apparent distress Cardiovascular: normal rate Respiratory/Chest: decreased breath sounds Abdomen: soft, distended Objective No change Ruben Davis MD Apr 06, 2020 09:47
--- NOTE | 2020-04-06 10:04 | NUR ---
RADIOLOGY DEPT., CHEST X-RAY DONE.-P.DYE
--- NOTE | 2020-04-06 10:51 | Diagnostic Imaging Report ---
Indication: Cough Technique: One view of the chest Comparison: 04/02/2020 Findings: No acute infiltrates, effusions, or congestion. Tortuous calcified aorta. Normal heart size. Upper mediastinum unremarkable. No significant change Impression: No acute process.
[2020-04-06] MEDS: Enoxaparin 40mg Inj SUBQ SCH (11:11)
[2020-04-06 12:00] VITALS: BP 106/56
[2020-04-06] MEDS: Vancomycin 1.25gm/NS Premix q24h IVPB SCH (12:01)
--- NOTE | 2020-04-06 12:18 | Surgery Progress Note ---
Surgery Progress Note Subjective Symptoms: improved, tolerating diet, passing flatus Additional Comments family at bedside Objective Last 24 Hour Vital Signs Date Time Temp Pulse Resp B/P (MAP) Pulse Ox O2 Delivery O2 Flow Rate FiO2 04/06/20 09:00 Room Air 04/06/20 08:00 98.2 71 19 104/60 (75) 97 04/06/20 04:00 98.0 76 18 121/62 (81) 97 04/06/20 00:00 97.8 83 20 133/74 (93) 98 04/05/20 21:00 Room Air 04/05/20 20:00 97.0 70 18 140/76 (97) 97 04/05/20 16:00 97.0 80 19 131/78 (95) 97 I&O Intake and Output 04/05/20 04/06/20 19:00 07:00 Intake Total 850.000 ml 360 ml Output Total 1200 ml 600 ml Balance -350.000 ml -240 ml Intake Oral 400 ml IV Total 450.000 ml Other 360 ml Output Urine Total 1200 ml 600 ml # Bowel Movements 2 Dressing: saturated Cardiovascular: RSR Respiratory: clear, decreased breath sounds Abdomen: soft, non-tender, present bowel sounds Extremities: no edema, no tenderness, no cyanosis Laboratory Tests Test 04/06/20 04:54 04/06/20 10:00 Sodium Level 139 MMOL/L (136-145) Potassium Level 3.5 MMOL/L (3.5-5.1) Chloride Level 108 MMOL/L (98-107) H Carbon Dioxide Level 24 MMOL/L (21-32) Anion Gap 7 mmol/L (5-15) Blood Urea Nitrogen 6 mg/dL (7-18) L Creatinine 0.6 MG/DL (0.55-1.30) Estimat Glomerular Filtration Rate > 60 mL/min (>60) Glucose Level 114 MG/DL (74-106) H Lactic Acid Level 1.50 mmol/L (0.4-2.0) Calcium Level 8.3 MG/DL (8.5-10.1) L Phosphorus Level 3.1 MG/DL (2.5-4.9) Magnesium Level 1.9 MG/DL (1.8-2.4) Total Bilirubin 0.7 MG/DL (0.2-1.0) Aspartate Amino Transf (AST/SGOT) 18 U/L (15-37) Alanine Aminotransferase (ALT/SGPT) 18 U/L (12-78) Alkaline Phosphatase 62 U/L (46-116) Pro-B-Type Natriuretic Peptide 1658 pg/mL (0-125) H Total Protein 4.6 G/DL (6.4-8.2) L Albumin 2.3 G/DL (3.4-5.0) L Globulin 2.3 g/dL Albumin/Globulin Ratio 1.0 (1.0-2.7) Vancomycin Level Trough 8.3 ug/mL (5.0-12.0) Plan Problems: (1) Dementia (2) Parkinson disease (3) BPH (benign prostatic hyperplasia) (4) Sepsis (5) UTI (urinary tract infection) (6) Elevated d-dimer (7) Artificial pacemaker (8) Suspected COVID-19 virus infection (9) Dehydration (10) Anemia (11) Electrolyte imbalance (12) Malnutrition Assessment & Plan: DAILY ESTIMATED NEEDS: Needs based on cardiac, suspected wt loss 51kg 25-35 kcals/kg 4376-8808 total kcals 1-1.5 g protein/kg 51-76 g total protein 25-30 mL/kg 2878-9648 total fluid mLs NUTRITION DIAGNOSIS: Increased kcal/prot needs R/T suspected wt loss as evidenced by possible significant wt loss of 25.5lbs/18.5% in 5 months CURRENT DIET:REGULAR, mech soft chopped PO DIET RECOMMENDATIONS: Maintain liberalized REGULAR/ texture per WINTERIZER + Glucerna TID ADDITIONAL RECOMMENDATIONS: 1) Daily calibrated bed scale wt, monitor trend 2) Monitor BGs closely, need for hypoglycemics and/or carb controlled diet 3) Check A1C for eval of glycemic control: h/o DM 4) Glucerna TID w/ meals 5) Monitor lytes, replete as needed 5) MVI x 1 (13) Fever (14) Laceration of left upper extremity Assessment & Plan: 89-year-old female with laceration of her left arm/elbow. Unknown etiology patient with tremor, Parkinson's potential against bedside. There is a 1 cm laceration 1 mm epidermal dehiscence with 1 cm x 1 cm surrounding bruising. No drainage no signs of infection. Given size location will hold off on suture repair. Local care with dressings. Fairly superficial. No signs of active infection. Will monitor closely. Furthermore patient identified to have an con associated dermatitis upon admission. Erythema noted around the tae-anal area and buttock. Will monitor closely and care accordingly. Patient regularly wears diapers as per report. Will ensure close monitoring. Thank you for let me participate in patient's care John Avalos Apr 06, 2020 12:18
--- NOTE | 2020-04-06 13:11 | NUR ---
RD ASSESSMENT & RECOMMENDATIONS SEE CARE ACTIVITY FOR COMPLETE ASSESSMENT DAILY ESTIMATED NEEDS: Needs based on cardiac, suspected wt loss 51kg 25-35 kcals/kg 9268-5749 total kcals 1-1.5 g protein/kg 51-76 g total protein 25-30 mL/kg 1997-2931 total fluid mLs NUTRITION DIAGNOSIS: Increased kcal/prot needs R/T suspected wt loss as evidenced by possible significant wt loss of 25.5lbs/18.5% in 5 months CURRENT DIET:REGULAR, mech soft chopped PO DIET RECOMMENDATIONS: Maintain liberalized REGULAR/ texture per RN ORTHOPAEDIC ADDITIONAL RECOMMENDATIONS: 1) Daily calibrated bed scale wt, monitor trend 2) Monitor BGs closely, need for hypoglycemics and/or carb controlled diet 3) Check A1C for eval of glycemic control: h/o DM 4) Glucerna BID w/ meals 5) Monitor lytes, replete as needed 5) MVI x 1 6) RN ORTHOPAEDIC eval for appropriate texture: on pureed w/ NTL last adm in November 2019
[2020-04-06] MEDS: cefTRIAXone 1 GM in D5W 50 ML IVPB SCH (13:44)
[2020-04-06 16:00] VITALS: BP 120/60
--- NOTE | 2020-04-06 16:02 | General Progress Note ---
Subjective Allergies: Coded Allergies: No Known Allergies (Unverified , 10/13/19) Subjective no events. w/o complaints. stable off o2. on multiple iv abx(rocephin and vanco) +yst in repeat UA. no distress. appears comfortable/nontoxic. Objective Last 24 Hour Vital Signs Date Time Temp Pulse Resp B/P (MAP) Pulse Ox O2 Delivery O2 Flow Rate FiO2 04/06/20 12:00 97.9 70 19 106/56 (73) 97 04/06/20 09:00 Room Air 04/06/20 08:00 98.2 71 19 104/60 (75) 97 04/06/20 04:00 98.0 76 18 121/62 (81) 97 04/06/20 00:00 97.8 83 20 133/74 (93) 98 04/05/20 21:00 Room Air 04/05/20 20:00 97.0 70 18 140/76 (97) 97 04/05/20 16:00 97.0 80 19 131/78 (95) 97 Intake and Output 04/05/20 04/06/20 19:00 07:00 Intake Total 850.000 ml 360 ml Output Total 1200 ml 600 ml Balance -350.000 ml -240 ml Intake Oral 400 ml IV Total 450.000 ml Other 360 ml Output Urine Total 1200 ml 600 ml # Bowel Movements 2 Laboratory Tests 04/06/20 04:54: Sodium Level 139, Potassium Level 3.5, Chloride Level 108H, Carbon Dioxide Level 24, Anion Gap 7, Blood Urea Nitrogen 6L, Creatinine 0.6, Estimat Glomerular Filtration Rate > 60, Glucose Level 114H, Lactic Acid Level 1.50, Calcium Level 8.3L, Phosphorus Level 3.1, Magnesium Level 1.9, Total Bilirubin 0.7, Aspartate Amino Transf (AST/SGOT) 18, Alanine Aminotransferase (ALT/SGPT) 18, Alkaline Phosphatase 62, Pro-B-Type Natriuretic Peptide 1658H, Total Protein 4.6L, Albumin 2.3L, Globulin 2.3, Albumin/Globulin Ratio 1.0 04/06/20 10:00: Vancomycin Level Trough 8.3 Height (Feet): 5 Height (Inches): 2.00 Weight (Pounds): 107 Objective General Appearance: WD/WN, no apparent distress, alert, confused EENT: normal ENT inspection Neck: non-tender, normal alignment, supple Cardiovascular: normal peripheral pulses, normal rate, regular rhythm Respiratory/Chest: chest wall non-tender, lungs clear, normal breath sounds, no respiratory distress Abdomen: normal bowel sounds, non tender, soft, no organomegaly Edema: no edema noted Arm (L), no edema noted Arm (R) 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 normal, responsive, disoriented Skin: normal pigmentation Lymphatic: normal anterior cervical (L), normal anterior cervical (R) Assessment/Plan Problem List: (1) UTI (urinary tract infection) ICD Codes: N39.0 - Urinary tract infection, site not specified SNOMED: 68827117 (2) Sepsis ICD Codes: A41.9 - Sepsis, unspecified organism SNOMED: 89480078 (3) BPH (benign prostatic hyperplasia) ICD Codes: N40.0 - Benign prostatic hyperplasia without lower urinary tract symptoms SNOMED: 319254479 Qualifiers: (4) Parkinson disease ICD Codes: G20 - Parkinson's disease SNOMED: 78075420 (5) Dementia ICD Codes: F03.90 - Unspecified dementia without behavioral disturbance SNOMED: 10570671 (6) Artificial pacemaker ICD Codes: Z95.0 - Presence of cardiac pacemaker SNOMED: 368568119 (7) Suspected COVID-19 virus infection ICD Codes: R68.89 - Other general symptoms and signs SNOMED: 673988183 Status: stable Assessment/Plan: cont iv abx add fluconazole follow up cultures resp care o2 repeat cxr- improved replace K monitor labs dvt/stress ulcer prophylaxis family declined snf placement. Dtr aware that pt require total care and is currently max assist. dnr dc planning when cleared by Dax Farrell MD Apr 06, 2020 16:02
[2020-04-06] MEDS: Fluconazole 100mg tab ORAL SCH (17:12)
--- NOTE | 2020-04-06 17:55 | Infectious Diseases Prog Note ---
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 Parkinson's. 3. Dementia. 4. Paroxysmal atrial fibrillation. 5. BPH. 6. Hypertension. 7. Blood pressure treatment per primary care team. 8. Aspiration risk. 9. No history of diabetes. 10. No history of cancer. 11. No known allergies. 12. Social history is negative. 13. Family history is noncontributory. 14. MAR was noted. 15. Case was discussed with RN. 16. Case communicated with primary care team. 17. Continue treatment per primary consultants. 18. Skin care protocol. Subjective Constitutional: Reports: fatigue, other - more alert ; Denies: fever HEENT: Denies: congestion Respiratory: Denies: shortness of breath Cardiovascular: Denies: chest pain Gastrointestinal/Abdominal: Denies: nausea, vomiting, diarrhea Neurologic: Denies: headache Psychiatric: Denies: depression Skin: Denies: rash Hematologic: Denies: bleeding Musculoskeletal: Denies: pain Allergies: Coded Allergies: No Known Allergies (Unverified , 10/13/19) Objective Last 24 Hour Vital Signs Date Time Temp Pulse Resp B/P (MAP) Pulse Ox O2 Delivery O2 Flow Rate FiO2 04/06/20 16:00 97.7 66 19 120/60 (80) 97 04/06/20 12:00 97.9 70 19 106/56 (73) 97 04/06/20 09:00 Room Air 04/06/20 08:00 98.2 71 19 104/60 (75) 97 04/06/20 04:00 98.0 76 18 121/62 (81) 97 04/06/20 00:00 97.8 83 20 133/74 (93) 98 04/05/20 21:00 Room Air 04/05/20 20:00 97.0 70 18 140/76 (97) 97 Height (Feet): 5 Height (Inches): 2.00 Weight (Pounds): 107 General Appearance: no acute distress HEENT: normocephalic, atraumatic, anicteric, mucous membranes moist Respiratory/Chest: lungs clear, normal breath sounds, no respiratory distress, no accessory muscle use Cardiovascular: normal rate, regular rhythm, no gallop/murmur, no JVD Abdomen: normal bowel sounds, soft, non tender, no organomegaly, non distended Genitourinary: other - no frias Extremities: no cyanosis Skin: no rash Neurologic/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 This is suggestive of pulmonary edema Multiple calcified mediastinal and hilar lymph nodes as well as small calcified basilar left lung nodules, likely on the basis of old granulomatous disease Pneumobilia, also previously reported, presumably on the basis of prior biliary intervention 10 mm left adrenal nodule. Appearance nonspecific. Very likely a benign adenoma but other etiologies including malignant neoplasm also possible. Consider adrenal protocol CT or MRI if clinically indicated The CT scanner at [facility] is accredited by the [employer] and the scans are performed using protocols designed to limit radiation exposure to as low as reasonably achievable to attain images of sufficient resolution adequate for diagnostic evaluation. Chest x-ray - 04/06/20- Procedure: XRAY Chest 1v Indication: Cough Technique: One view of the chest Comparison: 04/02/2020 Findings: No acute infiltrates, effusions, or congestion. Tortuous calcified aorta. Normal heart size. Upper mediastinum unremarkable. No significant change Impression: No acute process. Microbiology Date/Time Source Procedure Growth Status 04/04/20 17:40 Urine,Clean Catch Urine Culture - Preliminary Strep Species, Gamma-Hemolytic YEAST Resulted 04/04/20 09:05 Blood Blood Culture - Preliminary NO GROWTH AFTER 24 HOURS Resulted 04/04/20 08:50 Blood Blood Culture - Preliminary NO GROWTH AFTER 24 HOURS Resulted Labs Test 04/04/20 08:50 04/04/20 17:40 04/05/20 05:44 04/06/20 04:54 White Blood Count 9.6 K/UL (4.8-10.8) 7.7 K/UL (4.8-10.8) Red Blood Count 3.75 M/UL (4.70-6.10) 3.88 M/UL (4.70-6.10) Hemoglobin 11.5 G/DL (14.2-18.0) 11.9 G/DL (14.2-18.0) Hematocrit 32.7 % (42.0-52.0) 33.7 % (42.0-52.0) Mean Corpuscular Volume 87 FL (80-99) 87 FL (80-99) Mean Corpuscular Hemoglobin 30.6 PG (27.0-31.0) 30.6 PG (27.0-31.0) Mean Corpuscular Hemoglobin Concent 35.2 G/DL (32.0-36.0) 35.3 G/DL (32.0-36.0) Red Cell Distribution Width 12.5 % (11.6-14.8) 12.3 % (11.6-14.8) Platelet Count 134 K/UL (150-450) 134 K/UL (150-450) Mean Platelet Volume 7.1 FL (6.5-10.1) 7.0 FL (6.5-10.1) Neutrophils (%) (Auto) 79.3 % (45.0-75.0) 54.6 % (45.0-75.0) Lymphocytes (%) (Auto) 13.4 % (20.0-45.0) 31.9 % (20.0-45.0) Monocytes (%) (Auto) 5.6 % (1.0-10.0) 8.9 % (1.0-10.0) Eosinophils (%) (Auto) 1.1 % (0.0-3.0) 3.8 % (0.0-3.0) Basophils (%) (Auto) 0.6 % (0.0-2.0) 0.8 % (0.0-2.0) Sodium Level 144 MMOL/L (136-145) 140 MMOL/L (136-145) 139 MMOL/L (136-145) Potassium Level 3.0 MMOL/L (3.5-5.1) 3.2 MMOL/L (3.5-5.1) 3.5 MMOL/L (3.5-5.1) Chloride Level 114 MMOL/L (98-107) 107 MMOL/L (98-107) 108 MMOL/L (98-107) Carbon Dioxide Level 21 MMOL/L (21-32) 23 MMOL/L (21-32) 24 MMOL/L (21-32) Anion Gap 9 mmol/L (5-15) 10 mmol/L (5-15) 7 mmol/L (5-15) Blood Urea Nitrogen 11 mg/dL (7-18) 7 mg/dL (7-18) 6 mg/dL (7-18) Creatinine 0.7 MG/DL (0.55-1.30) 0.8 MG/DL (0.55-1.30) 0.6 MG/DL (0.55-1.30) Estimat Glomerular Filtration Rate > 60 mL/min (>60) > 60 mL/min (>60) > 60 mL/min (>60) Glucose Level 112 MG/DL (74-106) 113 MG/DL (74-106) 114 MG/DL (74-106) Lactic Acid Level 1.80 mmol/L (0.4-2.0) 1.50 mmol/L (0.4-2.0) Calcium Level 7.8 MG/DL (8.5-10.1) 8.0 MG/DL (8.5-10.1) 8.3 MG/DL (8.5-10.1) Phosphorus Level 2.6 MG/DL (2.5-4.9) 3.1 MG/DL (2.5-4.9) Magnesium Level 1.7 MG/DL (1.8-2.4) 1.9 MG/DL (1.8-2.4) Iron Level 107 ug/dL (50-175) Total Iron Binding Capacity 140 ug/dL (250-450) Percent Iron Saturation 76 % (15-50) Unsaturated Iron Binding 33 ug/dL (112-346) Ferritin 602 NG/ML (8-388) Total Bilirubin 1.0 MG/DL (0.2-1.0) 0.8 MG/DL (0.2-1.0) 0.7 MG/DL (0.2-1.0) Aspartate Amino Transf (AST/SGOT) 25 U/L (15-37) 21 U/L (15-37) 18 U/L (15-37) Alanine Aminotransferase (ALT/SGPT) 25 U/L (12-78) 25 U/L (12-78) 18 U/L (12-78) Alkaline Phosphatase 60 U/L (46-116) 66 U/L (46-116) 62 U/L (46-116) Total Protein 5.3 G/DL (6.4-8.2) 5.6 G/DL (6.4-8.2) 4.6 G/DL (6.4-8.2) Albumin 2.4 G/DL (3.4-5.0) 2.5 G/DL (3.4-5.0) 2.3 G/DL (3.4-5.0) Globulin 2.9 g/dL 3.1 g/dL 2.3 g/dL Albumin/Globulin Ratio 0.8 (1.0-2.7) 0.8 (1.0-2.7) 1.0 (1.0-2.7) Vitamin B12 Level 522 PG/ML (193-986) Folate 5.5 NG/ML (8.6-58.9) Vancomycin Level Trough 10.9 ug/mL (5.0-12.0) Urine Color Yellow Urine Appearance Cloudy Urine pH 5 (4.5-8.0) Urine Specific [place] 1.005 (1.005-1.035) Urine Protein 1+ (NEGATIVE) Urine Glucose (UA) Negative (NEGATIVE) Urine Ketones Negative (NEGATIVE) Urine Blood 5+ (NEGATIVE) Urine Nitrite Negative (NEGATIVE) Urine Bilirubin Negative (NEGATIVE) Urine Urobilinogen Normal MG/DL (0.0-1.0) Urine Leukocyte Esterase 3+ (NEGATIVE) Urine RBC 5-10 /HPF (0 - 0) Urine WBC Tntc /HPF (0 - 0) Urine Squamous Epithelial Cells None /LPF (NONE/OCC) Urine Bacteria Moderate /HPF (NONE) Pro-B-Type Natriuretic Peptide 1658 pg/mL (0-125) Test 04/06/20 10:00 Vancomycin Level Trough 8.3 ug/mL (5.0-12.0) Laboratory Tests Test 04/06/20 04:54 04/06/20 10:00 Sodium Level 139 MMOL/L (136-145) Potassium Level 3.5 MMOL/L (3.5-5.1) Chloride Level 108 MMOL/L (98-107) H Carbon Dioxide Level 24 MMOL/L (21-32) Anion Gap 7 mmol/L (5-15) Blood Urea Nitrogen 6 mg/dL (7-18) L Creatinine 0.6 MG/DL (0.55-1.30) Estimat Glomerular Filtration Rate > 60 mL/min (>60) Glucose Level 114 MG/DL (74-106) H Lactic Acid Level 1.50 mmol/L (0.4-2.0) Calcium Level 8.3 MG/DL (8.5-10.1) L Phosphorus Level 3.1 MG/DL (2.5-4.9) Magnesium Level 1.9 MG/DL (1.8-2.4) Total Bilirubin 0.7 MG/DL (0.2-1.0) Aspartate Amino Transf (AST/SGOT) 18 U/L (15-37) Alanine Aminotransferase (ALT/SGPT) 18 U/L (12-78) Alkaline Phosphatase 62 U/L (46-116) Pro-B-Type Natriuretic Peptide 1658 pg/mL (0-125) H Total Protein 4.6 G/DL (6.4-8.2) L Albumin 2.3 G/DL (3.4-5.0) L Globulin 2.3 g/dL Albumin/Globulin Ratio 1.0 (1.0-2.7) Vancomycin Level Trough 8.3 ug/mL (5.0-12.0) Current Medications Medications (Trade) Dose Ordered Sig/Jaime Route PRN Reason Start Time Stop Time Status Last Admin Dose Admin Acetaminophen (Tylenol) 650 mg Q4H PRN ORAL Temp >100.5 04/02/20 10:00 05/02/20 09:59 Albuterol/ Ipratropium (Albuterol/ Ipratropium) 3 ml Q4HR PRN HHN Shortness of Breath 04/02/20 10:00 04/07/20 09:59 Bisacodyl (Dulcolax) 10 mg DAILYPRN PRN RECTAL Constipation 04/02/20 10:00 07/01/20 09:59 Ceftriaxone Sodium 1 gm/ Dextrose 50 ml @ 100 mls/hr Q24H IVPB 04/04/20 14:30 04/11/20 14:29 04/06/20 13:44 Dextrose (Dextrose 50%) 25 ml Q30M PRN IV Hypoglycemia 04/02/20 10:00 07/01/20 09:59 Dextrose (Dextrose 50%) 50 ml Q30M PRN IV Hypoglycemia 04/02/20 10:00 07/01/20 09:59 Enoxaparin Sodium (Lovenox) 40 mg Q24H SUBQ 04/02/20 11:00 07/01/20 10:59 04/06/20 11:11 Famotidine (Pepcid) 20 mg BID ORAL 04/04/20 18:00 07/03/20 17:59 04/06/20 17:12 Fluconazole (Diflucan) 100 mg DAILY ORAL 04/06/20 16:30 04/13/20 16:29 04/06/20 17:12 Ondansetron HCl (Zofran) 4 mg Q6H PRN IVP Nausea & Vomiting 04/02/20 11:00 05/02/20 10:59 Polyethylene Glycol (Miralax) 17 gm DAILYPRN PRN ORAL Constipation 04/02/20 12:00 05/02/20 11:59 Potassium Chloride (K-Dur) 40 meq TWICE A DAY ORAL 04/05/20 09:00 07/04/20 08:59 04/06/20 17:13 Tamsulosin HCl (Flomax) 0.4 mg BEDTIME ORAL 04/02/20 21:00 05/02/20 20:59 04/05/20 20:03 Vancomycin HCl (Vanco pharmacy to dose) 1 ea DAILY PRN MISC Per rx protocol 04/02/20 10:00 05/02/20 09:59 Vancomycin/Sodium Chloride 275 ml @ 183.333 mls/hr Q24H IVPB 04/06/20 13:00 04/11/20 12:59 04/06/20 12:01 Cassia Alatorre MD Apr 06, 2020 17:55
--- NOTE | 2020-04-06 18:05 | Infectious Diseases Prog Note ---
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 Parkinson's. 3. Dementia. 4. Paroxysmal atrial fibrillation. 5. BPH. 6. Hypertension. 7. Blood pressure treatment per primary care team. 8. Aspiration risk. 9. No history of diabetes. 10. No history of cancer. 11. No known allergies. 12. Social history is negative. 13. Family history is noncontributory. 14. MAR was noted. 15. Case was discussed with RN. 16. Case communicated with primary care team. 17. Continue treatment per primary consultants. 18. Skin care protocol. Subjective Constitutional: Denies: fever HEENT: Denies: congestion Respiratory: Denies: shortness of breath Cardiovascular: Denies: chest pain Gastrointestinal/Abdominal: Denies: nausea, vomiting, diarrhea Genitourinary: Reports: other - no frias Neurologic: Denies: headache Psychiatric: Denies: depression Skin: Denies: rash Hematologic: Denies: bleeding Musculoskeletal: Denies: pain Allergies: Coded Allergies: No Known Allergies (Unverified , 10/13/19) Objective Last 24 Hour Vital Signs Date Time Temp Pulse Resp B/P (MAP) Pulse Ox O2 Delivery O2 Flow Rate FiO2 04/06/20 16:00 97.7 66 19 120/60 (80) 97 04/06/20 12:00 97.9 70 19 106/56 (73) 97 04/06/20 09:00 Room Air 04/06/20 08:00 98.2 71 19 104/60 (75) 97 04/06/20 04:00 98.0 76 18 121/62 (81) 97 04/06/20 00:00 97.8 83 20 133/74 (93) 98 04/05/20 21:00 Room Air 04/05/20 20:00 97.0 70 18 140/76 (97) 97 Height (Feet): 5 Height (Inches): 2.00 Weight (Pounds): 107 General Appearance: no acute distress HEENT: normocephalic, atraumatic, anicteric Respiratory/Chest: crackles/rales, rhonchi - bilaterally Cardiovascular: normal rate, regular rhythm, no gallop/murmur, no JVD Abdomen: normal bowel sounds, soft, non tender, no organomegaly, non distended Genitourinary: other - no frias Extremities: no cyanosis Skin: no rash 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 This is suggestive of pulmonary edema Multiple calcified mediastinal and hilar lymph nodes as well as small calcified basilar left lung nodules, likely on the basis of old granulomatous disease Pneumobilia, also previously reported, presumably on the basis of prior biliary intervention 10 mm left adrenal nodule. Appearance nonspecific. Very likely a benign adenoma but other etiologies including malignant neoplasm also possible. Consider adrenal protocol CT or MRI if clinically indicated The CT scanner at [facility] is accredited by the [employer] and the scans are performed using protocols designed to limit radiation exposure to as low as reasonably achievable to attain images of sufficient resolution adequate for diagnostic evaluation. Chest x-ray - 04/06/20- Procedure: XRAY Chest 1v Indication: Cough Technique: One view of the chest Comparison: 04/02/2020 Findings: No acute infiltrates, effusions, or congestion. Tortuous calcified a elvia. Normal heart size. Upper mediastinum unremarkable. No significant change Impression: No acute process. Microbiology Date/Time Source Procedure Growth Status 04/04/20 17:40 Urine,Clean Catch Urine Culture - Preliminary Strep Species, Gamma-Hemolytic YEAST Resulted 04/04/20 09:05 Blood Blood Culture - Preliminary NO GROWTH AFTER 24 HOURS Resulted 04/04/20 08:50 Blood Blood Culture - Preliminary NO GROWTH AFTER 24 HOURS Resulted Labs Test 04/04/20 08:50 04/04/20 17:40 04/05/20 05:44 04/06/20 04:54 White Blood Count 9.6 K/UL (4.8-10.8) 7.7 K/UL (4.8-10.8) Red Blood Count 3.75 M/UL (4.70-6.10) 3.88 M/UL (4.70-6.10) Hemoglobin 11.5 G/DL (14.2-18.0) 11.9 G/DL (14.2-18.0) Hematocrit 32.7 % (42.0-52.0) 33.7 % (42.0-52.0) Mean Corpuscular Volume 87 FL (80-99) 87 FL (80-99) Mean Corpuscular Hemoglobin 30.6 PG (27.0-31.0) 30.6 PG (27.0-31.0) Mean Corpuscular Hemoglobin Concent 35.2 G/DL (32.0-36.0) 35.3 G/DL (32.0-36.0) Red Cell Distribution Width 12.5 % (11.6-14.8) 12.3 % (11.6-14.8) Platelet Count 134 K/UL (150-450) 134 K/UL (150-450) Mean Platelet Volume 7.1 FL (6.5-10.1) 7.0 FL (6.5-10.1) Neutrophils (%) (Auto) 79.3 % (45.0-75.0) 54.6 % (45.0-75.0) Lymphocytes (%) (Auto) 13.4 % (20.0-45.0) 31.9 % (20.0-45.0) Monocytes (%) (Auto) 5.6 % (1.0-10.0) 8.9 % (1.0-10.0) Eosinophils (%) (Auto) 1.1 % (0.0-3.0) 3.8 % (0.0-3.0) Basophils (%) (Auto) 0.6 % (0.0-2.0) 0.8 % (0.0-2.0) Sodium Level 144 MMOL/L (136-145) 140 MMOL/L (136-145) 139 MMOL/L (136-145) Potassium Level 3.0 MMOL/L (3.5-5.1) 3.2 MMOL/L (3.5-5.1) 3.5 MMOL/L (3.5-5.1) Chloride Level 114 MMOL/L (98-107) 107 MMOL/L (98-107) 108 MMOL/L (98-107) Carbon Dioxide Level 21 MMOL/L (21-32) 23 MMOL/L (21-32) 24 MMOL/L (21-32) Anion Gap 9 mmol/L (5-15) 10 mmol/L (5-15) 7 mmol/L (5-15) Blood Urea Nitrogen 11 mg/dL (7-18) 7 mg/dL (7-18) 6 mg/dL (7-18) Creatinine 0.7 MG/DL (0.55-1.30) 0.8 MG/DL (0.55-1.30) 0.6 MG/DL (0.55-1.30) Estimat Glomerular Filtration Rate > 60 mL/min (>60) > 60 mL/min (>60) > 60 mL/min (>60) Glucose Level 112 MG/DL (74-106) 113 MG/DL (74-106) 114 MG/DL (74-106) Lactic Acid Level 1.80 mmol/L (0.4-2.0) 1.50 mmol/L (0.4-2.0) Calcium Level 7.8 MG/DL (8.5-10.1) 8.0 MG/DL (8.5-10.1) 8.3 MG/DL (8.5-10.1) Phosphorus Level 2.6 MG/DL (2.5-4.9) 3.1 MG/DL (2.5-4.9) Magnesium Level 1.7 MG/DL (1.8-2.4) 1.9 MG/DL (1.8-2.4) Iron Level 107 ug/dL (50-175) Total Iron Binding Capacity 140 ug/dL (250-450) Percent Iron Saturation 76 % (15-50) Unsaturated Iron Binding 33 ug/dL (112-346) Ferritin 602 NG/ML (8-388) Total Bilirubin 1.0 MG/DL (0.2-1.0) 0.8 MG/DL (0.2-1.0) 0.7 MG/DL (0.2-1.0) Aspartate Amino Transf (AST/SGOT) 25 U/L (15-37) 21 U/L (15-37) 18 U/L (15-37) Alanine Aminotransferase (ALT/SGPT) 25 U/L (12-78) 25 U/L (12-78) 18 U/L (12-78) Alkaline Phosphatase 60 U/L (46-116) 66 U/L (46-116) 62 U/L (46-116) Total Protein 5.3 G/DL (6.4-8.2) 5.6 G/DL (6.4-8.2) 4.6 G/DL (6.4-8.2) Albumin 2.4 G/DL (3.4-5.0) 2.5 G/DL (3.4-5.0) 2.3 G/DL (3.4-5.0) Globulin 2.9 g/dL 3.1 g/dL 2.3 g/dL Albumin/Globulin Ratio 0.8 (1.0-2.7) 0.8 (1.0-2.7) 1.0 (1.0-2.7) Vitamin B12 Level 522 PG/ML (193-986) Folate 5.5 NG/ML (8.6-58.9) Vancomycin Level Trough 10.9 ug/mL (5.0-12.0) Urine Color Yellow Urine Appearance Cloudy Urine pH 5 (4.5-8.0) Urine Specific [place] 1.005 (1.005-1.035) Urine Protein 1+ (NEGATIVE) Urine Glucose (UA) Negative (NEGATIVE) Urine Ketones Negative (NEGATIVE) Urine Blood 5+ (NEGATIVE) Urine Nitrite Negative (NEGATIVE) Urine Bilirubin Negative (NEGATIVE) Urine Urobilinogen Normal MG/DL (0.0-1.0) Urine Leukocyte Esterase 3+ (NEGATIVE) Urine RBC 5-10 /HPF (0 - 0) Urine WBC Tntc /HPF (0 - 0) Urine Squamous Epithelial Cells None /LPF (NONE/OCC) Urine Bacteria Moderate /HPF (NONE) Pro-B-Type Natriuretic Peptide 1658 pg/mL (0-125) Test 04/06/20 10:00 Vancomycin Level Trough 8.3 ug/mL (5.0-12.0) Laboratory Tests Test 04/06/20 04:54 04/06/20 10:00 Sodium Level 139 MMOL/L (136-145) Potassium Level 3.5 MMOL/L (3.5-5.1) Chloride Level 108 MMOL/L (98-107) H Carbon Dioxide Level 24 MMOL/L (21-32) Anion Gap 7 mmol/L (5-15) Blood Urea Nitrogen 6 mg/dL (7-18) L Creatinine 0.6 MG/DL (0.55-1.30) Estimat Glomerular Filtration Rate > 60 mL/min (>60) Glucose Level 114 MG/DL (74-106) H Lactic Acid Level 1.50 mmol/L (0.4-2.0) Calcium Level 8.3 MG/DL (8.5-10.1) L Phosphorus Level 3.1 MG/DL (2.5-4.9) Magnesium Level 1.9 MG/DL (1.8-2.4) Total Bilirubin 0.7 MG/DL (0.2-1.0) Aspartate Amino Transf (AST/SGOT) 18 U/L (15-37) Alanine Aminotransferase (ALT/SGPT) 18 U/L (12-78) Alkaline Phosphatase 62 U/L (46-116) Pro-B-Type Natriuretic Peptide 1658 pg/mL (0-125) H Total Protein 4.6 G/DL (6.4-8.2) L Albumin 2.3 G/DL (3.4-5.0) L Globulin 2.3 g/dL Albumin/Globulin Ratio 1.0 (1.0-2.7) Vancomycin Level Trough 8.3 ug/mL (5.0-12.0) Current Medications Medications (Trade) Dose Ordered Sig/Jaime Route PRN Reason Start Time Stop Time Status Last Admin Dose Admin Acetaminophen (Tylenol) 650 mg Q4H PRN ORAL Temp >100.5 04/02/20 10:00 05/02/20 09:59 Albuterol/ Ipratropium (Albuterol/ Ipratropium) 3 ml Q4HR PRN HHN Shortness of Breath 04/02/20 10:00 04/07/20 09:59 Bisacodyl (Dulcolax) 10 mg DAILYPRN PRN RECTAL Constipation 04/02/20 10:00 07/01/20 09:59 Ceftriaxone Sodium 1 gm/ Dextrose 50 ml @ 100 mls/hr Q24H IVPB 04/04/20 14:30 04/11/20 14:29 04/06/20 13:44 Dextrose (Dextrose 50%) 25 ml Q30M PRN IV Hypoglycemia 04/02/20 10:00 07/01/20 09:59 Dextrose (Dextrose 50%) 50 ml Q30M PRN IV Hypoglycemia 04/02/20 10:00 07/01/20 09:59 Enoxaparin Sodium (Lovenox) 40 mg Q24H SUBQ 04/02/20 11:00 07/01/20 10:59 04/06/20 11:11 Famotidine (Pepcid) 20 mg BID ORAL 04/04/20 18:00 07/03/20 17:59 04/06/20 17:12 Fluconazole (Diflucan) 100 mg DAILY ORAL 04/06/20 16:30 04/13/20 16:29 04/06/20 17:12 Ondansetron HCl (Zofran) 4 mg Q6H PRN IVP Nausea & Vomiting 04/02/20 11:00 05/02/20 10:59 Polyethylene Glycol (Miralax) 17 gm DAILYPRN PRN ORAL Constipation 04/02/20 12:00 05/02/20 11:59 Potassium Chloride (K-Dur) 40 meq TWICE A DAY ORAL 04/05/20 09:00 07/04/20 08:59 04/06/20 17:13 Tamsulosin HCl (Flomax) 0.4 mg BEDTIME ORAL 04/02/20 21:00 05/02/20 20:59 04/05/20 20:03 Vancomycin HCl (Vanco pharmacy to dose) 1 ea DAILY PRN MISC Per rx protocol 04/02/20 10:00 05/02/20 09:59 Vancomycin/Sodium Chloride 275 ml @ 183.333 mls/hr Q24H IVPB 04/06/20 13:00 04/11/20 12:59 04/06/20 12:01 Cassia Alatorre MD Apr 06, 2020 18:05
--- NOTE | 2020-04-06 19:25 | NUR ---
NURSE NOTES: RECEIVED PATIENT FROM [facility]. PATIENT IS AWAKE, AAOX2, ON ROOM AIR, NO ACUTE DISTRESS NOTED. PIV ON LEFT FA INTACT AND PATENT. WOUND DRESSINGS INTACT AND DRY. EXTERNAL CONDOM CATH IN PLACE, DRAINING WELL. BED IS LOCKED AND LOW, BED ALARMS ACTIVE, SIDE RAILS UPX2 AND CALL LIGHT IS WITHIN REACH. WILL CONTINUE TO MONITOR.
--- NOTE | 2020-04-06 19:36 | NUR ---
NURSE HAND-OFF: Important Events on Shift:[negative CXR, 1-1 feeding, turnign and repositioning, IV ATBs] Patient Status: [stable] Diet: [regular mech soft chopped] Pending Orders: [] Pending Results/Labs:[] Pending MD notification:[] Latest Vital Signs: Temperature 97.7 , Pulse 66 , B/P 120 /60 , Respiratory Rate 19 , O2 SAT 97 , Room Air, O2 Flow Rate 2.0 . Vital Sign Comment: [] Latest Blount Fall Score: 50 Fall Risk: High Risk Safety Measures: Call light Within Reach, Bed Alarm Zone 3, Side Rails Side Rails x3, Bed position Low and Locked. Fall Precautions: Yellow Socks Patient Fall Education Report given to [Shanda, RN].
[2020-04-06 20:00] VITALS: BP 127/64
[2020-04-06] MEDS: Tamsulosin 0.4mg cap ORAL SCH ×2 (21:00→23:05)
--- NOTE | 2020-04-06 23:47 | Cardiology Progress Note ---
Subjective DATE OF SERVICE: Apr 06, 2020 No c/o pain. No hx fall/trauma. Daughter wants patient to return home when stable CT angio was negative for pulmonary emboli, but suggests component of CHF Objective Last 24 Hour Vital Signs Date Time Temp Pulse Resp B/P (MAP) Pulse Ox O2 Delivery O2 Flow Rate FiO2 04/06/20 20:00 97.6 65 18 127/64 (85) 97 04/06/20 16:00 97.7 66 19 120/60 (80) 97 04/06/20 12:00 97.9 70 19 106/56 (73) 97 04/06/20 09:00 Room Air 04/06/20 08:00 98.2 71 19 104/60 (75) 97 04/06/20 04:00 98.0 76 18 121/62 (81) 97 04/06/20 00:00 97.8 83 20 133/74 (93) 98 ROS: unchanged from my evaluation of 04/02/20 HEENT: normal ENT inspection RHYTHM: NSR, PACs LUNGS: diminished breath sounds CARDIAC: normal rate, regular rhythm, normal S1 and S2 ABDOMEN: normal bowel sounds, non tender, soft EXTREMITIES: normal range of motion, No edema, other - Muscle atrophy - s ymmetric; +tremor of extremities Laboratory Tests Test 04/06/20 04:54 04/06/20 10:00 Sodium Level 139 MMOL/L (136-145) Potassium Level 3.5 MMOL/L (3.5-5.1) Chloride Level 108 MMOL/L (98-107) H Carbon Dioxide Level 24 MMOL/L (21-32) Anion Gap 7 mmol/L (5-15) Blood Urea Nitrogen 6 mg/dL (7-18) L Creatinine 0.6 MG/DL (0.55-1.30) Estimat Glomerular Filtration Rate > 60 mL/min (>60) Glucose Level 114 MG/DL (74-106) H Lactic Acid Level 1.50 mmol/L (0.4-2.0) Calcium Level 8.3 MG/DL (8.5-10.1) L Phosphorus Level 3.1 MG/DL (2.5-4.9) Magnesium Level 1.9 MG/DL (1.8-2.4) Total Bilirubin 0.7 MG/DL (0.2-1.0) Aspartate Amino Transf (AST/SGOT) 18 U/L (15-37) Alanine Aminotransferase (ALT/SGPT) 18 U/L (12-78) Alkaline Phosphatase 62 U/L (46-116) Pro-B-Type Natriuretic Peptide 1658 pg/mL (0-125) H Total Protein 4.6 G/DL (6.4-8.2) L Albumin 2.3 G/DL (3.4-5.0) L Globulin 2.3 g/dL Albumin/Globulin Ratio 1.0 (1.0-2.7) Vancomycin Level Trough 8.3 ug/mL (5.0-12.0) Microbiology Date/Time Source Procedure Growth Status 04/04/20 17:40 Urine,Clean Catch Urine Culture - Preliminary Strep Species, Gamma-Hemolytic YEAST Resulted 04/04/20 09:05 Blood Blood Culture - Preliminary NO GROWTH AFTER 24 HOURS Resulted 04/04/20 08:50 Blood Blood Culture - Preliminary NO GROWTH AFTER 24 HOURS Resulted Assessment/Plan Assessment/Plan UTI Sepsis Lactic acidosis Parkinsons with dementia Dehydration/hypernatremia Ac/chronic diastolic CHF - BNP decreasing Shoulder pains Sinus node disease Hypomagnesemia Hypokalemia DC IVF Cautious diuresis based on clinical parameters; trend BNP and start ACEi therapy IV magnesium as needed Replace potassium IV antimicrobials; await cultures Titrate Sinemet No indication for pacemaker Tanmay Mayfield MD Apr 06, 2020 23:47
[2020-04-07] VITALS: BP 106/50
[2020-04-07 04:00] VITALS: BP 109/57
[2020-04-07 05:18] LABS: BASOPHILS % (AUTO) 0.8 % (0.0-2.0); EOSINOPHILS % (AUTO) 9.9 % (0.0-3.0); HEMATOCRIT 30.8 % (42.0-52.0); HEMOGLOBIN 10.9 G/DL (14.2-18.0); LYMPHOCYTES % (AUTO) 35.5 % (20.0-45.0); MEAN CORPUSCULAR VOLUME 86 FL (80-99); MONOCYTES % (AUTO) 7.7 % (1.0-10.0); NEUTROPHILS % (AUTO) 46.1 % (45.0-75.0); PLATELET COUNT 153 K/UL (150-450); RED BLOOD COUNT 3.56 M/UL (4.70-6.10); RED CELL DISTRIBUTION WIDTH 12.5 % (11.6-14.8); WHITE BLOOD COUNT 7.6 K/UL (4.8-10.8)
[2020-04-07 05:38] LABS: ALBUMIN 2.4 G/DL (3.4-5.0); ALKALINE PHOSPHATASE 66 U/L (46-116); ASPARTATE AMINO TRANSFERASE 17 U/L (15-37); BILIRUBIN,TOTAL 0.8 MG/DL (0.2-1.0); CALCIUM 8.5 MG/DL (8.5-10.1); CARBON DIOXIDE 24 MMOL/L (21-32); CREATININE 0.7 MG/DL (0.55-1.30)
[2020-04-07 06:15] LABS: ALANINE AMINOTRANSFERASE 16 U/L (12-78); BLOOD UREA NITROGEN 6 mg/dL (7-18); CHLORIDE 109 MMOL/L (98-107); POTASSIUM 4.2 MMOL/L (3.5-5.1); SODIUM 140 MMOL/L (136-145)
--- NOTE | 2020-04-07 07:28 | NUR ---
NURSE NOTES: Received report from Shanda, RN. Patient in bed, alert and oriented x 2, verbal and able to make needs known, no SOB, bed in lowest position with alarm on and breaks engaged, no s/sx of pain or discomfort at this time, IV line present and intact, will continue to monitor and proceed with plan of care, call light within reach
--- NOTE | 2020-04-07 07:41 | NUR ---
NURSE HAND-OFF: Important Events on Shift: stable Patient Status: stable Diet: regular Pending Orders: n/a Pending Results/Labs: cbc Pending MD notification: n/a Latest Vital Signs: Temperature 98.0 , Pulse 68 , B/P 109 /57 , Respiratory Rate 18 , O2 SAT 96 , Room Air, O2 Flow Rate 2.0 . Vital Sign Comment: stable Latest Blount Fall Score: 50 Fall Risk: High Risk Safety Measures: Call light Within Reach, Bed Alarm Zone 3, Side Rails Side Rails x3, Bed position Low and Locked. Fall Precautions: Yellow Socks Patient Fall Education Report given to MELIDA Guan.
[2020-04-07 08:00] VITALS: BP 127/63
[2020-04-07] MEDS: Lisinopril 2.5mg tab ORAL SCH (08:46)
[2020-04-07] MEDS: Fluconazole 100mg tab ORAL SCH (08:47)
[2020-04-07] MEDS: Enoxaparin 40mg Inj SUBQ SCH (10:53)
--- NOTE | 2020-04-07 11:42 | Surgery Progress Note ---
Surgery Progress Note Subjective Additional Comments no acute events labs improved micro noted on abx Objective Last 24 Hour Vital Signs Date Time Temp Pulse Resp B/P (MAP) Pulse Ox O2 Delivery O2 Flow Rate FiO2 04/07/20 09:00 Room Air 04/07/20 08:46 127/63 04/07/20 08:00 98.3 75 18 127/63 (84) 96 04/07/20 04:00 98.0 68 18 109/57 (74) 96 04/07/20 00:00 98.0 62 18 106/50 (68) 97 04/06/20 21:00 Room Air 04/06/20 20:00 97.6 65 18 127/64 (85) 97 04/06/20 16:00 97.7 66 19 120/60 (80) 97 04/06/20 12:00 97.9 70 19 106/56 (73) 97 I&O Intake and Output 04/06/20 04/07/20 19:00 07:00 Intake Total 320 ml Output Total 1000 ml Balance -680 ml Intake Oral 320 ml Output Urine Total 1000 ml # Voids 3 # Bowel Movements 1 Dressing: saturated Cardiovascular: RSR Respiratory: decreased breath sounds Abdomen: soft, non-tender, present bowel sounds Extremities: no edema, no tenderness, no cyanosis Laboratory Tests Test 04/07/20 05:00 White Blood Count 7.6 K/UL (4.8-10.8) Red Blood Count 3.56 M/UL (4.70-6.10) L Hemoglobin 10.9 G/DL (14.2-18.0) L Hematocrit 30.8 % (42.0-52.0) L Mean Corpuscular Volume 86 FL (80-99) Mean Corpuscular Hemoglobin 30.7 PG (27.0-31.0) Mean Corpuscular Hemoglobin Concent 35.5 G/DL (32.0-36.0) Red Cell Distribution Width 12.5 % (11.6-14.8) Platelet Count 153 K/UL (150-450) Mean Platelet Volume 6.6 FL (6.5-10.1) Neutrophils (%) (Auto) 46.1 % (45.0-75.0) Lymphocytes (%) (Auto) 35.5 % (20.0-45.0) Monocytes (%) (Auto) 7.7 % (1.0-10.0) Eosinophils (%) (Auto) 9.9 % (0.0-3.0) H Basophils (%) (Auto) 0.8 % (0.0-2.0) Sodium Level 140 MMOL/L (136-145) Potassium Level 4.2 MMOL/L (3.5-5.1) Chloride Level 109 MMOL/L (98-107) H Carbon Dioxide Level 24 MMOL/L (21-32) Blood Urea Nitrogen 6 mg/dL (7-18) L Creatinine 0.7 MG/DL (0.55-1.30) Estimat Glomerular Filtration Rate > 60 mL/min (>60) Glucose Level 102 MG/DL (74-106) Calcium Level 8.5 MG/DL (8.5-10.1) Total Bilirubin 0.8 MG/DL (0.2-1.0) Aspartate Amino Transf (AST/SGOT) 17 U/L (15-37) Alanine Aminotransferase (ALT/SGPT) 16 U/L (12-78) Alkaline Phosphatase 66 U/L (46-116) Total Protein 4.8 G/DL (6.4-8.2) L Albumin 2.4 G/DL (3.4-5.0) L Globulin 2.4 g/dL Albumin/Globulin Ratio 1.0 (1.0-2.7) Plan Problems: (1) Dementia (2) Parkinson disease (3) BPH (benign prostatic hyperplasia) (4) Sepsis (5) UTI (urinary tract infection) (6) Elevated d-dimer (7) Artificial pacemaker (8) Suspected COVID-19 virus infection (9) Dehydration (10) Anemia (11) Electrolyte imbalance (12) Malnutrition Assessment & Plan: DAILY ESTIMATED NEEDS: Needs based on cardiac, suspected wt loss 51kg 25-35 kcals/kg 0148-0880 total kcals 1-1.5 g protein/kg 51-76 g total protein 25-30 mL/kg 2466-0706 total fluid mLs NUTRITION DIAGNOSIS: Increased kcal/prot needs R/T suspected wt loss as evidenced by possible significant wt loss of 25.5lbs/18.5% in 5 months CURRENT DIET:REGULAR, mech soft chopped PO DIET RECOMMENDATIONS: Maintain liberalized REGULAR/ texture per SENIOR TECHNICAL ANALYST + Glucerna TID ADDITIONAL RECOMMENDATIONS: 1) Daily calibrated bed scale wt, monitor trend 2) Monitor BGs closely, need for hypoglycemics and/or carb controlled diet 3) Check A1C for eval of glycemic control: h/o DM 4) Glucerna TID w/ meals 5) Monitor lytes, replete as needed 5) MVI x 1 (13) Fever (14) Laceration of left upper extremity Assessment & Plan: 89-year-old female with laceration of her left arm/elbow. Unknown etiology patient with tremor, Parkinson's potential against bedside. There is a 1 cm laceration 1 mm epidermal dehiscence with 1 cm x 1 cm surrounding bruising. No drainage no signs of infection. Given size location will hold off on suture repair. Local care with dressings. Fairly superficial. No signs of active infection. Will monitor closely. Furthermore patient identified to have an con associated dermatitis upon admission. Erythema noted around the tae-anal area and buttock. Will monitor closely and care accordingly. Patient regularly wears diapers as per report. Will ensure close monitoring. Thank you for let me participate in patient's care John Avalos Apr 07, 2020 11:42
[2020-04-07 12:00] VITALS: BP 120/65
[2020-04-07] MEDS: Vancomycin 1.25gm/NS Premix q24h IVPB SCH (12:28)
--- NOTE | 2020-04-07 13:23 | Nephrology Progress Note ---
Assessment/Plan Problem List: (1) Anemia (2) Dehydration (3) Electrolyte imbalance (4) UTI (urinary tract infection) (5) BPH (benign prostatic hyperplasia) (6) Dementia (7) Malnutrition Assessment Lactic acidosis UTI, sepsis, high lactic acid, leukocytosis Chronic diastolic congestive heart failure Protein calorie malnutrition Elevated d-dimer Parkinson disease Diabetes mellitus BPH Dementia DNR status Plan April 07: Labs reviewed. Stable from renal standpoint of view. April 06: Labs reviewed. Stable from renal standpoint reviewed. April 05: Labs reviewed. Potassium supplement ordered. Continue per ID. Stable from renal standpoint of view. April 04: Chemistry panel pending. Status quo. Continue per current management. Hydrate Keep the blood pressure and blood sugar in check Antibiotics Avoid nephrotoxic's Per orders Subjective ROS Limited/Unobtainable: No Constitutional: Reports: malaise Objective Objective Last 24 Hour Vital Signs Date Time Temp Pulse Resp B/P (MAP) Pulse Ox O2 Delivery O2 Flow Rate FiO2 04/07/20 12:00 97.8 68 18 120/65 (83) 97 04/07/20 09:00 Room Air 04/07/20 08:46 127/63 04/07/20 08:00 98.3 75 18 127/63 (84) 96 04/07/20 04:00 98.0 68 18 109/57 (74) 96 04/07/20 00:00 98.0 62 18 106/50 (68) 97 04/06/20 21:00 Room Air 04/06/20 20:00 97.6 65 18 127/64 (85) 97 04/06/20 16:00 97.7 66 19 120/60 (80) 97 Intake and Output 04/06/20 04/07/20 19:00 07:00 Intake Total 320 ml Output Total 1000 ml Balance -680 ml Intake Oral 320 ml Output Urine Total 1000 ml # Voids 3 # Bowel Movements 1 Laboratory Tests 04/07/20 05:00: White Blood Count 7.6, Red Blood Count 3.56L, Hemoglobin 10.9L, Hematocrit 30.8L , Mean Corpuscular Volume 86, Mean Corpuscular Hemoglobin 30.7, Mean Corpuscular Hemoglobin Concent 35.5, Red Cell Distribution Width 12.5, Platelet Count 153, Mean Platelet Volume 6.6, Neutrophils (%) (Auto) 46.1, Lymphocytes (%) (Auto) 35.5, Monocytes (%) (Auto) 7.7, Eosinophils (%) (Auto) 9.9H, Basophils (%) (Auto) 0.8, Sodium Level 140, Potassium Level 4.2, Chloride Level 109H, Carbon Dioxide Level 24, Blood Urea Nitrogen 6L, Creatinine 0.7, Estimat Glomerular Filtration Rate > 60, Glucose Level 102, Calcium Level 8.5, Total Bilirubin 0.8, Aspartate Amino Transf (AST/SGOT) 17, Alanine Aminotransferase (ALT/SGPT) 16, Alkaline Phosphatase 66, Total Protein 4.8L, Albumin 2.4L, Globulin 2.4, Albumin/Globulin Ratio 1.0 Height (Feet): 5 Height (Inches): 2.00 Weight (Pounds): 107 General Appearance: no apparent distress, lethargic Respiratory/Chest: decreased breath sounds Abdomen: soft Objective No change Ruben Davis MD Apr 07, 2020 13:23
[2020-04-07] MEDS: cefTRIAXone 1 GM in D5W 50 ML IVPB SCH (14:42)
--- NOTE | 2020-04-07 15:33 | General Progress Note ---
Subjective ROS Limited/Unobtainable: No Constitutional: Reports: malaise, weakness HEENT: Reports: no symptoms Cardiovascular: Reports: no symptoms Respiratory: Reports: cough Gastrointestinal/Abdominal: Reports: no symptoms Genitourinary: Reports: no symptoms Neurologic/Psychiatric: Reports: no symptoms Endocrine: Reports: no symptoms Hematologic/Lymphatic: Reports: anemia Allergies: Coded Allergies: No Known Allergies (Unverified , 10/13/19) All Systems: reviewed and negative except above Subjective no events. w/o complaints. stable off o2. on multiple iv abx +yst in repeat UA. no distress. appears comfortable/nontoxic. no fevers. Objective Last 24 Hour Vital Signs Date Time Temp Pulse Resp B/P (MAP) Pulse Ox O2 Delivery O2 Flow Rate FiO2 04/07/20 12:00 97.8 68 18 120/65 (83) 97 04/07/20 09:00 Room Air 04/07/20 08:46 127/63 04/07/20 08:00 98.3 75 18 127/63 (84) 96 04/07/20 04:00 98.0 68 18 109/57 (74) 96 04/07/20 00:00 98.0 62 18 106/50 (68) 97 04/06/20 21:00 Room Air 04/06/20 20:00 97.6 65 18 127/64 (85) 97 04/06/20 16:00 97.7 66 19 120/60 (80) 97 Intake and Output 04/06/20 04/07/20 19:00 07:00 Intake Total 320 ml Output Total 1000 ml Balance -680 ml Intake Oral 320 ml Output Urine Total 1000 ml # Voids 3 # Bowel Movements 1 Laboratory Tests 04/07/20 05:00: White Blood Count 7.6, Red Blood Count 3.56L, Hemoglobin 10.9L, Hematocrit 30.8L , Mean Corpuscular Volume 86, Mean Corpuscular Hemoglobin 30.7, Mean Corpuscular Hemoglobin Concent 35.5, Red Cell Distribution Width 12.5, Platelet Count 153, Mean Platelet Volume 6.6, Neutrophils (%) (Auto) 46.1, Lymphocytes (%) (Auto) 35.5, Monocytes (%) (Auto) 7.7, Eosinophils (%) (Auto) 9.9H, Basophils (%) (Auto) 0.8, Sodium Level 140, Potassium Level 4.2, Chloride Level 109H, Carbon Dioxide Level 24, Blood Urea Nitrogen 6L, Creatinine 0.7, Estimat Glomerular Filtration Rate > 60, Glucose Level 102, Calcium Level 8.5, Total Bilirubin 0.8, Aspartate Amino Transf (AST/SGOT) 17, Alanine Aminotransferase (ALT/SGPT) 16, Alkaline Phosphatase 66, Total Protein 4.8L, Albumin 2.4L, Globulin 2.4, Albumin/Globulin Ratio 1.0 Height (Feet): 5 Height (Inches): 2.00 Weight (Pounds): 107 Objective General Appearance: WD/WN, no apparent distress, alert, confused EENT: normal ENT inspection Neck: non-tender, normal alignment, supple Cardiovascular: normal peripheral pulses, normal rate, regular rhythm Respiratory/Chest: chest wall non-tender, lungs clear, normal breath sounds, no respiratory distress Abdomen: normal bowel sounds, non tender, soft, no organomegaly Edema: no edema noted Arm (L), no edema noted Arm (R) Neurologic: worldwide chief creative officer II-XII grossly normal, responsive, disoriented Skin: normal pigmentation Lymphatic: normal anterior cervical (L), normal anterior cervical (R) Assessment/Plan Problem List: (1) UTI (urinary tract infection) ICD Codes: N39.0 - Urinary tract infection, site not specified SNOMED: 68680975 (2) Sepsis ICD Codes: A41.9 - Sepsis, unspecified organism SNOMED: 72576201 (3) BPH (benign prostatic hyperplasia) ICD Codes: N40.0 - Benign prostatic hyperplasia without lower urinary tract symptoms SNOMED: 791358968 Qualifiers: (4) Parkinson disease ICD Codes: G20 - Parkinson's disease SNOMED: 15173044 (5) Dementia ICD Codes: F03.90 - Unspecified dementia without behavioral disturbance SNOMED: 22068485 (6) Artificial pacemaker ICD Codes: Z95.0 - Presence of cardiac pacemaker SNOMED: 304757527 (7) Suspected COVID-19 virus infection ICD Codes: R68.89 - Other general symptoms and signs SNOMED: 638248157 Status: stable Assessment/Plan: cont iv abx fluconazole follow up cultures resp care o2 replace lytes as needed monitor labs dvt/stress ulcer prophylaxis family declined snf placement. Dtr aware that pt require total care and is currently max assist. dnr dc planning when cleared by Dax Farrell MD Apr 07, 2020 15:33
--- NOTE | 2020-04-07 15:37 | NUR ---
CASE MANAGEMENT:REVIEW 04/07/20 SI: SEPSIS D/T BACTEREMIA AND UTI 97.8 68 18 120/65 97% ON RA H/H-10.9/30.8 IS: IV VANCOMYCIN Q24 IV ROCEPHIN Q24 LOVENOX SQ Q24 : MED/SURG 4 [facility] DCP: FROM HOME
[2020-04-07 16:00] VITALS: BP 126/68
--- NOTE | 2020-04-07 19:39 | NUR ---
NURSE HAND-OFF: Important Events on Shift:[turning and repositioning, 1-1 feed, ATB IV] Patient Status: [stable] Diet: [regular mech soft chopped] Pending Orders: [] Pending Results/Labs:[] Pending MD notification:[] Latest Vital Signs: Temperature 97.7 , Pulse 71 , B/P 126 /68 , Respiratory Rate 18 , O2 SAT 97 , Room Air, O2 Flow Rate 2.0 . Vital Sign Comment: [] Latest Blount Fall Score: 50 Fall Risk: High Risk Safety Measures: Call light Within Reach, Bed Alarm Zone 3, Side Rails Side Rails x3, Bed position Low and Locked. Fall Precautions: Yellow Socks Patient Fall Education Report given to [MELIDA Souza].
--- NOTE | 2020-04-07 19:40 | NUR ---
NURSE NOTES: Received pt on the bed awake,A&Ox1-2, and verbal. Pt has no sob fever, pain and cough at the moment. Iv is intact and asymptomatic. Bed is in the lowest position,locked, and alarm on. call light within reach. We will keep monitoring the pt.
[2020-04-07 20:00] VITALS: BP 119/62
[2020-04-07] MEDS: Tamsulosin 0.4mg cap ORAL SCH (21:53)
[2020-04-08] VITALS: BP 112/63
--- NOTE | 2020-04-08 01:41 | Cardiology Progress Note ---
Subjective DATE OF SERVICE: Apr 07, 2020 No c/o pain. No hx fall/trauma. Daughter wants patient to return home when stable CT angio was negative for pulmonary emboli, but suggests component of CHF Urine now reveals yeast; therapy adjusted Objective Last 24 Hour Vital Signs Date Time Temp Pulse Resp B/P (MAP) Pulse Ox O2 Delivery O2 Flow Rate FiO2 04/08/20 00:00 98.5 68 18 112/63 (79) 94 04/07/20 20:55 Room Air 04/07/20 20:00 99.9 67 18 119/62 (81) 96 04/07/20 16:00 97.7 71 18 126/68 (87) 97 04/07/20 12:00 97.8 68 18 120/65 (83) 97 04/07/20 09:00 Room Air 04/07/20 08:46 127/63 04/07/20 08:00 98.3 75 18 127/63 (84) 96 04/07/20 04:00 98.0 68 18 109/57 (74) 96 ROS: unchanged from my evaluation of 04/02/20 HEENT: normal ENT inspection RHYTHM: NSR, PACs LUNGS: diminished breath sounds CARDIAC: normal rate, regular rhythm, normal S1 and S2 ABDOMEN: normal bowel sounds, non tender, soft EXTREMITIES: normal range of motion, No edema, other - Muscle atrophy - symmetric; +tremor of extremities Laboratory Tests Test 04/07/20 05:00 White Blood Count 7.6 K/UL (4.8-10.8) Red Blood Count 3.56 M/UL (4.70-6.10) L Hemoglobin 10.9 G/DL (14.2-18.0) L Hematocrit 30.8 % (42.0-52.0) L Mean Corpuscular Volume 86 FL (80-99) Mean Corpuscular Hemoglobin 30.7 PG (27.0-31.0) Mean Corpuscular Hemoglobin Concent 35.5 G/DL (32.0-36.0) Red Cell Distribution Width 12.5 % (11.6-14.8) Platelet Count 153 K/UL (150-450) Mean Platelet Volume 6.6 FL (6.5-10.1) Neutrophils (%) (Auto) 46.1 % (45.0-75.0) Lymphocytes (%) (Auto) 35.5 % (20.0-45.0) Monocytes (%) (Auto) 7.7 % (1.0-10.0) Eosinophils (%) (Auto) 9.9 % (0.0-3.0) H Basophils (%) (Auto) 0.8 % (0.0-2.0) Sodium Level 140 MMOL/L (136-145) Potassium Level 4.2 MMOL/L (3.5-5.1) Chloride Level 109 MMOL/L (98-107) H Carbon Dioxide Level 24 MMOL/L (21-32) Blood Urea Nitrogen 6 mg/dL (7-18) L Creatinine 0.7 MG/DL (0.55-1.30) Estimat Glomerular Filtration Rate > 60 mL/min (>60) Glucose Level 102 MG/DL (74-106) Calcium Level 8.5 MG/DL (8.5-10.1) Total Bilirubin 0.8 MG/DL (0.2-1.0) Aspartate Amino Transf (AST/SGOT) 17 U/L (15-37) Alanine Aminotransferase (ALT/SGPT) 16 U/L (12-78) Alkaline Phosphatase 66 U/L (46-116) Total Protein 4.8 G/DL (6.4-8.2) L Albumin 2.4 G/DL (3.4-5.0) L Globulin 2.4 g/dL Albumin/Globulin Ratio 1.0 (1.0-2.7) Assessment/Plan Assessment/Plan UTI Fungal cystitis Sepsis Lactic acidosis Parkinsons with dementia Dehydration/hypernatremia Ac/chronic diastolic CHF Shoulder pains Sinus node disease Hypomagnesemia Hypokalemia Cautious diuresis based on clinical parameters; trend BNP IV magnesium as needed Replace potassium Antimicrobials per ID Titrate Sinemet No indication for pacemaker Tanmay Mayfield MD Apr 08, 2020 01:41
[2020-04-08 04:00] VITALS: BP 104/58
--- NOTE | 2020-04-08 06:50 | NUR ---
NURSE HAND-OFF: Important Events on Shift:na Patient Status: stable Diet: Regu Pending Orders: [] Pending Results/Labs:[] Pending MD notification:[] Latest Vital Signs: Temperature 98.9 , Pulse 68 , B/P 104 /58 , Respiratory Rate 18 , O2 SAT 94 , Room Air, O2 Flow Rate 2.0 . Vital Sign Comment: [] Latest Blount Fall Score: 50 Fall Risk: High Risk Safety Measures: Call light Within Reach, Bed Alarm Zone 3, Side Rails Side Rails x3, Bed position Low and Locked. Fall Precautions: Yellow Socks Patient Fall Education Report given to [].
--- NOTE | 2020-04-08 07:12 | NUR ---
HAND-OFF: Report given to MELIDA monk.
[2020-04-08 08:00] VITALS: BP 98/57
--- NOTE | 2020-04-08 08:04 | NUR ---
NURSE NOTES: received report from MELIDA Souza. patient in bed. alert. limited verbal communication d/t impaired cognition. no respiratory distress noted on room air. no facial grimacing during care. IV on left fore arm saline lock intact. condom cath draining. 1:1 feeder. consumed 60% of breakfast. bed bound. aspiration precaution elevated bed during meal. monitor swallowing. bed alarm on. bed in the lowest position and locked. call light within reach. will continue to provide plan of care.
--- NOTE | 2020-04-08 08:04 | NUR ---
NURSE NOTES: steve
[2020-04-08] MEDS: Fluconazole 100mg tab ORAL SCH (08:31)
[2020-04-08] MEDS: Lisinopril 2.5mg tab ORAL SCH (09:00)
--- NOTE | 2020-04-08 09:11 | Surgery Progress Note ---
Surgery Progress Note Subjective Symptoms: improved, tolerating diet, passing flatus Objective Last 24 Hour Vital Signs Date Time Temp Pulse Resp B/P (MAP) Pulse Ox O2 Delivery O2 Flow Rate FiO2 04/08/20 04:00 98.9 68 18 104/58 (73) 94 04/08/20 00:00 98.5 68 18 112/63 (79) 94 04/07/20 20:55 Room Air 04/07/20 20:00 99.9 67 18 119/62 (81) 96 04/07/20 16:00 97.7 71 18 126/68 (87) 97 04/07/20 12:00 97.8 68 18 120/65 (83) 97 I&O Intake and Output 04/07/20 04/08/20 19:00 07:00 Intake Total 300 ml Output Total 650 ml 500 ml Balance -350 ml -500 ml Intake Oral 300 ml Output Urine Total 650 ml 500 ml # Bowel Movements 1 Dressing: saturated Cardiovascular: RSR Respiratory: decreased breath sounds Abdomen: non-tender, present bowel sounds Extremities: no edema, no tenderness, no cyanosis Plan Problems: (1) Dementia (2) Parkinson disease (3) BPH (benign prostatic hyperplasia) (4) Sepsis (5) UTI (urinary tract infection) (6) Elevated d-dimer (7) Artificial pacemaker (8) Suspected COVID-19 virus infection (9) Dehydration (10) Anemia (11) Electrolyte imbalance (12) Malnutrition Assessment & Plan: DAILY ESTIMATED NEEDS: Needs based on cardiac, suspected wt loss 51kg 25-35 kcals/kg 1368-5732 total kcals 1-1.5 g protein/kg 51-76 g total protein 25-30 mL/kg 9155-7680 total fluid mLs NUTRITION DIAGNOSIS: Increased kcal/prot needs R/T suspected wt loss as evidenced by possible significant wt loss of 25.5lbs/18.5% in 5 months CURRENT DIET:REGULAR, mech soft chopped PO DIET RECOMMENDATIONS: Maintain liberalized REGULAR/ texture per MINE FOREMAN + Glucerna TID ADDITIONAL RECOMMENDATIONS: 1) Daily calibrated bed scale wt, monitor trend 2) Monitor BGs closely, need for hypoglycemics and/or carb controlled diet 3) Check A1C for eval of glycemic control: h/o DM 4) Glucerna TID w/ meals 5) Monitor lytes, replete as needed 5) MVI x 1 (13) Fever (14) Laceration of left upper extremity Assessment & Plan: 89-year-old female with laceration of her left arm/elbow. Unknown etiology patient with tremor, Parkinson's potential against bedside. There is a 1 cm laceration 1 mm epidermal dehiscence with 1 cm x 1 cm surroundi ng bruising. No drainage no signs of infection. Given size location will hold off on suture repair. Local care with dressings. Fairly superficial. No signs of active infection. Will monitor closely. Furthermore patient identified to have an con associated dermatitis upon admission. Erythema noted around the tae-anal area and buttock. Will monitor closely and care accordingly. Patient regularly wears diapers as per report. Will ensure close monitoring. Thank you for let me participate in patient's care John Avalos Apr 08, 2020 09:11
[2020-04-08] MEDS: Enoxaparin 40mg Inj SUBQ SCH (11:31)
[2020-04-08 12:00] VITALS: BP 109/54
--- NOTE | 2020-04-08 13:31 | General Progress Note ---
Subjective ROS Limited/Unobtainable: No Constitutional: Reports: malaise, weakness HEENT: Reports: no symptoms Cardiovascular: Reports: no symptoms Respiratory: Reports: cough Gastrointestinal/Abdominal: Reports: no symptoms Genitourinary: Reports: no symptoms Neurologic/Psychiatric: Reports: pre-existing deficit Endocrine: Reports: no symptoms Hematologic/Lymphatic: Reports: anemia Allergies: Coded Allergies: No Known Allergies (Unverified , 10/13/19) All Systems: reviewed and negative except above Subjective no events. stable. remains on iv abx. per ID 10 days of iv abx needed. no distress. withdrawn. weak. off o2 Objective Last 24 Hour Vital Signs Date Time Temp Pulse Resp B/P (MAP) Pulse Ox O2 Delivery O2 Flow Rate FiO2 04/08/20 12:00 96.6 58 21 109/54 (72) 97 04/08/20 09:00 Room Air 04/08/20 09:00 98/57 04/08/20 08:00 97.9 72 18 98/57 (71) 96 04/08/20 04:00 98.9 68 18 104/58 (73) 94 04/08/20 00:00 98.5 68 18 112/63 (79) 94 04/07/20 20:55 Room Air 04/07/20 20:00 99.9 67 18 119/62 (81) 96 04/07/20 16:00 97.7 71 18 126/68 (87) 97 Intake and Output 04/07/20 04/08/20 19:00 07:00 Intake Total 300 ml Output Total 650 ml 500 ml Balance -350 ml -500 ml Intake Oral 300 ml Output Urine Total 650 ml 500 ml # Bowel Movements 1 Laboratory Tests 04/08/20 11:55: Vancomycin Level Trough 13.2H Height (Feet): 5 Height (Inches): 2.00 Weight (Pounds): 107 Objective General Appearance: WD/WN, no apparent distress, alert, confused EENT: normal ENT inspection Neck: non-tender, normal alignment, supple Cardiovascular: normal peripheral pulses, normal rate, regular rhythm Respiratory/Chest: chest wall non-tender, lungs clear, normal breath sounds, no respiratory distress Abdomen: normal bowel sounds, non tender, soft, no organomegaly Edema: no edema noted Arm (L), no edema noted Arm (R) 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90 - Unspecified dementia without behavioral disturbance SNOMED: 62547082 (6) Artificial pacemaker ICD Codes: Z95.0 - Presence of cardiac pacemaker SNOMED: 572361175 (7) Suspected COVID-19 virus infection ICD Codes: R68.89 - Other general symptoms and signs SNOMED: 218353349 Status: stable Assessment/Plan: cont iv abx x 10 days total follow up cultures resp care o2 replace lytes as needed monitor labs dvt/stress ulcer prophylaxis family declined snf placement. Dtr aware that pt require total care and is currently max assist. dnr dc planning when cleared by Dax Farrell MD Apr 08, 2020 13:31
[2020-04-08] MEDS: Vancomycin 1.25gm/NS Premix q24h IVPB SCH (13:39)
--- NOTE | 2020-04-08 14:03 | Nephrology Progress Note ---
Assessment/Plan Problem List: (1) Anemia (2) Dehydration (3) Electrolyte imbalance (4) UTI (urinary tract infection) (5) BPH (benign prostatic hyperplasia) (6) Dementia (7) Malnutrition Assessment Lactic acidosis UTI, sepsis, high lactic acid, leukocytosis Chronic diastolic congestive heart failure Protein calorie malnutrition Elevated d-dimer Parkinson disease Diabetes mellitus BPH Dementia DNR status Plan April 08: No chemistry panel done today. Stable from renal standpoint of view. April 07: Labs reviewed. Stable from renal standpoint of view. April 06: Labs reviewed. Stable from renal standpoint reviewed. April 05: Labs reviewed. Potassium supplement ordered. Continue per ID. Stable from renal standpoint of view. April 04: Chemistry panel pending. Status quo. Continue per current management. Hydrate Keep the blood pressure and blood sugar in check Antibiotics Avoid nephrotoxic's Per orders Subjective ROS Limited/Unobtainable: No Constitutional: Reports: malaise Objective Objective Last 24 Hour Vital Signs Date Time Temp Pulse Resp B/P (MAP) Pulse Ox O2 Delivery O2 Flow Rate FiO2 04/08/20 12:00 96.6 58 21 109/54 (72) 97 04/08/20 09:00 Room Air 04/08/20 09:00 98/57 04/08/20 08:00 97.9 72 18 98/57 (71) 96 04/08/20 04:00 98.9 68 18 104/58 (73) 94 04/08/20 00:00 98.5 68 18 112/63 (79) 94 04/07/20 20:55 Room Air 04/07/20 20:00 99.9 67 18 119/62 (81) 96 04/07/20 16:00 97.7 71 18 126/68 (87) 97 Intake and Output 04/07/20 04/08/20 19:00 07:00 Intake Total 300 ml Output Total 650 ml 500 ml Balance -350 ml -500 ml Intake Oral 300 ml Output Urine Total 650 ml 500 ml # Bowel Movements 1 Laboratory Tests 04/08/20 11:55: Vancomycin Level Trough 13.2H Height (Feet): 5 Height (Inches): 2.00 Weight (Pounds): 107 General Appearance: no apparent distress Objective No change Ruben Davis MD Apr 08, 2020 14:03
--- NOTE | 2020-04-08 14:07 | NUR ---
NURSE NOTES: vanco trough 13.2 today. notified pharmacy and received OK to hang same dose of vanco 1.25mg @1300.
[2020-04-08] MEDS: cefTRIAXone 1 GM in D5W 50 ML IVPB SCH (15:19)
[2020-04-08 16:00] VITALS: BP 104/54
--- NOTE | 2020-04-08 17:29 | Infectious Diseases Prog Note ---
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 Parkinson's. 3. Dementia. 4. Paroxysmal atrial fibrillation. 5. BPH. 6. Hypertension. 7. Blood pressure treatment per primary care team. 8. Aspiration risk. 9. No history of diabetes. 10. No history of cancer. 11. No known allergies. 12. Social history is negative. 13. Family history is noncontributory. 14. MAR was noted. 15. Case was discussed with RN. 16. Case communicated with primary care team. 17. Continue treatment per primary consultants. 18. Skin care protocol. Subjective Constitutional: Denies: fever HEENT: Denies: congestion Respiratory: Denies: shortness of breath Cardiovascular: Denies: chest pain Gastrointestinal/Abdominal: Denies: nausea, vomiting, diarrhea Genitourinary: Reports: other - + frias Neurologic: Denies: headache Psychiatric: Denies: depression Skin: Denies: rash Hematologic: Denies: bleeding Musculoskeletal: Denies: pain Allergies: Coded Allergies: No Known Allergies (Unverified , 10/13/19) Objective Last 24 Hour Vital Signs Date Time Temp Pulse Resp B/P (MAP) Pulse Ox O2 Delivery O2 Flow Rate FiO2 04/08/20 16:00 97.4 65 18 104/54 (71) 98 04/08/20 12:00 96.6 58 21 109/54 (72) 97 04/08/20 09:00 Room Air 04/08/20 09:00 98/57 04/08/20 08:00 97.9 72 18 98/57 (71) 96 04/08/20 04:00 98.9 68 18 104/58 (73) 94 04/08/20 00:00 98.5 68 18 112/63 (79) 94 04/07/20 20:55 Room Air 04/07/20 20:00 99.9 67 18 119/62 (81) 96 Height (Feet): 5 Height (Inches): 2.00 Weight (Pounds): 107 General Appearance: no acute distress HEENT: normocephalic, atraumatic, anicteric, mucous membranes moist Respiratory/Chest: lungs clear, normal breath sounds, no respiratory distress, no accessory muscle use Cardiovascular: normal rate, regular rhythm, no gallop/murmur, no JVD Abdomen: normal bowel sounds, soft, non tender, no organomegaly, non distended Genitourinary: other - + frias - urine cloudy Extremities: no cyanosis Skin: no rash 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 This is suggestive of pulmonary edema Multiple calcified mediastinal and hilar lymph nodes as well as small calcified basilar left lung nodules, likely on the basis of old granulomatous disease Pneumobilia, also previously reported, presumably on the basis of prior biliary intervention 10 mm left adrenal nodule. Appearance nonspecific. Very likely a benign adenoma but other etiologies including malignant neoplasm also possible. Consider adrenal protocol CT or MRI if clinically indicated The CT scanner at [facility] is accredited by the [employer] and the scans are performed using protocols designed to limit radiation exposure to as low as reasonably achievable to attain images of sufficient resolution adequate for diagnostic evaluation. Chest x-ray - 04/06/20- Procedure: XRAY Chest 1v Indication: Cough Technique: One view of the chest Comparison: 04/02/2020 Findings: No acute infiltrates, effusions, or congestion. Tortuous calcified aorta. Normal heart size. Upper mediastinum unremarkable. No significant change Impression: No acute process. Microbiology Date/Time Source Procedure Growth Status 04/04/20 17:40 Urine,Clean Catch Urine Culture - Final Enterococcus Faecalis Kelsey Albicans Complete 04/04/20 09:05 Blood Blood Culture - Preliminary NO GROWTH AFTER 72 HOURS Resulted 04/02/20 13:12 Nasal Nares MRSA Culture - Final NO METHICILLIN RESISTANT STAPH AUREUS... Complete Labs Test 04/06/20 04:54 04/06/20 10:00 04/07/20 05:00 04/08/20 11:55 Sodium Level 139 MMOL/L (136-145) 140 MMOL/L (136-145) Potassium Level 3.5 MMOL/L (3.5-5.1) 4.2 MMOL/L (3.5-5.1) Chloride Level 108 MMOL/L (98-107) 109 MMOL/L (98-107) Carbon Dioxide Level 24 MMOL/L (21-32) 24 MMOL/L (21-32) Anion Gap 7 mmol/L (5-15) Blood Urea Nitrogen 6 mg/dL (7-18) 6 mg/dL (7-18) Creatinine 0.6 MG/DL (0.55-1.30) 0.7 MG/DL (0.55-1.30) Estimat Glomerular Filtration Rate > 60 mL/min (>60) > 60 mL/min (>60) Glucose Level 114 MG/DL (74-106) 102 MG/DL (74-106) Lactic Acid Level 1.50 mmol/L (0.4-2.0) Calcium Level 8.3 MG/DL (8.5-10.1) 8.5 MG/DL (8.5-10.1) Phosphorus Level 3.1 MG/DL (2.5-4.9) Magnesium Level 1.9 MG/DL (1.8-2.4) Total Bilirubin 0.7 MG/DL (0.2-1.0) 0.8 MG/DL (0.2-1.0) Aspartate Amino Transf (AST/SGOT) 18 U/L (15-37) 17 U/L (15-37) Alanine Aminotransferase (ALT/SGPT) 18 U/L (12-78) 16 U/L (12-78) Alkaline Phosphatase 62 U/L (46-116) 66 U/L (46-116) Pro-B-Type Natriuretic Peptide 1658 pg/mL (0-125) Total Protein 4.6 G/DL (6.4-8.2) 4.8 G/DL (6.4-8.2) Albumin 2.3 G/DL (3.4-5.0) 2.4 G/DL (3.4-5.0) Globulin 2.3 g/dL 2.4 g/dL Albumin/Globulin Ratio 1.0 (1.0-2.7) 1.0 (1.0-2.7) Vancomycin Level Trough 8.3 ug/mL (5.0-12.0) 13.2 ug/mL (5.0-12.0) White Blood Count 7.6 K/UL (4.8-10.8) Red Blood Count 3.56 M/UL (4.70-6.10) Hemoglobin 10.9 G/DL (14.2-18.0) Hematocrit 30.8 % (42.0-52.0) Mean Corpuscular Volume 86 FL (80-99) Mean Corpuscular Hemoglobin 30.7 PG (27.0-31.0) Mean Corpuscular Hemoglobin Concent 35.5 G/DL (32.0-36.0) Red Cell Distribution Width 12.5 % (11.6-14.8) Platelet Count 153 K/UL (150-450) Mean Platelet Volume 6.6 FL (6.5-10.1) Neutrophils (%) (Auto) 46.1 % (45.0-75.0) Lymphocytes (%) (Auto) 35.5 % (20.0-45.0) Monocytes (%) (Auto) 7.7 % (1.0-10.0) Eosinophils (%) (Auto) 9.9 % (0.0-3.0) Basophils (%) (Auto) 0.8 % (0.0-2.0) Laboratory Tests Test 04/08/20 11:55 Vancomycin Level Trough 13.2 ug/mL (5.0-12.0) H Current Medications Medications (Trade) Dose Ordered Sig/Jaime Route PRN Reason Start Time Stop Time Status Last Admin Dose Admin Acetaminophen (Tylenol) 650 mg Q4H PRN ORAL Temp >100.5 04/02/20 10:00 05/02/20 09:59 Bisacodyl (Dulcolax) 10 mg DAILYPRN PRN RECTAL Constipation 04/02/20 10:00 07/01/20 09:59 Ceftriaxone Sodium 1 gm/ Dextrose 50 ml @ 100 mls/hr Q24H IVPB 04/04/20 14:30 04/11/20 14:29 04/08/20 15:19 Dextrose (Dextrose 50%) 25 ml Q30M PRN IV Hypoglycemia 04/02/20 10:00 07/01/20 09:59 Dextrose (Dextrose 50%) 50 ml Q30M PRN IV Hypoglycemia 04/02/20 10:00 07/01/20 09:59 Enoxaparin Sodium (Lovenox) 40 mg Q24H SUBQ 04/02/20 11:00 07/01/20 10:59 04/08/20 11:31 Famotidine (Pepcid) 20 mg BID ORAL 04/04/20 18:00 07/03/20 17:59 04/08/20 08:31 Fluconazole (Diflucan) 100 mg DAILY ORAL 04/06/20 16:30 04/13/20 16:29 04/08/20 08:31 Lisinopril (ZestriL) 5 mg DAILY ORAL 04/07/20 09:00 05/07/20 08:59 04/07/20 08:46 Ondansetron HCl (Zofran) 4 mg Q6H PRN IVP Nausea & Vomiting 04/02/20 11:00 05/02/20 10:59 Polyethylene Glycol (Miralax) 17 gm DAILYPRN PRN ORAL Constipation 04/02/20 12:00 05/02/20 11:59 04/08/20 08:31 Potassium Chloride (K-Dur) 40 meq TWICE A DAY ORAL 04/05/20 09:00 07/04/20 08:59 04/08/20 08:31 Tamsulosin HCl (Flomax) 0.4 mg BEDTIME ORAL 04/02/20 21:00 05/02/20 20:59 04/07/20 21:53 Vancomycin HCl (Vanco pharmacy to dose) 1 ea DAILY PRN MISC Per rx protocol 04/02/20 10:00 05/02/20 09:59 Vancomycin/Sodium Chloride 275 ml @ 183.333 mls/hr Q24H IVPB 04/06/20 13:00 04/11/20 12:59 04/08/20 13:39 Cassia Alatorre MD Apr 08, 2020 17:29
--- NOTE | 2020-04-08 19:18 | NUR ---
NURSE HAND-OFF: Important Events on Shift:IV ATB, wound care. Patient Status:stable Diet: Regular mech chopped Pending Orders: n/a Pending Results/Labs:n/a Pending MD notification:n/a Latest Vital Signs: Temperature 97.4 , Pulse 65 , B/P 104 /54 , Respiratory Rate 18 , O2 SAT 98 , Room Air, O2 Flow Rate 2.0 . Vital Sign Comment: stable Latest Blount Fall Score: 50 Fall Risk: High Risk Safety Measures: Call light Within Reach, Bed Alarm Zone 3, Side Rails Side Rails x3, Bed position Low and Locked. Fall Precautions: Yellow Socks Patient Fall Education Report given to MELDIA Cisneros.
[2020-04-08 20:00] VITALS: BP 149/69
--- NOTE | 2020-04-08 20:00 | NUR ---
NURSE NOTES: Received patient in bed, awake, no acute distress in room air. Wound dressings c/d/i. On condom catheter, draining well via gravity with yellow urine. Will continue with plan of care.
[2020-04-08] MEDS: Tamsulosin 0.4mg cap ORAL SCH (20:03)
--- NOTE | 2020-04-08 23:18 | Cardiology Progress Note ---
Subjective DATE OF SERVICE: Apr 08, 2020 Episodes of SBP below 100 - asymptomatic. No c/o pain. No hx fall/trauma. Daughter wants patient to return home when stable CT angio was negative for pulmonary emboli, but suggests component of CHF Urine now reveals yeast; ID rx in place. IV abx for add'l 3 days. Objective Last 24 Hour Vital Signs Date Time Temp Pulse Resp B/P (MAP) Pulse Ox O2 Delivery O2 Flow Rate FiO2 04/08/20 21:00 Room Air 04/08/20 20:00 98.1 62 18 149/69 (95) 98 04/08/20 16:00 97.4 65 18 104/54 (71) 98 04/08/20 12:00 96.6 58 21 109/54 (72) 97 04/08/20 09:00 Room Air 04/08/20 09:00 98/57 04/08/20 08:00 97.9 72 18 98/57 (71) 96 04/08/20 04:00 98.9 68 18 104/58 (73) 94 04/08/20 00:00 98.5 68 18 112/63 (79) 94 ROS: unchanged from my evaluation of 04/02/20 HEENT: normal ENT inspection RHYTHM: NSR, PACs LUNGS: diminished breath sounds CARDIAC: normal rate, regular rhythm, normal S1 and S2 ABDOMEN: normal bowel sounds, non tender, soft EXTREMITIES: normal range of motion, No edema, other - Muscle atrophy - symmetric; +tremor of extremities Laboratory Tests Test 04/08/20 11:55 Vancomycin Level Trough 13.2 ug/mL (5.0-12.0) H Assessment/Plan Assessment/Plan UTI Fungal cystitis Sepsis Lactic acidosis Parkinsons with dementia Dehydration/hypernatremia Ac/chronic diastolic CHF Shoulder pains Sinus node disease Hypomagnesemia Hypokalemia Asymptomatic episode of hypotension - with adequate peripheral perfusion. Cautious diuresis based on clinical parameters; trend BNP IV magnesium as needed Replace potassium as needed Antimicrobials per ID Titrate Sinemet No indication for pacemaker DC plan 04/10 ? Tanmay Mayfield MD Apr 08, 2020 23:18
[2020-04-09] VITALS: BP 94/49
--- NOTE | 2020-04-09 00:18 | NUR ---
NURSE NOTES: Noted without any BM x3days despite Miralax given in AM. Dulcolax supp given as ordered. Will monitor.
[2020-04-09 04:00] VITALS: BP 100/50
--- NOTE | 2020-04-09 05:00 | NUR ---
NURSE NOTES: Patient had BM. Incontinence care and wound care provided on sacral.
--- NOTE | 2020-04-09 06:45 | NUR ---
NURSE HAND-OFF: Important Events on Shift: dulcolax given, had BM, dressing changed Patient Status: Diet: Pending Orders: Pending Results/Labs:[cbc cmp mg ph uric acid] Pending MD notification:[] Latest Vital Signs: Temperature 98.2 , Pulse 70 , B/P 100 /50 , Respiratory Rate 18 , O2 SAT 98 , Room Air, O2 Flow Rate 2.0 . Vital Sign Comment: [] Latest Blount Fall Score: 50 Fall Risk: High Risk Safety Measures: Call light Within Reach, Bed Alarm Zone 1, Side Rails Side Rails x3, Bed position Low and Locked. Fall Precautions: Yellow Socks Patient Fall Education
--- NOTE | 2020-04-09 06:56 | NUR ---
HAND-OFF: Report given to Genesis MONTEZ.
--- NOTE | 2020-04-09 07:11 | NUR ---
NURSE NOTES: received report from MELIDA Cisneros. patient in bed. alert to person and place. verbally responsive. no respiratory distress noted on room air. no pain at this time. lung sound clear. active bowel sound. skin tear on left arm dressing intact. condom cath draining. no hematuria. IV on left hand saline lock intact. bed in the lowest position and locked. call light within reach. alarm on. will continue to provide plan of care.
[2020-04-09 08:00] VITALS: BP 102/53
[2020-04-09 08:16] LABS: BASOPHILS % (AUTO) 0.6 % (0.0-2.0); EOSINOPHILS % (AUTO) 9.4 % (0.0-3.0); HEMATOCRIT 31.3 % (42.0-52.0); HEMOGLOBIN 10.9 G/DL (14.2-18.0); LYMPHOCYTES % (AUTO) 36.4 % (20.0-45.0); MEAN CORPUSCULAR VOLUME 88 FL (80-99); MONOCYTES % (AUTO) 7.9 % (1.0-10.0); NEUTROPHILS % (AUTO) 45.7 % (45.0-75.0); PLATELET COUNT 171 K/UL (150-450); RED BLOOD COUNT 3.57 M/UL (4.70-6.10); RED CELL DISTRIBUTION WIDTH 12.6 % (11.6-14.8); WHITE BLOOD COUNT 7.9 K/UL (4.8-10.8)
[2020-04-09 08:40] LABS: PHOSPHORUS 2.9 MG/DL (2.5-4.9)
[2020-04-09] MEDS: Fluconazole 100mg tab ORAL SCH (08:41)
[2020-04-09] MEDS: Lisinopril 2.5mg tab ORAL SCH (08:42)
[2020-04-09 08:48] LABS: ALANINE AMINOTRANSFERASE 23 U/L (12-78); ALBUMIN 2.7 G/DL (3.4-5.0); ALKALINE PHOSPHATASE 71 U/L (46-116); ANION GAP 10 mmol/L (5-15); ASPARTATE AMINO TRANSFERASE 22 U/L (15-37); BILIRUBIN,TOTAL 0.7 MG/DL (0.2-1.0); BLOOD UREA NITROGEN 7 mg/dL (7-18); CALCIUM 8.5 MG/DL (8.5-10.1); CARBON DIOXIDE 22 MMOL/L (21-32); CHLORIDE 108 MMOL/L (98-107); CREATININE 0.7 MG/DL (0.55-1.30); POTASSIUM 4.1 MMOL/L (3.5-5.1); SODIUM 139 MMOL/L (136-145)
[2020-04-09] MEDS: Enoxaparin 40mg Inj SUBQ SCH (11:19)
--- NOTE | 2020-04-09 11:37 | General Progress Note ---
Subjective ROS Limited/Unobtainable: Yes Constitutional: Reports: no symptoms HEENT: Reports: no symptoms Cardiovascular: Reports: no symptoms Respiratory: Reports: no symptoms Gastrointestinal/Abdominal: Reports: no symptoms Genitourinary: Reports: no symptoms Neurologic/Psychiatric: Reports: no symptoms Endocrine: Reports: no symptoms Hematologic/Lymphatic: Reports: no symptoms Allergies: Coded Allergies: No Known Allergies (Unverified , 10/13/19) All Systems: reviewed and negative except above Subjective no events. stable. remains on iv abx. per ID 10 days of iv abx needed. no distre ss. per staff more alert. follows commands in croatian. eating better. weak. off o2 Objective Last 24 Hour Vital Signs Date Time Temp Pulse Resp B/P (MAP) Pulse Ox O2 Delivery O2 Flow Rate FiO2 04/09/20 09:00 Room Air 04/09/20 08:42 102/53 04/09/20 08:00 97.8 67 18 102/53 (69) 98 04/09/20 04:00 98.2 70 18 100/50 (67) 98 04/09/20 00:00 99.0 63 18 94/49 (64) 96 04/08/20 21:00 Room Air 04/08/20 20:00 98.1 62 18 149/69 (95) 98 04/08/20 16:00 97.4 65 18 104/54 (71) 98 04/08/20 12:00 96.6 58 21 109/54 (72) 97 Intake and Output 04/08/20 04/09/20 19:00 07:00 Intake Total 1023.333 ml 360 ml Output Total 200 ml 400 ml Balance 823.333 ml -40 ml Intake Oral 840 ml IV Total 183.333 ml Other 360 ml Output Urine Total 200 ml 400 ml # Voids 3 # Bowel Movements 1 Laboratory Tests 04/08/20 11:55: Vancomycin Level Trough 13.2H 04/09/20 06:15: White Blood Count 7.9, Red Blood Count 3.57L, Hemoglobin 10.9L, Hematocrit 31.3L , Mean Corpuscular Volume 88, Mean Corpuscular Hemoglobin 30.7, Mean Corpuscular Hemoglobin Concent 35.0, Red Cell Distribution Width 12.6, Platelet Count 171, Mean Platelet Volume 5.8L, Neutrophils (%) (Auto) 45.7, Lymphocytes (%) (Auto) 36.4, Monocytes (%) (Auto) 7.9, Eosinophils (%) (Auto) 9.4H, Basophils (%) (Auto) 0.6, Sodium Level 139, Potassium Level 4.1, Chloride Level 108H, Carbon Dioxide Level 22, Anion Gap 10, Blood Urea Nitrogen 7, Creatinine 0.7, Estimat Glomerular Filtration Rate > 60, Glucose Level 97, Uric Acid 4.8, Calcium Level 8.5, Phosphorus Level 2.9, Magnesium Level 1.9, Total Bilirubin 0.7, Aspartate Amino Transf (AST/SGOT) 22, Alanine Aminotransferase (ALT/SGPT) 23, Alkaline Phosphatase 71, Total Protein 5.4L, Albumin 2.7L, Globulin 2.7, Albumin/Globulin Ratio 1.0 Height (Feet): 5 Height (Inches): 2.00 Weight (Pounds): 107 Objective General Appearance: WD/WN, no apparent distress, alert, confused EENT: normal ENT inspection Neck: non-tender, normal alignment, supple Cardiovascular: normal peripheral pulses, normal rate, regular rhythm Respiratory/Chest: chest wall non-tender, lungs clear, normal breath sounds, no respiratory distress Abdomen: normal bowel sounds, non tender, soft, no organomegaly Edema: no edema noted Arm (L), no edema noted Arm (R) 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90 - Unspecified dementia without behavioral disturbance SNOMED: 13927830 (6) Artificial pacemaker ICD Codes: Z95.0 - Presence of cardiac pacemaker SNOMED: 042932778 (7) Suspected COVID-19 virus infection ICD Codes: R68.89 - Other general symptoms and signs SNOMED: 221109171 Status: stable Assessment/Plan: cont iv abx x 10 days total follow up cultures resp care o2 replace lytes as needed monitor labs dvt/stress ulcer prophylaxis family declined snf placement. Dtr aware that pt require total care and is currently max assist. dnr dc planning when cleared by Dax Farrell MD Apr 09, 2020 11:37
[2020-04-09 12:00] VITALS: BP 109/61
--- NOTE | 2020-04-09 12:01 | Nephrology Progress Note ---
Assessment/Plan Problem List: (1) Anemia (2) Dehydration (3) Electrolyte imbalance (4) UTI (urinary tract infection) (5) BPH (benign prostatic hyperplasia) (6) Dementia (7) Malnutrition Assessment Lactic acidosis UTI, sepsis, high lactic acid, leukocytosis Chronic diastolic congestive heart failure Protein calorie malnutrition Elevated d-dimer Parkinson disease Diabetes mellitus BPH Dementia DNR status Plan April 09: Labs reviewed. Renal parameters stable. April 08: No chemistry panel done today. Stable from renal standpoint of view. April 07: Labs reviewed. Stable from renal standpoint of view. April 06: Labs reviewed. Stable from renal standpoint reviewed. April 05: Labs reviewed. Potassium supplement ordered. Continue per ID. Stable from renal standpoint of view. April 04: Chemistry panel pending. Status quo. Continue per current management. Hydrate Keep the blood pressure and blood sugar in check Antibiotics Avoid nephrotoxic's Per orders Subjective ROS Limited/Unobtainable: No Constitutional: Reports: malaise Objective Objective Last 24 Hour Vital Signs Date Time Temp Pulse Resp B/P (MAP) Pulse Ox O2 Delivery O2 Flow Rate FiO2 04/09/20 09:00 Room Air 04/09/20 08:42 102/53 04/09/20 08:00 97.8 67 18 102/53 (69) 98 04/09/20 04:00 98.2 70 18 100/50 (67) 98 04/09/20 00:00 99.0 63 18 94/49 (64) 96 04/08/20 21:00 Room Air 04/08/20 20:00 98.1 62 18 149/69 (95) 98 04/08/20 16:00 97.4 65 18 104/54 (71) 98 Intake and Output 04/08/20 04/09/20 19:00 07:00 Intake Total 1023.333 ml 360 ml Output Total 200 ml 400 ml Balance 823.333 ml -40 ml Intake Oral 840 ml IV Total 183.333 ml Other 360 ml Output Urine Total 200 ml 400 ml # Voids 3 # Bowel Movements 1 Laboratory Tests 04/09/20 06:15: White Blood Count 7.9, Red Blood Count 3.57L, Hemoglobin 10.9L, Hematocrit 31.3L , Mean Corpuscular Volume 88, Mean Corpuscular Hemoglobin 30.7, Mean Corpuscular Hemoglobin Concent 35.0, Red Cell Distribution Width 12.6, Platelet Count 171, Mean Platelet Volume 5.8L, Neutrophils (%) (Auto) 45.7, Lymphocytes (%) (Auto) 36.4, Monocytes (%) (Auto) 7.9, Eosinophils (%) (Auto) 9.4H, Basophils (%) (Auto) 0.6, Sodium Level 139, Potassium Level 4.1, Chloride Level 108H, Carbon Dioxide Level 22, Anion Gap 10, Blood Urea Nitrogen 7, Creatinine 0.7, Estimat Glomerular Filtration Rate > 60, Glucose Level 97, Uric Acid 4.8, Calcium Level 8.5, Phosphorus Level 2.9, Magnesium Level 1.9, Total Bilirubin 0.7, Aspartate Amino Transf (AST/SGOT) 22, Alanine Aminotransferase (ALT/SGPT) 23, Alkaline Phosphatase 71, Total Protein 5.4L, Albumin 2.7L, Globulin 2.7, Albumin/Globulin Ratio 1.0 Height (Feet): 5 Height (Inches): 2.00 Weight (Pounds): 107 General Appearance: no apparent distress Objective No change Ruben Davis MD Apr 09, 2020 12:01
[2020-04-09] MEDS: Vancomycin 1.25gm/NS Premix q24h IVPB SCH (12:42)
[2020-04-09 16:00] VITALS: BP 117/56
--- NOTE | 2020-04-09 16:08 | Surgery Progress Note ---
Surgery Progress Note Subjective Additional Comments no acute events comfortable improved Objective Last 24 Hour Vital Signs Date Time Temp Pulse Resp B/P (MAP) Pulse Ox O2 Delivery O2 Flow Rate FiO2 04/09/20 12:00 98.0 69 17 109/61 (77) 98 04/09/20 09:00 Room Air 04/09/20 08:42 102/53 04/09/20 08:00 97.8 67 18 102/53 (69) 98 04/09/20 04:00 98.2 70 18 100/50 (67) 98 04/09/20 00:00 99.0 63 18 94/49 (64) 96 04/08/20 21:00 Room Air 04/08/20 20:00 98.1 62 18 149/69 (95) 98 I&O Intake and Output 04/08/20 04/09/20 19:00 07:00 Intake Total 1023.333 ml 360 ml Output Total 200 ml 400 ml Balance 823.333 ml -40 ml Intake Oral 840 ml IV Total 183.333 ml Other 360 ml Output Urine Total 200 ml 400 ml # Voids 3 # Bowel Movements 1 Dressing: saturated Cardiovascular: RSR Respiratory: decreased breath sounds Abdomen: soft, non-tender, present bowel sounds Extremities: no tenderness, no cyanosis, other Laboratory Tests Test 04/09/20 06:15 White Blood Count 7.9 K/UL (4.8-10.8) Red Blood Count 3.57 M/UL (4.70-6.10) L Hemoglobin 10.9 G/DL (14.2-18.0) L Hematocrit 31.3 % (42.0-52.0) L Mean Corpuscular Volume 88 FL (80-99) Mean Corpuscular Hemoglobin 30.7 PG (27.0-31.0) Mean Corpuscular Hemoglobin Concent 35.0 G/DL (32.0-36.0) Red Cell Distribution Width 12.6 % (11.6-14.8) Platelet Count 171 K/UL (150-450) Mean Platelet Volume 5.8 FL (6.5-10.1) L Neutrophils (%) (Auto) 45.7 % (45.0-75.0) Lymphocytes (%) (Auto) 36.4 % (20.0-45.0) Monocytes (%) (Auto) 7.9 % (1.0-10.0) Eosinophils (%) (Auto) 9.4 % (0.0-3.0) H Basophils (%) (Auto) 0.6 % (0.0-2.0) Sodium Level 139 MMOL/L (136-145) Potassium Level 4.1 MMOL/L (3.5-5.1) Chloride Level 108 MMOL/L (98-107) H Carbon Dioxide Level 22 MMOL/L (21-32) Anion Gap 10 mmol/L (5-15) Blood Urea Nitrogen 7 mg/dL (7-18) Creatinine 0.7 MG/DL (0.55-1.30) Estimat Glomerular Filtration Rate > 60 mL/min (>60) Glucose Level 97 MG/DL (74-106) Uric Acid 4.8 MG/DL (2.6-7.2) Calcium Level 8.5 MG/DL (8.5-10.1) Phosphorus Level 2.9 MG/DL (2.5-4.9) Magnesium Level 1.9 MG/DL (1.8-2.4) Total Bilirubin 0.7 MG/DL (0.2-1.0) Aspartate Amino Transf (AST/SGOT) 22 U/L (15-37) Alanine Aminotransferase (ALT/SGPT) 23 U/L (12-78) Alkaline Phosphatase 71 U/L (46-116) Total Protein 5.4 G/DL (6.4-8.2) L Albumin 2.7 G/DL (3.4-5.0) L Globulin 2.7 g/dL Albumin/Globulin Ratio 1.0 (1.0-2.7) Plan Problems: (1) Dementia (2) Parkinson disease (3) BPH (benign prostatic hyperplasia) (4) Sepsis (5) UTI (urinary tract infection) (6) Elevated d-dimer (7) Artificial pacemaker (8) Suspected COVID-19 virus infection (9) Dehydration (10) Anemia (11) Electrolyte imbalance (12) Malnutrition Assessment & Plan: DAILY ESTIMATED NEEDS: Needs based on cardiac, suspected wt loss 51kg 25-35 kcals/kg 9185-6311 total kcals 1-1.5 g protein/kg 51-76 g total protein 25-30 mL/kg 6791-7747 total fluid mLs NUTRITION DIAGNOSIS: Increased kcal/prot needs R/T suspected wt loss as evidenced by possible significant wt loss of 25.5lbs/18.5% in 5 months CURRENT DIET:REGULAR, mech soft chopped PO DIET RECOMMENDATIONS: Maintain liberalized REGULAR/ texture per BUS INFO CONSULTANT + Glucerna TID ADDITIONAL RECOMMENDATIONS: 1) Daily calibrated bed scale wt, monitor trend 2) Monitor BGs closely, need for hypoglycemics and/or carb controlled diet 3) Check A1C for eval of glycemic control: h/o DM 4) Glucerna TID w/ meals 5) Monitor lytes, replete as needed 5) MVI x 1 (13) Fever (14) Laceration of left upper extremity Assessment & Plan: 89-year-old female with laceration of her left arm/elbow. Unknown etiology patient with tremor, Parkinson's potential against bedside. There is a 1 cm laceration 1 mm epidermal dehiscence with 1 cm x 1 cm surrounding bruising. No drainage no signs of infection. Given size location will hold off on suture repair. Local care with dressings. Fairly superficial. No signs of active infection. Will monitor closely. Furthermore patient identified to have an con associated dermatitis upon admission. Erythema noted around the tae-anal area and buttock. Will monitor closely and care accordingly. Patient regularly wears diapers as per report. Will ensure close monitoring. Thank you for let me participate in patient's care John Avalos Apr 09, 2020 16:08
--- NOTE | 2020-04-09 17:17 | Cardiology Progress Note ---
Subjective DATE OF SERVICE: Apr 09, 2020 Rare episodes of SBP below 100 - asymptomatic and likely his baseline. No c/o pain. Follows commands in turkish. Daughter wants patient to return home when stable CT angio was negative for pulmonary emboli, but suggests component of CHF Urine now reveals yeast; ID rx in place. Objective Last 24 Hour Vital Signs Date Time Temp Pulse Resp B/P (MAP) Pulse Ox O2 Delivery O2 Flow Rate FiO2 04/09/20 12:00 98.0 69 17 109/61 (77) 98 04/09/20 09:00 Room Air 04/09/20 08:42 102/53 04/09/20 08:00 97.8 67 18 102/53 (69) 98 04/09/20 04:00 98.2 70 18 100/50 (67) 98 04/09/20 00:00 99.0 63 18 94/49 (64) 96 04/08/20 21:00 Room Air 04/08/20 20:00 98.1 62 18 149/69 (95) 98 ROS: unchanged from my evaluation of 04/02/20 HEENT: normal ENT inspection RHYTHM: NSR, PACs LUNGS: diminished breath sounds CARDIAC: normal rate, regular rhythm, normal S1 and S2 ABDOMEN: normal bowel sounds, non tender, soft EXTREMITIES: normal range of motion, No edema, other - Muscle atrophy - symmetric; +tremor of extremities Laboratory Tests Test 04/09/20 06:15 White Blood Count 7.9 K/UL (4.8-10.8) Red Blood Count 3.57 M/UL (4.70-6.10) L Hemoglobin 10.9 G/DL (14.2-18.0) L Hematocrit 31.3 % (42.0-52.0) L Mean Corpuscular Volume 88 FL (80-99) Mean Corpuscular Hemoglobin 30.7 PG (27.0-31.0) Mean Corpuscular Hemoglobin Concent 35.0 G/DL (32.0-36.0) Red Cell Distribution Width 12.6 % (11.6-14.8) Platelet Count 171 K/UL (150-450) Mean Platelet Volume 5.8 FL (6.5-10.1) L Neutrophils (%) (Auto) 45.7 % (45.0-75.0) Lymphocytes (%) (Auto) 36.4 % (20.0-45.0) Monocytes (%) (Auto) 7.9 % (1.0-10.0) Eosinophils (%) (Auto) 9.4 % (0.0-3.0) H Basophils (%) (Auto) 0.6 % (0.0-2.0) Sodium Level 139 MMOL/L (136-145) Potassium Level 4.1 MMOL/L (3.5-5.1) Chloride Level 108 MMOL/L (98-107) H Carbon Dioxide Level 22 MMOL/L (21-32) Anion Gap 10 mmol/L (5-15) Blood Urea Nitrogen 7 mg/dL (7-18) Creatinine 0.7 MG/DL (0.55-1.30) Estimat Glomerular Filtration Rate > 60 mL/min (>60) Glucose Level 97 MG/DL (74-106) Uric Acid 4.8 MG/DL (2.6-7.2) Calcium Level 8.5 MG/DL (8.5-10.1) Phosphorus Level 2.9 MG/DL (2.5-4.9) Magnesium Level 1.9 MG/DL (1.8-2.4) Total Bilirubin 0.7 MG/DL (0.2-1.0) Aspartate Amino Transf (AST/SGOT) 22 U/L (15-37) Alanine Aminotransferase (ALT/SGPT) 23 U/L (12-78) Alkaline Phosphatase 71 U/L (46-116) Total Protein 5.4 G/DL (6.4-8.2) L Albumin 2.7 G/DL (3.4-5.0) L Globulin 2.7 g/dL Albumin/Globulin Ratio 1.0 (1.0-2.7) Assessment/Plan Assessment/Plan UTI Fungal cystitis Sepsis Lactic acidosis Parkinsons with dementia Dehydration/hypernatremia Ac/chronic diastolic CHF Shoulder pains Sinus node disease Hypomagnesemia Hypokalemia Asymptomatic episode of hypotension - with adequate peripheral perfusion; likely baseline range for this patient. No additional diuresis at present IV magnesium as needed Replace potassium as needed Antimicrobials per ID Titrate Sinemet No indication for pacemaker DC plan 04/10 ? Tanmay Mayfield MD Apr 09, 2020 17:17
--- NOTE | 2020-04-09 19:22 | NUR ---
NURSE HAND-OFF: Important Events on Shift:IV ATB Patient Status: stable Diet: regular mech chopped. 1:1 feeder Pending Orders: n/a Pending Results/Labs:n/a Pending MD notification:n/a Latest Vital Signs: Temperature 98.0 , Pulse 65 , B/P 117 /56 , Respiratory Rate 18 , O2 SAT 98 , Room Air, O2 Flow Rate 2.0 . Vital Sign Comment: stable Latest Blount Fall Score: 50 Fall Risk: High Risk Safety Measures: Call light Within Reach, Bed Alarm Zone 1, Side Rails Side Rails x3, Bed position Low and Locked. Fall Precautions: Yellow Socks Patient Fall Education Report given to MELIDA Cisneros.
--- NOTE | 2020-04-09 19:43 | NUR ---
NURSE NOTES: Patient received in bed, awake, appears in no acute distress in room air. On low air loss mattress. Will continue with plan of care.
[2020-04-09 20:00] VITALS: BP 119/60
[2020-04-09] MEDS: Tamsulosin 0.4mg cap ORAL SCH (20:05)
[2020-04-10] VITALS: BP 108/53
[2020-04-10 04:00] VITALS: BP 125/64
--- NOTE | 2020-04-10 07:25 | NUR ---
NURSE NOTES: Received report from MELIDA Cisneros. Patient received lying in hospital bed, AAO x 2 Spanish speaking only. Patient is on RA in no apparent respiratory distress or pain. Patient is on regular mechanical soft diet 1:1 feeder needing meds crushed. LBM on 04/09. Incontinent x 2. Removed his condom catheter in previous shift. Has ST 2 sacral pressure injury, and L FA skin tear healing with low air loss mattress in place. Pending ID clearance for home DC. Bed locked, in lowest position with alarm on. Call light within reach. Will continue POC.
[2020-04-10 08:00] VITALS: BP 101/55
--- NOTE | 2020-04-10 08:02 | NUR ---
NURSE HAND-OFF: Important Events on Shift:[uneventful] Patient Status: [stable] Diet: [Reg. mech chopped 1:1 feed] Pending Orders: [] Pending Results/Labs:[] Pending MD notification:[] Latest Vital Signs: Temperature 97.7 , Pulse 86 , B/P 125 /64 , Respiratory Rate 20 , O2 SAT 96 , Room Air, O2 Flow Rate 2.0 . Vital Sign Comment: [] Latest Blount Fall Score: 50 Fall Risk: High Risk Safety Measures: Call light Within Reach, Bed Alarm Zone 1, Side Rails Side Rails x3, Bed position Low and Locked. Fall Precautions: Yellow Socks Patient Fall Education Report given to [Richard Arechiga RN].
[2020-04-10] MEDS: Lisinopril 2.5mg tab ORAL SCH (09:00)
[2020-04-10] MEDS: Fluconazole 100mg tab ORAL SCH (09:43)
[2020-04-10] MEDS: Enoxaparin 40mg Inj SUBQ SCH (11:25)
[2020-04-10 12:00] VITALS: BP 119/59
[2020-04-10] MEDS: Vancomycin 1.25gm/NS Premix q24h IVPB SCH (12:24)
--- NOTE | 2020-04-10 12:44 | Nephrology Progress Note ---
Assessment/Plan Problem List: (1) Anemia (2) Dehydration (3) Electrolyte imbalance (4) UTI (urinary tract infection) (5) BPH (benign prostatic hyperplasia) (6) Dementia (7) Malnutrition Assessment Lactic acidosis UTI, sepsis, high lactic acid, leukocytosis Chronic diastolic congestive heart failure Protein calorie malnutrition Elevated d-dimer Parkinson disease Diabetes mellitus BPH Dementia DNR status Plan April 10: Stable from renal standpoint of view. Continue per PMD. April 09: Labs reviewed. Renal parameters stable. April 08: No chemistry panel done today. Stable from renal standpoint of view. April 07: Labs reviewed. Stable from renal standpoint of view. April 06: Labs reviewed. Stable from renal standpoint reviewed. April 05: Labs reviewed. Potassium supplement ordered. Continue per ID. Stable from renal standpoint of view. April 04: Chemistry panel pending. Status quo. Continue per current management. Hydrate Keep the blood pressure and blood sugar in check Antibiotics Avoid nephrotoxic's Per orders Subjective ROS Limited/Unobtainable: No Constitutional: Reports: malaise Objective Objective Last 24 Hour Vital Signs Date Time Temp Pulse Resp B/P (MAP) Pulse Ox O2 Delivery O2 Flow Rate FiO2 04/10/20 12:00 97.9 60 20 119/59 (79) 100 04/10/20 09:00 Room Air 04/10/20 09:00 101/55 04/10/20 08:00 97.8 60 18 101/55 (70) 98 04/10/20 04:00 97.7 86 20 125/64 (84) 96 04/10/20 00:00 98.4 62 20 108/53 (71) 96 04/09/20 21:00 Room Air 04/09/20 20:00 98.4 63 18 119/60 (79) 98 04/09/20 16:00 98.0 65 18 117/56 (76) 98 Intake and Output 04/09/20 04/10/20 18:59 06:59 Output Total 600 ml 1000 ml Balance -600 ml -1000 ml Output Urine Total 600 ml 1000 ml # Voids 1 No chemistry panel done today Height (Feet): 5 Height (Inches): 2.00 Weight (Pounds): 107 General Appearance: no apparent distress Objective No change Ruben Davis MD Apr 10, 2020 12:44
--- NOTE | 2020-04-10 13:23 | NUR ---
P.T Weekly Progress Notes: Pt seen this past week of P.T sessions. Tx consisted of ADL/functional mobility training, Thera exercise and sitting balance activities. Pt is limited R shoulder/arm pain and fear of mobilities resulting to resistance and retropulsion. Pt remained MAX/total assist for all bed mobility tasks. Pt unable to maintain sitting balance at the EOB w/o max A and tactile cues. Overall fair activities. . Spoke to daughter who has been the pt's caregiver, stating that patient has been baseline bedbound dependent with self care/ADL tasks. NO significant progress past baseline function were made since P.T evaluation. Pt remained at baselined function , skilled P.T services no longer needed at this time. [facility] P.T service. Recommend return at prior living arrangement with 24 hr CG at [facility]. Addendum: 04/10/20 at 1340 by ROZ GOLD PT Amended: Links added.
--- NOTE | 2020-04-10 14:29 | Surgery Progress Note ---
Surgery Progress Note Subjective Additional Comments improved is eating near 100% with assistance feels better no complaints Objective Last 24 Hour Vital Signs Date Time Temp Pulse Resp B/P (MAP) Pulse Ox O2 Delivery O2 Flow Rate FiO2 04/10/20 12:00 97.9 60 20 119/59 (79) 100 04/10/20 09:00 Room Air 04/10/20 09:00 101/55 04/10/20 08:00 97.8 60 18 101/55 (70) 98 04/10/20 04:00 97.7 86 20 125/64 (84) 96 04/10/20 00:00 98.4 62 20 108/53 (71) 96 04/09/20 21:00 Room Air 04/09/20 20:00 98.4 63 18 119/60 (79) 98 04/09/20 16:00 98.0 65 18 117/56 (76) 98 I&O Intake and Output 04/09/20 04/10/20 19:00 07:00 Output Total 600 ml 1000 ml Balance -600 ml -1000 ml Output Urine Total 600 ml 1000 ml # Voids 1 Dressing: other Wound: other Cardiovascular: RSR Respiratory: decreased breath sounds Abdomen: soft, non-tender, present bowel sounds Extremities: no tenderness, no cyanosis Plan Problems: (1) Dementia (2) Parkinson disease (3) BPH (benign prostatic hyperplasia) (4) Sepsis (5) UTI (urinary tract infection) (6) Elevated d-dimer (7) Artificial pacemaker (8) Suspected COVID-19 virus infection (9) Dehydration (10) Anemia (11) Electrolyte imbalance (12) Malnutrition Assessment & Plan: DAILY ESTIMATED NEEDS: Needs based on cardiac, suspected wt loss 51kg 25-35 kcals/kg 4965-1683 total kcals 1-1.5 g protein/kg 51-76 g total protein 25-30 mL/kg 8901-1157 total fluid mLs NUTRITION DIAGNOSIS: Increased kcal/prot needs R/T suspected wt loss as evidenced by possible significant wt loss of 25.5lbs/18.5% in 5 months CURRENT DIET:REGULAR, mech soft chopped PO DIET RECOMMENDATIONS: Maintain liberalized REGULAR/ texture per MAINTENANCE MACHINIST + Glucerna TID ADDITIONAL RECOMMENDATIONS: 1) Daily calibrated bed scale wt, monitor trend 2) Monitor BGs closely, need for hypoglycemics and/or carb controlled diet 3) Check A1C for eval of glycemic control: h/o DM 4) Glucerna TID w/ meals 5) Monitor lytes, replete as needed 5) MVI x 1 (13) Fever (14) Laceration of left upper extremity Assessment & Plan: 89-year-old female with laceration of her left arm/elbow. Unknown etiology patient with tremor, Parkinson's potential against bedside. There is a 1 cm laceration 1 mm epidermal dehiscence with 1 cm x 1 cm surrounding bruising. No drainage no signs of infection. Given size location will hold off on suture repair. Local care with dressings. Fairly superficial. No signs of active infection. Will monitor closely. Furthermore patient identified to have an con associated dermatitis upon admission. Erythema noted around the tae-anal area and buttock. Will monitor closely and care accordingly. Patient regularly wears diapers as per report. Will ensure close monitoring. Thank you for let me participate in patient's care resolved improved no subsequent injury John Avalos Apr 10, 2020 14:29
--- NOTE | 2020-04-10 15:41 | NUR ---
CASE MANAGEMENT:REVIEW SI;SEPSIS D/T BACTEREMIA AND UTI. 98.4 86 20 101/55 96% ON RA IS;DIFLUCAN PO QD VANCOMYCIN IV Q24 K-DUR PO BID LOVENOX SUBQ Q24 MED SURG STATUS DCP;FROM HOME
[2020-04-10 16:00] VITALS: BP 100/58
--- NOTE | 2020-04-10 16:37 | General Progress Note ---
Subjective ROS Limited/Unobtainable: No Constitutional: Reports: malaise, weakness HEENT: Reports: no symptoms Cardiovascular: Reports: no symptoms Respiratory: Reports: no symptoms Gastrointestinal/Abdominal: Reports: no symptoms Genitourinary: Reports: no symptoms Neurologic/Psychiatric: Reports: no symptoms Endocrine: Reports: no symptoms Hematologic/Lymphatic: Reports: no symptoms Allergies: Coded Allergies: No Known Allergies (Unverified , 10/13/19) All Systems: reviewed and negative except above Subjective no events. stable. remains on iv abx. per ID 10 days of iv abx needed. no distress. per staff more alert. eating better. weak. off o2 Objective Last 24 Hour Vital Signs Date Time Temp Pulse Resp B/P (MAP) Pulse Ox O2 Delivery O2 Flow Rate FiO2 04/10/20 16:00 97.5 63 19 100/58 (72) 98 04/10/20 12:00 97.9 60 20 119/59 (79) 100 04/10/20 09:00 Room Air 04/10/20 09:00 101/55 04/10/20 08:00 97.8 60 18 101/55 (70) 98 04/10/20 04:00 97.7 86 20 125/64 (84) 96 04/10/20 00:00 98.4 62 20 108/53 (71) 96 04/09/20 21:00 Room Air 04/09/20 20:00 98.4 63 18 119/60 (79) 98 Intake and Output 04/09/20 04/10/20 19:00 07:00 Output Total 600 ml 1000 ml Balance -600 ml -1000 ml Output Urine Total 600 ml 1000 ml # Voids 1 Height (Feet): 5 Height (Inches): 2.00 Weight (Pounds): 107 Objective General Appearance: WD/WN, no apparent distress, alert, confused EENT: normal ENT inspection Neck: non-tender, normal alignment, supple Cardiovascular: normal peripheral pulses, normal rate, regular rhythm Respiratory/Chest: chest wall non-tender, lungs clear, normal breath sounds, no respiratory distress Abdomen: normal bowel sounds, non tender, soft, no organomegaly Edema: no edema noted Arm (L), no edema noted Arm (R) Neurologic: surg tech II-XII grossly normal, responsive, disoriented Skin: normal pigmentation Lymphatic: normal anterior cervical (L), normal anterior cervical (R) Assessment/Plan Problem List: (1) UTI (urinary tract infection) ICD Codes: N39.0 - Urinary tract infection, site not specified SNOMED: 05211763 (2) Sepsis ICD Codes: A41.9 - Sepsis, unspecified organism SNOMED: 11641420 (3) BPH (benign prostatic hyperplasia) ICD Codes: N40.0 - Benign prostatic hyperplasia without lower urinary tract symptoms SNOMED: 221916641 Qualifiers: (4) Parkinson disease ICD Codes: G20 - Parkinson's disease SNOMED: 06794232 (5) Dementia ICD Codes: F03.90 - Unspecified dementia without behavioral disturbance SNOMED: 09584228 (6) Artificial pacemaker ICD Codes: Z95.0 - Presence of cardiac pacemaker SNOMED: 847037893 (7) Suspected COVID-19 virus infection ICD Codes: R68.89 - Other general symptoms and signs SNOMED: 769485813 Status: stable Assessment/Plan: cont iv abx x 10 days total follow up cultures resp care o2 replace lytes as needed monitor labs dvt/stress ulcer prophylaxis family declined snf placement. Dtr aware that pt require total care and is c urrently max assist. dnr dc planning when cleared by Dax Farrell MD Apr 10, 2020 16:37
--- NOTE | 2020-04-10 19:01 | Infectious Diseases Prog Note ---
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 Parkinson's. 3. Dementia. 4. Paroxysmal atrial fibrillation. 5. BPH. 6. Hypertension. 7. Blood pressure treatment per primary care team. 8. Aspiration risk. 9. No history of diabetes. 10. No history of cancer. 11. No known allergies. 12. Social history is negative. 13. Family history is noncontributory. 14. MAR was noted. 15. Case was discussed with RN. 16. Case communicated with primary care team. 17. Continue treatment per primary consultants. 18. Skin care protocol. Subjective Constitutional: Denies: fever HEENT: Denies: congestion Respiratory: Denies: shortness of breath Cardiovascular: Denies: chest pain Gastrointestinal/Abdominal: Denies: nausea Genitourinary: Denies: dysuria Neurologic: Denies: headache Psychiatric: Denies: depression, anxiety Skin: Denies: rash Hematologic: Denies: bleeding Musculoskeletal: Denies: pain Allergies: Coded Allergies: No Known Allergies (Unverified , 10/13/19) Objective Last 24 Hour Vital Signs Date Time Temp Pulse Resp B/P (MAP) Pulse Ox O2 Delivery O2 Flow Rate FiO2 04/10/20 16:00 97.5 63 19 100/58 (72) 98 04/10/20 12:00 97.9 60 20 119/59 (79) 100 04/10/20 09:00 Room Air 04/10/20 09:00 101/55 04/10/20 08:00 97.8 60 18 101/55 (70) 98 04/10/20 04:00 97.7 86 20 125/64 (84) 96 04/10/20 00:00 98.4 62 20 108/53 (71) 96 04/09/20 21:00 Room Air 04/09/20 20:00 98.4 63 18 119/60 (79) 98 Height (Feet): 5 Height (Inches): 2.00 Weight (Pounds): 107 General Appearance: no acute distress HEENT: normocephalic, atraumatic, anicteric, mucous membranes moist Respiratory/Chest: lungs clear, normal breath sounds, no respiratory distress, no accessory muscle use Cardiovascular: normal rate, regular rhythm, no gallop/murmur, no JVD Abdomen: normal bowel sounds, soft, non tender, no organomegaly, non distended Genitourinary: other - + frias -urine slt cloudy Extremities: no cyanosis Skin: no rash Neurologic/Psychiatric: signal operator II-XII grossly normal, alert, responsive Lymphatic: no neck adenopathy Musculoskeletal: no effusion CT Chest - Impression: Somewhat exam due to motion artifact Negative for evidence of acute pulmonary embolus Mild cardiomegaly Small bilateral pleural effusions Extensive interstitial edema, pulmonary venous congestion hazy mosaic pulmonary perfusion pattern. This is suggestive of pulmonary edema Multiple calcified mediastinal and hilar lymph nodes as well as small calcified basilar left lung nodules, likely on the basis of old granulomatous disease Pneumobilia, also previously reported, presumably on the basis of prior biliary intervention 10 mm left adrenal nodule. Appearance nonspecific. Very likely a benign adenoma but other etiologies including malignant neoplasm also possible. Consider adrenal protocol CT or MRI if clinically indicated The CT scanner at [facility] is accredited by the [employer] and the scans are performed using protocols designed to limit radiation exposure to as low as reasonably achievable to attain images of sufficient resolution adequate for diagnostic evaluation. Chest x-ray - 04/06/20- Procedure: XRAY Chest 1v Indication: Cough Technique: One view of the chest Comparison: 04/02/2020 Findings: No acute infiltrates, effusions, or congestion. Tortuous calcified aorta. Normal heart size. Upper mediastinum unremarkable. No significant change Impression: No acute process. Microbiology Date/Time Source Procedure Growth Status 04/04/20 17:40 Urine,Clean Catch Urine Culture - Final Enterococcus Faecalis Kelsey Albicans Complete 04/04/20 09:05 Blood Blood Culture - Final NO GROWTH AFTER 5 DAYS Complete 04/02/20 13:12 Nasal Nares MRSA Culture - Final NO METHICILLIN RESISTANT STAPH AUREUS... Complete Microbiology Date/Time Source Procedure Growth Status 04/04/20 17:40 Urine,Clean Catch Urine Culture - Final Enterococcus Faecalis Kelsey Albicans Complete 04/04/20 09:05 Blood Blood Culture - Final NO GROWTH AFTER 5 DAYS Complete 04/02/20 13:12 Nasal Nares MRSA Culture - Final NO METHICILLIN RESISTANT STAPH AUREUS... Complete Labs Test 04/08/20 11:55 04/09/20 06:15 Vancomycin Level Trough 13.2 ug/mL (5.0-12.0) White Blood Count 7.9 K/UL (4.8-10.8) Red Blood Count 3.57 M/UL (4.70-6.10) Hemoglobin 10.9 G/DL (14.2-18.0) Hematocrit 31.3 % (42.0-52.0) Mean Corpuscular Volume 88 FL (80-99) Mean Corpuscular Hemoglobin 30.7 PG (27.0-31.0) Mean Corpuscular Hemoglobin Concent 35.0 G/DL (32.0-36.0) Red Cell Distribution Width 12.6 % (11.6-14.8) Platelet Count 171 K/UL (150-450) Mean Platelet Volume 5.8 FL (6.5-10.1) Neutrophils (%) (Auto) 45.7 % (45.0-75.0) Lymphocytes (%) (Auto) 36.4 % (20.0-45.0) Monocytes (%) (Auto) 7.9 % (1.0-10.0) Eosinophils (%) (Auto) 9.4 % (0.0-3.0) Basophils (%) (Auto) 0.6 % (0.0-2.0) Sodium Level 139 MMOL/L (136-145) Potassium Level 4.1 MMOL/L (3.5-5.1) Chloride Level 108 MMOL/L (98-107) Carbon Dioxide Level 22 MMOL/L (21-32) Anion Gap 10 mmol/L (5-15) Blood Urea Nitrogen 7 mg/dL (7-18) Creatinine 0.7 MG/DL (0.55-1.30) Estimat Glomerular Filtration Rate > 60 mL/min (>60) Glucose Level 97 MG/DL (74-106) Uric Acid 4.8 MG/DL (2.6-7.2) Calcium Level 8.5 MG/DL (8.5-10.1) Phosphorus Level 2.9 MG/DL (2.5-4.9) Magnesium Level 1.9 MG/DL (1.8-2.4) Total Bilirubin 0.7 MG/DL (0.2-1.0) Aspartate Amino Transf (AST/SGOT) 22 U/L (15-37) Alanine Aminotransferase (ALT/SGPT) 23 U/L (12-78) Alkaline Phosphatase 71 U/L (46-116) Total Protein 5.4 G/DL (6.4-8.2) Albumin 2.7 G/DL (3.4-5.0) Globulin 2.7 g/dL Albumin/Globulin Ratio 1.0 (1.0-2.7) Current Medications Medications (Trade) Dose Ordered Sig/Jaime Route PRN Reason Start Time Stop Time Status Last Admin Dose Admin Acetaminophen (Tylenol) 650 mg Q4H PRN ORAL Temp >100.5 04/02/20 10:00 05/02/20 09:59 Bisacodyl (Dulcolax) 10 mg DAILYPRN PRN RECTAL Constipation 04/02/20 10:00 07/01/20 09:59 04/09/20 00:00 Dextrose (Dextrose 50%) 25 ml Q30M PRN IV Hypoglycemia 04/02/20 10:00 07/01/20 09:59 Dextrose (Dextrose 50%) 50 ml Q30M PRN IV Hypoglycemia 04/02/20 10:00 07/01/20 09:59 Enoxaparin Sodium (Lovenox) 40 mg Q24H SUBQ 04/02/20 11:00 07/01/20 10:59 04/10/20 11:25 Famotidine (Pepcid) 20 mg BID ORAL 04/04/20 18:00 07/03/20 17:59 04/10/20 17:19 Fluconazole (Diflucan) 100 mg DAILY ORAL 04/06/20 16:30 04/13/20 16:29 04/10/20 09:43 Lisinopril (ZestriL) 5 mg DAILY ORAL 04/07/20 09:00 05/07/20 08:59 04/07/20 08:46 Ondansetron HCl (Zofran) 4 mg Q6H PRN IVP Nausea & Vomiting 04/02/20 11:00 05/02/20 10:59 Polyethylene Glycol (Miralax) 17 gm DAILYPRN PRN ORAL Constipation 04/02/20 12:00 05/02/20 11:59 04/08/20 08:31 Potassium Chloride (K-Dur) 40 meq TWICE A DAY ORAL 04/05/20 09:00 07/04/20 08:59 04/10/20 17:20 Tamsulosin HCl (Flomax) 0.4 mg BEDTIME ORAL 04/02/20 21:00 05/02/20 20:59 04/09/20 20:05 Vancomycin HCl (Vanco pharmacy to dose) 1 ea DAILY PRN MISC Per rx protocol 04/02/20 10:00 05/02/20 09:59 Vancomycin/Sodium Chloride 275 ml @ 183.333 mls/hr Q24H IVPB 04/06/20 13:00 04/11/20 12:59 04/10/20 12:24 Cassia Alatorre MD Apr 10, 2020 19:01
--- NOTE | 2020-04-10 19:18 | NUR ---
NURSE HAND-OFF: Important Events on Shift: no acute events during shift, IV abx given as ordered, pt has good appetite, ate 100% of dinner with 1:1 assistance Patient Status: stable Diet: regular mechanical soft chopped, meds crushed Pending Orders: DC to home possible tomorrow Pending Results/Labs: n/a Pending MD notification: n/a Latest Vital Signs: Temperature 97.5 , Pulse 63 , B/P 100 /58 , Respiratory Rate 19 , O2 SAT 98 , Room Air, O2 Flow Rate 2.0 . Vital Sign Comment: stable Latest Blount Fall Score: 50 Fall Risk: High Risk Safety Measures: Call light Within Reach, Bed Alarm Zone 1, Side Rails Side Rails x3, Bed position Low and Locked. Fall Precautions: Yellow Socks Patient Fall Education Report given to MELIDA Pacheco. Endorsed POC..
[2020-04-10 19:51] VITALS: BP 106/56
--- NOTE | 2020-04-10 19:56 | NUR ---
NURSE NOTES: Received patient awake, follows simple command, no SOB noted, resting in bed, comfortable.
[2020-04-10] MEDS: Tamsulosin 0.4mg cap ORAL SCH (20:06)
--- NOTE | 2020-04-10 23:04 | Cardiology Progress Note ---
Subjective DATE OF SERVICE: Apr 10, 2020 Rare episodes of SBP below 100 - asymptomatic and likely his baseline. No c/o pain. Follows commands in hebrew. Daughter wants patient to return home when stable CT angio was negative for pulmonary emboli, but suggests component of CHF Urine now reveals yeast; ID rx in place. Objective Last 24 Hour Vital Signs Date Time Temp Pulse Resp B/P (MAP) Pulse Ox O2 Delivery O2 Flow Rate FiO2 04/10/20 20:49 Room Air 04/10/20 19:51 99.0 65 18 106/56 (73) 95 04/10/20 16:00 97.5 63 19 100/58 (72) 98 04/10/20 12:00 97.9 60 20 119/59 (79) 100 04/10/20 09:00 Room Air 04/10/20 09:00 101/55 04/10/20 08:00 97.8 60 18 101/55 (70) 98 04/10/20 04:00 97.7 86 20 125/64 (84) 96 04/10/20 00:00 98.4 62 20 108/53 (71) 96 ROS: unchanged from my evaluation of 04/02/20 HEENT: normal ENT inspection RHYTHM: NSR, PACs LUNGS: diminished breath sounds CARDIAC: normal rate, regular rhythm, normal S1 and S2 ABDOMEN: normal bowel sounds, non tender, soft EXTREMITIES: normal range of motion, No edema, other - Muscle atrophy - symmetric; +tremor of extremities Assessment/Plan Assessment/Plan UTI Fungal cystitis Sepsis Lactic acidosis Parkinsons with dementia Dehydration/hypernatremia Ac/chronic diastolic CHF Shoulder pains Sinus node disease Hypomagnesemia Hypokalemia Asymptomatic episode of hypotension - with adequate peripheral perfusion; likely baseline range for this patient. No additional diuresis at present IV magnesium as needed Replace potassium as needed Antimicrobials per ID Titrate Sinemet No indication for pacemaker DC plan 04/11 Tanmay Mayfield MD Apr 10, 2020 23:04
[2020-04-11] VITALS: BP 119/64
[2020-04-11 04:19] VITALS: BP 112/56
--- NOTE | 2020-04-11 07:46 | NUR ---
NURSE NOTES: Received report from MELIDA Pacheco. Patient seen to be asleep, currently on room air no s/sx of SOB/Distress, no s/sx of any pain or discomfort noted. Patient IV located on left hand gauge 24. asymptomatic, inplace and intact. Bed placed on lowest and locked, call light placed within reach and will continue to monitor for any changes in condition.
[2020-04-11 08:00] VITALS: BP 132/66
[2020-04-11] MEDS: Fluconazole 100mg tab ORAL SCH (08:39)
[2020-04-11 08:48] LABS: BASOPHILS % (AUTO) 0.9 % (0.0-2.0); EOSINOPHILS % (AUTO) 8.2 % (0.0-3.0); HEMATOCRIT 33.7 % (42.0-52.0); HEMOGLOBIN 11.6 G/DL (14.2-18.0); LYMPHOCYTES % (AUTO) 33.5 % (20.0-45.0); MEAN CORPUSCULAR VOLUME 88 FL (80-99); MONOCYTES % (AUTO) 6.8 % (1.0-10.0); NEUTROPHILS % (AUTO) 50.5 % (45.0-75.0); PLATELET COUNT 174 K/UL (150-450); RED BLOOD COUNT 3.82 M/UL (4.70-6.10); RED CELL DISTRIBUTION WIDTH 12.9 % (11.6-14.8)
[2020-04-11] MEDS: Lisinopril 2.5mg tab ORAL SCH (08:50)
[2020-04-11 09:17] LABS: ALANINE AMINOTRANSFERASE 24 U/L (12-78); ALBUMIN 2.8 G/DL (3.4-5.0); ALBUMIN/GLOBULIN RATIO 0.8 (1.0-2.7); ALKALINE PHOSPHATASE 78 U/L (46-116); ANION GAP 8 mmol/L (5-15); ASPARTATE AMINO TRANSFERASE 21 U/L (15-37); BILIRUBIN,TOTAL 0.5 MG/DL (0.2-1.0); BLOOD UREA NITROGEN 7 mg/dL (7-18); CALCIUM 8.9 MG/DL (8.5-10.1); CARBON DIOXIDE 23 MMOL/L (21-32); CHLORIDE 104 MMOL/L (98-107); CREATININE 0.7 MG/DL (0.55-1.30); POTASSIUM 4.6 MMOL/L (3.5-5.1); SODIUM 135 MMOL/L (136-145)
--- NOTE | 2020-04-11 09:18 | NUR ---
RD ASSESSMENT & RECOMMENDATIONS SEE CARE ACTIVITY FOR COMPLETE ASSESSMENT DAILY ESTIMATED NEEDS: Needs based on cardiac, suspected wt loss 51kg 25-35 kcals/kg 8370-6657 total kcals 1-1.5 g protein/kg 51-76 g total protein 25-30 mL/kg 5856-2652 total fluid mLs NUTRITION DIAGNOSIS: Increased kcal/prot needs R/T suspected wt loss as evidenced by possible significant wt loss of 25.5lbs/18.5% in 5 months CURRENT DIET:REGULAR, mech soft chopped PO DIET RECOMMENDATIONS: Maintain liberalized REGULAR/ texture per ELECTRIC WHEELCHAIR REPAIRER ADDITIONAL RECOMMENDATIONS: 1) Daily calibrated bed scale wt, monitor trend 2) Monitor BGs closely, need for hypoglycemics and/or carb controlled diet 3) Check A1C for eval of glycemic control: h/o DM 4) Glucerna BID w/ meals 5) Monitor lytes, replete as needed 5) MVI x 1 6) ELECTRIC WHEELCHAIR REPAIRER eval for appropriate texture: on pureed w/ NTL last adm in November 2019
[2020-04-11] MEDS: Enoxaparin 40mg Inj SUBQ SCH (11:13)
[2020-04-11 12:00] VITALS: BP 107/59
--- NOTE | 2020-04-11 13:20 | Nephrology Progress Note ---
Assessment/Plan Problem List: (1) Anemia (2) Dehydration (3) Electrolyte imbalance (4) UTI (urinary tract infection) (5) BPH (benign prostatic hyperplasia) (6) Dementia (7) Malnutrition Assessment Lactic acidosis UTI, sepsis, high lactic acid, leukocytosis Chronic diastolic congestive heart failure Protein calorie malnutrition Elevated d-dimer Parkinson disease Diabetes mellitus BPH Dementia DNR status Plan April 11: Labs reviewed. Stable from renal standpoint of view. April 10: Stable from renal standpoint of view. Continue per PMD. April 09: Labs reviewed. Renal parameters stable. April 08: No chemistry panel done today. Stable from renal standpoint of view. April 07: Labs reviewed. Stable from renal standpoint of view. April 06: Labs reviewed. Stable from renal standpoint reviewed. April 05: Labs reviewed. Potassium supplement ordered. Continue per ID. Stable from renal standpoint of view. April 04: Chemistry panel pending. Status quo. Continue per current management. Hydrate Keep the blood pressure and blood sugar in check Antibiotics Avoid nephrotoxic's Per orders Subjective ROS Limited/Unobtainable: No Constitutional: Reports: malaise, weakness Objective Objective Last 24 Hour Vital Signs Date Time Temp Pulse Resp B/P (MAP) Pulse Ox O2 Delivery O2 Flow Rate FiO2 04/11/20 12:00 97.3 61 18 107/59 (75) 98 04/11/20 09:00 Room Air 04/11/20 08:50 132/66 04/11/20 08:00 97.5 63 18 132/66 (88) 96 04/11/20 04:19 97.8 64 18 112/56 (74) 97 04/11/20 00:00 98.9 67 18 119/64 (82) 96 04/10/20 20:49 Room Air 04/10/20 19:51 99.0 65 18 106/56 (73) 95 04/10/20 16:00 97.5 63 19 100/58 (72) 98 Intake and Output 04/10/20 04/11/20 19:00 07:00 Intake Total 120 ml 360 ml Balance 120 ml 360 ml Intake Oral 120 ml Other 360 ml # Voids 3 2 # Bowel Movements 1 Laboratory Tests 04/11/20 08:15: White Blood Count 7.0, Red Blood Count 3.82L, Hemoglobin 11.6L, Hematocrit 33.7L , Mean Corpuscular Volume 88, Mean Corpuscular Hemoglobin 30.4, Mean Corpuscular Hemoglobin Concent 34.5, Red Cell Distribution Width 12.9, Platelet Count 174, Mean Platelet Volume 6.0L, Neutrophils (%) (Auto) 50.5, Lymphocytes (%) (Auto) 33.5, Monocytes (%) (Auto) 6.8, Eosinophils (%) (Auto) 8.2H, Basophils (%) (A uto) 0.9, Sodium Level 135L, Potassium Level 4.6, Chloride Level 104, Carbon Dioxide Level 23, Anion Gap 8, Blood Urea Nitrogen 7, Creatinine 0.7, Estimat Glomerular Filtration Rate > 60, Glucose Level 110H, Calcium Level 8.9, Total Bilirubin 0.5, Aspartate Amino Transf (AST/SGOT) 21, Alanine Aminotransferase (ALT/SGPT) 24, Alkaline Phosphatase 78, Total Protein 6.2L, Albumin 2.8L, Globulin 3.4, Albumin/Globulin Ratio 0.8L Height (Feet): 5 Height (Inches): 2.00 Weight (Pounds): 107 General Appearance: no apparent distress Respiratory/Chest: decreased breath sounds Abdomen: soft Objective No change Ruben Davis MD Apr 11, 2020 13:19
--- NOTE | 2020-04-11 14:30 | Surgery Progress Note ---
Surgery Progress Note Subjective Symptoms: improved, passing flatus, BM Objective Last 24 Hour Vital Signs Date Time Temp Pulse Resp B/P (MAP) Pulse Ox O2 Delivery O2 Flow Rate FiO2 04/11/20 12:00 97.3 61 18 107/59 (75) 98 04/11/20 09:00 Room Air 04/11/20 08:50 132/66 04/11/20 08:00 97.5 63 18 132/66 (88) 96 04/11/20 04:19 97.8 64 18 112/56 (74) 97 04/11/20 00:00 98.9 67 18 119/64 (82) 96 04/10/20 20:49 Room Air 04/10/20 19:51 99.0 65 18 106/56 (73) 95 04/10/20 16:00 97.5 63 19 100/58 (72) 98 I&O Intake and Output 04/10/20 04/11/20 19:00 07:00 Intake Total 120 ml 360 ml Balance 120 ml 360 ml Intake Oral 120 ml Other 360 ml # Voids 3 2 # Bowel Movements 1 Dressing: saturated Wound: clean Cardiovascular: RSR Respiratory: clear Abdomen: soft, non-tender, present bowel sounds Extremities: no tenderness, no cyanosis Laboratory Tests Test 04/11/20 08:15 White Blood Count 7.0 K/UL (4.8-10.8) Red Blood Count 3.82 M/UL (4.70-6.10) L Hemoglobin 11.6 G/DL (14.2-18.0) L Hematocrit 33.7 % (42.0-52.0) L Mean Corpuscular Volume 88 FL (80-99) Mean Corpuscular Hemoglobin 30.4 PG (27.0-31.0) Mean Corpuscular Hemoglobin Concent 34.5 G/DL (32.0-36.0) Red Cell Distribution Width 12.9 % (11.6-14.8) Platelet Count 174 K/UL (150-450) Mean Platelet Volume 6.0 FL (6.5-10.1) L Neutrophils (%) (Auto) 50.5 % (45.0-75.0) Lymphocytes (%) (Auto) 33.5 % (20.0-45.0) Monocytes (%) (Auto) 6.8 % (1.0-10.0) Eosinophils (%) (Auto) 8.2 % (0.0-3.0) H Basophils (%) (Auto) 0.9 % (0.0-2.0) Sodium Level 135 MMOL/L (136-145) L Potassium Level 4.6 MMOL/L (3.5-5.1) Chloride Level 104 MMOL/L (98-107) Carbon Dioxide Level 23 MMOL/L (21-32) Anion Gap 8 mmol/L (5-15) Blood Urea Nitrogen 7 mg/dL (7-18) Creatinine 0.7 MG/DL (0.55-1.30) Estimat Glomerular Filtration Rate > 60 mL/min (>60) Glucose Level 110 MG/DL (74-106) H Calcium Level 8.9 MG/DL (8.5-10.1) Total Bilirubin 0.5 MG/DL (0.2-1.0) Aspartate Amino Transf (AST/SGOT) 21 U/L (15-37) Alanine Aminotransferase (ALT/SGPT) 24 U/L (12-78) Alkaline Phosphatase 78 U/L (46-116) Total Protein 6.2 G/DL (6.4-8.2) L Albumin 2.8 G/DL (3.4-5.0) L Globulin 3.4 g/dL Albumin/Globulin Ratio 0.8 (1.0-2.7) L Plan Problems: (1) Dementia (2) Parkinson disease (3) BPH (benign prostatic hyperplasia) (4) Sepsis (5) UTI (urinary tract infection) (6) Elevated d-dimer (7) Artificial pacemaker (8) Suspected COVID-19 virus infection (9) Dehydration (10) Anemia (11) Electrolyte imbalance (12) Malnutrition Assessment & Plan: DAILY ESTIMATED NEEDS: Needs based on cardiac, suspected wt loss 51kg 25-35 kcals/kg 0269-3256 total kcals 1-1.5 g protein/kg 51-76 g total protein 25-30 mL/kg 4610-8912 total fluid mLs NUTRITION DIAGNOSIS: Increased kcal/prot needs R/T suspected wt loss as evidenced by possible significant wt loss of 25.5lbs/18.5% in 5 months CURRENT DIET:REGULAR, mech soft chopped PO DIET RECOMMENDATIONS: Maintain liberalized REGULAR/ texture per DIESEL POWERPLANT MECHANIC HELPER + Glucerna TID ADDITIONAL RECOMMENDATIONS: 1) Daily calibrated bed scale wt, monitor trend 2) Monitor BGs closely, need for hypoglycemics and/or carb controlled diet 3) Check A1C for eval of glycemic control: h/o DM 4) Glucerna TID w/ meals 5) Monitor lytes, replete as needed 5) MVI x 1 (13) Fever (14) Laceration of left upper extremity Assessment & Plan: 89-year-old female with laceration of her left arm/elbow. Unknown etiology patient with tremor, Parkinson's potential against bedside. There is a 1 cm laceration 1 mm epidermal dehiscence with 1 cm x 1 cm surrounding bruising. No drainage no signs of infection. Given size location will hold off on suture repair. Local care with dressings. Fairly superficial. No signs of active infection. Will monitor closely. Furthermore patient identified to have an con associated dermatitis upon admission. Erythema noted around the tae-anal area and buttock. Will monitor closely and care accordingly. Patient regularly wears diapers as per report. Will ensure close monitoring. Thank you for let me participate in patient's care resolved improved no subsequent injury John Avalos Apr 11, 2020 14:30
[2020-04-11 16:00] VITALS: BP 95/58
--- NOTE | 2020-04-11 17:15 | Discharge Summary ---
DATE OF ADMISSION: 04/02/2020 DATE OF DISCHARGE: 04/11/2020 CHIEF COMPLAINT: Sepsis, shortness of breath, rule out pneumonia, suspected COVID-19 infection, anemia, Parkinson disease, dementia, history of pacemaker. DISCHARGE DIAGNOSES: Sepsis, shortness of breath, rule out pneumonia, suspected COVID-19 infection, anemia, Parkinson disease, dementia, history of pacemaker, coag-negative staph bacteremia, enterococcal UTI, and pyelonephritis. HOSPITAL COURSE: Patient is an elderly male who was admitted with complaints of fevers and shortness of breath. He was ruled out for COVID-19. He had evidence of pulmonary infiltrates. He was started on antibiotics for pneumonia. His CAT scan showed volume overload and possible CHF. He was cautiously diuresed. ID and Cardiology evaluations were obtained. The patient was treated for coag-negative staph bacteremia as well as enterococcal UTI, pyelonephritis with broad-spectrum IV antibiotics. It was recommended that he go to a half-way facility, but family declined. He completed his full course of IV antibiotics while in the hospital. He was discharged home with home health. DISCHARGE MEDICATIONS: Please see discharge medication list for discharge medications. DIET: Pureed diet. ACTIVITIES: Ad-brian. FOLLOWUP: Patient is to follow up by his PMD in 1 to 2 weeks. Dax Reyes M.D. DR: JESSICA JOB#: [id number] CC:
[2020-04-11] MEDS ORDERED: Vancomycin 1.25gm/NS Premix IVPB ONE (18:00)
--- NOTE | 2020-04-11 19:35 | NUR ---
NURSE HAND-OFF: Important Events on Shift:ATB [place] Patient Status: stable Diet: regular soft mechanical Pending Orders: n/a Pending Results/Labs:n/a Pending MD notification:n/a Latest Vital Signs: Temperature 97.0 , Pulse 65 , B/P 95 /58 , Respiratory Rate 18 , O2 SAT 97 , Room Air, O2 Flow Rate 2.0 . Vital Sign Comment: stable Latest Blount Fall Score: 50 Fall Risk: High Risk Safety Measures: Call light Within Reach, Bed Alarm Zone 1, Side Rails Side Rails x3, Bed position Low and Locked. Fall Precautions: Yellow Socks Patient Fall Education Report given to MELIDA Almaraz.
[2020-04-11 20:00] VITALS: BP 109/61
--- NOTE | 2020-04-11 20:00 | NUR ---
NURSE NOTES: Received patient awake in bed, family at bedside, no s/s of acute distress. Patient wet, changed with HUMAN RESOURCES PARTNER and family member. Condom catheter replaced. Small bowel movement cleaned. IV access patent, flushed with normal saline, patient tolerating well. Bed low and locked, P200 mattress noted. Optifoam sacral dressing replaced.
[2020-04-11] MEDS: Tamsulosin 0.4mg cap ORAL SCH (21:31)
--- NOTE | 2020-04-11 23:41 | Cardiology Progress Note ---
Subjective DATE OF SERVICE: Apr 11, 2020 Rare episodes of SBP below 100 - asymptomatic and likely his baseline. No c/o pain. Follows commands in greenlandic. Daughter wants patient to return home when stable CT angio was negative for pulmonary emboli, but suggests component of CHF Urine revealed yeast; ID recommendations noted. Objective Last 24 Hour Vital Signs Date Time Temp Pulse Resp B/P (MAP) Pulse Ox O2 Delivery O2 Flow Rate FiO2 04/11/20 21:40 Room Air 04/11/20 20:00 99.0 65 18 109/61 (77) 97 04/11/20 16:00 97.0 65 18 95/58 (70) 97 04/11/20 12:00 97.3 61 18 107/59 (75) 98 04/11/20 09:00 Room Air 04/11/20 08:50 132/66 04/11/20 08:00 97.5 63 18 132/66 (88) 96 04/11/20 04:19 97.8 64 18 112/56 (74) 97 04/11/20 00:00 98.9 67 18 119/64 (82) 96 ROS: unchanged from my evaluation of 04/02/20 HEENT: normal ENT inspection RHYTHM: NSR, PACs LUNGS: diminished breath sounds CARDIAC: normal rate, regular rhythm, normal S1 and S2 ABDOMEN: normal bowel sounds, non tender, soft EXTREMITIES: normal range of motion, No edema, other - Muscle atrophy - symmetric; +tremor of extremities Laboratory Tests Test 04/11/20 08:15 White Blood Count 7.0 K/UL (4.8-10.8) Red Blood Count 3.82 M/UL (4.70-6.10) L Hemoglobin 11.6 G/DL (14.2-18.0) L Hematocrit 33.7 % (42.0-52.0) L Mean Corpuscular Volume 88 FL (80-99) Mean Corpuscular Hemoglobin 30.4 PG (27.0-31.0) Mean Corpuscular Hemoglobin Concent 34.5 G/DL (32.0-36.0) Red Cell Distribution Width 12.9 % (11.6-14.8) Platelet Count 174 K/UL (150-450) Mean Platelet Volume 6.0 FL (6.5-10.1) L Neutrophils (%) (Auto) 50.5 % (45.0-75.0) Lymphocytes (%) (Auto) 33.5 % (20.0-45.0) Monocytes (%) (Auto) 6.8 % (1.0-10.0) Eosinophils (%) (Auto) 8.2 % (0.0-3.0) H Basophils (%) (Auto) 0.9 % (0.0-2.0) Sodium Level 135 MMOL/L (136-145) L Potassium Level 4.6 MMOL/L (3.5-5.1) Chloride Level 104 MMOL/L (98-107) Carbon Dioxide Level 23 MMOL/L (21-32) Anion Gap 8 mmol/L (5-15) Blood Urea Nitrogen 7 mg/dL (7-18) Creatinine 0.7 MG/DL (0.55-1.30) Estimat Glomerular Filtration Rate > 60 mL/min (>60) Glucose Level 110 MG/DL (74-106) H Calcium Level 8.9 MG/DL (8.5-10.1) Total Bilirubin 0.5 MG/DL (0.2-1.0) Aspartate Amino Transf (AST/SGOT) 21 U/L (15-37) Alanine Aminotransferase (ALT/SGPT) 24 U/L (12-78) Alkaline Phosphatase 78 U/L (46-116) Total Protein 6.2 G/DL (6.4-8.2) L Albumin 2.8 G/DL (3.4-5.0) L Globulin 3.4 g/dL Albumin/Globulin Ratio 0.8 (1.0-2.7) L Assessment/Plan Assessment/Plan UTI Fungal cystitis Sepsis Lactic acidosis Parkinsons with dementia Dehydration/hypernatremia Ac/chronic diastolic CHF Shoulder pains Sinus node disease Hypomagnesemia corrected Hypokalemia corrected No recurrent episodes of hypotension No additional diuresis at present Antimicrobials per ID - completed Titrate Sinemet as outpatient No indication for pacemaker DC planned Tanmay Mayfield MD Apr 11, 2020 23:41
[2020-04-12] VITALS: BP 97/65
[2020-04-12 04:00] VITALS: BP 103/61
--- NOTE | 2020-04-12 07:35 | NUR ---
HAND-OFF: Report given to MEILDA Burrell.
--- NOTE | 2020-04-12 07:45 | NUR ---
NURSE NOTES: Received patient awake in bed in RA, alert and oriented x2, Estonian speaking. No s/s of acute distress. Denies any pain at this time. Condom catheter in place draining. IV access intact and patent. Bed low and locked. Call light within reach. Will continue to monitor.
[2020-04-12 08:00] VITALS: BP 108/68
[2020-04-12] MEDS: Lisinopril 2.5mg tab ORAL SCH (09:00)
[2020-04-12] MEDS: Fluconazole 100mg tab ORAL SCH (09:15)
--- NOTE | 2020-04-12 09:32 | Nephrology Progress Note ---
Assessment/Plan Problem List: (1) Anemia (2) Dehydration (3) Electrolyte imbalance (4) UTI (urinary tract infection) (5) BPH (benign prostatic hyperplasia) (6) Dementia (7) Malnutrition Assessment Lactic acidosis UTI, sepsis, high lactic acid, leukocytosis Chronic diastolic congestive heart failure Protein calorie malnutrition Elevated d-dimer Parkinson disease Diabetes mellitus BPH Dementia DNR status Plan April 12: No chemistry panel done today. Clinically stable. Continue per PMD. April 11: Labs reviewed. Stable from renal standpoint of view. April 10: Stable from renal standpoint of view. Continue per PMD. April 09: Labs reviewed. Renal parameters stable. April 08: No chemistry panel done today. Stable from renal standpoint of view. April 07: Labs reviewed. Stable from renal standpoint of view. April 06: Labs reviewed. Stable from renal standpoint reviewed. April 05: Labs reviewed. Potassium supplement ordered. Continue per ID. Stable from renal standpoint of view. April 04: Chemistry panel pending. Status quo. Continue per current management. Hydrate Keep the blood pressure and blood sugar in check Antibiotics Avoid nephrotoxic's Per orders Subjective ROS Limited/Unobtainable: No Constitutional: Reports: malaise Objective Objective Last 24 Hour Vital Signs Date Time Temp Pulse Resp B/P (MAP) Pulse Ox O2 Delivery O2 Flow Rate FiO2 04/12/20 09:00 108/68 04/12/20 08:00 98.0 65 18 108/68 (81) 98 04/12/20 04:00 97.9 60 18 103/61 (75) 97 04/12/20 00:00 97.0 58 18 97/65 (76) 97 04/11/20 21:40 Room Air 04/11/20 20:00 99.0 65 18 109/61 (77) 97 04/11/20 16:00 97.0 65 18 95/58 (70) 97 04/11/20 12:00 97.3 61 18 107/59 (75) 98 Intake and Output 04/11/20 04/12/20 19:00 07:00 Intake Total 600 ml 150 ml Output Total 700 ml Balance 600 ml -550 ml Intake Oral 600 ml 150 ml Output Urine Total 700 ml # Voids 2 No CHEM panel today Height (Feet): 5 Height (Inches): 2.00 Weight (Pounds): 107 General Appearance: no apparent distress Cardiovascular: normal rate Respiratory/Chest: decreased breath sounds Abdomen: soft Objective No change Ruben Davis MD Apr 12, 2020 09:32
[2020-04-12] MEDS: Enoxaparin 40mg Inj SUBQ SCH (12:31)
[2020-04-12 12:58] VITALS: BP 111/71
--- NOTE | 2020-04-12 15:15 | Infectious Diseases Prog Note ---
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 Parkinson's. 3. Dementia. 4. Paroxysmal atrial fibrillation. 5. BPH. 6. Hypertension. 7. Blood pressure treatment per primary care team. 8. Aspiration risk. 9. No history of diabetes. 10. No history of cancer. 11. No known allergies. 12. Social history is negative. 13. Family history is noncontributory. 14. MAR was noted. 15. Case was discussed with RN. 16. Case communicated with primary care team. 17. Continue treatment per primary consultants. 18. Skin care protocol. Subjective Constitutional: Denies: fever HEENT: Denies: congestion Respiratory: Denies: shortness of breath Cardiovascular: Denies: chest pain Gastrointestinal/Abdominal: Denies: nausea Genitourinary: Denies: dysuria, hematuria Neurologic: Reports: other - + frias Psychiatric: Denies: depression Skin: Denies: rash Hematologic: Denies: bleeding Musculoskeletal: Denies: pain Allergies: Coded Allergies: No Known Allergies (Unverified , 10/13/19) Objective Last 24 Hour Vital Signs Date Time Temp Pulse Resp B/P (MAP) Pulse Ox O2 Delivery O2 Flow Rate FiO2 04/12/20 12:58 98.0 69 18 111/71 (84) 98 04/12/20 09:00 108/68 04/12/20 09:00 Room Air 04/12/20 08:00 98.0 65 18 108/68 (81) 98 04/12/20 04:00 97.9 60 18 103/61 (75) 97 04/12/20 00:00 97.0 58 18 97/65 (76) 97 04/11/20 21:40 Room Air 04/11/20 20:00 99.0 65 18 109/61 (77) 97 04/11/20 16:00 97.0 65 18 95/58 (70) 97 Height (Feet): 5 Height (Inches): 2.00 Weight (Pounds): 107 General Appearance: no acute distress HEENT: normocephalic, atraumatic, anicteric, mucous membranes moist Respiratory/Chest: lungs clear, normal breath sounds, no respiratory distress, no accessory muscle use Cardiovascular: normal rate, regular rhythm, no gallop/murmur, no JVD Abdomen: normal bowel sounds, soft, non tender, no organomegaly, non distended Genitourinary: other - + frias - urine clear Extremities: no cyanosis Skin: no rash Neurologic/Psychiatric: local coordinator II-XII grossly normal, alert, responsive Lymphatic: no neck adenopathy Musculoskeletal: no effusion CT Chest - Impression: Somewhat exam due to motion artifact Negative for evidence of acute pulmonary embolus Mild cardiomegaly Small bilateral pleural effusions Extensive interstitial edema, pulmonary venous congestion hazy mosaic pulmonary perfusion pattern. This is suggestive of pulmonary edema Multiple calcified mediastinal and hilar lymph nodes as well as small calcified basilar left lung nodules, likely on the basis of old granulomatous disease Pneumobilia, also previously reported, presumably on the basis of prior biliary intervention 10 mm left adrenal nodule. Appearance nonspecific. Very likely a benign adenoma but other etiologies including malignant neoplasm also possible. Consider adrenal protocol CT or MRI if clinically indicated The CT scanner at [facility] is accredited by the [employer] and the scans are performed using protocols designed to limit radiation exposure to as low as reasonably achievable to attain images of sufficient resolution adequate for diagnostic evaluation. Chest x-ray - 04/06/20- Procedure: XRAY Chest 1v Indication: Cough Technique: One view of the chest Comparison: 04/02/2020 Findings: No acute infiltrates, effusions, or congestion. Tortuous calcified aorta. Normal heart size. Upper mediastinum unremarkable. No significant change Impression: No acute process. Microbiology Date/Time Source Procedure Growth Status 04/04/20 17:40 Urine,Clean Catch Urine Culture - Final Enterococcus Faecalis Kelsey Albicans Complete 04/04/20 09:05 Blood Blood Culture - Final NO GROWTH AFTER 5 DAYS Complete 04/02/20 13:12 Nasal Nares MRSA Culture - Final NO METHICILLIN RESISTANT STAPH AUREUS... Complete Labs Test 04/11/20 08:15 White Blood Count 7.0 K/UL (4.8-10.8) Red Blood Count 3.82 M/UL (4.70-6.10) Hemoglobin 11.6 G/DL (14.2-18.0) Hematocrit 33.7 % (42.0-52.0) Mean Corpuscular Volume 88 FL (80-99) Mean Corpuscular Hemoglobin 30.4 PG (27.0-31.0) Mean Corpuscular Hemoglobin Concent 34.5 G/DL (32.0-36.0) Red Cell Distribution Width 12.9 % (11.6-14.8) Platelet Count 174 K/UL (150-450) Mean Platelet Volume 6.0 FL (6.5-10.1) Neutrophils (%) (Auto) 50.5 % (45.0-75.0) Lymphocytes (%) (Auto) 33.5 % (20.0-45.0) Monocytes (%) (Auto) 6.8 % (1.0-10.0) Eosinophils (%) (Auto) 8.2 % (0.0-3.0) Basophils (%) (Auto) 0.9 % (0.0-2.0) Sodium Level 135 MMOL/L (136-145) Potassium Level 4.6 MMOL/L (3.5-5.1) Chloride Level 104 MMOL/L (98-107) Carbon Dioxide Level 23 MMOL/L (21-32) Anion Gap 8 mmol/L (5-15) Blood Urea Nitrogen 7 mg/dL (7-18) Creatinine 0.7 MG/DL (0.55-1.30) Estimat Glomerular Filtration Rate > 60 mL/min (>60) Glucose Level 110 MG/DL (74-106) Calcium Level 8.9 MG/DL (8.5-10.1) Total Bilirubin 0.5 MG/DL (0.2-1.0) Aspartate Amino Transf (AST/SGOT) 21 U/L (15-37) Alanine Aminotransferase (ALT/SGPT) 24 U/L (12-78) Alkaline Phosphatase 78 U/L (46-116) Total Protein 6.2 G/DL (6.4-8.2) Albumin 2.8 G/DL (3.4-5.0) Globulin 3.4 g/dL Albumin/Globulin Ratio 0.8 (1.0-2.7) Current Medications Medications (Trade) Dose Ordered Sig/Jaime Route PRN Reason Start Time Stop Time Status Last Admin Dose Admin Acetaminophen (Tylenol) 650 mg Q4H PRN ORAL Temp >100.5 9/27/20 10:00 05/02/20 09:59 Bisacodyl (Dulcolax) 10 mg DAILYPRN PRN RECTAL Constipation 04/02/20 10:00 07/01/20 09:59 04/09/20 00:00 Dextrose (Dextrose 50%) 25 ml Q30M PRN IV Hypoglycemia 04/02/20 10:00 07/01/20 09:59 Dextrose (Dextrose 50%) 50 ml Q30M PRN IV Hypoglycemia 04/02/20 10:00 07/01/20 09:59 Enoxaparin Sodium (Lovenox) 40 mg Q24H SUBQ 04/02/20 11:00 07/01/20 10:59 04/12/20 12:31 Famotidine (Pepcid) 20 mg BID ORAL 04/04/20 18:00 07/03/20 17:59 04/12/20 09:14 Fluconazole (Diflucan) 100 mg DAILY ORAL 04/06/20 16:30 04/13/20 16:29 04/12/20 09:15 Lisinopril (ZestriL) 5 mg DAILY ORAL 04/07/20 09:00 05/07/20 08:59 04/11/20 08:50 Ondansetron HCl (Zofran) 4 mg Q6H PRN IVP Nausea & Vomiting 04/02/20 11:00 05/02/20 10:59 Polyethylene Glycol (Miralax) 17 gm DAILYPRN PRN ORAL Constipation 04/02/20 12:00 05/02/20 11:59 04/08/20 08:31 Potassium Chloride (K-Dur) 40 meq TWICE A DAY ORAL 04/05/20 09:00 07/04/20 08:59 04/12/20 09:14 Tamsulosin HCl (Flomax) 0.4 mg BEDTIME ORAL 04/02/20 21:00 05/02/20 20:59 04/11/20 21:31 Cassia Alatorre MD Apr 12, 2020 15:15
[2020-04-12 16:00] VITALS: BP 114/69
--- NOTE | 2020-04-12 16:10 | NUR ---
CASE MANAGEMENT:REVIEW SI;SEPSIS D/T BACTEREMIA AND UTI. 98.0 58 18 97/65 97% ON RA NA 135 ALB 2.8 IS;LOVENOX SUBQ QD PEPCID PO BID K-DUR PO BID DIFLUCAN PO QD MED SURG STATUS DCP;FROM HOME
--- NOTE | 2020-04-12 17:37 | Surgery Progress Note ---
Surgery Progress Note Subjective Symptoms: improved, tolerating diet, passing flatus Objective Last 24 Hour Vital Signs Date Time Temp Pulse Resp B/P (MAP) Pulse Ox O2 Delivery O2 Flow Rate FiO2 04/12/20 16:00 98.0 71 18 114/69 (84) 98 04/12/20 12:58 98.0 69 18 111/71 (84) 98 04/12/20 09:00 108/68 04/12/20 09:00 Room Air 04/12/20 08:00 98.0 65 18 108/68 (81) 98 04/12/20 04:00 97.9 60 18 103/61 (75) 97 04/12/20 00:00 97.0 58 18 97/65 (76) 97 04/11/20 21:40 Room Air 04/11/20 20:00 99.0 65 18 109/61 (77) 97 I&O Intake and Output 04/11/20 04/12/20 19:00 07:00 Intake Total 600 ml 150 ml Output Total 700 ml Balance 600 ml -550 ml Intake Oral 600 ml 150 ml Output Urine Total 700 ml # Voids 2 Dressing: saturated Wound: clean Cardiovascular: RSR Respiratory: clear Abdomen: soft, non-tender, present bowel sounds Extremities: no edema, no tenderness, no cyanosis Plan Problems: (1) Dementia (2) Parkinson disease (3) BPH (benign prostatic hyperplasia) (4) Sepsis (5) UTI (urinary tract infection) (6) Elevated d-dimer (7) Artificial pacemaker (8) Suspected COVID-19 virus infection (9) Dehydration (10) Anemia (11) Electrolyte imbalance (12) Malnutrition Assessment & Plan: DAILY ESTIMATED NEEDS: Needs based on cardiac, suspected wt loss 51kg 25-35 kcals/kg 0993-7569 total kcals 1-1.5 g protein/kg 51-76 g total protein 25-30 mL/kg 0489-6602 total fluid mLs NUTRITION DIAGNOSIS: Increased kcal/prot needs R/T suspected wt loss as evidenced by possible significant wt loss of 25.5lbs/18.5% in 5 months CURRENT DIET:REGULAR, mech soft chopped PO DIET RECOMMENDATIONS: Maintain liberalized REGULAR/ texture per [employer] + Glucerna TID ADDITIONAL RECOMMENDATIONS: 1) Daily calibrated bed scale wt, monitor trend 2) Monitor BGs closely, need for hypoglycemics and/or carb controlled diet 3) Check A1C for eval of glycemic control: h/o DM 4) Glucerna TID w/ meals 5) Monitor lytes, replete as needed 5) MVI x 1 (13) Fever (14) Laceration of left upper extremity Assessment & Plan: 89-year-old female with laceration of her left arm/elbow. Unknown etiology patient with tremor, Parkinson's potential against bedside. There is a 1 cm laceration 1 mm epidermal dehiscence with 1 cm x 1 cm surrounding bruising. No drainage no signs of infection. Given size location will hold off on suture repair. Local care with dressings. Fairly superficial. No signs of active infection. Will monitor closely. Furthermore patient identified to have an con associated dermatitis upon admission. Erythema noted around the tae-anal area and buttock. Will monitor closely and care accordingly. Patient regularly wears diapers as per report. Will ensure close monitoring. Thank you for let me participate in patient's care resolved improved no subsequent injury John Avalos Apr 12, 2020 17:37
--- NOTE | 2020-04-12 19:45 | NUR ---
NURSE HAND-OFF: Important Events on Shift:Completed ATB tx Patient Status: stable Diet: reg Pending Orders: Pending Results/Labs: Pending MD notification: Latest Vital Signs: Temperature 98.0 , Pulse 71 , B/P 114 /69 , Respiratory Rate 18 , O2 SAT 98 , Room Air, O2 Flow Rate 2.0 . Vital Sign Comment: Latest Blount Fall Score: 50 Fall Risk: High Risk Safety Measures: Call light Within Reach, Bed Alarm Zone 1, Side Rails Side Rails x3, Bed position Low and Locked. Fall Precautions: Yellow Socks Patient Fall Education Report given to Ms. Osmin RN .
[2020-04-12 20:00] VITALS: BP 97/60
--- NOTE | 2020-04-12 20:00 | NUR ---
NURSE NOTES: Patient received in bed, asleep, easily arousable. No acute distress. IV intact. Patient voided and had BM. INcontinence care provided, dressing changed on sacral, Also noted with tae-anal excoriation. Re-applied condom catheter for wound management. Turned and repositioned. Will continue to monitor.
[2020-04-12] MEDS: Tamsulosin 0.4mg cap ORAL SCH (20:54)
--- NOTE | 2020-04-12 22:35 | General Progress Note ---
Subjective ROS Limited/Unobtainable: No Constitutional: Reports: malaise, weakness HEENT: Reports: no symptoms Cardiovascular: Reports: no symptoms Respiratory: Reports: no symptoms Gastrointestinal/Abdominal: Reports: no symptoms Genitourinary: Reports: no symptoms Neurologic/Psychiatric: Reports: no symptoms Endocrine: Reports: no symptoms Hematologic/Lymphatic: Reports: no symptoms Allergies: Coded Allergies: No Known Allergies (Unverified , 10/13/19) All Systems: reviewed and negative except above Subjective no events. stable. completed iv abx per id. no distress. per staff more alert. eating better. weak. off o2 Objective Last 24 Hour Vital Signs Date Time Temp Pulse Resp B/P (MAP) Pulse Ox O2 Delivery O2 Flow Rate FiO2 04/12/20 20:00 98.3 65 16 97/60 (72) 99 04/12/20 16:00 98.0 71 18 114/69 (84) 98 04/12/20 12:58 98.0 69 18 111/71 (84) 98 04/12/20 09:00 108/68 04/12/20 09:00 Room Air 04/12/20 08:00 98.0 65 18 108/68 (81) 98 04/12/20 04:00 97.9 60 18 103/61 (75) 97 04/12/20 00:00 97.0 58 18 97/65 (76) 97 Intake and Output 04/11/20 04/12/20 19:00 07:00 Intake Total 600 ml 150 ml Output Total 700 ml Balance 600 ml -550 ml Intake Oral 600 ml 150 ml Output Urine Total 700 ml # Voids 2 Height (Feet): 5 Height (Inches): 2.00 Weight (Pounds): 107 Objective General Appearance: WD/WN, no apparent distress, alert, confused EENT: normal ENT inspection Neck: non-tender, normal alignment, supple Cardiovascular: normal peripheral pulses, normal rate, regular rhythm Respiratory/Chest: chest wall non-tender, lungs clear, normal breath sounds, no respiratory distress Abdomen: normal bowel sounds, non tender, soft, no organomegaly Edema: no edema noted Arm (L), no edema noted Arm (R) Neurologic: icu manager II-XII grossly normal, responsive, disoriented Skin: normal pigmentation Lymphatic: normal anterior cervical (L), normal anterior cervical (R) Assessment/Plan Problem List: (1) UTI (urinary tract infection) ICD Codes: N39.0 - Urinary tract infection, site not specified SNOMED: 23351059 (2) Sepsis ICD Codes: A41.9 - Sepsis, unspecified organism SNOMED: 49745321 (3) BPH (benign prostatic hyperplasia) ICD Codes: N40.0 - Benign prostatic hyperplasia without lower urinary tract symptoms SNOMED: 643469754 Qualifiers: (4) Parkinson disease ICD Codes: G20 - Parkinson's disease SNOMED: 48681609 (5) Dementia ICD Codes: F03.90 - Unspecified dementia without behavioral disturbance SNOMED: 49824368 (6) Artificial pacemaker ICD Codes: Z95.0 - Presence of cardiac pacemaker SNOMED: 008439933 (7) Suspected COVID-19 virus infection ICD Codes: R68.89 - Other general symptoms and signs SNOMED: 502254752 Status: stable Assessment/Plan: monitor off abx resp care o2 replace lytes as needed monitor labs dvt/stress ulcer prophylaxis family declined snf placement. Dtr aware that pt require total care and is currently max assist. dnr dc planning when cleared by Dax Farrell MD Apr 12, 2020 22:35
--- NOTE | 2020-04-12 23:57 | Cardiology Progress Note ---
Subjective DATE OF SERVICE: Apr 12, 2020 Rare episodes of SBP below 100 - asymptomatic and likely his baseline. No c/o pain. Follows commands in urdu. Daughter wants patient to return home when stable CT angio was negative for pulmonary emboli, but suggests component of CHF Urine revealed yeast; ID recommendations noted. Objective Last 24 Hour Vital Signs Date Time Temp Pulse Resp B/P (MAP) Pulse Ox O2 Delivery O2 Flow Rate FiO2 04/12/20 21:00 Room Air 04/12/20 20:00 98.3 65 16 97/60 (72) 99 04/12/20 16:00 98.0 71 18 114/69 (84) 98 04/12/20 12:58 98.0 69 18 111/71 (84) 98 04/12/20 09:00 108/68 04/12/20 09:00 Room Air 04/12/20 08:00 98.0 65 18 108/68 (81) 98 04/12/20 04:00 97.9 60 18 103/61 (75) 97 04/12/20 00:00 97.0 58 18 97/65 (76) 97 ROS: unchanged from my evaluation of 04/02/20 HEENT: normal ENT inspection RHYTHM: NSR, PACs LUNGS: diminished breath sounds CARDIAC: normal rate, regular rhythm, normal S1 and S2 ABDOMEN: normal bowel sounds, non tender, soft EXTREMITIES: normal range of motion, No edema, other - Muscle atrophy - symmetric; +tremor of extremities Assessment/Plan Assessment/Plan UTI Fungal cystitis Sepsis Lactic acidosis Parkinsons with dementia Dehydration/hypernatremia Ac/chronic diastolic CHF Shoulder pains Sinus node disease Hypomagnesemia corrected Hypokalemia corrected No recurrent episodes of hypotension No additional diuresis at present Antimicrobials per ID - completed Titrate Sinemet as outpatient No indication for pacemaker DC planned Tanmay Mayfield MD Apr 12, 2020 23:57
[2020-04-13] VITALS: BP 96/58
[2020-04-13 04:08] VITALS: BP 93/51
[2020-04-13 06:39] LABS: ANION GAP 11 mmol/L (5-15); BLOOD UREA NITROGEN 14 mg/dL (7-18); CALCIUM 9.2 MG/DL (8.5-10.1); CARBON DIOXIDE 21 MMOL/L (21-32); CHLORIDE 103 MMOL/L (98-107); CREATININE 0.8 MG/DL (0.55-1.30); POTASSIUM 4.5 MMOL/L (3.5-5.1); SODIUM 135 MMOL/L (136-145)
--- NOTE | 2020-04-13 06:51 | NUR ---
NURSE HAND-OFF: Important Events on Shift:[had BM last night, uneventful] Patient Status: [stable] Diet: [Reg, mech chopped 1:1 feed] Pending Orders: [possible dcp] Pending Results/Labs:[] Pending MD notification:[] Latest Vital Signs: Temperature 98.2 , Pulse 70 , B/P 93 /51 , Respiratory Rate 17 , O2 SAT 99 , Room Air, O2 Flow Rate 2.0 . Vital Sign Comment: [] Latest Blount Fall Score: 50 Fall Risk: High Risk Safety Measures: Call light Within Reach, Bed Alarm Zone 1, Side Rails Side Rails x3, Bed position Low and Locked. Fall Precautions: Yellow Socks Patient Fall Education
--- NOTE | 2020-04-13 07:20 | NUR ---
HAND-OFF: Report given to Cande MONTEZ.
--- NOTE | 2020-04-13 07:36 | NUR ---
NURSE NOTES: Report received from Amelia MONTEZ. Patient seen on rounds, asleep but easily rousable, not in distress, comfortable. Noted DNR/DNI status. Afebrile. PIV on 2 sites on left forearm, G. 24 patent and intact. Condom catheter secured and draining. Noted optifoam over sacral area and bilateral heels, CAMERON mattress on. Bed low and locked, siderails up x 2, zone alarms on 1, will continue to monitor.
[2020-04-13 08:00] VITALS: BP 112/69
[2020-04-13] MEDS: Lisinopril 2.5mg tab ORAL SCH (09:00)
[2020-04-13] MEDS: Fluconazole 100mg tab ORAL SCH (09:12)
--- NOTE | 2020-04-13 10:52 | Nephrology Progress Note ---
Assessment/Plan Problem List: (1) Anemia (2) Dehydration (3) Electrolyte imbalance (4) UTI (urinary tract infection) (5) BPH (benign prostatic hyperplasia) (6) Dementia (7) Malnutrition Assessment Lactic acidosis UTI, sepsis, high lactic acid, leukocytosis Chronic diastolic congestive heart failure Protein calorie malnutrition Elevated d-dimer Parkinson disease Diabetes mellitus BPH Dementia DNR status Plan April 13: Labs reviewed. Sodium 135. Stable from renal standpoint of view. April 12: No chemistry panel done today. Clinically stable. Continue per PMD. April 11: Labs reviewed. Stable from renal standpoint of view. April 10: Stable from renal standpoint of view. Continue per PMD. April 09: Labs reviewed. Renal parameters stable. April 08: No chemistry panel done today. Stable from renal standpoint of view. April 07: Labs reviewed. Stable from renal standpoint of view. April 06: Labs reviewed. Stable from renal standpoint reviewed. April 05: Labs reviewed. Potassium supplement ordered. Continue per ID. Stable from renal standpoint of view. April 04: Chemistry panel pending. Status quo. Continue per current management. Hydrate Keep the blood pressure and blood sugar in check Antibiotics Avoid nephrotoxic's Per orders Subjective ROS Limited/Unobtainable: No Objective Objective Last 24 Hour Vital Signs Date Time Temp Pulse Resp B/P (MAP) Pulse Ox O2 Delivery O2 Flow Rate FiO2 04/13/20 09:00 Room Air 04/13/20 09:00 93/51 04/13/20 08:00 96.6 72 18 112/69 (83) 96 04/13/20 04:08 98.2 70 17 93/51 (65) 99 04/13/20 00:00 98.1 64 16 96/58 (71) 100 04/12/20 21:00 Room Air 04/12/20 20:00 98.3 65 16 97/60 (72) 99 04/12/20 16:00 98.0 71 18 114/69 (84) 98 04/12/20 12:58 98.0 69 18 111/71 (84) 98 Intake and Output 04/12/20 04/13/20 18:59 06:59 Intake Total 820 ml Output Total 500 ml Balance 820 ml -500 ml Intake Oral 820 ml Output Urine Total 500 ml # Voids 1 # Bowel Movements 2 Laboratory Tests 04/13/20 05:01: Sodium Level 135L, Potassium Level 4.5, Chloride Level 103, Carbon Dioxide Level 21, Anion Gap 11, Blood Urea Nitrogen 14, Creatinine 0.8, Estimat Glomerular Filtration Rate > 60, Glucose Level 116H, Calcium Level 9.2 Height (Feet): 5 Height (Inches): 2.00 Weight (Pounds): 107 General Appearance: no apparent distress Objective No change Ruben Davis MD Apr 13, 2020 10:52
[2020-04-13] MEDS: Enoxaparin 40mg Inj SUBQ SCH (11:34)
[2020-04-13 12:00] VITALS: BP 108/58
--- NOTE | 2020-04-13 15:50 | General Progress Note ---
Subjective ROS Limited/Unobtainable: No Constitutional: Reports: malaise, weakness HEENT: Reports: no symptoms Cardiovascular: Reports: no symptoms Respiratory: Reports: no symptoms Gastrointestinal/Abdominal: Reports: no symptoms Genitourinary: Reports: no symptoms Neurologic/Psychiatric: Reports: pre-existing deficit Endocrine: Reports: no symptoms Hematologic/Lymphatic: Reports: anemia Allergies: Coded Allergies: No Known Allergies (Unverified , 10/13/19) All Systems: reviewed and negative except above Subjective no events. stable. completed iv abx per id. no distress. per staff more alert. eating better. weak. off o2 Objective Last 24 Hour Vital Signs Date Time Temp Pulse Resp B/P (MAP) Pulse Ox O2 Delivery O2 Flow Rate FiO2 04/13/20 09:00 Room Air 04/13/20 09:00 93/51 04/13/20 08:00 96.6 72 18 112/69 (83) 96 04/13/20 04:08 98.2 70 17 93/51 (65) 99 04/13/20 00:00 98.1 64 16 96/58 (71) 100 04/12/20 21:00 Room Air 04/12/20 20:00 98.3 65 16 97/60 (72) 99 04/12/20 16:00 98.0 71 18 114/69 (84) 98 Intake and Output 04/12/20 04/13/20 19:00 07:00 Intake Total 820 ml Output Total 500 ml Balance 820 ml -500 ml Intake Oral 820 ml Output Urine Total 500 ml # Voids 1 # Bowel Movements 2 Laboratory Tests 04/13/20 05:01: Sodium Level 135L, Potassium Level 4.5, Chloride Level 103, Carbon Dioxide Level 21, Anion Gap 11, Blood Urea Nitrogen 14, Creatinine 0.8, Estimat Glomerular Filtration Rate > 60, Glucose Level 116H, Calcium Level 9.2 Height (Feet): 5 Height (Inches): 2.00 Weight (Pounds): 107 Objective General Appearance: WD/WN, no apparent distress, alert, confused EENT: normal ENT inspection Neck: non-tender, normal alignment, supple Cardiovascular: normal peripheral pulses, normal rate, regular rhythm Respiratory/Chest: chest wall non-tender, lungs clear, normal breath sounds, no respiratory distress Abdomen: normal bowel sounds, non tender, soft, no organomegaly Edema: no edema noted Arm (L), no edema noted Arm (R) Neurologic: petal shaper hand II-XII grossly normal, responsive, disoriented Skin: normal pigmentation Lymphatic: normal anterior cervical (L), normal anterior cervical (R) Assessment/Plan Problem List: (1) UTI (urinary tract infection) ICD Codes: N39.0 - Urinary tract infection, site not specified SNOMED: 90885146 (2) Sepsis ICD Codes: A41.9 - Sepsis, unspecified organism SNOMED: 06346754 (3) BPH (benign prostatic hyperplasia) ICD Codes: N40.0 - Benign prostatic hyperplasia without lower urinary tract symptoms SNOMED: 935843130 Qualifiers: (4) Parkinson disease ICD Codes: G20 - Parkinson's disease SNOMED: 62820622 (5) Dementia ICD Codes: F03.90 - Unspecified dementia without behavioral disturbance SNOMED: 59297100 (6) Artificial pacemaker ICD Codes: Z95.0 - Presence of cardiac pacemaker SNOMED: 127051092 (7) Suspected COVID-19 virus infection ICD Codes: R68.89 - Other general symptoms and signs SNOMED: 143294883 Status: stable Assessment/Plan: monitor off abx resp care o2 replace lytes as needed monitor labs dvt/stress ulcer prophylaxis family declined snf placement. Dtr aware that pt require total care and is currently max assist. dnr dc planning when cleared by Dax Farrell MD Apr 13, 2020 15:50
--- NOTE | 2020-04-13 15:58 | Surgery Progress Note ---
Surgery Progress Note Subjective Symptoms: improved, tolerating diet, passing flatus Objective Last 24 Hour Vital Signs Date Time Temp Pulse Resp B/P (MAP) Pulse Ox O2 Delivery O2 Flow Rate FiO2 04/13/20 09:00 Room Air 04/13/20 09:00 93/51 04/13/20 08:00 96.6 72 18 112/69 (83) 96 04/13/20 04:08 98.2 70 17 93/51 (65) 99 04/13/20 00:00 98.1 64 16 96/58 (71) 100 04/12/20 21:00 Room Air 04/12/20 20:00 98.3 65 16 97/60 (72) 99 04/12/20 16:00 98.0 71 18 114/69 (84) 98 I&O Intake and Output 04/12/20 04/13/20 19:00 07:00 Intake Total 820 ml Output Total 500 ml Balance 820 ml -500 ml Intake Oral 820 ml Output Urine Total 500 ml # Voids 1 # Bowel Movements 2 Cardiovascular: RSR Respiratory: clear Abdomen: soft, non-tender, present bowel sounds Extremities: no edema, no tenderness, no cyanosis Laboratory Tests Test 04/13/20 05:01 Sodium Level 135 MMOL/L (136-145) L Potassium Level 4.5 MMOL/L (3.5-5.1) Chloride Level 103 MMOL/L (98-107) Carbon Dioxide Level 21 MMOL/L (21-32) Anion Gap 11 mmol/L (5-15) Blood Urea Nitrogen 14 mg/dL (7-18) Creatinine 0.8 MG/DL (0.55-1.30) Estimat Glomerular Filtration Rate > 60 mL/min (>60) Glucose Level 116 MG/DL (74-106) H Calcium Level 9.2 MG/DL (8.5-10.1) Plan Problems: (1) Dementia (2) Parkinson disease (3) BPH (benign prostatic hyperplasia) (4) Sepsis (5) UTI (urinary tract infection) (6) Elevated d-dimer (7) Artificial pacemaker (8) Suspected COVID-19 virus infection (9) Dehydration (10) Anemia (11) Electrolyte imbalance (12) Malnutrition Assessment & Plan: DAILY ESTIMATED NEEDS: Needs based on cardiac, suspected wt loss 51kg 25-35 kcals/kg 4558-9109 total kcals 1-1.5 g protein/kg 51-76 g total protein 25-30 mL/kg 1869-8642 total fluid mLs NUTRITION DIAGNOSIS: Increased kcal/prot needs R/T suspected wt loss as evidenced by possible significant wt loss of 25.5lbs/18.5% in 5 months CURRENT DIET:REGULAR, mech soft chopped PO DIET RECOMMENDATIONS: Maintain liberalized REGULAR/ texture per MAKING MACHINE CATCHER + Glucerna TID ADDITIONAL RECOMMENDATIONS: 1) Daily calibrated bed scale wt, monitor trend 2) Monitor BGs closely, need for hypoglycemics and/or carb controlled diet 3) Check A1C for eval of glycemic control: h/o DM 4) Glucerna TID w/ meals 5) Monitor lytes, replete as needed 5) MVI x 1 (13) Fever (14) Laceration of left upper extremity Assessment & Plan: 89-year-old female with laceration of her left arm/elbow. Unknown etiology patient with tremor, Parkinson's potential against bedside. There is a 1 cm laceration 1 mm epidermal dehiscence with 1 cm x 1 cm surrounding bruising. No drainage no signs of infection. Given size location will hold off on suture repair. Local care with dressings. Fairly superficial. No signs of active infection. Will monitor closely. Furthermore patient identified to have an con associated dermatitis upon admission. Erythema noted around the tae-anal area and buttock. Will monitor closely and care accordingly. Patient regularly wears diapers as per report. Will ensure close monitoring. Thank you for let me participate in patient's care resolved improved no subsequent injury John Avalos Apr 13, 2020 15:58
[2020-04-13 16:00] VITALS: BP 103/58
--- NOTE | 2020-04-13 19:25 | NUR ---
NURSE HAND-OFF: Important Events on Shift: No adverse events noted Patient Status: Stable Diet: Mech soft chopped Pending Orders: N/A Pending Results/Labs: None Pending MD notification: None Latest Vital Signs: Temperature 97.3 , Pulse 76 , B/P 103 /58 , Respiratory Rate 18 , O2 SAT 98 , Room Air, O2 Flow Rate 2.0 . Vital Sign Comment: Latest Blount Fall Score: 50 Fall Risk: High Risk Safety Measures: Call light Within Reach, Bed Alarm Zone 1, Side Rails Side Rails x3, Bed position Low and Locked. Fall Precautions: Yellow Socks Patient Fall Education Report given to Tianna Luo RN.
--- NOTE | 2020-04-13 19:30 | NUR ---
NURSE NOTES: Received patient in no apparent distress. A&OX2, confused. IV site patent and intact. Condom cath on. Sacral dressing changed as ordered. Bed in lowest position. Call light within reach. Will continue to monitor.
[2020-04-13 20:00] VITALS: BP 103/65
--- NOTE | 2020-04-13 20:30 | NUR ---
NURSE NOTES: Daughter at bedside.
[2020-04-13] MEDS: Tamsulosin 0.4mg cap ORAL SCH (20:53)
--- NOTE | 2020-04-13 21:00 | NUR ---
NURSE NOTES: Daughter requested, discharge patient home by ambulance.
[2020-04-14] VITALS: BP 100/61
[2020-04-14] MEDS ORDERED: FLOMAX0.4 MG ORAL (01:06)
[2020-04-14] MEDS ORDERED: ZESTRIL2.5 MG ORAL (01:08)
--- NOTE | 2020-04-14 01:10 | Cardiology Progress Note ---
Subjective DATE OF SERVICE: Apr 13, 2020 Rare episodes of SBP below 100 - asymptomatic and likely his baseline. No c/o pain. Follows commands in bulgarian. Daughter wants patient to return home when stable CT angio was negative for pulmonary emboli, but suggests component of CHF Urine revealed yeast; ID recommendations noted. Objective Last 24 Hour Vital Signs Date Time Temp Pulse Resp B/P (MAP) Pulse Ox O2 Delivery O2 Flow Rate FiO2 04/14/20 00:00 98.4 76 18 100/61 (74) 98 04/13/20 21:00 Room Air 04/13/20 20:00 98.5 72 18 103/65 (78) 98 04/13/20 16:00 97.3 76 18 103/58 (73) 98 04/13/20 12:00 97.7 87 18 108/58 (75) 98 04/13/20 09:00 Room Air 04/13/20 09:00 93/51 04/13/20 08:00 96.6 72 18 112/69 (83) 96 04/13/20 04:08 98.2 70 17 93/51 (65) 99 ROS: unchanged from my evaluation of 04/02/20 HEENT: normal ENT inspection RHYTHM: NSR, PACs LUNGS: diminished breath sounds CARDIAC: normal rate, regular rhythm, normal S1 and S2 ABDOMEN: normal bowel sounds, non tender, soft EXTREMITIES: normal range of motion, No edema, other - Muscle atrophy - symmetric; +tremor of extremities Laboratory Tests Test 04/13/20 05:01 Sodium Level 135 MMOL/L (136-145) L Potassium Level 4.5 MMOL/L (3.5-5.1) Chloride Level 103 MMOL/L (98-107) Carbon Dioxide Level 21 MMOL/L (21-32) Anion Gap 11 mmol/L (5-15) Blood Urea Nitrogen 14 mg/dL (7-18) Creatinine 0.8 MG/DL (0.55-1.30) Estimat Glomerular Filtration Rate > 60 mL/min (>60) Glucose Level 116 MG/DL (74-106) H Calcium Level 9.2 MG/DL (8.5-10.1) Assessment/Plan Assessment/Plan UTI Fungal cystitis resolved Sepsis Lactic acidosis Parkinsons with dementia Dehydration/hypernatremia Ac/chronic diastolic CHF Shoulder pains Sinus node disease Hypomagnesemia corrected Hypokalemia corrected No recurrent episodes of hypotension No additional diuresis at present Antimicrobials per ID - completed Titrate Sinemet as outpatient No indication for pacemaker DC planned once dispo ascertained Tanmay Mayfield MD Apr 14, 2020 01:10
[2020-04-14 04:00] VITALS: BP 93/54
--- NOTE | 2020-04-14 07:30 | NUR ---
NURSE HAND-OFF: Important Events on Shift: daughter requested ambulance for discharge home. Patient Status: Diet: regular Pending Orders: Pending Results/Labs: Pending MD notification: Latest Vital Signs: Temperature 97.9 , Pulse 79 , B/P 93 /54 , Respiratory Rate 18 , O2 SAT 98 , Room Air, O2 Flow Rate 2.0 . Vital Sign Comment: Latest Blount Fall Score: 50 Fall Risk: High Risk Safety Measures: Call light Within Reach, Bed Alarm Zone 1, Side Rails Side Rails x3, Bed position Low and Locked. Fall Precautions: Yellow Socks Patient Fall Education Report given to Cande MONTEZ.
[2020-04-14 08:00] VITALS: BP 105/62
[2020-04-14] MEDS: Lisinopril 2.5mg tab ORAL SCH (09:00)
--- NOTE | 2020-04-14 10:44 | Surgery Progress Note ---
Surgery Progress Note Subjective Additional Comments afebrile, HD stable improving tolerating diet Objective Last 24 Hour Vital Signs Date Time Temp Pulse Resp B/P (MAP) Pulse Ox O2 Delivery O2 Flow Rate FiO2 04/14/20 09:00 Room Air 04/14/20 09:00 93/54 04/14/20 08:00 98.0 75 18 105/62 (76) 98 04/14/20 04:00 97.9 79 18 93/54 (67) 98 04/14/20 00:00 98.4 76 18 100/61 (74) 98 04/13/20 21:00 Room Air 04/13/20 20:00 98.5 72 18 103/65 (78) 98 04/13/20 16:00 97.3 76 18 103/58 (73) 98 04/13/20 12:00 97.7 87 18 108/58 (75) 98 I&O Intake and Output 04/13/20 04/14/20 19:00 07:00 Intake Total 720 ml Output Total 250 ml Balance 720 ml -250 ml Intake Oral 720 ml Output Urine Total 250 ml # Voids 1 # Bowel Movements 2 Dressing: saturated Cardiovascular: RSR Respiratory: decreased breath sounds Abdomen: soft, non-tender, present bowel sounds Extremities: no tenderness, no cyanosis Plan Problems: (1) Dementia (2) Parkinson disease (3) BPH (benign prostatic hyperplasia) (4) Sepsis (5) UTI (urinary tract infection) (6) Elevated d-dimer (7) Artificial pacemaker (8) Suspected COVID-19 virus infection (9) Dehydration (10) Anemia (11) Electrolyte imbalance (12) Malnutrition Assessment & Plan: DAILY ESTIMATED NEEDS: Needs based on cardiac, suspected wt loss 51kg 25-35 kcals/kg 1608-1281 total kcals 1-1.5 g protein/kg 51-76 g total protein 25-30 mL/kg 8468-8337 total fluid mLs NUTRITION DIAGNOSIS: Increased kcal/prot needs R/T suspected wt loss as evidenced by possible significant wt loss of 25.5lbs/18.5% in 5 months CURRENT DIET:REGULAR, mech soft chopped PO DIET RECOMMENDATIONS: Maintain liberalized REGULAR/ texture per INSTRUCTIONAL DESIGN CONSULTANT + Glucerna TID ADDITIONAL RECOMMENDATIONS: 1) Daily calibrated bed scale wt, monitor trend 2) Monitor BGs closely, need for hypoglycemics and/or carb controlled diet 3) Check A1C for eval of glycemic control: h/o DM 4) Glucerna TID w/ meals 5) Monitor lytes, replete as needed 5) MVI x 1 (13) Fever (14) Laceration of left upper extremity Assessment & Plan: 89-year-old female with laceration of her left arm/elbow. Unknown etiology patient with tremor, Parkinson's potential against bedside. There is a 1 cm laceration 1 mm epidermal dehiscence with 1 cm x 1 cm surrounding bruising. No drainage no signs of infection. Given size location will hold off on suture repair. Local care with dressings. Fairly superficial. No signs of active infection. Will monitor closely. Furthermore patient identified to have an con associated dermatitis upon admission. Erythema noted around the tae-anal area and buttock. Will monitor closely and care accordingly. Patient regularly wears diapers as per report. Will ensure close monitoring. Thank you for let me participate in patient's care resolved improved no subsequent injury John Avalos Apr 14, 2020 10:44
--- NOTE | 2020-04-14 11:25 | Nephrology Progress Note ---
Assessment/Plan Problem List: (1) Anemia (2) Dehydration (3) Electrolyte imbalance (4) UTI (urinary tract infection) (5) BPH (benign prostatic hyperplasia) (6) Dementia (7) Malnutrition Assessment Lactic acidosis UTI, sepsis, high lactic acid, leukocytosis Chronic diastolic congestive heart failure Protein calorie malnutrition Elevated d-dimer Parkinson disease Diabetes mellitus BPH Dementia DNR status Plan April 14: No chemistry panel today. Stable from renal standpoint of view for discharge. April 13: Labs reviewed. Sodium 135. Stable from renal standpoint of view. April 12: No chemistry panel done today. Clinically stable. Continue per PMD. April 11: Labs reviewed. Stable from renal standpoint of view. April 10: Stable from renal standpoint of view. Continue per PMD. April 09: Labs reviewed. Renal parameters stable. April 08: No chemistry panel done today. Stable from renal standpoint of view. April 07: Labs reviewed. Stable from renal standpoint of view. April 06: Labs reviewed. Stable from renal standpoint reviewed. April 05: Labs reviewed. Potassium supplement ordered. Continue per ID. Stable from renal standpoint of view. April 04: Chemistry panel pending. Status quo. Continue per current management. Hydrate Keep the blood pressure and blood sugar in check Antibiotics Avoid nephrotoxic's Per orders Subjective ROS Limited/Unobtainable: No Constitutional: Reports: malaise Objective Objective Last 24 Hour Vital Signs Date Time Temp Pulse Resp B/P (MAP) Pulse Ox O2 Delivery O2 Flow Rate FiO2 04/14/20 09:00 Room Air 04/14/20 09:00 93/54 04/14/20 08:00 98.0 75 18 105/62 (76) 98 04/14/20 04:00 97.9 79 18 93/54 (67) 98 04/14/20 00:00 98.4 76 18 100/61 (74) 98 04/13/20 21:00 Room Air 04/13/20 20:00 98.5 72 18 103/65 (78) 98 04/13/20 16:00 97.3 76 18 103/58 (73) 98 04/13/20 12:00 97.7 87 18 108/58 (75) 98 Intake and Output 04/13/20 04/14/20 19:00 07:00 Intake Total 720 ml Output Total 250 ml Balance 720 ml -250 ml Intake Oral 720 ml Output Urine Total 250 ml # Voids 1 # Bowel Movements 2 No chemistry panel today Height (Feet): 5 Height (Inches): 2.00 Weight (Pounds): 107 General Appearance: no apparent distress Objective No change Ruben Davis MD Apr 14, 2020 11:25
[2020-04-14] MEDS: Enoxaparin 40mg Inj SUBQ SCH (11:45)
[2020-04-14 12:00] VITALS: BP 102/65
--- NOTE | 2020-04-14 12:31 | NUR ---
NURSE NOTES: Dr. Reyes gave order for ok to administer flu shot if family consents. However, spoke with Parminder from Pharmacy and was informed that vaccine is not available in pharmacy, daughter Iris Burrows made aware.
--- NOTE | 2020-04-14 14:55 | Cardiology Progress Note ---
Subjective DATE OF SERVICE: Apr 14, 2020 BP remains at baseline No c/o pain. Follows commands in kiswahili. Daughter wants patient to return home today. CT angio was negative for pulmonary emboli, but suggests component of CHF Remains off all anti-microbials. Objective Last 24 Hour Vital Signs Date Time Temp Pulse Resp B/P (MAP) Pulse Ox O2 Delivery O2 Flow Rate FiO2 04/14/20 12:00 97.8 72 18 102/65 (77) 98 04/14/20 09:00 Room Air 04/14/20 09:00 93/54 04/14/20 08:00 98.0 75 18 105/62 (76) 98 04/14/20 04:00 97.9 79 18 93/54 (67) 98 04/14/20 00:00 98.4 76 18 100/61 (74) 98 04/13/20 21:00 Room Air 04/13/20 20:00 98.5 72 18 103/65 (78) 98 04/13/20 16:00 97.3 76 18 103/58 (73) 98 ROS: unchanged from my evaluation of 04/02/20 HEENT: normal ENT inspection RHYTHM: NSR, PACs LUNGS: diminished breath sounds CARDIAC: normal rate, regular rhythm, normal S1 and S2 ABDOMEN: normal bowel sounds, non tender, soft EXTREMITIES: normal range of motion, No edema, other - Muscle atrophy - symmetric; +tremor of extremities Assessment/Plan Assessment/Plan UTI Fungal cystitis resolved Sepsis Lactic acidosis Parkinsons with dementia Dehydration/hypernatremia Ac/chronic diastolic CHF Shoulder pains Sinus node disease Hypomagnesemia corrected Hypokalemia corrected No recurrent episodes of hypotension Titrate Sinemet as outpatient No indication for pacemaker DC plan home today. Tanmay Mayfield MD Apr 14, 2020 14:55
--- NOTE | 2020-04-14 15:25 | General Progress Note ---
Subjective ROS Limited/Unobtainable: No Constitutional: Reports: malaise, weakness HEENT: Reports: no symptoms Cardiovascular: Reports: no symptoms Respiratory: Reports: no symptoms Gastrointestinal/Abdominal: Reports: no symptoms Genitourinary: Reports: no symptoms Neurologic/Psychiatric: Reports: no symptoms Endocrine: Reports: no symptoms Hematologic/Lymphatic: Reports: no symptoms Allergies: Coded Allergies: No Known Allergies (Unverified , 10/13/19) All Systems: reviewed and negative except above Subjective no events. stable. completed iv abx per id. no distress. per staff more alert. eating better. weak. off o2 dtr wants pt to go home now Objective Last 24 Hour Vital Signs Date Time Temp Pulse Resp B/P (MAP) Pulse Ox O2 Delivery O2 Flow Rate FiO2 04/14/20 12:00 97.8 72 18 102/65 (77) 98 04/14/20 09:00 Room Air 04/14/20 09:00 93/54 04/14/20 08:00 98.0 75 18 105/62 (76) 98 04/14/20 04:00 97.9 79 18 93/54 (67) 98 04/14/20 00:00 98.4 76 18 100/61 (74) 98 04/13/20 21:00 Room Air 04/13/20 20:00 98.5 72 18 103/65 (78) 98 04/13/20 16:00 97.3 76 18 103/58 (73) 98 Intake and Output 04/13/20 04/14/20 19:00 07:00 Intake Total 720 ml Output Total 250 ml Balance 720 ml -250 ml Intake Oral 720 ml Output Urine Total 250 ml # Voids 1 # Bowel Movements 2 Height (Feet): 5 Height (Inches): 2.00 Weight (Pounds): 107 Objective General Appearance: WD/WN, no apparent distress, alert, confused EENT: normal ENT inspection Neck: non-tender, normal alignment, supple Cardiovascular: normal peripheral pulses, normal rate, regular rhythm Respiratory/Chest: chest wall non-tender, lungs clear, normal breath sounds, no respiratory distress Abdomen: normal bowel sounds, non tender, soft, no organomegaly Edema: no edema noted Arm (L), no edema noted Arm (R) 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: 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 grossly normal, responsive, disoriented Skin: normal pigmentation Lymphatic: normal anterior cervical (L), normal anterior cervical (R) Assessment/Plan Problem List: (1) UTI (urinary tract infection) ICD Codes: N39.0 - Urinary tract infection, site not specified SNOMED: 54806321 (2) Sepsis ICD Codes: A41.9 - Sepsis, unspecified organism SNOMED: 16335165 (3) BPH (benign prostatic hyperplasia) ICD Codes: N40.0 - Benign prostatic hyperplasia without lower urinary tract symptoms SNOMED: 850580341 Qualifiers: (4) Parkinson disease ICD Codes: G20 - Parkinson's disease SNOMED: 35662018 (5) Dementia ICD Codes: F03.90 - Unspecified dementia without behavioral disturbance SNOMED: 08760271 (6) Artificial pacemaker ICD Codes: Z95.0 - Presence of cardiac pacemaker SNOMED: 758902592 (7) Suspected COVID-19 virus infection ICD Codes: R68.89 - Other general symptoms and signs SNOMED: 064191644 Status: stable Assessment/Plan: monitor off abx resp care o2 replace lytes as needed monitor labs dvt/stress ulcer prophylaxis family declined snf placement. Dtr aware that pt require total care and is currently max assist. dnr dc planning Dax Reyes MD Apr 14, 2020 15:25
--- NOTE | 2020-04-14 15:43 | Infectious Diseases Prog Note ---
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 Parkinson's. 3. Dementia. 4. Paroxysmal atrial fibrillation. 5. BPH. 6. Hypertension. 7. Blood pressure treatment per primary care team. 8. Aspiration risk. 9. No history of diabetes. 10. No history of cancer. 11. No known allergies. 12. Social history is negative. 13. Family history is noncontributory. 14. MAR was noted. 15. Case was discussed with RN. 16. Case communicated with primary care team. 17. Continue treatment per primary consultants. 18. Skin care protocol. Subjective Constitutional: Denies: fever HEENT: Denies: congestion Respiratory: Denies: shortness of breath Gastrointestinal/Abdominal: Denies: nausea Genitourinary: Denies: dysuria, hematuria Neurologic: Denies: headache Psychiatric: Denies: depression Skin: Denies: rash Hematologic: Denies: bleeding Musculoskeletal: Denies: pain Allergies: Coded Allergies: No Known Allergies (Unverified , 10/13/19) Objective Last 24 Hour Vital Signs Date Time Temp Pulse Resp B/P (MAP) Pulse Ox O2 Delivery O2 Flow Rate FiO2 04/14/20 12:00 97.8 72 18 102/65 (77) 98 04/14/20 09:00 Room Air 04/14/20 09:00 93/54 04/14/20 08:00 98.0 75 18 105/62 (76) 98 04/14/20 04:00 97.9 79 18 93/54 (67) 98 04/14/20 00:00 98.4 76 18 100/61 (74) 98 04/13/20 21:00 Room Air 04/13/20 20:00 98.5 72 18 103/65 (78) 98 04/13/20 16:00 97.3 76 18 103/58 (73) 98 Height (Feet): 5 Height (Inches): 2.00 Weight (Pounds): 107 General Appearance: no acute distress HEENT: normocephalic, atraumatic, anicteric Respiratory/Chest: lungs clear, normal breath sounds, no respiratory distress, no accessory muscle use Cardiovascular: normal rate, regular rhythm, no gallop/murmur, no JVD Abdomen: normal bowel sounds, soft, non tender, no organomegaly, non distended Genitourinary: other - no frias Extremities: no cyanosis Skin: no rash 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 This is suggestive of pulmonary edema Multiple calcified mediastinal and hilar lymph nodes as well as small calcified basilar left lung nodules, likely on the basis of old granulomatous disease Pneumobilia, also previously reported, presumably on the basis of prior biliary intervention 10 mm left adrenal nodule. Appearance nonspecific. Very likely a benign adenoma but other etiologies including malignant neoplasm also possible. Consider adrenal protocol CT or MRI if clinically indicated The CT scanner at [facility] is accredited by the [employer] and the scans are performed using protocols designed to limit radiation exposure to as low as reasonably achievable to attain images of sufficient resolution adequate for diagnostic evaluation. Chest x-ray - 04/06/20- Procedure: XRAY Chest 1v Indication: Cough Technique: One view of the chest Comparison: 04/02/2020 Findings: No acute infiltrates, effusions, or congestion. Tortuous calcified aorta. Normal heart size. Upper mediastinum unremarkable. No significant change Impression: No acute process. Microbiology Date/Time Source Procedure Growth Status 04/04/20 17:40 Urine,Clean Catch Urine Culture - Final Enterococcus Faecalis Kelsey Albicans Complete 04/04/20 09:05 Blood Blood Culture - Final NO GROWTH AFTER 5 DAYS Complete 04/02/20 13:12 Nasal Nares MRSA Culture - Final NO METHICILLIN RESISTANT STAPH AUREUS... Complete Labs Test 04/13/20 05:01 Sodium Level 135 MMOL/L (136-145) Potassium Level 4.5 MMOL/L (3.5-5.1) Chloride Level 103 MMOL/L (98-107) Carbon Dioxide Level 21 MMOL/L (21-32) Anion Gap 11 mmol/L (5-15) Blood Urea Nitrogen 14 mg/dL (7-18) Creatinine 0.8 MG/DL (0.55-1.30) Estimat Glomerular Filtration Rate > 60 mL/min (>60) Glucose Level 116 MG/DL (74-106) Calcium Level 9.2 MG/DL (8.5-10.1) wbc - 7.0 hgb - 11.6 Current Medications Medications (Trade) Dose Ordered Sig/Jaime Route PRN Reason Start Time Stop Time Status Last Admin Dose Admin Acetaminophen (Tylenol) 650 mg Q4H PRN ORAL Temp >100.5 04/02/20 10:00 05/02/20 09:59 Bisacodyl (Dulcolax) 10 mg DAILYPRN PRN RECTAL Constipation 04/02/20 10:00 07/01/20 09:59 04/09/20 00:00 Dextrose (Dextrose 50%) 25 ml Q30M PRN IV Hypoglycemia 04/02/20 10:00 07/01/20 09:59 Dextrose (Dextrose 50%) 50 ml Q30M PRN IV Hypoglycemia 04/02/20 10:00 07/01/20 09:59 Enoxaparin Sodium (Lovenox) 40 mg Q24H SUBQ 04/02/20 11:00 07/01/20 10:59 04/14/20 11:45 Famotidine (Pepcid) 20 mg BID ORAL 04/04/20 18:00 07/03/20 17:59 04/14/20 08:07 Lisinopril (ZestriL) 5 mg DAILY ORAL 04/07/20 09:00 05/07/20 08:59 04/11/20 08:50 Ondansetron HCl (Zofran) 4 mg Q6H PRN IVP Nausea & Vomiting 04/02/20 11:00 05/02/20 10:59 Polyethylene Glycol (Miralax) 17 gm DAILYPRN PRN ORAL Constipation 04/02/20 12:00 05/02/20 11:59 04/08/20 08:31 Potassium Chloride (K-Dur) 40 meq TWICE A DAY ORAL 04/05/20 09:00 07/04/20 08:59 04/14/20 08:07 Tamsulosin HCl (Flomax) 0.4 mg BEDTIME ORAL 04/02/20 21:00 05/02/20 20:59 04/13/20 20:53 Cassia Alatorre MD Apr 14, 2020 15:43
[2020-04-14 16:00] VITALS: BP 102/53
--- NOTE | 2020-04-14 16:42 | NUR ---
NURSE NOTES: Patient discharged home via ambulance transport, AxOx2, not in pain or distress, vitals stable prior to transport. Sacral redness noted and dressed with barrier cream and optifoam. Documentation done. PIV removed and dry dressing applied. All discharge instructions and medication list sent with ambulance personnel. Patient had upper and lower dentures on and no other personal belongings. Daughter Iris Burrows informed of discharge. Patient left at 4:30pm with ambulance personnel.
--- NOTE | 2020-04-15 22:07 | Discharge Summary ---
Discharge Summary Discharge Summary _ DATE OF ADMISSION: 04/02/2020 DATE OF DISCHARGE: 04/14/2020 ADDENDUM: Family declined SNF placement. Daughter is aware that patient requires total care and is on max assist. Patient completed IV antibiotics per ID. Patient was then discharged home 04/14/2020. I have been assigned to complete a discharge summary on this account, I was not involved with the patient's management.--KAYLEE Ramirez Jacqueline Robles NP Apr 15, 2020 22:07
== END 2020-04-14 16:40 | disposition home or self-care (01) | DRG 871 ==
LOC: EDBD 08:11 → EMR 08:25 → 2E 08:57 → EDBEDREQ 11:27 → 2E 13:48 → 4E 04-04 15:30
DX: A41.9 Sepsis, unspecified organism (principal); J96.01 Acute respiratory failure with hypoxia; J18.9 Pneumonia, unspecified organism; I50.33 Acute on chronic diastolic (congestive) heart failure; E43 Unspecified severe protein-calorie malnutrition; Z68.1 Body mass index [BMI] 19.9 or less, adult; N12 Tubulo-interstitial nephritis, not specified as acute or chronic; N39.0 Urinary tract infection, site not specified; G20 Parkinson's disease; F02.80 Dementia in other diseases classified elsewhere, unspecified severity, without behavioral disturbance, psychotic disturbance, mood disturbance, and anxiety; I48.0 Paroxysmal atrial fibrillation; Z95.0 Presence of cardiac pacemaker; I11.0 Hypertensive heart disease with heart failure; N40.0 Benign prostatic hyperplasia without lower urinary tract symptoms; Z20.828 Contact with and (suspected) exposure to other viral communicable diseases; B95.2 Enterococcus as the cause of diseases classified elsewhere; D64.9 Anemia, unspecified; Z66 Do not resuscitate; E86.0 Dehydration; E87.8 Other disorders of electrolyte and fluid balance, not elsewhere classified; S41.112A Laceration without foreign body of left upper arm, initial encounter; X58.XXXA Exposure to other specified factors, initial encounter; M25.519 Pain in unspecified shoulder; E83.42 Hypomagnesemia; E87.6 Hypokalemia
CPT/HCPCS: 36415; 71045; 71275; 80048; 80053; 80202; 81003; 82248; 82306; 82550; 82553; 82607; 82728; 82746; 82803; 82962; 82977; 83036; 83540; 83550; 83605; 83615; 83690; 83735; 83880; 84100; 84443; 84484; 84550; 85007; 85025; 85379; 85610; 85730; 86140; 87040; 87081; 87086; 87181; 96365; 96375; 99291; J7030; J8499; U0002